=== PATIENT | male | born 1940 | race Caucasian/White ===

== ENCOUNTER 2016-11-04 14:56 | Inpatient (IN) ==
[2016-11-04] MEDS ORDERED: 0.9 % SODIUM CHLORIDE 1,000 ML IV ONE (15:09)
--- NOTE | 2016-11-04 15:11 | Emergency Department Note ---
Syncope HPI - General Chief Complaint: Syncope Stated Complaint: syncope, dizziness, Time Seen by Provider: 11/04/16 15:09 Source: patient, family Mode of arrival: ambulatory Limitations: no limitations - History of Present Illness HPI Narrative: This patient was feeling stuffed up and so put his head over the pad of hot water with a towel after a few minutes he began feeling faint and passed out briefly for about 20 seconds. His blood pressure is been up and down over the last few days. It was low on Saturday and he was started on Midrin. He was also given Zithromax for an upper respiratory infection. - Related Data Home Medications Medication Instructions Recorded Confirmed aspirin 81 mg chewable tablet 81 mg PO QDAY tab 03/30/15 10/29/16 carvedilol 6.25 mg tablet 6.25 mg PO BID tab 03/30/15 10/29/16 docusate sodium 100 mg capsule 100 mg PO BID cap 03/30/15 10/29/16 isosorbide mononitrate ER 30 mg 30 mg PO QAM tab 03/30/15 10/29/16 tablet,extended release 24 hr multivitamin tablet 1 tab PO QDAY tab 03/30/15 10/29/16 nitroglycerin 0.4 mg sublingual 0.4 mg SUBLINGUAL Q5-15MIN PRN tab 03/30/1503/09 tablet oxygen-air delivery systems device See Dose Instructions .ROUTE 03/30/15 .MEDSUPPLY insulin aspart 100 unit/mL See Protocol SUB-Q TID ml 08/17/15 07/23/16 subcutaneous solution insulin glargine 100 unit/mL 40 unit SUB-Q QPM ml 08/17/15 10/29/16 subcutaneous solution cholecalciferol (vitamin D3) 1,000 1,000 unit PO QDAY 09/07/15 10/29/16 unit capsule bumetanide 1 mg tablet 1 mg PO QDAY tab 07/23/16 10/29/16 Previous Rx's Medication Instructions Recorded insulin NPH human recomb 100 15 unit SUB-Q QAM #20 ml 11/24/15 unit/mL subcutaneous suspension atorvastatin 80 mg tablet 80 mg PO QDAY 90 Days 07/02/16 citalopram 20 mg tablet 20 mg PO QDAY 90 Days 07/02/16 clopidogrel 75 mg tablet 75 mg PO QDAY 90 Days 07/02/16 finasteride 5 mg tablet 5 mg PO QDAY 90 Days 07/02/16 losartan 50 mg tablet 50 mg PO QDAY 90 Days 07/02/16 tamsulosin 0.4 mg capsule 0.4 mg PO QDAY 90 Days 07/02/16 predniSONE [Prednisone] 10 mg PO DAILY #40 tablet 10/29/16 Midodrine HCl 10 mg PO TID #30 tablet 11/02/16 Allergies Allergy/AdvReac Type Severity Reaction Status Date / Time Beta-Blockers AdvReac Intermediate tendency Verified 07/23/16 10:50 (Beta-Adrenergic Bloc toward bradycardia w/Coreg & Sectral Review of Systems Constitutional: Denies: fever Eyes: Denies: eye pain ENT ED: Denies: ear pain Cardiovascular: Denies: chest pain Respiratory: Denies: cough Gastrointestinal: Denies: abdominal pain, nausea Genitourinary: Denies: urgency Musculoskeletal: Denies: back pain Integumentary: Denies: rash Neurological: Denies: headache Past Medical History - Past Medical History Medical history: Reports: atrial fibrillation (paroxysmal), CHF, COPD, coronary artery disease, diabetes, GERD, hyperlipidemia, hypertension, renal disease, other (bPH) Surgical history ED: Reports: angioplasty/stent, cataract, herniorrhaphy, pacemaker/AICD - Social History Alcohol use: Reports: None Drug use: Reports: none Physical Exam - General Limitations: no limitations General appearance: alert - Head Head exam: atraumatic - Eye Eye exam: Present: normal appearance - ENT ENT exam: normal exam - Neck Neck exam: Present: normal inspection - Chest Chest inspection: Present: normal inspection - Respiratory Respiratory exam: Present: normal lung sounds bilaterally - Cardiovascular Cardiovascular exam: Present: regular rate, normal rhythm, normal heart sounds - Abdominal Exam Abdominal exam: Present: soft. Absent: distention, tenderness - Neurological Exam Neurological exam: Present: alert - Psychiatric Psychiatric exam: Present: normal affect - Skin Skin exam: Present: warm, dry Course Vital Signs Pulse Rate 60 11/04/16 14:57 Respiratory Rate 20 11/04/16 14:57 Blood Pressure 102/46 11/04/16 14:57 Pulse Oximetry (%) 98 11/04/16 14:57 Pulse Rate 60 11/04/16 16:14 Respiratory Rate 21 11/04/16 16:14 Blood Pressure 115/54 11/04/16 16:14 Pulse Oximetry (%) 95 11/04/16 16:14 Syncope - Lab Data Result diagrams: 11/04/16 15:13 11/04/16 15:12 Lab Results 11/04/16 11/04/16 11/04/16 Range/Units 15:12 15:13 15:13 WBC 12.3 H (4.5-11.0) K/mcL RBC 4.76 (4.50-5.90) M/mcL Hgb 14.8 (13.5-16.5) g/dL Hct 42.4 (41.0-55.0) % MCV 89.1 (80.0-100.0) fL MCH 31.1 (26.0-34.0) pg MCHC 34.9 (31.0-36.0) g/dL RDW 12.0 (11.5-14.5) % Plt Count 236 (140-440) K/mcL MPV 9.1 (7.4-10.4) fL Gran % 79.5 H (38.0-78.0) % Lymph % (Auto) 15.7 (15.5-49.0) % [place] % (Auto) 3.7 (1.0-9.0) % Eos % (Auto) 0.8 (0.0-7.0) % Baso % (Auto) 0.3 (0.0-2.0) % Gran # 9.8 H (1.8-8.0) K/mcL Lymph # 1.9 (1.5-4.8) K/mcL [place] # 0.5 (0.1-0.9) K/mcL Eos # 0.1 (0.0-0.7) K/mcL Baso # 0 (0.0-0.3) K/mcL Sodium 135 (133-145) mmol/L Potassium 4.4 (3.3-5.1) mmol/L Chloride 94 L (96-108) mmol/L Carbon Dioxide 29 (22-30) mmol/L Anion Gap 12.0 (8-16) BUN 28 H (8-23) mg/dl Creatinine 1.6 H (0.7-1.2) mg/dl GFR Calculation 42 Glucose 207 H (70-105) mg/dL Calcium 8.9 (8.6-10.4) mg/dl Total Bilirubin 0.3 (0.0-1.0) mg/dL AST 27 (0-37) U/l ALT 23 (0-40) U/l Alkaline Phosphatase 84 (39-117) U/L Troponin T 0.01 (0-0.03) ng/ml Total Protein 7.0 (5.9-8.4) gm/dL Albumin 3.7 (3.2-5.2) gm/dL Globulin 3.3 (2.2-3.7) gm/dL Albumin/Globulin Ratio 1.1 (1.0-2.3) Disposition Clinical Impression: Vasovagal syncope Disposition: Home, Self-Care Condition: Good Instructions: Syncope (ED), Lightheadedness (ED) Referrals: Ac Harris MD [Primary Care Provider] - Time of Disposition: 16:56
[2016-11-04 15:53] LABS: Basophils # (Auto) 0 K/mcL (0.0-0.3); Basophils % (Auto) 0.3 % (0.0-2.0); Eosinophils # (Auto) 0.1 K/mcL (0.0-0.7); Eosinophils % (Auto) 0.8 % (0.0-7.0); Granulocytes % (Auto) 79.5 % (38.0-78.0); Lymphocytes # (Auto) 1.9 K/mcL (1.5-4.8); Lymphocytes % (Auto) 15.7 % (15.5-49.0); Mean Cell Volume 89.1 fL (80.0-100.0); Mean Corpuscular HGB Conc 34.9 g/dL (31.0-36.0); Mean Corpuscular Hemoglobin 31.1 pg (26.0-34.0); Monocytes # (Auto) 0.5 K/mcL (0.1-0.9); Monocytes % (Auto) 3.7 % (1.0-9.0); Platelet Count 236 K/mcL (140-440); RBC 4.76 M/mcL (4.50-5.90)
[2016-11-04 16:17] LABS: ALT/SGPT 23 U/l (0-40); Albumin 3.7 gm/dL (3.2-5.2); Albumin/Globulin Ratio 1.1 (1.0-2.3); Alkaline Phosphatase 84 U/L (39-117); Blood Urea Nitrogen 28 mg/dl (8-23)
--- NOTE | 2016-11-04 17:56 | Emergency Department Note ---
Syncope HPI - General Chief Complaint: Syncope Stated Complaint: syncope, dizziness, Time Seen by Provider: 11/04/16 15:09 Source: patient, family Mode of arrival: ambulatory Limitations: no limitations - Related Data Home Medications Medication Instructions Recorded Confirmed aspirin 81 mg chewable tablet 81 mg PO QDAY tab 03/30/15 11/04/16 carvedilol 6.25 mg tablet 6.25 mg PO DAILY tab 03/30/15 11/04/16 isosorbide mononitrate ER 30 mg 30 mg PO QAM tab 03/30/15 11/04/16 tablet,extended release 24 hr nitroglycerin 0.4 mg sublingual 0.4 mg SUBLINGUAL Q5-15MIN PRN tab 03/30/1509/08 tablet oxygen-air delivery systems device See Dose Instructions .ROUTE 03/30/15 .MEDSUPPLY insulin aspart 100 unit/mL See Protocol SUB-Q TID ml 08/17/15 11/04/16 subcutaneous solution insulin glargine 100 unit/mL 40 unit SUB-Q QPM ml 08/17/15 11/04/16 subcutaneous solution bumetanide 1 mg tablet 1 mg PO QDAY tab 07/23/16 11/04/16 Previous Rx's Medication Instructions Recorded insulin NPH human recomb 100 15 unit SUB-Q QAM #20 ml 11/24/15 unit/mL subcutaneous suspension atorvastatin 80 mg tablet 80 mg PO QDAY 90 Days 07/02/16 citalopram 20 mg tablet 20 mg PO QDAY 90 Days 07/02/16 clopidogrel 75 mg tablet 75 mg PO QDAY 90 Days 07/02/16 finasteride 5 mg tablet 5 mg PO QDAY 90 Days 07/02/16 losartan 50 mg tablet 50 mg PO QDAY 90 Days 07/02/16 tamsulosin 0.4 mg capsule 0.4 mg PO QDAY 90 Days 07/02/16 predniSONE [Prednisone] 10 mg PO DAILY #40 tablet 10/29/16 Allergies Allergy/AdvReac Type Severity Reaction Status Date / Time Beta-Blockers AdvReac Intermediate tendency Verified 07/23/16 10:50 (Beta-Adrenergic Bloc toward bradycardia w/Coreg & Sectral Review of Systems Constitutional: Denies: fever Eyes: Denies: eye pain ENT ED: Denies: ear pain Cardiovascular: Denies: chest pain Respiratory: Denies: cough Gastrointestinal: Denies: abdominal pain, nausea Genitourinary: Denies: urgency Musculoskeletal: Denies: back pain Integumentary: Denies: rash Neurological: Denies: headache Past Medical History - Past Medical History Medical history: Reports: atrial fibrillation (paroxysmal), CHF, COPD, coronary artery disease, diabetes, GERD, hyperlipidemia, hypertension, renal disease, other (bPH) Surgical history ED: Reports: angioplasty/stent, cataract, herniorrhaphy, pacemaker/AICD - Social History Alcohol use: Reports: None Drug use: Reports: none Physical Exam - General Limitations: no limitations General appearance: alert Course Vital Signs Pulse Rate 60 11/04/16 14:57 Respiratory Rate 20 11/04/16 14:57 Blood Pressure 102/46 11/04/16 14:57 Pulse Oximetry (%) 98 11/04/16 14:57 Pulse Rate 60 11/04/16 17:17 Respiratory Rate 22 11/04/16 17:17 Blood Pressure 122/67 11/04/16 17:17 Pulse Oximetry (%) 96 11/04/16 17:17 Syncope - MDM Narrative Medical decision making narrative: Family sided they would rather have the patient stay overnight in the hospital and Dr. Garduno was agreeable to it. He will be admitted to telemetry. - Lab Data Result diagrams: 11/04/16 15:13 11/04/16 15:12 Lab Results 11/04/16 11/04/16 11/04/16 Range/Units 15:12 15:13 15:13 WBC 12.3 H (4.5-11.0) K/mcL RBC 4.76 (4.50-5.90) M/mcL Hgb 14.8 (13.5-16.5) g/dL Hct 42.4 (41.0-55.0) % MCV 89.1 (80.0-100.0) fL MCH 31.1 (26.0-34.0) pg MCHC 34.9 (31.0-36.0) g/dL RDW 12.0 (11.5-14.5) % Plt Count 236 (140-440) K/mcL MPV 9.1 (7.4-10.4) fL Gran % 79.5 H (38.0-78.0) % Lymph % (Auto) 15.7 (15.5-49.0) % [place] % (Auto) 3.7 (1.0-9.0) % Eos % (Auto) 0.8 (0.0-7.0) % Baso % (Auto) 0.3 (0.0-2.0) % Gran # 9.8 H (1.8-8.0) K/mcL Lymph # 1.9 (1.5-4.8) K/mcL [place] # 0.5 (0.1-0.9) K/mcL Eos # 0.1 (0.0-0.7) K/mcL Baso # 0 (0.0-0.3) K/mcL Sodium 135 (133-145) mmol/L Potassium 4.4 (3.3-5.1) mmol/L Chloride 94 L (96-108) mmol/L Carbon Dioxide 29 (22-30) mmol/L Anion Gap 12.0 (8-16) BUN 28 H (8-23) mg/dl Creatinine 1.6 H (0.7-1.2) mg/dl GFR Calculation 42 Glucose 207 H (70-105) mg/dL Calcium 8.9 (8.6-10.4) mg/dl Total Bilirubin 0.3 (0.0-1.0) mg/dL AST 27 (0-37) U/l ALT 23 (0-40) U/l Alkaline Phosphatase 84 (39-117) U/L Troponin T 0.01 (0-0.03) ng/ml Total Protein 7.0 (5.9-8.4) gm/dL Albumin 3.7 (3.2-5.2) gm/dL Globulin 3.3 (2.2-3.7) gm/dL Albumin/Globulin Ratio 1.1 (1.0-2.3) Disposition Clinical Impression: Vasovagal syncope Disposition: Home, Self-Care Condition: Good Instructions: Syncope (ED), Lightheadedness (ED) Referrals: Ac Harris MD [Primary Care Provider] -
--- NOTE | 2016-11-04 18:34 | Cat Scan Report ---
CLINICAL INFORMATION: Syncope COMPARISON: 11/02/2016 TECHNIQUE: 2.5 mm helical slices were obtained in the skull base to vertex. Following reconstruction, axial reformatted images were reviewed at bone and parenchymal windows. FINDINGS: The ventricles, sulci, fissures, and cisterns are symmetrically enlarged bowel mild age-related atrophy - no extra-axial fluid collections or masses are appreciated. Patchy chronic ischemic changes in the cerebral white matter and few scattered tiny remote lacunar infarcts in the the cerebral white matter and basal ganglia seen - as before. No acute cerebral hemorrhage, mass effect or edema. Bone windows show no osseous abnormality. IMPRESSION: Mild atrophy and chronic ischemic changes in the cerebral white matter with scattered remote lacunar infarcts. No change from previous study - no acute disease. Interpreted and Authenticated by: Damon Moffett 11/04/16
[2016-11-04 19:24] LABS: Appearance,Urine CLEAR; Bacteria,Urine 0 /hpf (0); Bilirubin,Urine NEG (NEG); Color,Urine YELLOW; Glucose,Urine (UA) >=500 mg/dL (NEG); Leukocyte Esterase,Urine NEG /uL (NEG); Mucus,Urine FEW /hpf (0); Nitrate,Urine NEG (NEG); Protein,Urine NEG (NEG); Urine Blood NEG mg/dL (<0.03); Urine Hyaline Cast 13 /lpf (0-2); Urine RBC 1 /hpf (0-1); Urine Squamous Epithelial Cell < 1 /hpf (0-4); Urine WBC 1 /hpf (0-4); Urobilinogen,Urine NEG (NEG)
[2016-11-04] MEDS ORDERED: traZODone HCL 50 MG TABLET PO PRN (20:36)
[2016-11-04] MEDS ORDERED: ACETAMINOPHEN 1,000 MG/100 ML BOTTLE IV PRN (20:36)
[2016-11-04] MEDS ORDERED: guaiFENesin/CODEINE 10 ML UDC PO PRN (20:36)
[2016-11-04] MEDS ORDERED: ONDANSETRON 4 MG/2 ML VIAL IV PRN (20:36)
[2016-11-04] MEDS ORDERED: ACETAMINOPHEN 325 MG TABLET PO PRN (20:36)
[2016-11-04] MEDS ORDERED: POTASSIUM CHLORIDE 20 MEQ PACKET PO PRN (20:36)
[2016-11-04] MEDS ORDERED: MAGNESIUM SULFATE 2 GM/50 ML BAG IV PRN (20:36)
[2016-11-04] MEDS: INSULIN GLARGINE, HUMAN 1 UNIT/0.01 ML SQ SCH (21:31)
[2016-11-04] MEDS: SENNOSIDES/DOCUSATE SODIUM 1 TAB TABLET PO SCH (21:32)
[2016-11-04] MEDS: DOCUSATE SODIUM 100 MG CAPSULE PO SCH (21:32)
[2016-11-04] MEDS: HEPARIN 5,000 UNIT/ML VIAL SQ SCH (21:34)
[2016-11-04] MEDS: 0.9 % SODIUM CHLORIDE 10 ML SYRINGE IV SCH (21:35)
--- NOTE | 2016-11-04 22:00 | History and Physical Report ---
DATE OF ADMISSION: 11/04/2016 REASON FOR ADMISSION: Syncopal episode. HISTORY OF CHIEF COMPLAINT: The patient is a 76-year-old with known history of coronary artery disease, ischemic cardiomyopathy status post pacemaker placement. The patient has had poorly controlled diabetes and has had recurrent syncopal episodes in the past. He was evaluated by [facility] recently and was started on midiodrine. However, his symptoms have progressed to the point that patient gets a syncopal episode every 10-15 days. He was supposed to see slab grinder, Dr. Maya. However, this afternoon he passed out while he was trying steam inhalation for a stuffed nose and was subsequently brought to [facility] ER. Initial workup was unremarkable except for low blood pressures around 80s. The patient received crystalloids with subsequent improvement in blood pressures and near resolution of symptoms; however, given syncopal episodes hospitalist service was consulted. At the time of examination, the patient is alert, oriented. He is able to provide most of the history. He denies lightheadedness, chest pain, dizziness. Initial troponins, along with EKG, were essentially unremarkable, unchanged from prior. He denies diarrhea or dysuria. He denies excessive diuretic use. He further denies chest palpitation, exertional chest pain, or exertional dyspnea. He denies changes in medications. He endorses to very high blood sugars with poor control; is currently on Lantus, Novolin, and NovoLog and has extensive peripheral neuropathy. REVIEW OF SYSTEMS: Other than that, a 10-point review of system was performed and negative except the ones discussed above. PAST MEDICAL HISTORY: Significant for: 1. Ischemic cardiomyopathy. 2. Hyperlipidemia. 3. Hypertension. 4. Anxiety disorder. 5. Diabetes mellitus type 2. 6. Benign prostatic hypertrophy. 7. History of chronic kidney disease, stage 3. CURRENT MEDICATIONS: Aspirin 81. Plavix 75. Bumetanide 1. Atorvastatin 80. Coreg 6.25 twice daily Prednisone 10. Finasteride 5. Isosorbide 30. Losartan 50. Tamsulosin 0.4. Novolin 15 every a.m. Aspart for sliding scale. Glargine 40. ALLERGIES: Known To BETA BLOCKERS. SOCIAL HISTORY: The patient quit smoking 40 years ago. He is to his , Lisy. He has a son and a daughter. He is retired from . He uses occasional beer and wine. Lives in the [place]. FAMILY HISTORY: Significant for dementia, mother and grandmother. Father and uncle with type 2 diabetes, essential hypertension, coronary artery disease and myocardial infarction. PHYSICAL EXAMINATION: GENERAL EXAMINATION: The patient is alert, oriented. BMI 39. Height 5 feet 9 inches. VITAL SIGNS: Blood pressure up from 80 systolic to 175/88. Respiratory rate 20. Temperature 96.9. Pulse 59. Sats 96% on room air. HEENT: Pupils symmetric. Oral cavity dry. No ear or nose discharge. Head: Normocephalic, atraumatic. NECK: No lymphadenopathy. HEART: S1, S2 regular rhythm. Pacemaker leads, anterior chest. Diminished breath sounds but no crackles. ABDOMEN: Soft, nontender. LOWER EXTREMITY EXAMINATION: No cyanosis or clubbing. No joint swelling. SKIN: No suspicious lesions. PSYCHIATRIC: Alert and cooperative. No anxiety or agitation. NEURO: Nonfocal except for neuropathic changes in glove and stocking fashion. LABS AND IMAGING: White count 12.3, hemoglobin 14.8, neutrophils 80 percent platelets 236. Sodium 135, potassium 4.4, creatinine 1.6, BUN 28. LFTs unremarkable. UA unremarkable. CT head: Atrophy and chronic ischemic changes. No acute change abnormality. EKG: Left axis deviation with left ventricular hypertrophy. T inversion, anterolateral leads. ASSESSMENT AND PLAN: A 76-year-old with known history of ischemic cardiomyopathy, admitted with syncope. 1. Syncope, rule out neurocardiogenic syncope. CT unremarkable. The patient has a pacemaker and no evidence of tachyarrhythmia on EKG. We will continue patient on telemetry monitoring to rule out tachyarrhythmias, perform orthostatics. High probability of autonomic dysfunction secondary to poorly controlled diabetes. We will consult cardiology, Dr. Maya, in the morning. The patient will be admitted for observation for further evaluation of recurrent syncopal episodes. 2. Other prior medical issues. Will be continued on prior home medications includina. Diabetes mellitus type 2. Continue basal prandial insulin. 2b. Benign prostatic hypertrophy. Continue tamsulosin/finasteride 2c. Anxiety disorder. Continue citalopram. 2d. Hyperlipidemia. Continue statin. 2e. History of coronary artery disease. Continue aspirin, statin and Coreg/Plavix. PLAN FOR TODAY: 1. Admit as an inpatient. 2. Cardiology consult. 3. Syncope workup. 4. Echocardiogram. 5. Preexisting medical condition management as above. AA:[email or web address] Job ID: [id number] Doc ID: [id number] Santos Guallpa MD MTDD
[2016-11-04 22:27] LABS: Estimated Average Glucose(eAG) 292 mg/dL; Hemoglobin A1C 11.8 % HGB (4.0-6.0)
[2016-11-05 05:44] LABS: Mean Cell Volume 88.7 fL (80.0-100.0); Mean Corpuscular HGB Conc 34.6 g/dL (31.0-36.0); Mean Corpuscular Hemoglobin 30.7 pg (26.0-34.0); Platelet Count 202 K/mcL (140-440); RBC 4.38 M/mcL (4.50-5.90); Red Cell Distribution Width 11.7 % (11.5-14.5)
[2016-11-05 06:52] LABS: ALT/SGPT 23 U/l (0-40); Albumin 3.4 gm/dL (3.2-5.2); Albumin/Globulin Ratio 1.4 (1.0-2.3); Alkaline Phosphatase 74 U/L (39-117); Bilirubin,Direct < 0.2 mg/dL (0.0-0.3); Blood Urea Nitrogen 29 mg/dl (8-23); Gamma Glutamyl Transpeptidase 11 U/L (8-61); Phosphorous 2.8 mg/dL (2.7-4.5); Uric Acid 7.2 mg/dL (2.5-8.0)
[2016-11-05 07:05] LABS: Band Neutrophils % 1 % (0-10); Lymphocytes % 19 % (15-49); Monocytes % (Manual) 8 % (1-9); Myelocytes % 1 % (0-0); Platelet Estimate NORMAL (NORMAL); RBC Morphology NORMAL (NORMAL); Segmented Neutrophils % 67 % (38-78)
[2016-11-05] MEDS: 0.9 % SODIUM CHLORIDE 10 ML SYRINGE IV SCH ×3 (07:12→21:30)
--- NOTE | 2016-11-05 07:45 | XRay Report ---
HISTORY: Reason for Exam:elevated WBC, syncope FINDINGS: A small band of discoid atelectasis is present above the left costophrenic sulcus. This has enlarged since 10/29/16. The lungs are otherwise clear normally expanded. The heart is mildly enlarged. There is no congestive heart failure or pleural effusion. Dual-chamber pacemaker is well-positioned. IMPRESSION: Mild discoid atelectasis in the lateral basal segment left lower lobe Interpreted and Authenticated by: Helio Rocha 11/05/16
[2016-11-05] MEDS: predniSONE 10 MG TABLET PO SCH (08:02)
[2016-11-05] MEDS: TAMSULOSIN 0.4 MG CAPSULE PO SCH (08:30)
[2016-11-05] MEDS: CITALOPRAM 20 MG TABLET PO SCH (08:30)
[2016-11-05] MEDS: ASPIRIN 81 MG TAB.CHEW PO SCH (08:30)
[2016-11-05] MEDS: ISOSORBIDE MONONITRATE 30 MG TAB.XL.24H PO SCH (08:30)
[2016-11-05] MEDS: ATORVASTATIN 40 MG TABLET PO SCH (08:31)
[2016-11-05] MEDS: MULTIVIT,THER IRON,CA,FA & MIN 1 TABLET PO SCH (08:31)
[2016-11-05] MEDS: CLOPIDOGREL 75 MG TABLET PO SCH (08:31)
[2016-11-05] MEDS: HEPARIN 5,000 UNIT/ML VIAL SQ SCH ×2 (08:31→21:25)
[2016-11-05] MEDS: DOCUSATE SODIUM 100 MG CAPSULE PO SCH ×2 (08:31→21:24)
[2016-11-05] MEDS: LOSARTAN 50 MG TABLET PO SCH (08:31)
[2016-11-05] MEDS: BUMETANIDE 1 MG TABLET PO SCH (08:32)
[2016-11-05] MEDS: INSULIN LISPRO 1 UNIT/0.01 ML UNIT SQ SCH ×4 (08:33→21:27)
[2016-11-05] MEDS: FINASTERIDE 5 MG TABLET PO SCH (08:47)
[2016-11-05] MEDS: INSULIN NPH, HUMAN 1 UNIT/0.01 ML UNIT SQ SCH (08:47)
[2016-11-05] MEDS: CARVEDILOL 6.25 MG TABLET PO SCH (09:42)
--- NOTE | 2016-11-05 10:15 | Internal Med Progress Note ---
Medical - PN: Subj Patient information: Note initiated : 11/05/16 at 10:11 am Service Date, if different from initiated Date: [] Patient: Black Armstrong 76 y/o M admitted on 11/04/16 for Syncope/Dizziness. Chief Complaint: [] Interval history: 11/0498-09-[id number]-old with ischemic cardiomyopathy/sick sinus syndrome status post pacemaker placement admitted with recurrent episodes of syncope in the recent past and today. patient has been started on midodrine by [place] [facility] but has been taking due to concerns of hypertension. he is admitted for observation/cardiology consultation per Dr. Maya. 11/05- patient doing well. Systolics ranging from 80-200. Asymptomatic. Tolerating physical therapy. review prior medical records. await echocardiogram. Cardiology consulted. Continue telemetry monitoring. No overnight significant tachyarrhythmias. Patient feels at baseline. Discussed treatment plan including continuation of midodrine to offset hypotension mediated syncope due to severe autonomic dysfunction likely secondary to underlying poorly controlled diabetes - Constitutional Vitals: Vital Signs Temp Pulse Resp BP Pulse Ox 97.9 F 67 16 162/104 95 11/05/16 04:00 11/05/16 07:13 11/05/16 07:13 11/05/16 07:13 11/05/16 07:13 Period Temp Pulse Resp BP Sys/Carter Pulse Ox Last 24 Hr 97.6 F-97.9 F 60-67 16-18 162-212/69-156 95-99 Intake and Output 11/04/16 11/05/16 11/05/16 21:59 05:59 13:59 Intake Total 100 / 1100 Output Total 400 / 400 400 / 400 Balance -300 / 700 -400 / -400 Weight 265 lb Intake & Output: Intake & Output 11/04/16 11/05/16 11/05/16 21:59 05:59 13:59 Intake Total 100 / 1100 Output Total 400 / 400 400 / 400 Balance -300 / 700 -400 / -400 Weight 265 lb Intake: Oral 100 / 100 Output: Void Amount 400 / 400 400 / 400 Other: # Voids 1 # Bowel Movements 1 General appearance: cooperative, morbidly obese, no acute distress Exam: alert oriented nonlabored breathing No lightheadedness dizziness No anxiety nondistended abdomen Medical - PN: Obj Da - Labs CBC & Chem 7: 11/05/16 04:56 11/05/16 04:56 Labs: Abnormal Lab Results 11/05/16 11/05/16 11/04/16 04:56 04:56 20:52 RBC 4.38 L Hgb 13.4 L Hct 38.9 L Myelocytes % 1 H Reactive Lymphocytes 4 H ESR Chloride 95 L BUN 29 H Creatinine 1.5 H Glucose 325 H Hemoglobin A1c 11.8 H Calcium 8.5 L C-Reactive Protein Total Protein 5.8 L Triglycerides 209 H 11/04/16 11/04/16 20:52 20:52 RBC Hgb Hct Myelocytes % Reactive Lymphocytes ESR 19 H Chloride BUN Creatinine Glucose Hemoglobin A1c Calcium C-Reactive Protein 1.1 H Total Protein Triglycerides Meds: Medications Acetaminophen (Tylenol) 650 mg PO Q4-6HP PRN PRN Reason: PAIN/FEVER > 101 Aspirin (Aspirin) 81 mg PO QDAY [facility] Last Admin: 11/05/16 08:30 Dose: 81 mg Atorvastatin Calcium (Lipitor) 80 mg PO DAILY [facility] Last Admin: 11/05/16 08:31 Dose: 80 mg Bumetanide (Bumex) 1 mg PO QDAY [facility] Last Admin: 11/05/16 08:32 Dose: 1 mg Carvedilol (Coreg) 6.25 mg PO DAILY [facility] Last Admin: 11/05/16 09:42 Dose: 6.25 mg Citalopram Hydrobromide (Celexa) 20 mg PO QDAY [facility] Last Admin: 11/05/16 08:30 Dose: 20 mg Clopidogrel Bisulfate (Plavix) 75 mg PO QDAY [facility] Last Admin: 11/05/16 08:31 Dose: 75 mg Diagnostic Test (Pha) (Accu-Chek) 1 each FS ACHS [facility] Last Admin: 11/05/16 07:12 Dose: 1 each Docusate Sodium (Colace) 100 mg PO BID [facility] Last Admin: 11/05/16 08:31 Dose: 100 mg Finasteride (Proscar) 5 mg PO QDAY [facility] Last Admin: 11/05/16 08:47 Dose: 5 mg Guaifenesin/Codeine Phosphate (Robitussin Ac) 10 ml PO Q4HP PRN PRN Reason: Cough Heparin Sodium (Porcine) (Heparin) 5,000 unit SQ Q12 [facility] Last Admin: 11/05/16 08:31 Dose: 5,000 unit Magnesium Sulfate (Magnesium Sulfate) 2 gm in 50 mls @ 50 mls/hr IV UD PRN PRN Reason: MG = or < 1.7 Acetaminophen (Ofirmev) 1,000 mg in 100 mls @ 200 mls/hr IV Q6HP PRN PRN Reason: PAIN/FEVER > 101 Insulin Glargine (Lantus) 40 unit SQ QPM [facility] Last Admin: 11/04/16 21:31 Dose: 40 unit Insulin Human Lispro (Humalog) 0 unit SQ ACHS [facility] PRN Reason: Protocol Last Admin: 11/05/16 08:33 Dose: 8 unit Insulin Human NPH (Humalin N) 15 unit SQ DAILY [facility] Last Admin: 11/05/16 08:47 Dose: 15 unit Iron Carb/Multivit/Oil Changer/Folic Acid (Multivitamin W/Minerals) 1 tab PO DAILY [facility] Last Admin: 11/05/16 08:31 Dose: 1 tab Isosorbide Mononitrate (Imdur) 30 mg PO QAM [facility] Last Admin: 11/05/16 08:30 Dose: 30 mg Losartan Potassium (Cozaar) 50 mg PO QDAY [facility] Last Admin: 11/05/16 08:31 Dose: 50 mg Ondansetron HCl (Zofran) 4 mg IV Q4-6HP PRN PRN Reason: Nausea And Vomiting Potassium Chloride (Klor-Con) 40 meq PO DAILYP PRN PRN Reason: K+ < 3.5 Prednisone (Prednisone) 10 mg PO QAC [facility] Last Admin: 11/05/16 08:02 Dose: 10 mg Senna/Docusate Sodium (Senna Plus Tablet) 1 tab PO HS [facility] Last Admin: 11/04/16 21:32 Dose: 1 tab Sodium Chloride (Saline Flush) 10 ml IV Q8 [facility] Last Admin: 11/05/16 07:12 Dose: 10 ml Tamsulosin HCl (Flomax) 0.4 mg PO QDAY [facility] Last Admin: 11/05/16 08:30 Dose: 0.4 mg Trazodone HCl (Desyrel) 50 mg PO HSP PRN PRN Reason: Insomnia Medical - PN: A/P - Time Spent With Patient Total time spent is greater than 50% in coordination of care (as documented) at patient's floor/unit and/or counseling patient: 25 - 35 minutes (1) Syncope and collapse Status: Acute Assessment and plan: * Syncope- likely secondary to autonomic dysfunction. No tachyarrhythmias, echo pending to evaluate for valvular architecture. orthostatic in ER however improved today. * Hhistory of coronary artery disease on aspirin and statin Coreg,Plavix/ARB/ nitrate/Bumex * BPH on finasteride/tamsulosin * DM type II on basal prandial insulin * Hypertension on Coreg/ARB * Anxiety disorder on citalopram Plan * Cardiology consult * Telemetry monitoring, orthostatic blood pressures * pre-existing medical condition management as above * possible discharge in 24 hours Current Visit: Yes Medical - PN: Qual - VTE Deep Vein Thrombosis/Pulmonary Embolism Present on Admission: No
[2016-11-05] MEDS ORDERED: INSULIN LISPRO 1 UNIT/0.01 ML UNIT SQ ONE (14:06)
[2016-11-05] MEDS: SENNOSIDES/DOCUSATE SODIUM 1 TAB TABLET PO SCH (21:24)
[2016-11-05] MEDS: INSULIN GLARGINE, HUMAN 1 UNIT/0.01 ML SQ SCH (21:26)
[2016-11-06 06:41] LABS: Mean Cell Volume 91.6 fL (80.0-100.0); Mean Corpuscular HGB Conc 32.8 g/dL (31.0-36.0); Platelet Count 250 K/mcL (140-440); RBC 4.68 M/mcL (4.50-5.90); Red Cell Distribution Width 12.6 % (11.5-14.5)
--- NOTE | 2016-11-06 06:56 | Echocardiogram Report ---
ECHOCARDIOGRAM: 2-D and M-mode echocardiography with cardiac Doppler and color flow imaging were performed with a [employer] Aplio MX. Indication is syncope. Overall and size of the RA, RV, LV, and aortic root appeared normal. LV wall thickness appeared mildly increased. The inferior and posterolateral britton appeared mildly to moderately hypokinetic. The other LV segments appeared to contract normally and overall LV systolic performance appeared borderline to mildly reduced. Estimated ejection fraction is 45-50%. There was no evidence for mural thrombi. The LA appeared mildly to moderately enlarged. The aortic root appeared sclerotic. The aortic valve appeared trileaflet and normal for age. There was no evidence for aortic stenosis or aortic regurgitation by Doppler interrogation. The mitral and tricuspid valves appeared unremarkable. Doppler interrogation of LV inflow disclosed prolonged early diastolic deceleration time and ''a'' dominance indicating delayed LV relaxation. There was no evidence for mitral regurgitation. Pulmonary venous interrogation disclosed normal ''s'' wave dominance. The pulmonic valve showed normal \\"a'' wave amplitude. Pulmonary artery acceleration time appeared normal. There was no evidence for pulmonic stenosis. Pulmonic regurgitation, probably trivial, was demonstrated. There was no evidence for tricuspid regurgitation. No intracardiac shunting was appreciated. There was no evidence for pericardial effusion. The IVC was dilated and did not vary with the respiratory cycle indicating raised the CVP. Pacemaker leads were seen within the right heart chambers. Probable artificial atrial pacemaker rhythm, rate 60, was present. CONCLUSION:Aortic root sclerosis. Mild concentric LVH with mild to moderate segmental systolic dysfunction and overall borderline to mildly reduced systolic performance. Mild to moderate LA enlargement. Probable raised CVP. (See accompanying M-mode and Doppler reports for quantitation.) ECHOCARDIOGRAPHY M-MODE CALCULATIONS: HT: 69'' WT: 265 BSA: 2.33 m2 NORMALS AORTA: AORTIC ROOT 3.5 2.0-3.7 cm LEFT ATRIUM 4.8 1.9-4.0 cm MITRAL VALVE: EXCURSION 2.2 1.9-2.7 cm EPSS 0.4 <0.5 cm LT VENTRICLE: LVID (ED) 5.0 3.5-5.7 cm LVID (ES) 3.2 SEPTAL THICKNESS 1.2 0.6-1.1 cm SEPTAL EXCURSION 0.4 0.3-0.8 cm LVPW THICKNESS 1.2 0.6-1.1 cm LVPW EXCURSION 1.1 0.9-1.4 cm MINOR AXIS FS 3.6 25%-40% RT VENTRICLE: RVID (ED) -- 0.9-2.6 cm(up to 3cm if LLD) QUALITATIVE DOPPLER FLOW STUDIES MITRAL VALVE -- AORTIC VALVE -- TRICUSPID VALVE -- PULMONIC VALVE OR, probably trivial QUANTITATIVE DOPPLER FLOW STUDIES SAMPLE SITES VELOCITIES PEAK PRESSURE VALVE AREA and/or VALVE WINDOW (PEAK,M/SEC) DROP (GRADIENT) PRESSURE HALF-TIME MV (Diastole) 0.6 0.68 -- -- MV (Systole) -- -- -- AO (Diastole) -- -- -- AO (Systole) 1.0 -- -- TV (Systole) -- -- -- PV (Systole) 0.8 -- -- PV (Diastole) 1.0 LWG:chasity Job ID: [id number] Doc ID: [id number] Ethan Maya MD
[2016-11-06 07:21] LABS: ALT/SGPT 21 U/l (0-40); Albumin 3.5 gm/dL (3.2-5.2); Albumin/Globulin Ratio 1.2 (1.0-2.3); Alkaline Phosphatase 75 U/L (39-117); Bilirubin,Direct < 0.2 mg/dL (0.0-0.3); Blood Urea Nitrogen 32 mg/dl (8-23); Gamma Glutamyl Transpeptidase 17 U/L (8-61); Phosphorous 3.7 mg/dL (2.7-4.5); Uric Acid 7.8 mg/dL (2.5-8.0)
[2016-11-06] MEDS: 0.9 % SODIUM CHLORIDE 10 ML SYRINGE IV SCH (07:49)
[2016-11-06] MEDS: INSULIN LISPRO 1 UNIT/0.01 ML UNIT SQ SCH (07:50)
[2016-11-06 07:55] LABS: Eosinophils % (Manual) 4 % (0-7); Lymphocytes % 29 % (15-49); Monocytes % (Manual) 6 % (1-9); Platelet Estimate NORMAL (NORMAL); RBC Morphology NORMAL (NORMAL); Segmented Neutrophils % 61 % (38-78)
[2016-11-06] MEDS: predniSONE 10 MG TABLET PO SCH (07:57)
[2016-11-06] MEDS: INSULIN NPH, HUMAN 1 UNIT/0.01 ML UNIT SQ SCH (09:18)
[2016-11-06] MEDS: HEPARIN 5,000 UNIT/ML VIAL SQ SCH (09:19)
[2016-11-06] MEDS: FINASTERIDE 5 MG TABLET PO SCH (09:20)
[2016-11-06] MEDS: ASPIRIN 81 MG TAB.CHEW PO SCH (09:20)
[2016-11-06] MEDS: CLOPIDOGREL 75 MG TABLET PO SCH (09:21)
[2016-11-06] MEDS: CARVEDILOL 6.25 MG TABLET PO SCH (09:21)
[2016-11-06] MEDS: LOSARTAN 50 MG TABLET PO SCH (09:21)
[2016-11-06] MEDS: ATORVASTATIN 40 MG TABLET PO SCH (09:22)
[2016-11-06] MEDS: BUMETANIDE 1 MG TABLET PO SCH (09:22)
[2016-11-06] MEDS: TAMSULOSIN 0.4 MG CAPSULE PO SCH (09:23)
[2016-11-06] MEDS: ISOSORBIDE MONONITRATE 30 MG TAB.XL.24H PO SCH (09:23)
[2016-11-06] MEDS: DOCUSATE SODIUM 100 MG CAPSULE PO SCH (09:23)
[2016-11-06] MEDS: MULTIVIT,THER IRON,CA,FA & MIN 1 TABLET PO SCH (09:24)
[2016-11-06] MEDS: CITALOPRAM 20 MG TABLET PO SCH (09:24)
--- NOTE | 2016-11-06 09:59 | Discharge Summary ---
Discharge Plan - Patient/Caregiver Discharge Instructions Discharge Summary: DISCHARGE DIAGNOSIS * Syncope- likely secondary to autonomic dysfunction. No tachyarrhythmias, No Echo evidence of significant valvular stenosis. EF 45-50%. orthostatic in ER however improved yesterday. Patient is fully asymptomatic and requesting discharge. Cardiology consulted and will follow up with Dr. Maya is an outpatient. Cardiology recommended lowering Coreg dose to 3.125 twice daily * History of CAD on aspirin and statin Coreg,Plavix/ARB/nitrate/Bumex * BPH stable on finasteride/tamsulosin * DM type II managed on basal prandial insulin * Hypertension on Coreg/ARB * Anxiety disorder on citalopram [facility] COURSE [id number]-cyso-old with ischemic cardiomyopathy/sick sinus syndrome status post pacemaker placement admitted with recurrent episodes of syncope in the recent past and today. patient has been started on midodrine by [place] cardiology but has been taking due to concerns of hypertension. he is admitted for observation/cardiology consultation per Dr. Maya. 11/05- patient doing well. Systolics ranging from 80-200. Asymptomatic. Tolerating physical therapy. review prior medical records. await echocardiogram. Cardiology consulted. Continue telemetry monitoring. No overnight significant tachyarrhythmias. Patient feels at baseline. Discussed treatment plan including continuation of midodrine to offset hypotension mediated syncope due to severe autonomic dysfunction likely secondary to underlying poorly controlled diabetes 11/06 and patient is asymptomatic. No significant orthostasis. Cardiology consulted and recommended lowering dose of Coreg to 3.125 mg twice daily. atient will follow-up with cardiology as outpatient. He is ambulating tolerating diet denies dizziness or any symptoms including lightheadedness. During the 48 hour observation patient has been clinically asymptomatic without any telemetry events except for paced rhythm. Discharge instructions as below Activity: increase activity as tolerated, resume usual activities as tolerated Diet: Low Sodium (2gm) Additional Instructions: Follow-up PCP in 5 days follow-up with cardiology as advised I recommend SNF physician to check CBC BMP as a posthospital follow-up Coreg dose lowered to 3.125 mg twice daily high risk fall -continue using a walker for ambulation Return to ER if worsening lightheadedness dizziness chest pain shortness of breath Continue low sodium diet and activity as advised Discussed importance of medication adherence Please review medication list with patient prior to discharge Please schedule follow-up with PCP/Providers prior to discharge and provide printouts Portions of this chart may have been created with [employer] voice recognition software. Occasional wrong-word or ?sound-like? substitutions may have occurred due to the inherent limitations of voice recognition software. Please read the chart carefully and recognize, using context, where the substitutions have occurred. CC- Dr. Ac Harris Prescriptions: Carvedilol [Coreg] 3.125 mg PO BID #60 tablet - Follow up Plan Follow up with: Ac Harris MD [Primary Care Provider] - (After reviewing your chart, Dr. Harris's office will contact you for a post hospital follow up appointment. If you do not hear from them within 1 week please call. ) Disposition: Home, Self-Care Prognosis: Good Rehab Potential: Fair I certify that the patient requires SNF services.: No Overall status at discharge: patient is progressing back to baseline
--- NOTE | 2016-11-06 14:50 | Consultation ---
DATE OF CONSULTATION: 11/05/2016 This 76-year-old white man was seen in office consultation on 10/09/16. The reader is referred to the enclosed report from that date. The patient was stable until about a week ago. He seemed to develop bronchitis. He was seen at this hospital's urgent care and given a steroid taper. Initial prednisone dose was 40 mg daily. The patient then seemed to have more lability of blood pressure and lability of blood glucose. He generally felt poorly. There may have been an orthostatic component to lightheadedness, though he is vague in this regard. He had several instances of near syncope on 11/02/2016 and was seen at this hospital's ER. BP was low. Another family development specialist was informally consulted by phone and midodrine was recommended. The did not administer this to the patient, however. Yesterday, 11/04/2016, the patient was receiving nasal and sinus congestion. He fixed a basin of hot/steaming water. He then placed a towel over his head as a \\"kapoor.\\" He lowered his face to be near the water, then had more severe lightheadedness with \\"seizures\\" lasting a few seconds. He was brought back to the ER. This time he was admitted. Initial BP was about 100 systolic, although it has been variable. Rhythm monitoring has shown artificial atrial pace. A series of EKGs have shown no evolutionary changes. CBC and chemistries have been unremarkable. Echocardiogram performed today showed aortic root sclerosis. There was mild LVH with mild to moderate inferior and posterolateral hypokinesis, corresponding to the known old infarct. EF was about 45-50 percent, mildly to borderline reduced. There was some mild to moderate LA enlargement and inferior vena cava appearance suggesting possible raised CVP. Current cardiotonic medications include: Aspirin 81 mg daily. Lipitor 80 mg daily Bumex 1 mg daily. Coreg 6.25 mg daily. __ . Plavix 75 mg daily. KCl \\"as needed.\\" Prednisone 10 mg daily. Flomax 0.4 mg daily. Insulin. PHYSICAL EXAMINATION: GENERAL: On exam, he is considerably overweight and appears chronically ill. VITAL SIGNS: Heart rate 60 and regular, BP 130/80 lying, 120/80 standing left arm, per my exam. HEENT: Unremarkable. NECK: Supple. Thyroid not enlarged. CHEST: Without deformity. Lungs are clear. CARDIOVASCULAR: No JVD. Carotids intact without bruits. Apical impulse not palpable supine. S1, S2 soft and single. No murmur or gallop. ABDOMEN: Obese and difficult to examine. Abdominal aorta not palpably dilated. Liver and spleen not palpably enlarged. EXTREMITIES: No clubbing or cyanosis. The feet are a little cool. Pedal pulses not well felt. In summary, this elderly man is obese, insulin-dependent type 2 diabetic, hypertensive, and hyperlipidemic. Three and a half years ago he sustained an ST elevation inferior myocardial infarction for which a direct stent deployment was pursued. A year later he underwent DDDR for tachy-alissa. The catheterization at that time showed no hemodynamically significant disease. He has since required replacement of his atrial lead. He has had an incidental small subdural hematoma and has chronic kidney disease. He now presents with recurrent syncope to near syncope and BP lability in the setting of a new prednisone prescription. The prednisone dose is presently 10 mg daily. Today, he seems quite stable and BP is optimal. It may be reasonable to continue holding the previously prescribed losartan, previously prescribed isosorbide, mono, and previously prescribed chlorthalidone. The patient and his were carefully advised that his situation is a \\"work in progress.\\" Further adjustments are likely to be needed. He will have a BP check through my office within the next several days. Thank you for allowing me to participate in the care of your patient. LWG:mm Job ID: [id number] Doc ID: [id number] Ethan Harris MD
== END 2016-11-06 11:00 | disposition home or self-care (01) | DRG 639 ==
LOC: ED 14:56 → ICU 19:55
PROVIDERS: ADMIT Internal Medicine; ATTEND Internal Medicine

== ENCOUNTER 2019-09-05 13:04 | Inpatient (IN) ==
[2019-09-05] MEDS ORDERED: IPRATROPIUM/ALBUTEROL 3 ML AMPUL.NEB NEB ONE (13:46)
--- NOTE | 2019-09-05 13:50 | Emergency Department Note ---
SOB HPI - General Chief Complaint: Shortness of Breath/Dyspnea Stated Complaint: Shortness of breath, recent PNA Time Seen by Provider: 09/05/19 13:33 Source: patient, family Mode of arrival: wheelchair Limitations: no limitations - History of Present Illness 79-year-old male patient presents emergency department with chief complaint of worsening shortness of breath, productive cough, and generalized malaise. Patient was recently seen in my care over a week ago and diagnosed with COPD exacerbation. They began treatment with amoxicillin and a burst of corticoster oids. He and his adult daughter tell me he finished the the antibiotics this past Saturday. Unfortunately, his symptoms have persisted. He has a known history of COPD and CHF. He has not gained any considerable weight. They have noted ongoing chills at home. They deny any fevers. They deny any sinus congestion or runny nose. His adult daughter mentions that his sputum has been dark, thick, yellowgreenish. She is noted flecks of what appears to be dark red blood. Patient admits that shortness of breath is worsened from his baseline. He denies any retrosternal chest pain or palpitations. He does have a pacemaker in place. He denies any abdominal pain, nausea, vomiting, or diarrhea. He admits to ongoing blood for suspected hemorrhoid. He denies any focal weakness. A review of his active problems shows the following: Unspecified chest pain, respiratory distress, chronic CHF, type 2 diabetes, chronic hypoxemia, hyperkalemia, acute prerenal azotemia, CHF, CAD, PVD, paroxysmal atrial fibrillation, CKD stage III, pulmonary hypertension, bilateral leg edema, acute [place] (2012), hypertension, hyperlipidemia, constipation, retinopathy, GERD, chronic back pain, BPH, diabetic neuropathy, macular degeneration, depression. - Related Data Home Medications Medication Instructions Recorded Confirmed aspirin 81 mg chewable tablet 81 mg PO QDAY tab 03/30/15 08/27/19 nitroglycerin 0.4 mg sublingual SUBLINGUAL 25 Days 11/27/17 08/27/19 tablet insulin aspart U-100 100 100 See Rx Instructions SUB-Q .COMPLEX 11/05/18 08/27/19 unit/mL subcutaneous solution insulin glargine 100) 100 unit/mL 65 unit SUB-Q QDAY ml 11/05/18 08/27/19 subcutaneous solution cholecalciferol (vitamin D3) 1,000 1,000 unit PO QDAY 05/14/19 08/27/19 unit capsule digoxin 125 mcg (0.125 mg) tablet 125 mcg PO QWEEK tab 05/26/19 08/27/19 docusate sodium 100 mg capsule 100 mg PO QDAY PRN 06/25/19 08/27/19 pantoprazole 40 mg tablet,delayed 40 mg PO QDAY 06/25/19 08/27/19 release Previous Rx's Medication Instructions Recorded atorvastatin 80 mg tablet 80 mg PO QDAY #90 tab 12/09/17 carvedilol 3.125 mg tablet 3.125 mg PO BID #180 tab 12/09/17 clopidogrel 75 mg tablet 75 mg PO QDAY #90 tab 07/03/18 albuterol sulfate 2.5 mg/3 mL 2.5 mg INHALATION .Q4-6H PRN #810 08/22/18 (0.083 %) solution for nebulization ml citalopram 20 mg tablet 20 mg PO QDAY #90 tab 04/14/19 finasteride 5 mg tablet 5 mg PO QDAY #90 tab 04/14/19 tamsulosin 0.4 mg capsule 0.4 mg PO QDAY #90 cap 04/14/19 alpha lipoic acid 100 mg capsule 100 mg PO QDAY #1 cap 05/07/19 gabapentin 300 mg capsule 300 mg PO QHS #90 cap 06/30/19 blood-glucose meter,continuous See Rx Instructions .ROUTE 08/04/19 .MEDSUPPLY #1 each blood-glucose sensor See Rx Instructions .ROUTE 08/04/19 .MEDSUPPLY #3 each blood-glucose transmitter See Rx Instructions .ROUTE 08/04/19 .MEDSUPPLY #1 each bumetanide 1 mg tablet 1 mg PO QDAY #90 tab 08/27/19 losartan 25 mg tablet 25 mg PO QPM #90 tab 08/27/19 Allergies Allergy/AdvReac Type Severity Reaction Status Date / Time Beta-Blockers AdvReac Intermediate tendency Verified 09/05/19 13:05 (Beta-Adrenergic Bloc toward bradycardia w/Coreg & Sectral Review of Systems All systems ED: reviewed and negative except as stated. Past Medical History - Past Medical History Medical history: Reports: atrial fibrillation, CHF, COPD, CAD (coronary artery disease), DM, GERD, hyperlipidemia, hypertension, renal disease, other Psychiatric history: Reports: depression Surgical history ED: Reports: angioplasty/stent, cataract, herniorrhaphy, pacemaker/AICD - Social History smoking status: Former smoker Alcohol use: Reports: None Drug use: Reports: none Physical Exam Limitations: no limitations General appearance: alert, anxious, in distress (Mild respiratory distress.), other (Patient appears acutely ill.) Head: atraumatic, normocephalic Eye: Present: normal appearance, PERRL, EOMI. Absent: scleral icterus, conjunctival injection ENT: Present: normal oropharynx, mucous membranes moist Neck: Present: trachea midline. Absent: lymphadenopathy, thyromegaly Chest: Present: symmetric chest wall rise Respiratory: Present: respiratory distress (Mild tachypnea.), wheezes (Expiratory wheezing heard throughout the chest.), prolonged expiratory phase, decreased breath sounds. Absent: rales/crackles, stridor, accessory muscle use Cardiovascular: Present: regular rate, normal rhythm, other (cullet crusher and washer is showing a paced rhythm.). Absent: systolic murmur, diastolic murmur Abdominal: Present: soft. Absent: distention, tenderness, guarding, rebound, rigidity, organomegaly, mass Extremities: Present: normal inspection, full ROM, tenderness (Mild tenderness palpation to the right ankle area.), pedal edema. Absent: pretibial edema, calf tenderness Back: Present: full ROM. Absent: CVA tenderness (R), CVA tenderness (L) Neurological: Present: alert, oriented X3 Psychiatric: Present: normal affect, anxious Skin: Present: warm, dry Course Course Narrative: Patient was brought into the emergency department and a history and physical exam was performed. Saline lock was established and laboratory studies were drawn. Chest x-ray was obtained and reviewed. Patient was given 1 DuoNeb breathing treatment. Upon reevaluation patient tells me the breathing treatment was only slightly effective. A review of his laboratory studies show the following: CBC WBC 11.1, RBC 3.58, hemoglobin 11.0, hematocrit 33.4. CMP sodium 129, chloride 95, anion gap 7, BUN 53, creatinine 2.9, glucose 226, all others normal limits. proBNP 4060. Procalcitonin less than 0.10. Chest x-ray is read as improved left lower lobe infiltrate. Radiologist did mention a new right lower lobe infiltrate developing with a small right effusion consistent with pneumonia. Radiologist also mentioned mild cardiomegaly and probable pulmonary congestion but no pulmonary edema. After reviewing all the data I discussed these findings with the patient. At this time it seems prudent that the patient be admitted for ongoing pneumonia treatment. Patient's curb65 score is 2 (moderate risk). He has failed outpatient oral antibiotics and appears to have worsening renal functions. Due to his increased BUN and creatinine normal saline was started at 500 milliliters bolus. Blood cultures and a lactic acid were obtained. Patient was given Rocephin 1 g IVP and a azithromycin 500 mg p.o. At this time I spoke to the hospitalist (Dr. Villalpando) and explained my concerns about the patient failing outpatient antimicrobials and an elevated curb65 score. At this time Dr. Villalpando recommended a noncontrast chest CT scan. He consented to receive the patient into the hospital for ongoing management. With this in mind, the chest CT scan was ordered. Patient is going to be transferred to the floor under the care of Dr. Villalpando. All further treatment decisions and modalities will be carried out by Dr. Villalpando. Vital Signs Temperature 97.8 F 09/05/19 13:05 Pulse Rate 60 09/05/19 13:05 Respiratory Rate 20 09/05/19 13:05 Blood Pressure 164/75 09/05/19 13:05 Pulse Oximetry (%) 90 09/05/19 13:05 Temperature 97.8 F 09/05/19 13:05 Pulse Rate 59 L 09/05/19 15:43 Respiratory Rate 15 09/05/19 15:43 Blood Pressure 162/56 09/05/19 15:43 Pulse Oximetry (%) 96 09/05/19 15:43 Shortness of Breath/Dyspnea - Lab Data Lab results reviewed: Yes I reviewed the patient's lab results. Result diagrams: 09/05/19 13:55 09/05/19 13:55 Lab Results 09/05/19 09/05/19 09/05/19 Range/Units 13:55 13:55 13:55 WBC 11.1 H (4.5-11.0) K/mcL RBC 3.58 L (4.50-5.90) M/mcL Hgb 11.0 L (13.5-16.5) g/dL Hct 33.4 L (41.0-55.0) % MCV 93.3 (80.0-100.0) fL MCH 30.9 (26.0-34.0) pg MCHC 33.1 (31.0-36.0) g/dL RDW 14.1 (11.5-14.5) % Plt Count 206 (140-440) K/mcL MPV 9.1 (7.4-10.4) fL Gran % 72.0 (38.0-78.0) % Lymph % (Auto) 15.4 L (15.5-49.0) % [place] % (Auto) 10.2 (1.0-12.0) % Eos % (Auto) 2.1 (0.0-7.0) % Baso % (Auto) 0.3 (0.0-2.0) % Gran # 8.0 (1.8-8.0) K/mcL Lymph # (Auto) 1.7 (1.5-4.8) K/mcL [place] # (Auto) 1.1 H (0.1-0.9) K/mcL Eos # (Auto) 0.2 (0.0-0.7) K/mcL Baso # (Auto) 0 (0.0-0.3) K/mcL Sodium 129 L (133-145) mmol/L Potassium 4.8 (3.3-5.1) mmol/L Chloride 95 L (96-108) mmol/L Carbon Dioxide 27 (22-30) mmol/L Anion Gap 7.0 L (8-16) BUN 53 H (8-23) mg/dl Creatinine 2.9 H (0.7-1.2) mg/dl GFR Calculation 20 Glucose 226 H (70-105) mg/dL Calcium 8.8 (8.6-10.4) mg/dl Total Bilirubin 0.4 (0.0-1.0) mg/dL AST 13 (0-37) U/l ALT 10 (0-40) U/l Alkaline Phosphatase 96 (39-117) U/L NT-Pro-B Natriuret Pep 4060.0 H (0-450) pg/ml Total Protein 6.5 (5.9-8.4) gm/dL Albumin 3.7 (3.2-5.2) gm/dL Globulin 2.8 (2.2-3.7) gm/dL Albumin/Globulin Ratio 1.3 (1.0-2.3) Procalcitonin < 0.10 (<0.10) ng/mL - Radiology Data Radiology results reviewed: Yes I reviewed the patient's radiology results. Ordering Physician: Damian Ruvalcaba PA-C Date of Service: 09/05/19 Procedure(s): XR chest 2V Accession Number(s): [id number] CLINICAL INFORMATION:History of pneumonia. Dyspnea. Cough TECHNIQUE: PA and lateral upright chest x-ray COMPARISON: Previous examinations dated 08/25/2019, 03/09/2019, 01/01/2019 FINDINGS:No change in left transverse venous pacemaker. Left lower lobe is improved since 08/25/2019. Interval development of right lower lobe infiltrate and small right pleural effusion. Findings are consistent with improvement or resolution of left lower lobe pneumonia but interval development of right lower lobe pneumonia. Continued follow-up recommended. Mid and upper lungs are negative. There is mild cardiomegaly. Probable pulmonary congestion without definite pulmonary edema. IMPRESSION: 1. Improved left lower lobe 2. New right lower lobe infiltrate and small right effusion consistent with pneumonia 3. Mild cardiomegaly and probable pulmonary congestion. No pulmonary edema Interpreted and Authenticated by: Damon Mcguire 09/05/19 Disposition Pt seen by [facility]/PA only: Yes Clinical Impression: CHF (congestive heart failure) Qualifiers: Heart failure type: unspecified Heart failure chronicity: chronic Qualified Code(s): I50.9 - Heart failure, unspecified COPD (chronic obstructive pulmonary disease) Qualifiers: COPD type: unspecified COPD Qualified Code(s): J44.9 - Chronic obstructive pulmonary disease, unspecified Community acquired pneumonia Qualifiers: Laterality: right Lung location: lower lobe of lung Qualified Code(s): J18.9 - Pneumonia, unspecified organism Disposition: Xfer As Inpt ([facility]) Condition: Fair Additional Instructions: Patient is being admitted to the hospital under the care of Dr. Villalpando (hospitalist). All further treatment decisions and modalities to be carried out by Dr. Villalpando. Referrals: Bobby Saini MD [Primary Care Provider] - Time of Disposition: 16:04
[2019-09-05 14:40] LABS: Basophils # (Auto) 0 K/mcL (0.0-0.3); Basophils % (Auto) 0.3 % (0.0-2.0); Eosinophils # (Auto) 0.2 K/mcL (0.0-0.7); Eosinophils % (Auto) 2.1 % (0.0-7.0); Hematocrit 33.4 % (41.0-55.0); Lymphocytes # (Auto) 1.7 K/mcL (1.5-4.8); Lymphocytes % (Auto) 15.4 % (15.5-49.0); Mean Cell Volume 93.3 fL (80.0-100.0); Mean Corpuscular HGB Conc 33.1 g/dL (31.0-36.0); Mean Platelet Volume 9.1 fL (7.4-10.4); Monocytes # (Auto) 1.1 K/mcL (0.1-0.9); Monocytes % (Auto) 10.2 % (1.0-12.0); Platelet Count 206 K/mcL (140-440); RBC 3.58 M/mcL (4.50-5.90); Red Cell Distribution Width 14.1 % (11.5-14.5); WBC 11.1 K/mcL (4.5-11.0)
--- NOTE | 2019-09-05 15:02 | XRay Report ---
CLINICAL INFORMATION:History of pneumonia. Dyspnea. Cough TECHNIQUE: PA and lateral upright chest x-ray COMPARISON: Previous examinations dated 08/25/2019, 03/09/2019, 01/01/2019 FINDINGS:No change in left transverse venous pacemaker. Left lower lobe is improved since 08/25/2019. Interval development of right lower lobe infiltrate and small right pleural effusion. Findings are consistent with improvement or resolution of left lower lobe pneumonia but interval development of right lower lobe pneumonia. Continued follow-up recommended. Mid and upper lungs are negative. There is mild cardiomegaly. Probable pulmonary congestion without definite pulmonary edema. IMPRESSION: 1. Improved left lower lobe 2. New right lower lobe infiltrate and small right effusion consistent with pneumonia 3. Mild cardiomegaly and probable pulmonary congestion. No pulmonary edema Interpreted and Authenticated by: Damon Mcguire 09/05/19
[2019-09-05 15:06] LABS: ALT/SGPT 10 U/l (0-40); AST/SGOT 13 U/l (0-37); Albumin 3.7 gm/dL (3.2-5.2); Albumin/Globulin Ratio 1.3 (1.0-2.3); Alkaline Phosphatase 96 U/L (39-117); Bilirubin,Total 0.4 mg/dL (0.0-1.0); Blood Urea Nitrogen 53 mg/dl (8-23); Calcium 8.8 mg/dl (8.6-10.4); Carbon Dioxide 27 mmol/L (22-30); Globulin 2.8 gm/dL (2.2-3.7); Glomerular Filtration Rate 20; Glucose 226 mg/dL (70-105)
[2019-09-05 15:08] LABS: Chloride 95 mmol/L (96-108)
[2019-09-05] MEDS ORDERED: 0.9 % SODIUM CHLORIDE 500 ML IV ONE (15:15)
[2019-09-05] MEDS ORDERED: cefTRIAXone 1 GM VIAL IV ONE (15:17)
[2019-09-05] MEDS ORDERED: AZITHROMYCIN 250 MG TABLET PO ONE (15:17)
--- NOTE | 2019-09-05 16:13 | Cat Scan Report ---
CLINICAL INFORMATION: Pneumonia. Dyspnea. History of congestive heart failure and COPD COMPARISON: Previous chest CT scan dated 06/24/2019. Previous chest x-rays dated 09/05/2019 and 08/25/2019 TECHNIQUE: Axial noncontrast enhanced images through the chest. Sagittally and coronally reformatted images. MIP reformatted images. FINDINGS: Lungs:Severe centrilobular emphysema. Interval development of bilateral pleural effusions. Effusions are small on the left and moderate on the right. There is right lower lobe pulmonary parenchymal abnormality with air bronchograms. This may be benign volume loss but pneumonia is possible. There is a 5.5 mm right lower lobe nodule. This is unchanged 06/24/2019. Fleischner Society recommendations: optional [address] follow-up. Mediastinum, vascular:There are mediastinal lymph nodes which are pretracheal and perivascular. These are probably physiologic. No definite enlarged lymph nodes. No hilar adenopathy identified on this noncontrast-enhanced examination. Heart:There is calcified coronary artery disease. There is borderline cardiomegaly. No pericardial effusion Pleura:Pleural effusions were described above. Effusions are small on the left and moderate on the right. Pleural effusions are new since 06/24/2019. Axilla, supraclavicular regions, chest wall:No axillary or supraclavicular adenopathy. Musculoskeletal:No acute thoracic compression fracture. Sternum and ribs are negative. Upper Abdomen:Negative. No acute abnormality IMPRESSION: 1. Bilateral pleural effusions, new since 06/24/2019 2. Air bronchograms in the right lower lobe. This may be benign volume loss or pneumonia 3. Severe centrilobular emphysema 4. Calcified coronary artery disease The exam was performed using radiation dose optimization techniques including, but not limited to, automated exposure control, adjustment of the mA and/or kV according to patient size and use of iterative reconstruction technique. Interpreted and Authenticated by: Damon Mcguire 09/05/19
[2019-09-05] MEDS ORDERED: ACETAMINOPHEN 325 MG TABLET PO PRN (17:13)
[2019-09-05] MEDS ORDERED: ONDANSETRON 4 MG/2 ML VIAL IV PRN (17:13)
[2019-09-05 18:53] LABS: ALT/SGPT 11 U/l (0-40); AST/SGOT 14 U/l (0-37); Albumin 3.8 gm/dL (3.2-5.2); Albumin/Globulin Ratio 1.2 (1.0-2.3); Alkaline Phosphatase 103 U/L (39-117); Bilirubin,Total 0.3 mg/dL (0.0-1.0); Blood Urea Nitrogen 52 mg/dl (8-23); Calcium 8.9 mg/dl (8.6-10.4); Carbon Dioxide 27 mmol/L (22-30); Chloride 96 mmol/L (96-108); Globulin 3.1 gm/dL (2.2-3.7); Glomerular Filtration Rate 22; Glucose 201 mg/dL (70-105)
[2019-09-05] MEDS: IPRATROPIUM/ALBUTEROL 3 ML AMPUL.NEB NEB SCH (19:01)
[2019-09-05] MEDS: 0.9 % SODIUM CHLORIDE 1,000 ML IV SCH (19:07)
--- NOTE | 2019-09-05 19:38 | Internal Med History&Physical ---
Medical - H&P: [facility] Patient information: Note initiated : 09/05/19 at 7:37 pm Service Date, if different from initiated Date: [] Patient: Black Armstrong 79 y/o M admitted on 09/05/19 for Shortness of breath, recent PNA. Chief Complaint: [] History of present illness: Mr. Armstrong is a 79 year old M This is a 79-year-old gentleman with history of CHF, COPD, morbid obesity, previous [place] pulmonary hypertension was brought to the ER because of worsening shortness of breath and cough. Patient had a bronchitis recently few days ago started on p.o. antibiotics did not improve he started worsening his oxygenation shortness of breath and started having increasing sputum production with yellow sputum. Patient also noticed some streaks of blood in his sputum and was brought to the ER. In the ER initial evaluation chest x-ray showed evidence of pneumonia and he underwent a CT scan as he was having CHF and we need to delineate further and CT scan showed evidence of pneumonia no evidence of significant CHF. Patient was started on ceftriaxone and azithromycin and monitor for further management. - Constitutional Constitutional: Present: anorexia, chills, fatigue - EENT Ears: Absent: ear discharge, ear pain Nose, mouth and throat: Absent: abnormal hearing - Cardiovascular Cardiovascular: Present: claudication, dyspnea, dyspnea on exertion, edema, irregular heart rhythm, leg edema. Absent: acrocyanosis, chest pain, leg ulcers - Respiratory Respiratory: Present: cough, dyspnea, hemoptysis, dyspnea on exertion, wheezing, snoring, pain on inspirtation - Gastrointestinal Gastrointestinal: Present: bloating, diarrhea. Absent: abdominal pain - Neurological Neurological: Absent: abnormal gait, abnormal hearing, abnormal movements - Psychiatric Psychiatric: Absent: abnormal sleep pattern, anxiety, confusion Medical - H&P: Meds Home Medications Medication Instructions Recorded Confirmed Type aspirin 81 mg chewable tablet 81 mg PO QDAY tab 03/30/15 09/05/19 History nitroglycerin 0.4 mg sublingual 0.4 mg SUBLINGUAL PRN PRN 25 Days 11/27/17 09/05/19 History tablet atorvastatin 80 mg tablet 80 mg PO QDAY #90 tab 12/09/17 09/05/19 Rx carvedilol 3.125 mg tablet 3.125 mg PO BID #180 tab 12/09/17 09/05/19 Rx clopidogrel 75 mg tablet 75 mg PO QDAY #90 tab 07/03/18 09/05/19 Rx albuterol sulfate 2.5 mg/3 mL 2.5 mg INHALATION .Q4-6H PRN #810 08/22/18 09/05/19 Rx (0.083 %) solution for nebulization ml insulin glargine 100) 100 unit/mL 60 unit SUB-Q QHS ml 11/05/18 09/05/19 History subcutaneous solution citalopram 20 mg tablet 20 mg PO QDAY #90 tab 04/14/19 09/05/19 Rx finasteride 5 mg tablet 5 mg PO QDAY #90 tab 04/14/19 09/05/19 Rx tamsulosin 0.4 mg capsule 0.4 mg PO QDAY #90 cap 04/14/19 09/05/19 Rx alpha lipoic acid 100 mg capsule 100 mg PO QDAY #1 cap 05/07/19 09/05/19 Rx cholecalciferol (vitamin D3) 1,000 1,000 unit PO QDAY 05/14/19 09/05/19 History unit capsule digoxin 125 mcg (0.125 mg) tablet 125 mcg PO 2-3XW tab 05/26/19 09/05/19 History docusate sodium 100 mg capsule 100 mg PO QDAY PRN 06/25/19 09/05/19 History pantoprazole 40 mg tablet,delayed 40 mg PO QDAY 06/25/19 09/05/19 History release gabapentin 300 mg capsule 300 mg PO QHS #90 cap 06/30/19 09/05/19 Rx blood-glucose meter,continuous See Rx Instructions .ROUTE 08/04/19 09/05/19 Rx .MEDSUPPLY #1 each blood-glucose sensor See Rx Instructions .ROUTE 08/04/19 09/05/19 Rx .MEDSUPPLY #3 each blood-glucose transmitter See Rx Instructions .ROUTE 08/04/19 09/05/19 Rx .MEDSUPPLY #1 each bumetanide 1 mg tablet 1 mg PO QDAY #90 tab 08/27/19 09/05/19 Rx Insulin Lispro [Humalog] See Protocol SUBCUT ACHS 09/05/19 09/05/19 History Losartan Potassium [Cozaar] 25 mg PO QHS 09/05/19 09/05/19 History Allergies Allergy/AdvReac Type Severity Reaction Status Date / Time Beta-Blockers AdvReac Intermediate tendency Verified 09/05/19 13:05 (Beta-Adrenergic Bloc toward bradycardia w/Coreg & Sectral Medical - H&P: Exam - Constitutional Vitals: Temp Pulse Resp BP Pulse Ox 98.0 F 60 20 174/67 95 09/05/19 19:25 09/05/19 19:25 09/05/19 19:25 09/05/19 19:25 09/05/19 19:25 General appearance: cooperative, morbidly obese - Head Head exam: Present: atraumatic, normal inspection - Expanded Head Exam Head exam: Absent: general tenderness, hematoma - Eye Eye exam: Present: EOMI, PERRL. Absent: conjunctival injection, nystagmus - Expanded ENT Exam Ear exam: Absent: auricular hematoma, auricular trauma - Neck Neck exam: Present: normal inspection. Absent: lymphadenopathy, meningismus - Respiratory Respiratory exam: Present: accessory muscle use, decreased breath sounds, prolonged expiratory phase, respiratory distress, wheezes. Absent: chest wall tenderness - Cardiovascular Cardiovascular exam: Present: normal rate and rhythm. Absent: diastolic murmur, irregular rhythm - GI/Abdominal GI/Abdominal exam: Present: normal bowel sounds, soft, distended - Expanded GI/Abdominal Exam GI/Abdominal exam: Absent: ascites - Neurological Exam Neurological exam: Present: alert, CN II-XII intact, oriented X3, reflexes normal. Absent: abnormal gait, motor sensory deficit - Expanded Neurological Exam Neurological exam expanded: Absent: ataxia - Psychiatric Psychiatric exam: Present: normal affect, normal mood. Absent: agitated, anxiou s - Skin Skin exam: Present: erythema. Absent: abrasion, cyanosis Medical - H&P: Reslt - Labs CBC & Chem 7: 09/06/19 04:35 09/05/19 17:57 Labs: Short CBC 09/05/19 Range/Units 13:55 WBC 11.1 H (4.5-11.0) K/mcL Hgb 11.0 L (13.5-16.5) g/dL Hct 33.4 L (41.0-55.0) % Plt Count 206 (140-440) K/mcL BMP 09/05/19 09/05/19 13:55 17:57 Sodium 129 L 132 L Potassium 4.8 4.7 Chloride 95 L 96 Carbon Dioxide 27 27 BUN 53 H 52 H Creatinine 2.9 H 2.7 H Glucose 226 H 201 H Calcium 8.8 8.9 Cardiac Enzymes 09/05/19 Range/Units 17:57 Troponin T 0.04 H* (0-0.03) ng/ml Liver Function 09/05/19 09/05/19 Range/Units 13:55 17:57 Total Bilirubin 0.4 0.3 (0.0-1.0) mg/dL AST 13 14 (0-37) U/l ALT 10 11 (0-40) U/l Alkaline Phosphatase 96 103 (39-117) U/L Albumin 3.7 3.8 (3.2-5.2) gm/dL Medical - H&P: A/P - Narrative A/P Narrative: Acute hypoxic respiratory failure Probable community-acquired pneumonia Patient presented with worsening shortness of breath Regarding oxygenation in the ER Chest CT scan showing evidence of pneumonia He has having cough and increasing sputum production We will start him on ceftriaxone and azithromycin Follow-up with his respiratory culture, oxygenation Ordered an echocardiogram with his history of CHF Probable COPD exacerbation Underlying history of COPD We will start him on DuoNeb's We will consider Solu-Medrol if he is not improving Antibiotic as above Acute renal failure probably due to diarrhea and diuretics Patient appears to be dehydrated clinically He was on diuretics and he was also having diarrhea and with a poor oral intake We will try rehydration and recheck renal panel History of CHF not in exacerbation Patient was on Lasix He has history of CHF and atrial fibrillation Monitor his oxygenation with IV fluids We will hold the Lasix for now History atrial fibrillation Continue digoxin Continue Coreg He is not on anticoagulation He is on aspirin and Plavix Morbid obesity Recommend using CPAP at night Essential hypertension We will monitor his blood pressure and restart home medications as needed Type 2 diabetes Restart his home insulin regimen and sliding scale insulin DVT prophylaxis-subcu heparin, SCDs CODE STATUS-full code Expected length of stay-at least 2 midnights Medical - H&P: Qual - VTE Deep Vein Thrombosis/Pulmonary Embolism Present on Admission: No
[2019-09-05] MEDS ORDERED: cefTRIAXone 1 GM VIAL ONE (20:55)
[2019-09-05] MEDS ORDERED: DEXTROSE 31 GM ORAL.SUSP PO PRN (21:03)
[2019-09-05] MEDS ORDERED: DEXTROSE 50% 50 ML VIAL IV PRN (21:03)
[2019-09-05] MEDS ORDERED: INSULIN GLARGINE, HUMAN 1 UNIT/0.01 ML SQ ONE (21:31)
[2019-09-05] MEDS: HEPARIN 5,000 UNIT/ML VIAL SQ SCH (21:46)
[2019-09-05] MEDS: INSULIN GLARGINE, HUMAN 1 UNIT/0.01 ML SQ SCH (21:46)
[2019-09-05] MEDS: DOCUSATE SODIUM 100 MG CAPSULE PO SCH (21:47)
[2019-09-05] MEDS: SENNOSIDES 1 TABLET PO SCH (21:47)
[2019-09-05] MEDS: 0.9 % SODIUM CHLORIDE 10 ML SYRINGE IV SCH (21:47)
[2019-09-06] MEDS: IPRATROPIUM/ALBUTEROL 3 ML AMPUL.NEB NEB SCH ×5 (00:08→22:17)
[2019-09-06] MEDS: 0.9 % SODIUM CHLORIDE 10 ML SYRINGE IV SCH ×3 (06:17→20:53)
[2019-09-06 06:18] LABS: Basophils # (Auto) 0 K/mcL (0.0-0.3); Basophils % (Auto) 0.3 % (0.0-2.0); Eosinophils # (Auto) 0.2 K/mcL (0.0-0.7); Eosinophils % (Auto) 2.6 % (0.0-7.0); Granulocytes % (Auto) 67.5 % (38.0-78.0); Hematocrit 31.2 % (41.0-55.0); Hemoglobin 10.2 g/dL (13.5-16.5); Lymphocytes # (Auto) 1.4 K/mcL (1.5-4.8); Lymphocytes % (Auto) 17.4 % (15.5-49.0); Mean Cell Volume 94.2 fL (80.0-100.0); Mean Corpuscular HGB Conc 32.6 g/dL (31.0-36.0); Mean Platelet Volume 9.2 fL (7.4-10.4); Monocytes % (Auto) 12.2 % (1.0-12.0); Platelet Count 204 K/mcL (140-440); RBC 3.32 M/mcL (4.50-5.90); Red Cell Distribution Width 13.7 % (11.5-14.5); WBC 8.1 K/mcL (4.5-11.0)
[2019-09-06] MEDS: INSULIN LISPRO 1 UNIT/0.01 ML UNIT SQ SCH ×4 (07:43→20:29)
[2019-09-06] MEDS: PANTOPRAZOLE 40 MG TABLET PO SCH (07:43)
[2019-09-06 08:22] LABS: Appearance,Urine CLEAR; Bacteria,Urine 0 /hpf (0); Bilirubin,Urine NEG (NEG); Color,Urine YELLOW; Culture Indicated,Urine NO; Glucose,Urine (UA) >=500 mg/dL (NEG); Ketones,Urine NEG (NEG); Leukocyte Esterase,Urine NEG /uL (NEG); Nitrate,Urine NEG (NEG); Protein,Urine NEG (NEG); Specific Gravity,Urine 1.013 (1.000-1.035); Urine Blood NEG mg/dL (<0.03); Urine Hyaline Cast 2 /lpf (0-2); Urine RBC 1 /hpf (0-1); Urine Squamous Epithelial Cell < 1 /hpf (0-4); Urine WBC < 1 /hpf (0-4); Urobilinogen,Urine NEG (NEG)
[2019-09-06] MEDS: AZITHROMYCIN 500 MG in DEXTROSE 5% IN WATER 250 ML IV SCH (10:19)
[2019-09-06] MEDS: cefTRIAXone 2 GM in DEXTROSE 5% IN WATER 50 ML IV SCH (10:19)
[2019-09-06] MEDS: CLOPIDOGREL 75 MG TABLET PO SCH (10:19)
[2019-09-06] MEDS: HEPARIN 5,000 UNIT/ML VIAL SQ SCH ×2 (10:19→20:28)
[2019-09-06] MEDS: FINASTERIDE 5 MG TABLET PO SCH (10:19)
[2019-09-06] MEDS: DOCUSATE SODIUM 100 MG CAPSULE PO SCH ×3 (10:19→20:52)
[2019-09-06] MEDS: TAMSULOSIN 0.4 MG CAPSULE PO SCH (10:19)
[2019-09-06] MEDS: ASPIRIN 81 MG TAB.CHEW PO SCH (10:19)
--- NOTE | 2019-09-06 10:23 | Internal Med Progress Note ---
Medical - PN: Subj Patient information: Note initiated : 09/06/19 at 10:21 am Service Date, if different from initiated Date: [] Patient: Black Armstrong 79 y/o M admitted on 09/05/19 for Shortness of breath, recent PNA. Chief Complaint: [] Interval history: [id number] feeling better, shortness of breath improving, white count improved, started him on Solu-Medrol as he remain diminished bibasilar lungs, antibiotics continued, Solu-Medrol 40 every 8 hourly started, echocardiogram pending, his troponin remained slightly elevated probably due to the underlying infection no peaking, he denies any active chest pain Pertinent ROS: General-feeling better, less distress CVS-denied any chest pain no palpitations Respiratory-shortness of breath improving cough remains the same Abdomen-remain distended Neuro-alert oriented no confusion no headache Musculoskeletal no acute changes - Constitutional Vitals: Vital Signs Temp Pulse Resp BP Pulse Ox 98.1 F 73 16 182/70 95 09/06/19 07:30 09/06/19 07:30 09/06/19 07:30 09/06/19 07:30 09/06/19 07:30 Period Temp Pulse Resp BP Sys/Carter Pulse Ox Last 24 Hr 97.6 F-98.1 F 59-73 12-36 139-182/56-136 90-100 Intake and Output 09/05/19 09/06/19 09/06/19 21:59 05:59 13:59 Intake Total 500 200 Output Total 425 Balance 75 200 Weight 268 lb 8 oz Intake & Output: Intake & Output 09/05/19 09/06/19 09/06/19 21:59 05:59 13:59 Intake Total 500 200 Output Total 425 Balance 75 200 Weight 268 lb 8 oz Intake: IV 500 Sodium Chloride 0.9% 500 ml @ 500 Wide Open IV BOLUS ONE Rx#: [id number] Oral 200 Output: Void Amount 425 - Head Head exam: Present: atraumatic, normal inspection, normocephalic - Eye Eye exam: Present: EOMI, PERRL - ENT ENT exam: Present: mucous membranes dry, normal exam. Absent: mucous membranes moist - Neck Neck exam: Present: full ROM, normal inspection. Absent: lymphadenopathy, meningismus - Respiratory Respiratory exam: Present: accessory muscle use, prolonged expiratory phase, respiratory distress, wheezes - Cardiovascular Cardiovascular exam: Present: normal rate and rhythm. Absent: bradycardia, gall op, JVD - GI/Abdominal GI/Abdominal exam: Present: normal bowel sounds, distended. Absent: diminished bowel sounds - Neurological Exam Neurological exam: Present: alert, oriented X3, reflexes normal. Absent: motor sensory deficit - Psychiatric Psychiatric exam: Present: normal affect, normal mood. Absent: agitated, anxious Medical - PN: Obj Da - Labs CBC & Chem 7: 09/06/19 04:35 09/05/19 17:57 Labs: Abnormal Lab Results 09/06/19 09/06/19 09/06/19 07:07 04:35 04:35 WBC RBC 3.32 L Hgb 10.2 L Hct 31.2 L Lymph % (Auto) Branch % (Auto) 12.2 H Lymph # (Auto) 1.4 L Branch # (Auto) 1.0 H Sodium Chloride Anion Gap BUN Creatinine Glucose Troponin T 0.04 H* NT-Pro-B Natriuret Pep Urine Glucose (UA) >=500 A 09/05/19 09/05/19 09/05/19 17:57 17:57 13:55 WBC RBC Hgb Hct Lymph % (Auto) Branch % (Auto) Lymph # (Auto) Branch # (Auto) Sodium 132 L 129 L Chloride 95 L Anion Gap 7.0 L BUN 52 H 53 H Creatinine 2.7 H 2.9 H Glucose 201 H 226 H Troponin T 0.04 H* NT-Pro-B Natriuret Pep 4060.0 H Urine Glucose (UA) 09/05/19 13:55 WBC 11.1 H RBC 3.58 L Hgb 11.0 L Hct 33.4 L Lymph % (Auto) 15.4 L Branch % (Auto) Lymph # (Auto) Branch # (Auto) 1.1 H Sodium Chloride Anion Gap BUN Creatinine Glucose Troponin T NT-Pro-B Natriuret Pep Urine Glucose (UA) Meds: Medications Acetaminophen (Tylenol) 650 mg PO Q6HP PRN; Protocol PRN Reason: Per Pain Protocol/Fever > 101 Aspirin (Aspirin) 81 mg PO QDAY [facility] Last Admin: 09/06/19 10:19 Dose: 81 mg Documented by: Atorvastatin Calcium (Lipitor) 80 mg PO HS [facility] Carvedilol (Coreg) 3.125 mg PO BIDCC [facility] Clopidogrel Bisulfate (Plavix) 75 mg PO QDAY [facility] Last Admin: 09/06/19 10:19 Dose: 75 mg Documented by: Dextrose (Dextrose 50%) 0 ml IV UD PRN PRN Reason: Hypoglycemia Diagnostic Test (Pha) (Accu-Chek) 1 each FS ACHS [facility] Last Admin: 09/06/19 07:30 Dose: 1 each Documented by: Digoxin (Lanoxin) 125 mcg PO MoFr@1400 [facility] Docusate Sodium (Colace) 100 mg PO BID [facility] Last Admin: 09/06/19 10:19 Dose: 100 mg Documented by: Finasteride (Proscar) 5 mg PO QDAY [facility] Last Admin: 09/06/19 10:19 Dose: 5 mg Documented by: Gabapentin (Neurontin) 300 mg PO HS [facility] Glucose (Insta-Glucose) 15 gm PO PRN PRN PRN Reason: Hypoglycemia Heparin Sodium (Porcine) (Heparin) 5,000 unit SQ Q12 [facility] Last Admin: 09/06/19 10:19 Dose: 5,000 unit Documented by: Sodium Chloride (Sodium Chloride 0.9%) 1,000 mls @ 75 mls/hr IV .[id number] [facility] Last Admin: 09/05/19 19:07 Dose: 75 mls/hr Documented by: Ceftriaxone Sodium 2 gm/ (Dextrose) 50 mls @ 100 mls/hr IV Q24H [facility] Last Admin: 09/06/19 10:19 Dose: 100 mls/hr Documented by: Azithromycin 500 mg/ Dextrose 250 mls @ 250 mls/hr IV Q24H [facility]; Protocol Stop: 09/08/19 10:59 Last Admin: 09/06/19 10:19 Dose: 250 mls/hr Documented by: Insulin Glargine (Lantus) 60 unit SQ QHS [facility] Last Admin: 09/05/19 21:46 Dose: 60 units Documented by: Insulin Human Lispro (Humalog) 0 unit SQ [facility]; Protocol Last Admin: 09/06/19 07:43 Dose: 6 units Documented by: Losartan Potassium (Cozaar) 25 mg PO HS [facility] Methylprednisolone Sodium Succinate (Solu-Medrol) 40 mg IV Q8 [facility] Ondansetron HCl (Zofran) 4 mg IV Q6HP PRN PRN Reason: Nausea And Vomiting Pantoprazole Sodium (Protonix) 40 mg PO QAMAC [facility] Last Admin: 09/06/19 07:43 Dose: 40 mg Documented by: Senna (Senokot) 2 tab PO HS [facility] Last Admin: 09/05/19 21:47 Dose: Not Given Documented by: Sodium Chloride (Saline Flush) 10 ml IV Q8 [facility] Last Admin: 09/06/19 06:17 Dose: Not Given Documented by: Tamsulosin HCl (Flomax) 0.4 mg PO QDAY [facility] Last Admin: 09/06/19 10:19 Dose: 0.4 mg Documented by: Medical - PN: A/P - Time Spent With Patient Total time spent is greater than 50% in coordination of care (as documented) at patient's floor/unit and/or counseling patient: - Narrative A/P Narrative: Acute hypoxic respiratory failure Probable community-acquired pneumonia Patient present with the shortness of breath and chest CT scan showed evidence of infiltrate patient had a bronchitis recently Started him on ceftriaxone and azithromycin Start him on Solu-Medrol bronchodilator Sputum Gram stain culture pending Probable COPD exacerbation Continue duo nebs 4 times daily and as needed Solu-Medrol 40 every 8 hourly started Bronchodilator as mentioned above History of CHF no active acute exacerbation We will monitor his respiratory status and cardiac status Ordered echocardiogram Non-ST elevation MO-probably type II His troponin was slightly elevated to 0.04 with a cutoff of 0.03 remains the same Recheck another troponin Ordered echocardiogram Probably due to the underlying infection and renal failure Acute renal failure probably due to dehydration diarrhea and underlying infection Continue IV fluid hydration 50 mils per hour His creatinine baseline is 1.6-1.8 and upon admission it was 2.9-improving We will continue IV hydration Patient was on Lasix will hold the Lasix for now DVT prophylaxis-SCDs and heparin CODE STATUS-full code Expected length of stay-2 midnights Medical - PN: Qual - VTE Deep Vein Thrombosis/Pulmonary Embolism Present on Admission: No
[2019-09-06] MEDS: CARVEDILOL 3.125 MG TABLET PO SCH ×2 (11:33→16:52)
[2019-09-06] MEDS: 0.9 % SODIUM CHLORIDE 1,000 ML IV SCH (11:36)
[2019-09-06] MEDS ORDERED: IPRATROPIUM/ALBUTEROL 3 ML AMPUL.NEB NEB ONE (12:04)
[2019-09-06] MEDS: methylPREDNISolone SOD SUCC 40 MG/ML VIAL IV SCH ×2 (14:55→21:40)
[2019-09-06] MEDS ORDERED: CARVEDILOL 3.125 MG TABLET PO SCH (17:30)
[2019-09-06] MEDS: INSULIN GLARGINE, HUMAN 1 UNIT/0.01 ML SQ SCH (20:29)
[2019-09-06] MEDS: SENNOSIDES 1 TABLET PO SCH (20:53)
[2019-09-06] MEDS ORDERED: LOSARTAN 25 MG TABLET PO SCH (21:00)
[2019-09-06] MEDS ORDERED: GABAPENTIN 300 MG CAPSULE PO SCH (21:00)
[2019-09-06] MEDS ORDERED: ATORVASTATIN 40 MG TABLET PO SCH (21:00)
[2019-09-07] MEDS: 0.9 % SODIUM CHLORIDE 1,000 ML IV SCH ×2 (01:52→13:54)
[2019-09-07] MEDS: IPRATROPIUM/ALBUTEROL 3 ML AMPUL.NEB NEB SCH ×6 (03:46→22:52)
[2019-09-07] MEDS: 0.9 % SODIUM CHLORIDE 10 ML SYRINGE IV SCH ×3 (06:12→22:00)
[2019-09-07] MEDS: methylPREDNISolone SOD SUCC 40 MG/ML VIAL IV SCH (06:16)
[2019-09-07] MEDS: CLOPIDOGREL 75 MG TABLET PO SCH (07:45)
[2019-09-07] MEDS: TAMSULOSIN 0.4 MG CAPSULE PO SCH (07:46)
[2019-09-07] MEDS: ASPIRIN 81 MG TAB.CHEW PO SCH (07:46)
[2019-09-07] MEDS: CARVEDILOL 3.125 MG TABLET PO SCH ×2 (07:46→18:14)
[2019-09-07] MEDS: FINASTERIDE 5 MG TABLET PO SCH (07:46)
[2019-09-07] MEDS: PANTOPRAZOLE 40 MG TABLET PO SCH (07:47)
[2019-09-07] MEDS: HEPARIN 5,000 UNIT/ML VIAL SQ SCH ×2 (07:47→21:17)
[2019-09-07] MEDS: DOCUSATE SODIUM 100 MG CAPSULE PO SCH ×2 (07:47→21:00)
[2019-09-07] MEDS: INSULIN LISPRO 1 UNIT/0.01 ML UNIT SQ SCH ×6 (08:11→17:50)
[2019-09-07] MEDS ORDERED: hydrALAZINE 20 MG/ML VIAL IV PRN (09:25)
[2019-09-07] MEDS ORDERED: INSULIN GLARGINE, HUMAN 1 UNIT/0.01 ML SQ ONE (09:30)
[2019-09-07] MEDS: cefTRIAXone 2 GM in DEXTROSE 5% IN WATER 50 ML IV SCH (09:41)
[2019-09-07] MEDS: AZITHROMYCIN 500 MG in DEXTROSE 5% IN WATER 250 ML IV SCH (10:32)
[2019-09-07 11:55] LABS: ALT/SGPT 10 U/l (0-40); AST/SGOT 13 U/l (0-37); Albumin 3.6 gm/dL (3.2-5.2); Albumin/Globulin Ratio 1.2 (1.0-2.3); Alkaline Phosphatase 99 U/L (39-117); Bilirubin,Total 0.2 mg/dL (0.0-1.0); Blood Urea Nitrogen 54 mg/dl (8-23); Calcium 8.7 mg/dl (8.6-10.4); Carbon Dioxide 22 mmol/L (22-30); Chloride 98 mmol/L (96-108); Glomerular Filtration Rate 28
[2019-09-07 12:08] LABS: Glucose 606 mg/dL (70-105)
[2019-09-07] MEDS ORDERED: INSULIN REGULAR, HUMAN 1 UNIT/0.01 ML UNIT IV ONE ×5 (12:13→13:30)
[2019-09-07] MEDS ORDERED: 0.9 % SODIUM CHLORIDE 1,000 ML IV SCH ×2 (12:15→12:22)
[2019-09-07] MEDS ORDERED: INSULIN REGULAR, HUMAN 50 UNIT in 0.9 % SODIUM CHLORIDE 99.5 ML IV SCH (12:15)
[2019-09-07] MEDS ORDERED: SODIUM POLYSTYRENE SULFONATE 15 GM/60 ML SUSPENSION PO ONE ×2 (12:18→12:22)
[2019-09-07] MEDS ORDERED: CALCIUM GLUCONATE 4.65 MEQ/10 ML VIAL IV ONE ×2 (12:19→12:22)
[2019-09-07] MEDS ORDERED: ACETAMINOPHEN 325 MG TABLET PO PRN (12:22)
[2019-09-07] MEDS ORDERED: ONDANSETRON 4 MG/2 ML VIAL IV PRN (12:22)
[2019-09-07] MEDS ORDERED: DEXTROSE 50% 50 ML VIAL IV PRN (12:22)
[2019-09-07] MEDS ORDERED: DEXTROSE 31 GM ORAL.SUSP PO PRN (12:22)
[2019-09-07 13:07] LABS: ABG Methemoglobin 0.3 % (0.4-1.5); Total Hemoglobin 11.6 gm/dL (13.5-16.5); VBG Base Excess -4.8 (-2.0-2.0); VBG HCO3 20.4 mmol/L (24.0-28.0); VBG Oxygen Saturation 87.7 % (40.0-70.0); VBG PH 7.35 U (7.32-7.42); VBG PO2 74 mmHg (25-40); VBG Total CO2 21.5 mmol/L (25.0-29.0)
[2019-09-07] MEDS: hydrALAZINE 20 MG/ML VIAL IV PRN ×2 (13:37→17:59)
[2019-09-07] MEDS ORDERED: DIGOXIN 125 MCG TABLET PO SCH ×2 (14:00)
[2019-09-07 14:01] LABS: Bilirubin,Direct < 0.2 mg/dL (0.0-0.3); Chloride 99 mmol/L (96-108)
[2019-09-07 14:09] LABS: ALT/SGPT 12 U/l (0-40); AST/SGOT 16 U/l (0-37); Albumin 3.6 gm/dL (3.2-5.2); Alkaline Phosphatase 106 U/L (39-117); Bilirubin,Total 0.2 mg/dL (0.0-1.0); Blood Urea Nitrogen 54 mg/dl (8-23); Carbon Dioxide 19 mmol/L (22-30); Globulin 3.7 gm/dL (2.2-3.7); Glomerular Filtration Rate 26; Glucose 560 mg/dL (70-105); Lactate Dehydrogenase 246 U/L (94-250); Phosphorous 3.7 mg/dL (2.7-4.5); Triglycerides 89 mg/dl (<150); Uric Acid 7.5 mg/dL (2.5-8.0)
[2019-09-07] MEDS: INSULIN REGULAR, HUMAN 50 UNIT in 0.9 % SODIUM CHLORIDE 99.5 ML IV SCH (15:00)
[2019-09-07 15:56] LABS: POC Blood Urea Nitrogen 51 mg/dl (8-23); POC CO2 22 mmol/L (22-30); POC Calcium, Ionized 1.17 mmol/L (1.16-1.32); POC Chloride 102 mmol/L (96-108); POC Creatinine 2.3 mg/dl (0.7-1.2); POC Glucose, Random 306 mg/dL (70-105); POC Potassium 5.1 mmol/L (3.3-5.1); POC Sodium 135 mmol/L (133-145)
[2019-09-07 16:07] LABS: ABG Methemoglobin 0.3 % (0.4-1.5); Total Hemoglobin 11.5 gm/dL (13.5-16.5); VBG Base Excess -3.5 (-2.0-2.0); VBG HCO3 22.2 mmol/L (24.0-28.0); VBG PCO2 42.4 mmHg (41.0-51.0); VBG PH 7.34 U (7.32-7.42); VBG PO2 59 mmHg (25-40); VBG Total CO2 23.5 mmol/L (25.0-29.0)
[2019-09-07 16:33] LABS: Appearance,Urine CLEAR; Bacteria,Urine 0 /hpf (0); Bilirubin,Urine NEG (NEG); Color,Urine STRAW; Culture Indicated,Urine NO; Glucose,Urine (UA) >=500 mg/dL (NEG); Ketones,Urine NEG (NEG); Leukocyte Esterase,Urine NEG /uL (NEG); Mucus,Urine FEW /hpf (0); Nitrate,Urine NEG (NEG); Protein,Urine NEG (NEG); Specific Gravity,Urine 1.021 (1.000-1.035); Urine Blood NEG mg/dL (<0.03); Urine RBC 1 /hpf (0-1); Urine Squamous Epithelial Cell 0 /hpf (0-4); Urine Transitional Epi Cells < 1 /hpf (0-2); Urine WBC 0 /hpf (0-4); Urobilinogen,Urine NEG (NEG)
[2019-09-07] MEDS ORDERED: INSULIN LISPRO 1 UNIT/0.01 ML UNIT SQ SCH (17:30)
[2019-09-07 20:57] LABS: ABG Methemoglobin 0.3 % (0.4-1.5); Total Hemoglobin 11.2 gm/dL (13.5-16.5); VBG Base Excess -2.9 (-2.0-2.0); VBG HCO3 24.3 mmol/L (24.0-28.0); VBG Oxygen Saturation 71.5 % (40.0-70.0); VBG PCO2 53.5 mmHg (41.0-51.0); VBG PH 7.28 U (7.32-7.42); VBG PO2 44 mmHg (25-40); VBG Total CO2 25.9 mmol/L (25.0-29.0)
[2019-09-07] MEDS ORDERED: ATORVASTATIN 40 MG TABLET PO SCH (21:00)
[2019-09-07] MEDS ORDERED: GABAPENTIN 300 MG CAPSULE PO SCH (21:00)
[2019-09-07] MEDS ORDERED: INSULIN GLARGINE, HUMAN 1 UNIT/0.01 ML SQ SCH (21:00)
[2019-09-07] MEDS ORDERED: SENNOSIDES 1 TABLET PO SCH (21:00)
[2019-09-07] MEDS ORDERED: LOSARTAN 25 MG TABLET PO SCH (21:00)
[2019-09-07] MEDS ORDERED: QUEtiapine 25 MG TABLET PO SCH (21:00)
--- NOTE | 2019-09-07 21:11 | Internal Med Progress Note ---
Medical - PN: Subj Patient information: Note initiated : 09/07/19 at 9:10 pm Service Date, if different from initiated Date: [] Patient: Black Armstrong 79 y/o M admitted on 09/05/19 for Shortness of breath, recent PNA. Chief Complaint: [] Interval history: 51-29-[id number] feeling better, shortness of breath improving, white count improved, started him on Solu-Medrol as he remain diminished bibasilar lungs, antibiotics continued, Solu-Medrol 40 every 8 hourly started, echocardiogram pending, his troponin remained slightly elevated probably due to the underlying infection no peaking, he denies any active chest pain 09/07-patient became hyperkalemic and potassium was 6.5 with a elevated uncontrolled blood glucose in the 600 probably due to the underlying Solu- Medrol. Patient was moved to the ICU started on insulin drip no obvious evidence of DKA or hyperosmolar hyperglycemia. His blood sugar has been controlled since started on IV insulin. Given Kayexalate and given calcium gluconate and monitor his renal function. Telemetry monitoring. His anion gap was not elevated ordered urine analysis to look for any evidence for UTI. Will change Solu-Medrol to prednisone. Pertinent ROS: General-feeling better, less distress CVS-denied any chest pain no palpitations Respiratory-shortness of breath improving cough remains the same Abdomen-remain distended Neuro-alert oriented no confusion no headache Musculoskeletal no acute changes - Constitutional Vitals: Vital Signs Temp Pulse Resp BP Pulse Ox 97.1 F 60 18 149/74 94 09/07/19 16:31 09/07/19 19:25 09/07/19 19:25 09/07/19 16:31 09/07/19 16:31 Period Temp Pulse Resp BP Sys/Carter Pulse Ox Last 24 Hr 96.9 F-97.5 F 30-65 12-24 147-202/58-84 88-96 Intake and Output 09/07/19 09/07/19 09/07/19 05:59 13:59 21:59 Intake Total 1100 530 100 Output Total 850 450 200 Balance 250 80 -100 Intake & Output: Intake & Output 09/07/19 09/07/19 09/07/19 05:59 13:59 21:59 Intake Total 1100 530 100 Output Total 850 450 200 Balance 250 80 -100 Intake: IV 1000 50 Sodium Chloride 0.9% 1,000 ml @ 1000 75 mls/hr IV .[id number] [facility] Rx#: [id number] Rocephin 2 gm In Dextrose 5% in 50 Water 50 ml @ 100 mls/hr IV Q24H [facility] Rx#:[id number] Oral 100 480 100 Output: Void Amount 850 450 200 Other: Meal Lunch Percent of Meal Consumed 50% Urine Appearance Clear Clear Urine Color Bright Yellow Pale - Head Head exam: Present: atraumatic, normocephalic - Eye Eye exam: Present: normal appearance, PERRL. Absent: conjunctival injection Pupils: Present: PERRL - ENT ENT exam: Present: mucous membranes moist, normal exam, normal external ear exam, normal oropharynx - Neck Neck exam: Present: normal inspection. Absent: lymphadenopathy, meningismus, tenderness - Respiratory Respiratory exam: Present: accessory muscle use, decreased breath sounds, respiratory distress. Absent: chest wall tenderness - Cardiovascular Cardiovascular exam: Present: bradycardia, irregular rhythm. Absent: clicks - GI/Abdominal GI/Abdominal exam: Present: normal bowel sounds, soft, distended. Absent: tenderness - Neurological Exam Neurological exam: Present: alert, oriented X3. Absent: motor sensory deficit Medical - PN: Obj Da - Labs CBC & Chem 7: 09/06/19 04:35 09/07/19 12:49 Labs: Abnormal Lab Results 09/07/19 09/07/19 09/07/19 20:18 15:44 15:44 WBC RBC Hgb Hct POC Hct 36.0 L Lymph % (Auto) Kay % (Auto) Lymph # (Auto) Kay # (Auto) ABG Methemoglobin 0.3 L 0.3 L VBG pH 7.28 L VBG pCO2 53.5 H VBG pO2 44 H 59 H VBG HCO3 22.2 L VBG Total CO2 23.5 L VBG O2 Saturation 71.5 H 86.0 H VBG Base Excess -2.9 L -3.5 L Carboxyhemoglobin 2.7 H 4.1 H Total Hemoglobin 11.2 L 11.5 L Sodium Potassium Chloride Carbon Dioxide Anion Gap POC BUN 51 H BUN Creatinine POC Creatinine 2.3 H Glucose POC Glucose 306 H Troponin T NT-Pro-B Natriuret Pep Urine Glucose (UA) 09/07/19 09/07/19 09/07/19 13:30 12:49 12:49 WBC RBC Hgb Hct POC Hct Lymph % (Auto) Kay % (Auto) Lymph # (Auto) Kay # (Auto) ABG Methemoglobin 0.3 L VBG pH VBG pCO2 38.0 L VBG pO2 74 H VBG HCO3 20.4 L VBG Total CO2 21.5 L VBG O2 Saturation 87.7 H VBG Base Excess -4.8 L Carboxyhemoglobin 7.6 H Total Hemoglobin 11.6 L Sodium 132 L Potassium 6.2 H* Chloride Carbon Dioxide 19 L Anion Gap POC BUN BUN 54 H Creatinine 2.3 H POC Creatinine Glucose 560 H* POC Glucose Troponin T NT-Pro-B Natriuret Pep Urine Glucose (UA) >=500 A 09/07/19 09/06/19 09/06/19 10:56 12:05 07:07 WBC RBC Hgb Hct POC Hct Lymph % (Auto) Kay % (Auto) Lymph # (Auto) Kay # (Auto) ABG Methemoglobin VBG pH VBG pCO2 VBG pO2 VBG HCO3 VBG Total CO2 VBG O2 Saturation VBG Base Excess Carboxyhemoglobin Total Hemoglobin Sodium 131 L Potassium 6.5 H* Chloride Carbon Dioxide Anion Gap POC BUN BUN 54 H Creatinine 2.2 H POC Creatinine Glucose 606 H* POC Glucose Troponin T 0.05 H* NT-Pro-B Natriuret Pep Urine Glucose (UA) >=500 A 09/06/19 09/06/19 09/05/19 04:35 04:35 17:57 WBC RBC 3.32 L Hgb 10.2 L Hct 31.2 L POC Hct Lymph % (Auto) Kay % (Auto) 12.2 H Lymph # (Auto) 1.4 L Kay # (Auto) 1.0 H ABG Methemoglobin VBG pH VBG pCO2 VBG pO2 VBG HCO3 VBG Total CO2 VBG O2 Saturation VBG Base Excess Carboxyhemoglobin Total Hemoglobin Sodium Potassium Chloride Carbon Dioxide Anion Gap POC BUN BUN Creatinine POC Creatinine Glucose POC Glucose Troponin T 0.04 H* 0.04 H* NT-Pro-B Natriuret Pep Urine Glucose (UA) 09/05/19 09/05/19 09/05/19 17:57 13:55 13:55 WBC 11.1 H RBC 3.58 L Hgb 11.0 L Hct 33.4 L POC Hct Lymph % (Auto) 15.4 L Kay % (Auto) Lymph # (Auto) Kay # (Auto) 1.1 H ABG Methemoglobin VBG pH VBG pCO2 VBG pO2 VBG HCO3 VBG Total CO2 VBG O2 Saturation VBG Base Excess Carboxyhemoglobin Total Hemoglobin Sodium 132 L 129 L Potassium Chloride 95 L Carbon Dioxide Anion Gap 7.0 L POC BUN BUN 52 H 53 H Creatinine 2.7 H 2.9 H POC Creatinine Glucose 201 H 226 H POC Glucose Troponin T NT-Pro-B Natriuret Pep 4060.0 H Urine Glucose (UA) Meds: Medications Acetaminophen (Tylenol) 650 mg PO Q6HP PRN; Protocol PRN Reason: Per Pain Protocol/Fever > 101 Albuterol/Ipratropium (Duoneb) 3 ml NEB Q4HRT [facility] Last Admin: 09/07/19 19:19 Dose: 3 ml Documented by: Aspirin (Aspirin) 81 mg PO QDAY [facility] Atorvastatin Calcium (Lipitor) 80 mg PO HS [facility] Carvedilol (Coreg) 3.125 mg PO BIDCC [facility] Last Admin: 09/07/19 18:14 Dose: 3.125 mg Documented by: Clopidogrel Bisulfate (Plavix) 75 mg PO QDAY [facility] Dextrose (Dextrose 50%) 0 ml IV UD PRN PRN Reason: Hypoglycemia Diagnostic Test (Pha) (Accu-Chek) 1 each FS Q1 [facility] Last Admin: 09/07/19 20:00 Dose: 1 each Documented by: Digoxin (Lanoxin) 125 mcg PO MoFr@1400 [facility] Last Admin: 09/07/19 14:19 Dose: 125 mcg Documented by: Docusate Sodium (Colace) 100 mg PO BID [facility] Finasteride (Proscar) 5 mg PO QDAY [facility] Gabapentin (Neurontin) 300 mg PO HS [facility] Glucose (Insta-Glucose) 15 gm PO PRN PRN PRN Reason: Hypoglycemia Heparin Sodium (Porcine) (Heparin) 5,000 unit SQ Q12 [facility] Hydralazine HCl (Apresoline) 10 mg IV Q6HP PRN PRN Reason: Hypertension, SBP>170 Last Admin: 09/07/19 17:59 Dose: 10 mg Documented by: Azithromycin 500 mg/ Dextrose 250 mls @ 250 mls/hr IV Q24H [facility]; Protocol Stop: 09/08/19 10:59 Ceftriaxone Sodium 2 gm/ (Dextrose) 50 mls @ 100 mls/hr IV Q24H [facility] Sodium Chloride (Sodium Chloride 0.9%) 1,000 mls @ 75 mls/hr IV .[id number] [facility] Last Admin: 09/07/19 12:48 Dose: 75 mls/hr Documented by: Insulin Human Regular 50 unit/ (Sodium Chloride) 100 mls @ 0 mls/hr IV Q12H [facility]; Protocol Last Admin: 09/07/19 15:00 Dose: 2 ml/hr, 2 mls/hr Documented by: Losartan Potassium (Cozaar) 25 mg PO HS [facility] Ondansetron HCl (Zofran) 4 mg IV Q6HP PRN PRN Reason: Nausea And Vomiting Pantoprazole Sodium (Protonix) 40 mg PO QAMAC [facility] Prednisone (Prednisone) 40 mg PO QAMCC [facility] Senna (Senokot) 2 tab PO HS [facility] Sodium Chloride (Saline Flush) 10 ml IV Q8 [facility] Last Admin: 09/07/19 14:19 Dose: Not Given Documented by: Tamsulosin HCl (Flomax) 0.4 mg PO QDAY [facility] - ABG Interpretation ABG results: 09/07/19 09/07/19 09/07/19 12:49 15:44 20:18 ABG Methemoglobin 0.3 L 0.3 L 0.3 L VBG pH 7.35 7.34 7.28 L VBG pCO2 38.0 L 42.4 53.5 H VBG pO2 74 H 59 H 44 H VBG HCO3 20.4 L 22.2 L 24.3 VBG Total CO2 21.5 L 23.5 L 25.9 VBG O2 Saturation 87.7 H 86.0 H 71.5 H VBG Base Excess -4.8 L -3.5 L -2.9 L Medical - PN: A/P - Time Spent With Patient Total time spent is greater than 50% in coordination of care (as documented) at patient's floor/unit and/or counseling patient: - Narrative A/P Narrative: Critical hyperkalemia Probably due to uncontrolled blood sugar Ordered Kayexalate Recheck potassium showing improvement Given calcium gluconate Telemetry monitoring Moved him to the ICU Discussed with the family and updated about the status Uncontrolled hyperglycemia Probably due to Solu-Medrol and uncontrolled diabetes We will discontinue Solu-Medrol and start prednisone 40 mg for COPD exacerbation Hypertensive emergency Probably due to IV fluids Monitor his blood pressure We will stop the IV fluids for now We will consider Lasix Acute hypoxic respiratory failure Probable community-acquired pneumonia Patient present with the shortness of breath and chest CT scan showed evidence of infiltrate patient had a bronchitis recently Started him on ceftriaxone and azithromycin Solu-Medrol changed to prednisone Unable to provide sputum sample Probable COPD exacerbation Continue duo nebs 4 times daily and as needed Solu-Medrol changed to prednisone 40 mg bronchodilator as mentioned above History of CHF no active acute exacerbation We will monitor his respiratory status and cardiac status Echocardiogram showing ejection fraction of 45 to 50% diminished compared to the previous echo We will obtain an opinion from cardiology No obvious evidence of heart failure We will stop the IV fluids for now Non-ST elevation [place]-probably type II Troponin remained minimally elevated 0.04 no active chest pain Echocardiogram showing ejection fraction of 45 to 50% no focal hypokinesis Overall LV function diminished compared to previous echo We will obtain a cardiology opinion Probable type II non-ST elevation [place] probably due to the underlying infection and renal failure Acute renal failure probably due to dehydration diarrhea and underlying infection Continue IV fluid hydration 50 mils per hour His creatinine baseline is 1.6-1.8 and upon admission it was 2.9-improving We will hold IV fluids now as he is at risk for going into congestive heart failure and pulmonary edema Recheck creatinine DVT prophylaxis-SCDs and heparin CODE STATUS-full code Expected length of stay-2 midnights Total critical care time spent more than 70 minutes Medical - PN: Qual - VTE Deep Vein Thrombosis/Pulmonary Embolism Present on Admission: No
[2019-09-07 21:28] LABS: Carbon Dioxide 22 mmol/L (22-30); Chloride 98 mmol/L (96-108)
[2019-09-07] MEDS ORDERED: DEXTROSE 5%-NS 1,000 ML IV SCH (22:23)
[2019-09-08] MEDS ORDERED: QUEtiapine 25 MG TABLET PO PRN ×2 (01:01→21:00)
[2019-09-08 01:09] LABS: Blood Urea Nitrogen 53 mg/dl (8-23); Calcium 9.2 mg/dl (8.6-10.4); Carbon Dioxide 24 mmol/L (22-30); Chloride 100 mmol/L (96-108); Glomerular Filtration Rate 29; Glucose 177 mg/dL (70-105)
[2019-09-08 01:16] LABS: ABG Methemoglobin 0.1 % (0.4-1.5); Total Hemoglobin 10.9 gm/dL (13.5-16.5); VBG Base Excess 1.8 (-2.0-2.0); VBG Oxygen Saturation 48.9 % (40.0-70.0); VBG PCO2 58.8 mmHg (41.0-51.0); VBG PH 7.31 U (7.32-7.42); VBG PO2 40 mmHg (25-40); VBG Total CO2 30.8 mmol/L (25.0-29.0)
[2019-09-08] MEDS: IPRATROPIUM/ALBUTEROL 3 ML AMPUL.NEB NEB SCH ×6 (02:57→23:05)
[2019-09-08] MEDS: hydrALAZINE 20 MG/ML VIAL IV PRN (04:08)
[2019-09-08 04:37] LABS: ABG Methemoglobin 0.3 % (0.4-1.5); Total Hemoglobin 11.2 gm/dL (13.5-16.5); VBG HCO3 25.4 mmol/L (24.0-28.0); VBG Oxygen Saturation 77.9 % (40.0-70.0); VBG PH 7.32 U (7.32-7.42); VBG PO2 48 mmHg (25-40)
[2019-09-08] MEDS: 0.9 % SODIUM CHLORIDE 10 ML SYRINGE IV SCH ×3 (05:12→21:29)
[2019-09-08] MEDS: INSULIN REGULAR, HUMAN 50 UNIT in 0.9 % SODIUM CHLORIDE 99.5 ML IV SCH (05:13)
[2019-09-08] MEDS ORDERED: DEXTROSE 31 GM ORAL.SUSP PO PRN ×2 (07:00→13:49)
[2019-09-08] MEDS ORDERED: DEXTROSE 50% 50 ML VIAL IV PRN ×2 (07:00→13:49)
[2019-09-08] MEDS ORDERED: PANTOPRAZOLE 40 MG TABLET PO SCH (07:30)
[2019-09-08] MEDS ORDERED: predniSONE 20 MG TABLET PO SCH ×2 (08:00)
[2019-09-08] MEDS ORDERED: ASPIRIN 81 MG TAB.CHEW PO SCH (09:00)
[2019-09-08] MEDS ORDERED: TAMSULOSIN 0.4 MG CAPSULE PO SCH (09:00)
[2019-09-08] MEDS ORDERED: CLOPIDOGREL 75 MG TABLET PO SCH (09:00)
[2019-09-08] MEDS ORDERED: cefTRIAXone 2 GM in DEXTROSE 5% IN WATER 50 ML IV SCH (09:00)
[2019-09-08] MEDS ORDERED: FINASTERIDE 5 MG TABLET PO SCH (09:00)
[2019-09-08 09:21] LABS: Basophils # (Auto) 0 K/mcL (0.0-0.3); Basophils % (Auto) 0.2 % (0.0-2.0); Eosinophils # (Auto) 0.1 K/mcL (0.0-0.7); Eosinophils % (Auto) 0.5 % (0.0-7.0); Granulocytes % (Auto) 73.1 % (38.0-78.0); Hematocrit 33.9 % (41.0-55.0); Hemoglobin 11.1 g/dL (13.5-16.5); Lymphocytes # (Auto) 1.3 K/mcL (1.5-4.8); Lymphocytes % (Auto) 13.5 % (15.5-49.0); Mean Cell Volume 93.7 fL (80.0-100.0); Mean Corpuscular HGB Conc 32.8 g/dL (31.0-36.0); Mean Platelet Volume 8.9 fL (7.4-10.4); Monocytes # (Auto) 1.3 K/mcL (0.1-0.9); Monocytes % (Auto) 12.7 % (1.0-12.0); Platelet Count 235 K/mcL (140-440); RBC 3.61 M/mcL (4.50-5.90); Red Cell Distribution Width 13.4 % (11.5-14.5); WBC 9.9 K/mcL (4.5-11.0)
[2019-09-08] MEDS: INSULIN LISPRO 1 UNIT/0.01 ML UNIT SQ SCH ×7 (09:29→21:15)
[2019-09-08] MEDS: DOCUSATE SODIUM 100 MG CAPSULE PO SCH ×2 (09:30→21:28)
[2019-09-08] MEDS: CARVEDILOL 3.125 MG TABLET PO SCH ×2 (09:31→17:16)
[2019-09-08] MEDS: HEPARIN 5,000 UNIT/ML VIAL SQ SCH ×2 (09:31→21:24)
[2019-09-08] MEDS ORDERED: AZITHROMYCIN 500 MG in DEXTROSE 5% IN WATER 250 ML IV SCH (10:00)
[2019-09-08] MEDS ORDERED: LISINOPRIL 5 MG TABLET PO SCH (10:57)
--- NOTE | 2019-09-08 11:03 | Internal Med Progress Note ---
Medical - PN: Subj Patient information: Note initiated : 09/08/19 at 11:02 am Service Date, if different from initiated Date: [] Patient: Black Armstrong 79 y/o M admitted on 09/05/19 for Shortness of breath, recent PNA. Chief Complaint: [] Interval history: [id number] feeling better, shortness of breath improving, white count improved, started him on Solu-Medrol as he remain diminished bibasilar lungs, antibiotics continued, Solu-Medrol 40 every 8 hourly started, echocardiogram pending, his troponin remained slightly elevated probably due to the underlying infection no peaking, he denies any active chest pain 09/07-patient became hyperkalemic and potassium was 6.5 with a elevated uncontrolled blood glucose in the 600 probably due to the underlying Solu- Medrol. Patient was moved to the ICU started on insulin drip no obvious evidence of DKA or hyperosmolar hyperglycemia. His blood sugar has been controlled since started on IV insulin. Given Kayexalate and given calcium gluconate and monitor his renal function. Telemetry monitoring. His anion gap was not elevated ordered urine analysis to look for any evidence for UTI. Will change Solu-Medrol to prednisone. 09/08-patient is feeling better his hyperkalemia improved has a blood sugar is under control we will start him on his regular insulin regimen with a sliding scale. His echocardiogram showing ejection fraction of 40 to 45% with his underlying atrial fibrillation it could be due to tachycardia induced but I strongly recommend him to be evaluated by cardiology in a week time to evaluate for underlying ischemia. Troponin remained plateaued and no evidence of any acute injury. 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 We will continue ceftriaxone and azithromycin for now ordered a sputum culture. Pertinent ROS: General-feeling better, less distress CVS-denied any chest pain no palpitations Respiratory-shortness of breath improving cough remains the same Abdomen-remain distended Neuro-alert oriented no confusion no headache Musculoskeletal no acute changes - Constitutional Vitals: Vital Signs Temp Pulse Resp BP Pulse Ox 97.3 F 59 L 16 148/54 93 09/08/19 08:01 09/08/19 09:01 09/08/19 10:01 09/08/19 10:01 09/08/19 10:01 Period Temp Pulse Resp BP Sys/Carter Pulse Ox Last 24 Hr 96.9 F-97.5 F 56-63 11-24 129-187/49-94 88-100 Intake and Output 09/07/19 09/08/19 09/08/19 21:59 05:59 13:59 Intake Total 1598 980 410 Output Total 900 900 300 Balance 698 80 110 Weight 275 lb 12.8 oz Intake & Output: Intake & Output 09/07/19 09/08/19 09/08/19 21:59 05:59 13:59 Intake Total 1598 980 410 Output Total 900 900 300 Balance 698 80 110 Weight 275 lb 12.8 oz Intake: IV 28 980 50 Sodium Chloride 0.9% 1,000 ml @ 719 75 mls/hr IV .[id number] [facility] Rx#: [id number] Dextrose 5%-Ns IV Solution 1, 231 000 ml @ 50 mls/hr IV .Q20H [facility]ENNY Rx#:[id number] HumuLIN R 50 UNIT In Sodium 28 30 Chloride 0.9% 99.5 ml @ Per Protocol IV Q12H [facility]ENNY Rx#: [id number] Rocephin 2 gm In Dextrose 5% in 50 Water 50 ml @ 100 mls/hr IV Q24H [facility]ENNY Rx#:[id number] Oral 1570 360 Output: Void Amount 900 900 300 Other: Meal Dinner Breakfast Percent of Meal Consumed 100% 75% Feeding Ability Assist with Tray Set Up Urine Appearance Clear Urine Color Bright Yellow Pale Straw # Bowel Movements 0 General appearance: mild distress, morbidly obese - Head Head exam: Present: atraumatic, normal inspection - Eye Eye exam: Present: conjunctival injection, normal appearance. Absent: periorbital swelling, periorbital tenderness - ENT ENT exam: Present: mucous membranes moist, normal exam - Respiratory Respiratory exam: Present: accessory muscle use, decreased breath sounds, prolonged expiratory phase, wheezes - GI/Abdominal GI/Abdominal exam: Present: soft, distended. Absent: guarding, tenderness - Neurological Exam Neurological exam: Present: alert, oriented X3, reflexes normal. Absent: motor sensory deficit Medical - PN: Obj Da - Labs CBC & Chem 7: 09/08/19 07:06 09/08/19 04:14 Labs: Abnormal Lab Results 09/08/19 09/08/19 09/08/19 07:06 04:14 00:57 WBC RBC 3.61 L Hgb 11.1 L Hct 33.9 L POC Hct Lymph % (Auto) 13.5 L Hitchcock % (Auto) 12.7 H Lymph # (Auto) 1.3 L Hitchcock # (Auto) 1.3 H ABG Methemoglobin 0.3 L 0.1 L VBG pH 7.31 L VBG pCO2 58.8 H VBG pO2 48 H VBG HCO3 29.0 H VBG Total CO2 30.8 H VBG O2 Saturation 77.9 H VBG Base Excess Carboxyhemoglobin 4.6 H 3.1 H Total Hemoglobin 11.2 L 10.9 L Sodium Potassium Chloride Carbon Dioxide Anion Gap POC BUN BUN Creatinine POC Creatinine Glucose POC Glucose Troponin T NT-Pro-B Natriuret Pep Urine Glucose (UA) 09/07/19 09/07/19 09/07/19 23:39 20:18 15:44 WBC RBC Hgb Hct POC Hct 36.0 L Lymph % (Auto) Hitchcock % (Auto) Lymph # (Auto) Hitchcock # (Auto) ABG Methemoglobin 0.3 L VBG pH 7.28 L VBG pCO2 53.5 H VBG pO2 44 H VBG HCO3 VBG Total CO2 VBG O2 Saturation 71.5 H VBG Base Excess -2.9 L Carboxyhemoglobin 2.7 H Total Hemoglobin 11.2 L Sodium Potassium Chloride Carbon Dioxide Anion Gap POC BUN 51 H BUN 53 H Creatinine 2.1 H POC Creatinine 2.3 H Glucose 177 H POC Glucose 306 H Troponin T NT-Pro-B Natriuret Pep Urine Glucose (UA) 09/07/19 09/07/19 09/07/19 15:44 13:30 12:49 WBC RBC Hgb Hct POC Hct Lymph % (Auto) Hitchcock % (Auto) Lymph # (Auto) Hitchcock # (Auto) ABG Methemoglobin 0.3 L 0.3 L VBG pH VBG pCO2 38.0 L VBG pO2 59 H 74 H VBG HCO3 22.2 L 20.4 L VBG Total CO2 23.5 L 21.5 L VBG O2 Saturation 86.0 H 87.7 H VBG Base Excess -3.5 L -4.8 L Carboxyhemoglobin 4.1 H 7.6 H Total Hemoglobin 11.5 L 11.6 L Sodium Potassium Chloride Carbon Dioxide Anion Gap POC BUN BUN Creatinine POC Creatinine Glucose POC Glucose Troponin T NT-Pro-B Natriuret Pep Urine Glucose (UA) >=500 A 09/07/19 09/07/19 09/06/19 12:49 10:56 12:05 WBC RBC Hgb Hct POC Hct Lymph % (Auto) Hitchcock % (Auto) Lymph # (Auto) Hitchcock # (Auto) ABG Methemoglobin VBG pH VBG pCO2 VBG pO2 VBG HCO3 VBG Total CO2 VBG O2 Saturation VBG Base Excess Carboxyhemoglobin Total Hemoglobin Sodium 132 L 131 L Potassium 6.2 H* 6.5 H* Chloride Carbon Dioxide 19 L Anion Gap POC BUN BUN 54 H 54 H Creatinine 2.3 H 2.2 H POC Creatinine Glucose 560 H* 606 H* POC Glucose Troponin T 0.05 H* NT-Pro-B Natriuret Pep Urine Glucose (UA) 09/06/19 09/06/19 09/06/19 07:07 04:35 04:35 WBC RBC 3.32 L Hgb 10.2 L Hct 31.2 L POC Hct Lymph % (Auto) Hitchcock % (Auto) 12.2 H Lymph # (Auto) 1.4 L Hitchcock # (Auto) 1.0 H ABG Methemoglobin VBG pH VBG pCO2 VBG pO2 VBG HCO3 VBG Total CO2 VBG O2 Saturation VBG Base Excess Carboxyhemoglobin Total Hemoglobin Sodium Potassium Chloride Carbon Dioxide Anion Gap POC BUN BUN Creatinine POC Creatinine Glucose POC Glucose Troponin T 0.04 H* NT-Pro-B Natriuret Pep Urine Glucose (UA) >=500 A 09/05/19 09/05/19 09/05/19 17:57 17:57 13:55 WBC RBC Hgb Hct POC Hct Lymph % (Auto) Hitchcock % (Auto) Lymph # (Auto) Hitchcock # (Auto) ABG Methemoglobin VBG pH VBG pCO2 VBG pO2 VBG HCO3 VBG Total CO2 VBG O2 Saturation VBG Base Excess Carboxyhemoglobin Total Hemoglobin Sodium 132 L 129 L Potassium Chloride 95 L Carbon Dioxide Anion Gap 7.0 L POC BUN BUN 52 H 53 H Creatinine 2.7 H 2.9 H POC Creatinine Glucose 201 H 226 H POC Glucose Troponin T 0.04 H* NT-Pro-B Natriuret Pep 4060.0 H Urine Glucose (UA) 09/05/19 13:55 WBC 11.1 H RBC 3.58 L Hgb 11.0 L Hct 33.4 L POC Hct Lymph % (Auto) 15.4 L Hitchcock % (Auto) Lymph # (Auto) Hitchcock # (Auto) 1.1 H ABG Methemoglobin VBG pH VBG pCO2 VBG pO2 VBG HCO3 VBG Total CO2 VBG O2 Saturation VBG Base Excess Carboxyhemoglobin Total Hemoglobin Sodium Potassium Chloride Carbon Dioxide Anion Gap POC BUN BUN Creatinine POC Creatinine Glucose POC Glucose Troponin T NT-Pro-B Natriuret Pep Urine Glucose (UA) Meds: Medications Acetaminophen (Tylenol) 650 mg PO Q6HP PRN; Protocol PRN Reason: Per Pain Protocol/Fever > 101 Albuterol/Ipratropium (Duoneb) 3 ml NEB Q4HRT [facility] Last Admin: 09/08/19 11:01 Dose: 3 ml Documented by: Aspirin (Aspirin) 81 mg PO QDAY [facility] Last Admin: 09/08/19 09:31 Dose: 81 mg Documented by: Atorvastatin Calcium (Lipitor) 80 mg PO [facility] Last Admin: 09/07/19 21:17 Dose: 80 mg Documented by: [facility] ([facility]g) [facility] Last Admin: 09/08/19 09:31 Dose: 3.125 mg Documented by: Clopidogrel Bisulfate (Plavix) 75 mg PO QDAY [facility] Last Admin: 09/08/19 09:30 Dose: 75 mg Documented by: Dextrose (Dextrose 50%) 0 ml IV UD PRN PRN Reason: Hypoglycemia Diagnostic Test (Pha) (Accu-Chek) 1 each FS ACHS [facility] Last Admin: 09/08/19 07:30 Dose: 1 each Documented by: Digoxin (Lanoxin) 125 mcg PO MoFr@1400 [facility] Last Admin: 09/07/19 14:19 Dose: 125 mcg Documented by: Docusate Sodium (Colace) 100 mg PO BID [facility] Last Admin: 09/08/19 09:30 Dose: 100 mg Documented by: Finasteride (Proscar) 5 mg PO QDAY [facility] Last Admin: 09/08/19 10:13 Dose: 5 mg Documented by: Gabapentin (Neurontin) 300 mg PO [facility] Last Admin: 09/07/19 21:18 Dose: 300 mg Documented by: Glucose (Insta-Glucose) 15 gm PO PRN PRN PRN Reason: Hypoglycemia Heparin Sodium (Porcine) (Heparin) 5,000 unit SQ Q12 [facility] Last Admin: 09/08/19 09:31 Dose: 5,000 unit Documented by: Hydralazine HCl (Apresoline) 10 mg IV Q6HP PRN PRN Reason: Hypertension, SBP>170 Last Admin: 09/08/19 04:08 Dose: 10 mg Documented by: Ceftriaxone Sodium 2 gm/ (Dextrose) 50 mls @ 100 mls/hr IV Q24H [facility] Last Infusion: 09/08/19 10:00 Dose: Infused Documented by: Insulin Glargine (Lantus) 60 unit SQ [facility] Insulin Human Lispro (Humalog) 0 unit SQ ACHS [facility]; Protocol Last Admin: 09/08/19 09:29 Dose: 2 units Documented by: Insulin Human Lispro (Humalog) 20 unit SQ TIDAC [facility] Last Admin: 09/08/19 09:30 Dose: 20 units Documented by: Lisinopril (Zestril) 5 mg PO DAILY [facility] Losartan Potassium (Cozaar) 25 mg PO [facility] Last Admin: 09/07/19 21:18 Dose: 25 mg Documented by: Ondansetron HCl (Zofran) 4 mg IV Q6HP PRN PRN Reason: Nausea And Vomiting [facility] Admin: 09/08/19 07:49 Dose: 40 mg Documented by: [facility]one) [facility] Admin: 09/08/19 09:30 Dose: 40 mg Documented by: Quetiapine Fumarate (Seroquel) 12.5 mg PO [facility] PRN PRN Reason: sleep aid as needed Senna (Senokot) 2 tab PO [facility] Last Admin: 09/07/19 21:00 Dose: Not Given Documented by: Sodium Chloride (Saline Flush) 10 ml IV Q8 [facility] Last Admin: 09/08/19 05:12 Dose: 10 ml Documented by: Tamsulosin HCl (Flomax) 0.4 mg PO QDAY [facility] Last Admin: 09/08/19 09:31 Dose: 0.4 mg Documented by: - ABG Interpretation ABG results: 09/07/19 09/07/19 09/07/19 12:49 15:44 20:18 ABG Methemoglobin 0.3 L 0.3 L 0.3 L VBG pH 7.35 7.34 7.28 L VBG pCO2 38.0 L 42.4 53.5 H VBG pO2 74 H 59 H 44 H VBG HCO3 20.4 L 22.2 L 24.3 VBG Total CO2 21.5 L 23.5 L 25.9 VBG O2 Saturation 87.7 H 86.0 H 71.5 H VBG Base Excess -4.8 L -3.5 L -2.9 L 09/08/19 09/08/19 00:57 04:14 ABG Methemoglobin 0.1 L 0.3 L VBG pH 7.31 L 7.32 VBG pCO2 58.8 H 50.0 VBG pO2 40 48 H VBG HCO3 29.0 H 25.4 VBG Total CO2 30.8 H 27.0 VBG O2 Saturation 48.9 77.9 H VBG Base Excess 1.8 -1.0 Medical - PN: A/P - Time Spent With Patient Total time spent is greater than 50% in coordination of care (as documented) at patient's floor/unit and/or counseling patient: - Narrative A/P Narrative: Acute hypoxic respiratory failure Probable community-acquired pneumonia Patient present with the shortness of breath and chest CT scan showed evidence of infiltrate patient had a bronchitis recently Started him on ceftriaxone and azithromycin Solu-Medrol changed to prednisone Ordered sputum culture unable to provide sample so far Probable COPD exacerbation Continue duo nebs 4 times daily and as needed Solu-Medrol changed to prednisone 40 mg bronchodilator as mentioned above Critical hyperkalemia-improved Blood Sugar has been controlled, he received 1 dose of Kayexalate ordered Kayexalate We will transfer him out of the ICU Uncontrolled hyperglycemia-improved Probably due to Solu-Medrol and uncontrolled diabetes We will discontinue Solu-Medrol and start prednisone 40 mg for COPD exacerbation Ordered sliding scale insulin Restarted Lantus We will use mealtime insulin 5 units Hypertensive emergency Probably due to IV fluids, IV fluids stopped Systolic blood pressure around 150 Started him on lisinopril Systolic heart failure Non-ST elevation [place]-probably type II Troponin remained minimally elevated 0.04 no active chest pain Echocardiogram showing ejection fraction of 45 to 50% no focal hypokinesis Overall LV function diminished compared to previous echo, probably due to tachycardia induced He is on digoxin, continued He is on Coreg 3.125 limited by bradycardia Patient has a cardiology appointment scheduled soon and he would benefit from further evaluation for ischemia Started him on lisinopril 5 mg daily Probable type II non-ST elevation NJ probably due to the underlying infection and renal failure Acute renal failure probably due to dehydration diarrhea and underlying infection IV fluids stopped his creatinine is 2.1 , his creatinine baseline is 1.6-1.8 and upon admission it was 2.9-improving DVT prophylaxis-SCDs and heparin CODE STATUS-full code Expected length of stay-1-2 midnights Medical - PN: Qual - VTE Deep Vein Thrombosis/Pulmonary Embolism Present on Admission: No
[2019-09-08 11:45] LABS: Hemoglobin A1C 9.1 % HGB (4.0-6.0)
[2019-09-08] MEDS ORDERED: ACETAMINOPHEN 325 MG TABLET PO PRN (13:49)
[2019-09-08] MEDS ORDERED: ONDANSETRON 4 MG/2 ML VIAL IV PRN (13:49)
[2019-09-08] MEDS ORDERED: hydrALAZINE 20 MG/ML VIAL IV PRN (13:49)
[2019-09-08 13:59] LABS: Carbon Dioxide 22 mmol/L (22-30); Chloride 100 mmol/L (96-108)
[2019-09-08] MEDS ORDERED: INSULIN GLARGINE, HUMAN 1 UNIT/0.01 ML SQ SCH (21:00)
[2019-09-08] MEDS: INSULIN GLARGINE, HUMAN 1 UNIT/0.01 ML SQ SCH (21:14)
[2019-09-08] MEDS: LOSARTAN 25 MG TABLET PO SCH (21:23)
[2019-09-08] MEDS: ATORVASTATIN 40 MG TABLET PO SCH (21:24)
[2019-09-08] MEDS: GABAPENTIN 300 MG CAPSULE PO SCH (21:24)
[2019-09-08] MEDS: SENNOSIDES 1 TABLET PO SCH (21:28)
[2019-09-09] MEDS: IPRATROPIUM/ALBUTEROL 3 ML AMPUL.NEB NEB SCH ×6 (02:47→22:37)
[2019-09-09] MEDS: 0.9 % SODIUM CHLORIDE 10 ML SYRINGE IV SCH ×3 (05:07→21:58)
[2019-09-09 07:03] LABS: Hematocrit 30.9 % (41.0-55.0); Hemoglobin 10.1 g/dL (13.5-16.5); Mean Cell Volume 94.2 fL (80.0-100.0); Mean Corpuscular HGB Conc 32.7 g/dL (31.0-36.0); Mean Platelet Volume 9.1 fL (7.4-10.4); Platelet Count 236 K/mcL (140-440); RBC 3.28 M/mcL (4.50-5.90); Red Cell Distribution Width 13.9 % (11.5-14.5); WBC 10.1 K/mcL (4.5-11.0)
[2019-09-09] MEDS ORDERED: PANTOPRAZOLE 40 MG TABLET PO SCH (07:30)
[2019-09-09 07:32] LABS: ALT/SGPT 11 U/l (0-40); AST/SGOT 13 U/l (0-37); Albumin 3.1 gm/dL (3.2-5.2); Albumin/Globulin Ratio 1.1 (1.0-2.3); Alkaline Phosphatase 79 U/L (39-117); Bilirubin,Direct < 0.2 mg/dL (0.0-0.3); Bilirubin,Total 0.2 mg/dL (0.0-1.0); Blood Urea Nitrogen 49 mg/dl (8-23); Calcium 8.7 mg/dl (8.6-10.4); Carbon Dioxide 22 mmol/L (22-30); Chloride 103 mmol/L (96-108); Globulin 2.8 gm/dL (2.2-3.7); Glomerular Filtration Rate 31; Glucose 141 mg/dL (70-105); Lactate Dehydrogenase 172 U/L (94-250); Phosphorous 3.3 mg/dL (2.7-4.5); Triglycerides 78 mg/dl (<150); Uric Acid 7.8 mg/dL (2.5-8.0)
[2019-09-09] MEDS: CARVEDILOL 3.125 MG TABLET PO SCH ×2 (07:51→16:51)
[2019-09-09] MEDS ORDERED: predniSONE 20 MG TABLET PO SCH (08:00)
[2019-09-09] MEDS: INSULIN LISPRO 1 UNIT/0.01 ML UNIT SQ SCH ×7 (08:25→21:56)
[2019-09-09 08:27] LABS: Band Neutrophils % 1 % (0-10); Basophils % (Manual) 1 % (0-2); Lymphocytes % 12 % (15-49); Monocytes % (Manual) 7 % (1-12); Platelet Estimate NORMAL (NORMAL); RBC Morphology NORMAL (NORMAL); Segmented Neutrophils % 79 % (38-78)
[2019-09-09] MEDS: HEPARIN 5,000 UNIT/ML VIAL SQ SCH ×2 (08:29→21:55)
[2019-09-09] MEDS: DOCUSATE SODIUM 100 MG CAPSULE PO SCH ×2 (08:29→21:55)
[2019-09-09] MEDS ORDERED: TAMSULOSIN 0.4 MG CAPSULE PO SCH (09:00)
[2019-09-09] MEDS ORDERED: CLOPIDOGREL 75 MG TABLET PO SCH (09:00)
[2019-09-09] MEDS ORDERED: cefTRIAXone 2 GM in DEXTROSE 5% IN WATER 50 ML IV SCH (09:00)
[2019-09-09] MEDS ORDERED: ASPIRIN 81 MG TAB.CHEW PO SCH (09:00)
[2019-09-09] MEDS ORDERED: LISINOPRIL 5 MG TABLET PO SCH (09:00)
[2019-09-09] MEDS ORDERED: FINASTERIDE 5 MG TABLET PO SCH (09:00)
[2019-09-09] MEDS ORDERED: FUROSEMIDE 40 MG TABLET PO SCH (11:34)
--- NOTE | 2019-09-09 11:36 | Internal Med Progress Note ---
Medical - PN: Subj Patient information: Note initiated : 09/09/19 at 11:35 am Service Date, if different from initiated Date: [] Patient: Black Armstrong 79 y/o M admitted on 09/05/19 for Shortness of breath, recent PNA. Chief Complaint: [] Interval history: 18-51-noxkejp feeling better, shortness of breath improving, white count improved, started him on Solu-Medrol as he remain diminished bibasilar lungs, antibiotics continued, Solu-Medrol 40 every 8 hourly started, echocardiogram pending, his troponin remained slightly elevated probably due to the underlying infection no peaking, he denies any active chest pain 09/07-patient became hyperkalemic and potassium was 6.5 with a elevated uncontrolled blood glucose in the 600 probably due to the underlying Solu- Medrol. Patient was moved to the ICU started on insulin drip no obvious evidence of DKA or hyperosmolar hyperglycemia. His blood sugar has been controlled since started on IV insulin. Given Kayexalate and given calcium gluconate and monitor his renal function. Telemetry monitoring. His anion gap was not elevated ordered urine analysis to look for any evidence for UTI. Will change Solu-Medrol to prednisone. 09/08-patient is feeling better his hyperkalemia improved has a blood sugar is under control we will start him on his regular insulin regimen with a sliding scale. His echocardiogram showing ejection fraction of 40 to 45% with his underlying atrial fibrillation it could be due to tachycardia induced but I strongly recommend him to be evaluated by cardiology in a week time to evaluate for underlying ischemia. Troponin remained plateaued and no evidence of any acute injury. 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 We will continue ceftriaxone and azithromycin for now ordered a sputum culture. 09/09-patient is feeling better he is oxygenating well, his blood sugar has been controlled. Discussed with the family about the ejection fraction and getting the cardiology appointment we will try to make an appointment with the [facility]. His renal failure slightly improved 2.0 which is close to his b aseline. Continued ceftriaxone and azithromycin if he continues to improve can be discharged tomorrow on p.o. prednisone and p.o. antibiotics. Pertinent ROS: General-feeling better, less distress CVS-denied any chest pain no palpitations Respiratory-shortness of breath improving cough remains the same Abdomen-remain distended Neuro-alert oriented no confusion no headache Musculoskeletal no acute changes - Constitutional Vitals: Vital Signs Temp Pulse Resp BP Pulse Ox 99 F 62 18 166/61 95 09/09/19 04:03 09/09/19 11:01 09/09/19 11:01 09/09/19 06:07 09/09/19 11:01 Period Temp Pulse Resp BP Sys/Carter Pulse Ox Last 24 Hr 97.7 F-99 F 59-65 11-32 83-172/61-83 90-97 Intake and Output 09/08/19 09/09/19 09/09/19 21:59 05:59 13:59 Intake Total 50 Output Total 200 275 Balance -200 -275 50 Weight 276 lb Intake & Output: Intake & Output 09/08/19 09/09/19 09/09/19 21:59 05:59 13:59 Intake Total 50 Output Total 200 275 Balance -200 -275 50 Weight 276 lb Intake: IV 50 Rocephin 2 gm In Dextrose 5% in 50 Water 50 ml @ 100 mls/hr IV Q24H [facility] Rx#:[id number] Oral 0 Output: Void Amount 200 275 General appearance: morbidly obese - Head Head exam: Present: atraumatic, normal inspection - Eye Eye exam: Present: normal appearance. Absent: periorbital swelling, periorbital tenderness - ENT ENT exam: Present: mucous membranes moist, normal exam, normal external ear exam, normal oropharynx - Neck Neck exam: Present: normal inspection. Absent: lymphadenopathy, meningismus - Respiratory Respiratory exam: Present: accessory muscle use, decreased breath sounds, prolonged expiratory phase, wheezes. Absent: respiratory distress - Cardiovascular Cardiovascular exam: Present: irregular rhythm. Absent: bradycardia - GI/Abdominal GI/Abdominal exam: Present: normal bowel sounds, soft, distended - Neurological Exam Neurological exam: Present: alert, oriented X3, reflexes normal. Absent: motor sensory deficit - Psychiatric Psychiatric exam: Present: normal affect, normal mood. Absent: agitated, anxious Medical - PN: Obj Da - Labs CBC & Chem 7: 09/09/19 05:01 09/09/19 05:01 Labs: Abnormal Lab Results 09/09/19 09/09/19 09/08/19 05:01 05:01 20:30 RBC 3.28 L Hgb 10.1 L Hct 30.9 L POC Hct Lymph % (Auto) [place] % (Auto) Lymph # (Auto) [place] # (Auto) Seg Neutrophils % 79 H Lymphocytes % 12 L ABG Methemoglobin VBG pH VBG pCO2 VBG pO2 VBG HCO3 VBG Total CO2 VBG O2 Saturation VBG Base Excess Carboxyhemoglobin Total Hemoglobin Sodium Potassium 5.3 H Carbon Dioxide POC BUN BUN 49 H Creatinine 2.0 H POC Creatinine Glucose 141 H POC Glucose Hemoglobin A1c Troponin T Albumin 3.1 L Urine Glucose (UA) 09/08/19 09/08/19 09/08/19 07:06 07:06 04:14 RBC 3.61 L Hgb 11.1 L Hct 33.9 L POC Hct Lymph % (Auto) 13.5 L [place] % (Auto) 12.7 H Lymph # (Auto) 1.3 L [place] # (Auto) 1.3 H Seg Neutrophils % Lymphocytes % ABG Methemoglobin 0.3 L VBG pH VBG pCO2 VBG pO2 48 H VBG HCO3 VBG Total CO2 VBG O2 Saturation 77.9 H VBG Base Excess Carboxyhemoglobin 4.6 H Total Hemoglobin 11.2 L Sodium Potassium Carbon Dioxide POC BUN BUN Creatinine POC Creatinine Glucose POC Glucose Hemoglobin A1c 9.1 H Troponin T Albumin Urine Glucose (UA) 09/08/19 09/07/19 09/07/19 00:57 23:39 20:18 RBC Hgb Hct POC Hct Lymph % (Auto) [place] % (Auto) Lymph # (Auto) [place] # (Auto) Seg Neutrophils % Lymphocytes % ABG Methemoglobin 0.1 L 0.3 L VBG pH 7.31 L 7.28 L VBG pCO2 58.8 H 53.5 H VBG pO2 44 H VBG HCO3 29.0 H VBG Total CO2 30.8 H VBG O2 Saturation 71.5 H VBG Base Excess -2.9 L Carboxyhemoglobin 3.1 H 2.7 H Total Hemoglobin 10.9 L 11.2 L Sodium Potassium Carbon Dioxide POC BUN BUN 53 H Creatinine 2.1 H POC Creatinine Glucose 177 H POC Glucose Hemoglobin A1c Troponin T Albumin Urine Glucose (UA) 09/07/19 09/07/19 09/07/19 15:44 15:44 13:30 RBC Hgb Hct POC Hct 36.0 L Lymph % (Auto) [place] % (Auto) Lymph # (Auto) [place] # (Auto) Seg Neutrophils % Lymphocytes % ABG Methemoglobin 0.3 L VBG pH VBG pCO2 VBG pO2 59 H VBG HCO3 22.2 L VBG Total CO2 23.5 L VBG O2 Saturation 86.0 H VBG Base Excess -3.5 L Carboxyhemoglobin 4.1 H Total Hemoglobin 11.5 L Sodium Potassium Carbon Dioxide POC BUN 51 H BUN Creatinine POC Creatinine 2.3 H Glucose POC Glucose 306 H Hemoglobin A1c Troponin T Albumin Urine Glucose (UA) >=500 A 09/07/19 09/07/19 09/07/19 12:49 12:49 10:56 RBC Hgb Hct POC Hct Lymph % (Auto) [place] % (Auto) Lymph # (Auto) [place] # (Auto) Seg Neutrophils % Lymphocytes % ABG Methemoglobin 0.3 L VBG pH VBG pCO2 38.0 L VBG pO2 74 H VBG HCO3 20.4 L VBG Total CO2 21.5 L VBG O2 Saturation 87.7 H VBG Base Excess -4.8 L Carboxyhemoglobin 7.6 H Total Hemoglobin 11.6 L Sodium 132 L 131 L Potassium 6.2 H* 6.5 H* Carbon Dioxide 19 L POC BUN BUN 54 H 54 H Creatinine 2.3 H 2.2 H POC Creatinine Glucose 560 H* 606 H* POC Glucose Hemoglobin A1c Troponin T Albumin Urine Glucose (UA) 09/06/19 12:05 RBC Hgb Hct POC Hct Lymph % (Auto) [place] % (Auto) Lymph # (Auto) [place] # (Auto) Seg Neutrophils % Lymphocytes % ABG Methemoglobin VBG pH VBG pCO2 VBG pO2 VBG HCO3 VBG Total CO2 VBG O2 Saturation VBG Base Excess Carboxyhemoglobin Total Hemoglobin Sodium Potassium Carbon Dioxide POC BUN BUN Creatinine POC Creatinine Glucose POC Glucose Hemoglobin A1c Troponin T 0.05 H* Albumin Urine Glucose (UA) Meds: Medications Acetaminophen (Tylenol) 650 mg PO Q6HP PRN; Protocol PRN Reason: Per Pain Protocol/Fever > 101 Albuterol/Ipratropium (Duoneb) 3 ml NEB Q4HRT [facility] Last Admin: 09/09/19 10:58 Dose: 3 ml Documented by: Aspirin (Aspirin) 81 mg PO QDAY [facility] Last Admin: 09/09/19 08:30 Dose: 81 mg Documented by: Atorvastatin Calcium (Lipitor) 80 mg PO HS [facility] Last Admin: 09/08/19 21:24 Dose: 80 mg Documented by: Carvedilol (Coreg) 3.125 mg PO BIDCC [facility] Last Admin: 09/09/19 07:51 Dose: 3.125 mg Documented by: Clopidogrel Bisulfate (Plavix) 75 mg PO QDAY [facility] Last Admin: 09/09/19 08:30 Dose: 75 mg Documented by: Dextrose (Dextrose 50%) 0 ml IV UD PRN PRN Reason: Hypoglycemia Diagnostic Test (Pha) (Accu-Chek) 1 each FS [facility] Last Admin: 09/09/19 08:23 Dose: 1 each Documented by: Digoxin (Lanoxin) 125 mcg PO MoFr@1400 [facility] Docusate Sodium (Colace) 100 mg PO BID [facility] Last Admin: 09/09/19 08:29 Dose: 100 mg Documented by: Finasteride (Proscar) 5 mg PO QDAY [facility] Last Admin: 09/09/19 08:35 Dose: 5 mg Documented by: Furosemide (Lasix) 40 mg PO DAILY [facility] Gabapentin (Neurontin) 300 mg PO [facility] Last Admin: 09/08/19 21:24 Dose: 300 mg Documented by: Glucose (Insta-Glucose) 15 gm PO PRN PRN PRN Reason: Hypoglycemia Heparin Sodium (Porcine) (Heparin) 5,000 unit SQ Q12 [facility] Last Admin: 09/09/19 08:29 Dose: 5,000 unit Documented by: Hydralazine HCl (Apresoline) 10 mg IV Q6HP PRN PRN Reason: Hypertension, SBP>170 Ceftriaxone Sodium 2 gm/ (Dextrose) 50 mls @ 100 mls/hr IV Q24H [facility] Last Infusion: 09/09/19 10:11 Dose: Infused Documented by: Insulin Glargine (Lantus) 60 unit SQ [facility] Last Admin: 09/08/19 21:14 Dose: 60 unit Documented by: Insulin Human Lispro (Humalog) 0 unit SQ [facility]; Protocol Last Admin: 09/09/19 08:25 Dose: Not Given Documented by: Insulin Human Lispro (Humalog) 20 unit SQ TIDAC [facility] Last Admin: 09/09/19 08:25 Dose: 20 units Documented by: Lisinopril (Zestril) 5 mg PO DAILY [facility] Last Admin: 09/09/19 10:54 Dose: 5 mg Documented by: Losartan Potassium (Cozaar) 25 mg PO [facility] Last Admin: 09/08/19 21:23 Dose: 25 mg Documented by: Ondansetron HCl (Zofran) 4 mg IV Q6HP PRN PRN Reason: Nausea And Vomiting [facility]oprazole [facility]) [facility] Last Admin: 09/09/19 07:51 Dose: 40 mg Documented by: Prednisone (Prednisone) [address] [facility] Last Admin: 09/09/19 07:50 Dose: 40 mg Documented by: Quetiapine Fumarate (Seroquel) 12.5 mg PO [facility] PRN PRN Reason: sleep aid as needed Senna (Senokot) 2 tab PO [facility] Last Admin: 09/08/19 21:28 Dose: Not Given Documented by: Sodium Chloride (Saline Flush) 10 ml IV Q8 [facility] Last Admin: 09/09/19 05:07 Dose: 10 ml Documented by: Tamsulosin HCl (Flomax) 0.4 mg PO QDAY [facility] Last Admin: 09/09/19 08:30 Dose: 0.4 mg Documented by: - ABG Interpretation ABG results: 09/07/19 09/07/19 09/07/19 12:49 15:44 20:18 ABG Methemoglobin 0.3 L 0.3 L 0.3 L VBG pH 7.35 7.34 7.28 L VBG pCO2 38.0 L 42.4 53.5 H VBG pO2 74 H 59 H 44 H VBG HCO3 20.4 L 22.2 L 24.3 VBG Total CO2 21.5 L 23.5 L 25.9 VBG O2 Saturation 87.7 H 86.0 H 71.5 H VBG Base Excess -4.8 L -3.5 L -2.9 L 09/08/19 09/08/19 00:57 04:14 ABG Methemoglobin 0.1 L 0.3 L VBG pH 7.31 L 7.32 VBG pCO2 58.8 H 50.0 VBG pO2 40 48 H VBG HCO3 29.0 H 25.4 VBG Total CO2 30.8 H 27.0 VBG O2 Saturation 48.9 77.9 H VBG Base Excess 1.8 -1.0 Medical - PN: A/P - Time Spent With Patient Total time spent is greater than 50% in coordination of care (as documented) at patient's floor/unit and/or counseling patient: - Narrative A/P Narrative: Acute hypoxic respiratory failure Probable community-acquired pneumonia Patient present with the shortness of breath and chest CT scan showed evidence of infiltrate patient had on ceftriaxone and azithromycin Solu-Medrol changed to prednisone 40 Ordered sputum culture unable to provide sample so far Probable COPD exacerbation Continue duo nebs 4 times daily and as needed Solu-Medrol changed to prednisone 40 mg bronchodilator as mentioned above Critical hyperkalemia-improved Blood Sugar has been controlled, he received 1 dose of Kayexalate ordered Kayexalate Transferred him out of the ICU to [facility] status Uncontrolled hyperglycemia-improved Probably due to Solu-Medrol and uncontrolled diabetes We will discontinue Solu-Medrol and start prednisone 40 mg for COPD exacerbation Ordered sliding scale insulin Restarted Lantus and home insulin regimen We will use mealtime insulin 5 units Hypertensive emergency Probably due to IV fluids, IV fluids stopped Systolic blood pressure around 150 Started him on Lisinopril Restarted his Lasix 40 daily Systolic heart failure Non-ST elevation UT-probably type II Troponin remained minimally elevated 0.04 no active chest pain Echocardiogram showing ejection fraction of 45 to 50% no focal hypokinesis Overall LV function diminished compared to previous echo, probably due to tachycardia induced He is on digoxin, continued He is on Coreg 3.125 limited by bradycardia Patient has a cardiology appointment scheduled soon and he would benefit from further evaluation for ischemia Started him on lisinopril 5 mg daily Probable type II non-ST elevation UT probably due to the underlying infection and renal failure Started him on Lasix 40 daily Acute renal failure probably due to dehydration diarrhea and underlying infection IV fluids stopped his creatinine is 2.1 , his creatinine baseline is 1.6-1.8 and upon admission it was 2.9-improving Restarted his home Lasix 40 daily DVT prophylaxis-SCDs and heparin CODE STATUS-full code Expected length of stay-if he continues to progress can be discharged home tomorrow Medical - PN: Qual - VTE Deep Vein Thrombosis/Pulmonary Embolism Present on Admission: No
[2019-09-09] MEDS ORDERED: CARVEDILOL 3.125 MG TABLET PO ONE (20:42)
[2019-09-09] MEDS ORDERED: LORazepam 2 MG/ML VIAL IV PRN (20:45)
[2019-09-09] MEDS: LOSARTAN 25 MG TABLET PO SCH (21:55)
[2019-09-09] MEDS: INSULIN GLARGINE, HUMAN 1 UNIT/0.01 ML SQ SCH (21:56)
[2019-09-09] MEDS: ATORVASTATIN 40 MG TABLET PO SCH (21:57)
[2019-09-09] MEDS: SENNOSIDES 1 TABLET PO SCH (21:57)
[2019-09-09] MEDS: GABAPENTIN 300 MG CAPSULE PO SCH (21:57)
[2019-09-10] MEDS ORDERED: NITROGLYCERIN 0.4 MG TAB.SUBL SL ONE (02:05)
[2019-09-10] MEDS ORDERED: NITROGLYCERIN 0.4 MG TAB.SUBL SL PRN (02:07)
[2019-09-10] MEDS ORDERED: ASPIRIN 81 MG TAB.CHEW CHEWED ONE (02:07)
[2019-09-10] MEDS ORDERED: ASPIRIN 81 MG TAB.CHEW ONE (02:10)
[2019-09-10] MEDS ORDERED: 0.9 % SODIUM CHLORIDE 1,000 ML IV SCH (02:15)
[2019-09-10] MEDS ORDERED: HEPARIN 5,000 UNIT/ML VIAL ONE (02:55)
[2019-09-10 02:56] LABS: Basophils # (Auto) 0 K/mcL (0.0-0.3); Basophils % (Auto) 0.1 % (0.0-2.0); Eosinophils # (Auto) 0 K/mcL (0.0-0.7); Eosinophils % (Auto) 0.1 % (0.0-7.0); Hematocrit 33.8 % (41.0-55.0); Hemoglobin 10.9 g/dL (13.5-16.5); Lymphocytes # (Auto) 1.6 K/mcL (1.5-4.8); Lymphocytes % (Auto) 14.8 % (15.5-49.0); Mean Cell Volume 93.7 fL (80.0-100.0); Mean Corpuscular HGB Conc 32.3 g/dL (31.0-36.0); Mean Platelet Volume 8.6 fL (7.4-10.4); Monocytes # (Auto) 1.1 K/mcL (0.1-0.9); Platelet Count 299 K/mcL (140-440); Red Cell Distribution Width 13.8 % (11.5-14.5); WBC 10.6 K/mcL (4.5-11.0)
--- NOTE | 2019-09-10 02:56 | Transfer Summary ---
Transfer Discharge Sum: Prov Patient information: Note initiated : 09/10/19 at 2:53 am Service Date, if different from initiated Date: [] Patient: Black Armstrong 79 y/o M admitted on 09/05/19 for Shortness of breath, recent PNA. Chief Complaint: [chest pain 50 mins ago] Date of admission: 09/05/2019 18:23 Discharge Date: 09/10/19 Primary care physician: Bobby Saini Admitting clinician: Dr. Villalpando, Attending physician on admission: Issac Villalpando Consults: 09/05/19 Consult to Physician [CONS] Stat Comment: Consulting Provider: Solomon Villalpando Reason For Exam: Physician to Consult Attending physician on discharge: Dr. Blanco Discharging clinician: Francis Freitas Receiving physician/facility: Dr. Gomez/[facility] Transfer Discharge Sum: Diag - Discharge Diagnosis (1) Chest pain, unspecified Status: Acute (2) Type 2 diabetes mellitus with stage 4 chronic kidney disease, with long-term current use of insulin Status: Chronic Problem details: He is progressed to chronic kidney disease level 4 with nonnephrotic range proteinuria around 300 to 400 mg per 24 hours. Most likely this represents diabetic nephropathy but could be associated with congestive heart failure hypertension and vascular disease as well. He does have retinopathy as well (3) Chronic systolic congestive heart failure, NYHA class 2 Status: Chronic Problem details: Intolerant of beta-blockers so pacemaker placed for back-up rate and on low-dose carvedilol and bumetanide. Followed by Dr. Maya. Last EF was 45 to 50% Transfer Discharge Sum: Med - Medications Active and Home Medications: Home Medications aspirin 81 mg chewable tablet 81 mg PO QDAY tab 03/30/15 [History Confirmed 09/05/19] nitroglycerin 0.4 mg sublingual tablet 0.4 mg SUBLINGUAL PRN PRN 25 Days 11/27/17 [History Confirmed 09/05/19] atorvastatin 80 mg tablet 80 mg PO QDAY #90 tab 12/09/17 [Rx Confirmed 09/05/19] carvedilol 3.125 mg tablet 3.125 mg PO BID #180 tab 12/09/17 [Rx Confirmed 09/05/19] clopidogrel 75 mg tablet 75 mg PO QDAY #90 tab 07/03/18 [Rx Confirmed 09/05/19] albuterol sulfate 2.5 mg INHALATION .Q4-6H PRN #810 ml 08/22/18 [Rx Confirmed 09/05/19] insulin glargine 100 unit/mL subcutaneous solution 60 unit SUB-Q QHS ml 11/05/18 [History Confirmed 09/05/19] citalopram 20 mg tablet 20 mg PO QDAY #90 tab 04/14/19 [Rx Confirmed 09/05/19] finasteride 5 mg tablet 5 mg PO QDAY #90 tab 04/14/19 [Rx Confirmed 09/05/19] tamsulosin 0.4 mg capsule 0.4 mg PO QDAY #90 cap 04/14/19 [Rx Confirmed 09/05/19] alpha lipoic acid 100 mg capsule 100 mg PO QDAY #1 cap 05/07/19 [Rx Confirmed 09/05/19] cholecalciferol (vitamin D3) 25 mcg (1,000 unit) capsule 1,000 unit PO QDAY 05/14/19 [History Confirmed 09/05/19] digoxin 125 mcg (0.125 mg) tablet 125 mcg PO 2-3XW tab 05/26/19 [History Confirmed 09/05/19] docusate sodium 100 mg capsule 100 mg PO QDAY PRN 06/25/19 [History Confirmed 09/05/19] pantoprazole 40 mg tablet,delayed release 40 mg PO QDAY 06/25/19 [History Confirmed 09/05/19] gabapentin 300 mg capsule 300 mg PO QHS #90 cap 06/30/19 [Rx Confirmed 09/05/19] blood-glucose meter,continuous See Rx Instructions .ROUTE .MEDSUPPLY #1 each 08/04/19 [Rx Confirmed 09/05/19] blood-glucose sensor See Rx Instructions .ROUTE .MEDSUPPLY #3 each 08/04/19 [Rx Confirmed 09/05/19] blood-glucose transmitter See Rx Instructions .ROUTE .MEDSUPPLY #1 each 08/04/19 [Rx Confirmed 09/05/19] bumetanide 1 mg tablet 1 mg PO QDAY #90 tab 08/27/19 [Rx Confirmed 09/05/19] Insulin Lispro [Humalog] See Protocol SUBCUT ACHS 09/05/19 [History Confirmed 09/05/19] Losartan Potassium [Cozaar] 25 mg PO QHS 09/05/19 [History Confirmed 09/05/19] Active Medications Acetaminophen (Tylenol) 650 mg PO Q6HP PRN; Protocol PRN Reason: Per Pain Protocol/Fever > 101 Albuterol/Ipratropium (Duoneb) 3 ml NEB Q4HRT [facility] Last Admin: 09/09/19 22:37 Dose: 3 ml Documented by: Aspirin (Aspirin) 81 mg PO QDAY [facility] Last Admin: 09/09/19 08:30 Dose: 81 mg Documented by: Aspirin (Aspirin) 324 mg CHEWED ONCE ONE Stop: 09/10/19 02:08 Last Admin: 09/10/19 02:13 Dose: 324 mg Documented by: Atorvastatin Calcium (Lipitor) 80 mg PO HS [facility] Last Admin: 09/09/19 21:57 Dose: 80 mg Documented by: [facility] ([facility]) [facility] Last Admin: 09/09/19 16:51 Dose: 3.125 mg Documented by: Clopidogrel Bisulfate (Plavix) 75 mg PO QDAY [facility] Last Admin: 09/09/19 08:30 Dose: 75 mg Documented by: Dextrose (Dextrose 50%) 0 ml IV UD PRN PRN Reason: Hypoglycemia Diagnostic Test (Pha) (Accu-Chek) 1 each FS ACHS [facility] Last Admin: 09/09/19 21:49 Dose: 1 each Documented by: Diagnostic Test (Pha) (Accu-Chek) 1 each FS ONCE ONE Stop: 09/10/19 02:08 Last Admin: 09/10/19 02:15 Dose: 1 each Documented by: Digoxin (Lanoxin) 125 mcg PO MoFr@1400 [facility] Docusate Sodium (Colace) 100 mg PO BID [facility] Last Admin: 09/09/19 21:55 Dose: 100 mg Documented by: Finasteride (Proscar) 5 mg PO QDAY [facility] Last Admin: 09/09/19 08:35 Dose: 5 mg Documented by: Furosemide (Lasix) 40 mg PO DAILY [facility] Last Admin: 09/09/19 12:20 Dose: 40 mg Documented by: Gabapentin (Neurontin) 300 mg PO HS [facility] Last Admin: 09/09/19 21:57 Dose: 300 mg Documented by: Glucose (Insta-Glucose) 15 gm PO PRN PRN PRN Reason: Hypoglycemia Heparin Sodium (Porcine) (Heparin) 5,000 unit SQ Q12 [facility] Last Admin: 09/09/19 21:55 Dose: 5,000 unit Documented by: Hydralazine HCl (Apresoline) 10 mg IV Q6HP PRN PRN Reason: Hypertension, SBP>170 Last Admin: 09/09/19 19:50 Dose: 10 mg Documented by: Ceftriaxone Sodium 2 gm/ (Dextrose) 50 mls @ 100 mls/hr IV Q24H [facility] Last Infusion: 09/09/19 10:11 Dose: Infused Documented by: Sodium Chloride (Sodium Chloride 0.9%) 1,000 mls @ 0 mls/hr IV .Q0M [facility] Insulin Glargine (Lantus) 60 unit SQ [facility] Last Admin: 09/09/19 21:56 Dose: 60 unit Documented by: Insulin Human Lispro (Humalog) [facility]; Protocol Last Admin: 09/09/19 21:56 Dose: 4 units Documented by: Insulin Human Lispro (Humalog) 20 unit SQ [facility] Last Admin: 09/09/19 16:51 Dose: 20 units Documented by: Lisinopril (Zestril) 5 mg PO DAILY [facility] Last Admin: 09/09/19 10:54 Dose: 5 mg Documented by: Lorazepam (Ativan) 0.5 mg IV Q6HP PRN PRN Reason: ANXIETY/SEDATION Last Admin: 09/09/19 21:00 Dose: 0.5 mg Documented by: Losartan Potassium (Cozaar) 25 mg PO [facility] Last Admin: 09/09/19 21:55 Dose: 25 mg Documented by: Nitroglycerin (Nitrostat) 0.4 mg SL Q5M PRN PRN Reason: Chest Pain Last Admin: 09/10/19 02:18 Dose: 0.4 mg Documented by: Ondansetron HCl (Zofran) 4 mg IV Q6HP PRN PRN Reason: Nausea And Vomiting Pantoprazole Sodium (Protonix) [facility] Last Admin: 09/09/19 07:51 Dose: 40 mg Documented by: [facility]) [facility] Last Admin: 09/09/19 07:50 Dose: 40 mg Documented by: Quetiapine Fumarate (Seroquel) 12.5 mg PO [facility] PRN PRN Reason: sleep aid as needed Senna (Senokot) 2 tab PO [facility] Last Admin: 09/09/19 21:57 Dose: 2 tab Documented by: Sodium Chloride (Saline Flush) 10 ml IV Q8 [facility] Last Admin: 09/09/19 21:58 Dose: 10 ml Documented by: Tamsulosin HCl (Flomax) 0.4 mg PO QDAY [facility] Last Admin: 09/09/19 08:30 Dose: 0.4 mg Documented by: Transfer Discharge Sum: Hosp Hospital course: Mr. Armstrong is a 79 year old M Patient is a 79-year-old male with a history of CHF, COPD, previous MA, pulmonary hypertension who was admitted to our hospital September 05, 2019 for possible COPD exacerbation, acute renal failure, history of CHF, history of atrial fibrillation and type 2 diabetes. In the hospital, he was given prednisone, ceftriaxone and inhalers for his COPD exacerbation. Other medic ations include aspirin, Plavix, Lipitor, Coreg, digoxin, and Lasix. His condition improved. But this morning when he was sleeping, he developed substernal chest pain, which was sharp in nature, lasting about 30mins. EKG showed left anterior fascicular block which was not present on previous EKG. Spoke to parts washer at [facility] who felt the left anterior fascicular block is significant and accepted the pt for further workup and treatment. Spoke to pt and daughter who agreed the plan. Pt will emergently be transferring to [facility] by air. - Time Spent with Patient Total time spent providing and/or coordinating transfer services: 35 Greater than 30 minutes Transfer Discharge Sum: Exam - Constitutional Vitals: Vital Signs Temp Pulse Pulse Resp BP BP BP 09/09/19 23:35 97.3 F 76 16 163/70 09/09/19 22:38 64 14 09/09/19 21:10 60 153/64 09/09/19 19:26 97.7 F 59 L 20 193/81 09/09/19 19:13 60 14 09/09/19 13:58 60 14 09/09/19 11:01 62 18 09/09/19 08:00 98.4 F 87 20 146/102 09/09/19 07:16 62 18 09/09/19 06:07 166/61 09/09/19 04:03 99 F 59 L 20 172/66 Pulse Ox 09/09/19 23:35 89 L 09/09/19 22:38 91 09/09/19 21:10 93 09/09/19 19:26 93 09/09/19 19:13 94 09/09/19 13:58 94 09/09/19 11:01 95 09/09/19 08:00 95 09/09/19 07:16 95 09/09/19 06:07 09/09/19 04:03 97 Intake and Output 09/09/19 09/09/19 09/10/19 13:59 21:59 05:59 Intake Total 530 1200 Output Total 700 850 Balance -170 350 Intake: IV 50 Rocephin 2 gm In Dextrose 5% in 50 Water 50 ml @ 100 mls/hr IV Q24H [facility] Rx#:[id number] Oral 480 1200 Output: Urine Catheter Amount 550 Void Amount 700 300 Other: Meal Breakfast Dinner Percent of Meal Consumed 100% Feeding Ability Independent Urine Appearance Clear Urine Color Pale Urine Odor Normal Weight 128.593 kg Patient Weight 09/10/19 05:59 Weight 128.593 kg General appearance: cooperative - Head Head exam: Present: atraumatic, normocephalic - Eye Eye exam: Present: EOMI, normal appearance Pupils: Present: PERRL - ENT ENT exam: Present: normal oropharynx - Neck Neck exam: Present: full ROM, normal inspection - Respiratory Respiratory exam: Present: decreased breath sounds, rhonchi - Cardiovascular Cardiovascular exam: Present: irregular rhythm - GI/Abdominal GI/Abdominal exam: Present: normal bowel sounds, soft - Extremities Exam Extremities exam: Present: normal capillary refill, normal inspection, Jericho's sign - Neurological Exam Neurological exam: Present: alert, reflexes normal (No focal neurological deficit) - Psychiatric Psychiatric exam: Present: normal mood - Skin Skin exam: Present: normal color, warm Transfer Discharge Sum: Data Procedures and tests throughout hospitalization: Pending Orders 09/05/19 Consult to Physician [CONS] Stat 09/05/19 15:36 Blood Culture Stat 09/05/19 17:13 Anti-Embolism Devices CONT Resuscitation Status Routine Physical Therapy Eval & Tx DAILY Incentive Spirometry Assess/Tx Q2HWA Pulse Oximetry CONT 09/05/19 17:20 Admit as Inpatient Routine Ambulate-Progressive TID Condition Routine Notify Provider .routine Weight Monitoring QHS RD to Adjust Diet/Supplements as Needed Routine 09/05/19 17:22 Bedrest .ROUTINE 09/05/19 17:23 Nebulizer management .Routine 09/07/19 12:13 Notify Provider .routine Notify Provider PRN 09/08/19 08:56 Consistent Carbohydrate Diet 09/08/19 12:31 Sputum Culture and Gram Stain Urgent 09/08/19 13:49 Acetaminophen [Tylenol] 650 mg PO Q6HP PRN Dextrose 50% See Dose Instructions IV UD PRN Dextrose [Insta-Glucose] 15 gm PO PRN PRN Ondansetron [Zofran] 4 mg IV Q6HP PRN hydrALAZINE [Apresoline] 10 mg IV Q6HP PRN 09/08/19 14:00 0.9 % Sodium Chloride [Saline Flush] 10 ml IV Q8 09/08/19 15:00 Ipratropium/Albuterol [Duoneb] 3 ml NEB Q4HRT 09/08/19 17:00 Accu-Chek 1 each FS ACHS Insulin Lispro [HumaLOG] See Dose Instructions SQ ACHS 09/08/19 17:30 Carvedilol [Coreg] 3.125 mg PO BIDCC Insulin Lispro [HumaLOG] 20 unit SQ [facility] 09/08/19 21:00 Atorvastatin [Lipitor] 80 mg PO HS Docusate Sodium [Colace] 100 mg PO BID Gabapentin [Neurontin] 300 mg PO HS Heparin 5,000 unit SQ Q12 Insulin Glargine, Human [Lantus] 60 unit SQ HS Losartan [Cozaar] 25 mg PO HS QUEtiapine [SEROquel] 12.5 mg PO HSP PRN Sennosides [Senokot] 2 tab PO HS 09/09/19 07:30 Pantoprazole [Protonix] 40 mg PO QAMAC 09/09/19 08:00 predniSONE 40 mg PO QAMCC 09/09/19 09:00 Aspirin 81 mg PO QDAY Clopidogrel [Plavix] 75 mg PO QDAY Finasteride [Proscar] 5 mg PO QDAY Lisinopril [Zestril] 5 mg PO DAILY Tamsulosin [Flomax] 0.4 mg PO QDAY cefTRIAXone [Rocephin] 2 gm Dextrose 5% in Water 50 ml IV Q24H 09/09/19 11:34 Furosemide [Lasix] 40 mg PO DAILY 09/09/19 20:45 LORazepam [Ativan] 0.5 mg IV Q6HP PRN 09/10/19 02:07 ekg monitor NOW Notify Provider NOW Vital Signs Q5MIN Accu-Chek 1 each FS ONCE ONE Aspirin 324 mg CHEWED ONCE ONE Nitroglycerin [Nitrostat] 0.4 mg SL Q5M PRN ABG (RT) NOW EKG ONCE Oxygen Order NOW Pulse Oximetry CONT 09/10/19 02:15 0.9 % Sodium Chloride [Sodium Chloride 0.9%] 1,000 ml IV KVO mls/hr 09/10/19 02:21 Complete Blood Count Stat Comprehensive Metabolic Panel Stat Creatine Kinase MB Stat Creatine Kinase Stat HOLD SERUM Stat Partial Thromboplastin Time Stat Troponin T Stat 09/10/19 02:32 XR chest 1V Stat 09/10/19 04:00 Troponin T Urgent 09/11/19 14:00 Digoxin [Lanoxin] 125 mcg PO MoFr@1400 Transfer Discharge Sum: A/P - Problem Maintenance (1) Chest pain, unspecified Assessment & Plan: 1. Acute chest pain --left anterior fascicular block, not present on previous EKG Dr. Gomez at [facility] for further work-up and treatment. As per Dr. Gomez, [id number] milligrams, heparin 5000 units and Lipitor were given to patient. He does not have any chest pain now and vital signs are stable. Patient will emergently be transferring to [facility] by air. Status: Acute Qualifiers: Chest pain type: unspecified Qualified Code(s): R07.9 - Chest pain, unspecified (2) Type 2 diabetes mellitus with stage 4 chronic kidney disease, with long-term current use of insulin Status: Chronic Comment: He is progressed to chronic kidney disease level 4 with nonnephrotic range proteinuria around 300 to 400 mg per 24 hours. Most likely this represents diabetic nephropathy but could be associated with congestive heart failure hypertension and vascular disease as well. He does have retinopathy as well (3) Chronic systolic congestive heart failure, NYHA class 2 Status: Chronic Comment: Intolerant of beta-blockers so pacemaker placed for back-up rate and on low-dose carvedilol and bumetanide. Followed by Dr. Maya. Last EF was 45 to 50% Quality Measure Queries - VTE Deep Vein Thrombosis/Pulmonary Embolism Present on Admission: No
[2019-09-10 03:10] LABS: Creatine Kinase MB 5.8 ng/ml (0-4.9)
[2019-09-10 03:13] LABS: ALT/SGPT 18 U/l (0-40); AST/SGOT 22 U/l (0-37); Albumin 3.6 gm/dL (3.2-5.2); Albumin/Globulin Ratio 1.2 (1.0-2.3); Alkaline Phosphatase 93 U/L (39-117); Bilirubin,Total 0.2 mg/dL (0.0-1.0); Blood Urea Nitrogen 52 mg/dl (8-23); Carbon Dioxide 24 mmol/L (22-30); Chloride 101 mmol/L (96-108); Creatine Kinase 82 IU/L (24-195); Glomerular Filtration Rate 31; Glucose 116 mg/dL (70-105)
--- NOTE | 2019-09-10 03:55 | XRay Report ---
CLINICAL INFORMATION: chest pain COMPARISON: 09/05/2019 FINDINGS: Moderate cardiomegaly is unchanged. Pacemaker and leads remain in stable satisfactory position. Mediastinum is unremarkable. Pulmonary vessels are normal. Moderate consolidated bibasilar infiltrates have worsened considerably since comparison study five days ago. Moderate right pleural effusion is also increased. IMPRESSION: Moderate bibasilar consolidated infiltrates with moderate right pleural effusion worsening considerably since comparison at x-ray five days ago. Consider aspiration Interpreted and Authenticated by: Damon Moffett 09/10/19
[2019-09-10] MEDS: IPRATROPIUM/ALBUTEROL 3 ML AMPUL.NEB NEB SCH (04:03)
[2019-09-11] MEDS ORDERED: DIGOXIN 125 MCG TABLET PO SCH (14:00)
== END 2019-09-10 03:35 | disposition short-term general hospital (02) | DRG 189 ==
LOC: ED 13:04 → MEDSUR 18:23 → ICU 09-07 14:49 → MEDSUR 09-09 11:55
PROVIDERS: ADMIT Internal Medicine; ATTEND Internal Medicine

== ENCOUNTER 2021-03-28 21:08 | Inpatient (IN) ==
[2021-03-28] MEDS ORDERED: ASPIRIN 81 MG TAB.CHEW CHEWED ONE (22:03)
--- NOTE | 2021-03-28 22:30 | Emergency Department Note ---
HPI General Chief complaint: Shortness of Breath/Dyspnea Stated complaint: elevated troponin Time Seen by Provider: 03/28/21 21:39 Source: family Mode of arrival: wheelchair Limitations: no limitations History of Present Illness HPI Narrative: Narrative: 80-year-old male with a history of CKD, diabetes, CHF, COPD referred to the ER from his primary care physician who I spoke with over the phone. Patient has been dealing with worsening symptoms of CHF including weight gain, worsening lower extremity edema now up to his abdomen as well as some worsening dyspnea some periodic slight chest pain despite compliance on his out patient management. They have been increasing his dose of Bumex but likely needs some IV diuresis. Outpatient labs at the clinic today were consistent with a CHF exacerbation as well as a slightly elevated troponin, patient was referred to the ER. Likely will require IV diuresis. Upon arrival patient endorses these symptoms including worsening shortness of breath, dyspnea on exertion, weight gain, lower extremity edema and swelling up to his abdomen, lower abdominal pain, slight intermittent chest pain. This been ongoing for several weeks. He has taken a total of two doses of his Bumex already today. No other complaints at this time Related Data Home Medications Medication Instructions Recorded Confirmed aspirin 81 mg chewable tablet 81 mg PO QDAY tab 03/30/15 03/29/21 nitroglycerin 0.4 mg sublingual 0.4 mg SUBLINGUAL PRN PRN 25 Days 11/27/17 03/29/21 tablet docusate sodium 100 mg capsule 100 mg PO QDAY PRN 06/25/19 03/29/21 albuterol sulfate 90 mcg/actuation 2 inh INHALATION Q6H PRN 03/02/20 03/29/21 breath activated powder inhaler insulin glargine 100 unit/mL 40 unit SUB-Q BID ml 07/06/20 03/29/21 subcutaneous solution ascorbic acid (vitamin C) 100 mg 100 mg PO QDAY 09/14/20 03/29/21 tablet apixaban 5 mg tablet 5 mg PO BID 11/30/20 03/29/21 insulin aspart U-100 100 unit/mL 25 unit SUBCUT TID ml 02/23/21 03/29/21 (3 mL) subcutaneous pen Previous Rx's Medication Instructions Recorded atorvastatin 80 mg tablet 80 mg PO QDAY #90 tab 12/09/17 blood-glucose meter,continuous #1 each 04/20/20 ipratropium 0.5 mg-albuterol 3 mg 3 ml INHALATION Q6H PRN #540 ml 05/31/20 (2.5 mg base)/3 mL nebulization soln sacubitril 24 mg-valsartan 26 mg 1 tab PO BID #180 tab 06/06/20 tablet cholecalciferol (vitamin D3) 25 25 mcg PO QDAY #30 cap 08/04/20 mcg (1,000 unit) capsule blood-glucose sensor #3 each 10/21/20 blood-glucose transmitter #1 each 10/21/20 citalopram 20 mg tablet 20 mg PO QDAY #90 tab 12/01/20 finasteride 5 mg tablet 5 mg PO QDAY #90 tab 12/01/20 tamsulosin 0.4 mg capsule 0.4 mg PO QDAY #90 cap 12/01/20 bumetanide 2 mg tablet 4 mg PO QAM #180 tab 12/20/20 pantoprazole 40 mg tablet,delayed See Rx Instructions PO BID #180 tab 03/06/21 release gabapentin 300 mg capsule 600 mg PO QHS PRN #180 cap 03/14/21 Allergies Allergy/AdvReac Type Severity Reaction Status Date / Time Beta-Blockers AdvReac Intermediate tendency Verified 03/28/21 11:10 (Beta-Adrenergic Bloc toward bradycardia w/Coreg & Sectral Review of Systems ROS ROS Narrative: Narrative: At least 10 systems reviewed and otherwise acutely negative except as in the HPI PFSH Narrative Patient History Narrative: Narrative: Medical/Surgical/Family History All Active Problems Dyspnea (Acute) Benign prostatic hypertrophy with lower urinary tract symptoms (LUTS) (Chronic) Cardiomegaly (Chronic 09/29/14) CAD (coronary artery disease) (Chronic 02/23/15) Diabetes mellitus, type II (Chronic) Esophageal reflux (Chronic) Hypertension, essential (Chronic) Hyperuricemia (Chronic) 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) Macular degeneration (Chronic) Peripheral neuropathy (Chronic) PVD (peripheral vascular disease) (Chronic 04/27/14) Proteinuria (Chronic 11/10/14) Nocturnal hypoxia (Chronic) Paroxysmal atrial fibrillation (Chronic) Diabetic retinopathy (Chronic) Ischemic cardiomyopathy (Chronic) CKD (chronic kidney disease), stage III (Chronic) Cardiac pacemaker in situ (Chronic) Diabetic neuropathy (Chronic) Hyperlipidemia (Chronic) Back pain (Chronic) GERD (gastroesophageal reflux disease) (Chronic) Leg edema (Chronic) Unsteady gait (Chronic) Hearing impairment (Chronic) COPD (chronic obstructive pulmonary disease) (Chronic) Pulmonary HTN (Chronic) Complex sleep apnea syndrome (Chronic) Hypoxemia (Chronic) Chronic anticoagulation (Chronic) Supplemental oxygen dependent (Chronic) Controlled type 2 diabetes mellitus with stage 3 chronic kidney disease, with long-term current use of insulin (Chronic) Chronic hypoxemic respiratory failure (Chronic) Type 2 diabetes mellitus with stage 4 chronic kidney disease, with long-term current use of insulin (Chronic) Chronic combined systolic and diastolic congestive heart failure, NYHA class 2 (Chronic) CKD stage G4/A2, GFR 15-29 and albumin creatinine ratio 30-299 mg/g (Chronic) Morbid obesity (Chronic) Shortness of breath on exertion (Acute) Constipation (Acute) Dizziness (Acute) Skin lesions (Acute) Cellulitis (Acute) Diabetic neuropathy (Acute) Injury of toe on right foot (Acute) Diabetic foot (Acute) Secondary hyperparathyroidism of renal origin (Acute) Nausea and vomiting in adult patient (Acute) Diarrhea (Acute) Medical History Abdominal pain Acute bronchitis Acute prerenal azotemia Diuresis with 25 lb fluid loss, low BP (amlodipine and aldactone) lead to acute decline in GFR due to renal hypoperfusion as evidenced by time frame and BUN/Cr ratio ~40:1 IV contrast study does not fit temporally and no embolic evidence of acute cholesterol embolization. Anemia B12 OK; low normal Iron. Back pain Benign prostatic hypertrophy with lower urinary tract symptoms (LUTS) Flomax, Proscar. Bilateral leg edema Bradycardia (03/13/14) CAD (coronary artery disease) (02/23/15) Dr. Maya Cardiac pacemaker in situ Slow pulse rate is due to trigeminy with the ectopic beats not generating much of a pulse pressure Cardiomegaly (09/29/14) Mild - Cellulitis Cellulitis Chest pain Chest pain, unspecified Chronic anticoagulation clopidogrel Chronic combined systolic and diastolic congestive heart failure, NYHA class 2 [facility], 2015 - "Hospitalized 03/2013--CHF likely due to diastolic dysfunction with an ejection fraction of 50-55% noted on echo. Moderate concentric left ventricular hypertrophy and basilar/inferior hypokinesis. Sees Dr Morton" Dr. Guerrero 06/07/2019 [?] "Intolerant of beta-blockers so pacemaker placed for back-up rate and on low-dose carvedilol and bumetanide. Followed by Dr. Maya. Last EF was 45 to 50%" Carvedilol d/c'd as bradycardic Losartan as tolerated by potassium and GFR => trial entresto=> doing better Bumetanide and weight trying to keep his weight around 272 lb Chronic hypoxemic respiratory failure Poly-factorial including morbid obesity obstructive sleep apnea chronic systolic congestive heart failure, atrial fibrillation and an diabetic nephrosclerosis. Chronic systolic CHF (congestive heart failure), NYHA class 3 Carvedilol as tolerated by heart rate Losartan as tolerated by potassium and GFR Bumetanide adjusted for edema and weight trying to keep his weight around 255 to 260 pounds. CKD (chronic kidney disease), stage III D/Dx: HTN nephrosclerosis, Hypertensive cardiomyopathy and chronic systolic CHF with renal disease, vs DM nephropathy CKD stage G4/A2, GFR 15-29 and albumin creatinine ratio 30-299 mg/g Minimal proteinuria supports hypertension and vascular disease more likely than diabetic causes of renal disease. Treatment remains avoidance of nonsteroidal anti-inflammatories Blood pressure control with a goal of 130/80 RAASI therapy for renal disease, proteinuria, reduced LVEF in form of Entresto Community acquired pneumonia Complex sleep apnea syndrome Is on BiPAP. Constipation Controlled type 2 diabetes mellitus with stage 3 chronic kidney disease, with long-term current use of insulin Creatinine clearance around 30 with nonnephrotic range proteinuria Elevated PVR suggest possible neurogenic bladder versus BPH Type IV RTA with hyperkalemia is also present and poses a risk with RAASI therapy Cough Depression Celexa Diabetes mellitus, type II Neuropathy. Macular degeneration. Eye injections and now laser photocoag in [place] Diabetic neuropathy Diabetic neuropathy Diabetic retinopathy left, non-proliferative, mild. 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 Dyspnea Dyspnea Encounter for Health Maintenance Examination in Adult Esophageal reflux Fall GERD (gastroesophageal reflux disease) Hearing impairment Heart failure, diastolic (03/13/14) History of chest x-ray (04/06/16) Hyperkalemia, diminished renal excretion Acute pre-renal azotemia and aldactone Hyperlipidemia Hypertension Hypertension, essential Hyperuricemia Allopurinol Hypoxemia Hypoxia Ileus Injury of toe on right foot Improved Intraparenchymal hemorrhage of brain Ischemic cardiomyopathy Ischemic heart disease (03/26/13) inferior TX; stent to the right coronary. Echo with ejection fraction of 52%. Leg edema Macular degeneration Morbid obesity 40.1 on 02/10/2020. Nocturnal hypoxia Orthostatic hypotension Pacemaker (03/15/14) Dual chamber pacemaker Paroxysmal atrial fibrillation Peripheral neuropathy Pneumonia 03/2013Questionable pneumonia; COPD; CHF--hospitalized 04/02-. Pneumonia Pre-syncope Proteinuria (11/10/14) PVD (peripheral vascular disease) (04/27/14) Low nl JESSE Respiratory distress, acute Runny nose Shoulder pain, right Sick sinus syndrome (04/20/14) . s/p dual chamber pacemaker Skin lesions SOB (shortness of breath) Subdural hematoma Supplemental oxygen dependent 2.5 L/min day and night. Syncope and collapse Tachy-alissa syndrome Type 2 diabetes mellitus with stage 4 chronic kidney disease, with long-term current use of insulin He is progressed to chronic kidney disease level 4 with nonnephrotic range proteinuria around 300 to 400 mg per 24 hours. Most likely this represents diabetic nephropathy but could be associated with congestive heart failure hypertension and vascular disease as well. He does have retinopathy as well Unsteady gait Vasovagal syncope Weakness Surgical History H/O coronary angiogram (~09/10/19) History of arthroscopic knee surgery 03/2012 - Right History of cataract surgery History of colonoscopy (01/02/16) 01/02/16 -- polyps. History of permanent cardiac pacemaker placement (03/15/14) History of umbilical hernia repair 1992 Status post angioplasty with stent (03/26/13) RCA stent placement Status post cardiac catheterization (03/26/13) 09/10/2019- Left heart cath 03/26/2013 & 04/12/2014 - Left heart catherization, left ventricular cineangiography, selective coronary arteriography, stenting of the right coronary artery. Dr. Morton [facility] Family History Mother Dementia Family history of malignant neoplasm Seizure Osteoporosis Grandmother Dementia Father Type 2 diabetes mellitus Family history of malignant neoplasm Essential hypertension Acute myocardial infarction Colon cancer Lung cancer Uncle Type 2 diabetes mellitus Essential hypertension Acute myocardial infarction Unknown Colon cancer Lung cancer Social History Smoking Status: Former smoker Alcohol Intake Frequency: holiday/special occasion only Substance Use: does not use Exam Narrative Narrative: Narrative: Constitutional: normally developed, no acute distress . Head: Normocephalic, atraumatic, Eyes: No Icterus, ENT: Moist mucus membranes, Neck: Supple, Cardiac: Normal heart sounds, palpable radial pulses, patient has bilateral lower extremity pitting edema all the way up to his abdomen Pulmonary: Patient on 3 L nasal cannula speaking in full sentences does have diffuse crackles/rales most prominent at the Bilateral base Gastrointestinal: Abdomen soft, non-distended, some mild generalized lower abdominal tenderness no rebound or guarding Musculoskeletal: No gross deformities, well perfused Skin: warm, dry Neuro: Alert and oriented. General Limitations: no limitations Course Vital Signs Vital signs: Vital Signs Temperature 37.0 C 03/28/21 21:08 Pulse Rate 59 L 03/28/21 21:08 Respiratory Rate 18 03/28/21 21:08 Blood Pressure 149/55 03/28/21 21:08 Pulse Oximetry (%) 97 03/28/21 21:08 Temperature 36.2 C 03/29/21 00:50 Pulse Rate 60 03/29/21 00:50 Respiratory Rate 15 03/29/21 00:50 Blood Pressure 141/88 03/29/21 00:50 Pulse Oximetry (%) 96 03/29/21 00:50 MDM MDM Narrative Medical decision making narrative: Narrative: Patient referred to the ER for suspected CHF exacerbation. I did review his laboratory studies done just earlier today at his primary clinic CBC unremarkable, electrolytes show his baseline CKD creatinine 2.9 BUN 59 glucose 185, his troponin was slightly elevated 0.06 BNP of 5300 baseline around 3000 and chest x-ray done earlier today consistent with CHF exacerbation with vascular congestion bilateral pleural effusions We will repeat his troponin and some basic laboratory studies, as well as EKG. Patient was given full dose aspirin Is twelve-lead EKG per my interpretation at 2108 shows regular rhythm heart rate 60 does appear to have P waves although with a quite prolonged MI interval less likely junctional, QTc within normal, left bundle branch block appearance versus IVCD unchanged from previous EKG no acute ischemia noted Repeat twelve-lead EKG per my interpretation at 2340 shows heart rate 60 with his long first-degree AV block as well as intermittent paced rhythm with some inhibition no acute changes from previous EKG no acute ischemia noted Repeat troponin is unchanged not uptrending 0.06 repeat BNP is furthermore elevated 7400. Thus I suspect this is more likely at demand ischemia from CHF exacerbation as well as a CKD and not acute ACS as the primary cause of his slightly elevated troponin especially in the setting of no new ischemia noted on EKG and no acute chest pain. I do believe patient will require admission for further IV diuresis and management. Patient and family also agree adamantly as patient is only getting worse despite his good outpatient care and being compliant. I have spoken with hospitalist Dr. Bryan who accepts admission, request 40 - 60 mg of IV Lasix, will start with 40, as patient has already taken twice his dose of Bumex today. Additionally he was slightly hyperkalemic on our laboratory studies without EKG changes he did receive the Lasix as already treated, did give him insulin D50, repeat glucose remains in the 100s, repeat potassium is improved 5.1 he is okay to go up to the floor now, also vitals are stable, improved and he is already diuresed more than 800 cc, and feeling better Lab Data Result diagrams: 03/28/21 21:24 03/28/21 21:24 Labs: Lab Results 03/28/21 03/28/21 03/28/21 Range/Units 21:24 21:24 21:24 WBC 10.8 (4.5-11.0) K/mcL RBC 3.31 L (4.50-5.90) M/mcL Hgb 10.0 L (13.5-16.5) g/dL Hct 32.9 L (41.0-55.0) % POC Hct (41-55) % MCV 99.4 (80.0-100.0) fL MCH 30.2 (26.0-34.0) pg MCHC 30.4 L (31.0-36.0) g/dL RDW 13.3 (11.5-14.5) % Plt Count 256 (140-440) K/mcL MPV 10.4 (7.4-10.4) fL Neut % (Auto) 72.3 (38.0-78.0) % Lymph % (Auto) 14.5 L (15.0-49.0) % Mcmullen % (Auto) 10.8 (1.0-12.0) % Eos % (Auto) 1.9 (0.0-7.0) % Baso % (Auto) 0.5 (0.0-2.0) % Lymph # (Auto) 1.56 (1.50-4.80) K/mcL Mcmullen # (Auto) 1.16 H (0.10-0.90) K/mcL Eos # (Auto) 0.20 (0.00-0.70) K/mcL Baso # (Auto) 0.05 (0.00-0.20) K/mcL Absolute Neutrophils 7.80 (1.80-8.00) K/mcL POC Sodium (133-145) mEq/L Sodium 138 (133-145) mmol/L POC Potassium (3.3-5.1) mEql/L Potassium 5.4 H (3.3-5.1) mmol/L POC Chloride (96-108) mEq/L Chloride 101 (96-108) mmol/L Carbon Dioxide 27 (22-30) mmol/L POC Total CO2 (22-30) mmol/L Anion Gap 10.0 (8.0-16.0) POC BUN (6-20) mg/dL BUN 59 H (8-23) mg/dL Creatinine 3.0 H (0.7-1.2) mg/dL POC Creatinine (0.6-1.2) mg/dL GFR Calculation 19 Glucose 134 H (70-105) mg/dL POC Glucose (70-105) mg/dL Calcium 8.5 L (8.6-10.4) mg/dL POC WB Ioniz Calcium (1.16-1.32) mmEq/L Total Bilirubin 0.3 (0.1-1.0) mg/dL AST 22 (<40) U/L ALT 12 (<40) U/L Alkaline Phosphatase 119 H (39-117) U/L Troponin T 0.06 H* (<0.03) ng/mL NT-Pro-B Natriuret Pep 7436.0 H (<450.0) pg/mL Total Protein 7.0 (5.9-8.4) gm/dL Albumin 3.7 (3.2-5.2) gm/dL Globulin 3.3 (2.2-3.7) gm/dL Albumin/Globulin Ratio 1.1 (1.0-2.3) Lipase (7-60) U/L 03/28/21 03/29/21 Range/Units 22:35 00:24 WBC (4.5-11.0) K/mcL RBC (4.50-5.90) M/mcL Hgb (13.5-16.5) g/dL Hct (41.0-55.0) % POC Hct 30 L (41-55) % MCV (80.0-100.0) fL MCH (26.0-34.0) pg MCHC (31.0-36.0) g/dL RDW (11.5-14.5) % Plt Count (140-440) K/mcL MPV (7.4-10.4) fL Neut % (Auto) (38.0-78.0) % Lymph % (Auto) (15.0-49.0) % Mcmullen % (Auto) (1.0-12.0) % Eos % (Auto) (0.0-7.0) % Baso % (Auto) (0.0-2.0) % Lymph # (Auto) (1.50-4.80) K/mcL Mcmullen # (Auto) (0.10-0.90) K/mcL Eos # (Auto) (0.00-0.70) K/mcL Baso # (Auto) (0.00-0.20) K/mcL Absolute Neutrophils (1.80-8.00) K/mcL POC Sodium 140 (133-145) mEq/L Sodium (133-145) mmol/L POC Potassium 5.1 (3.3-5.1) mEql/L Potassium (3.3-5.1) mmol/L POC Chloride 102 (96-108) mEq/L Chloride (96-108) mmol/L Carbon Dioxide (22-30) mmol/L POC Total CO2 26 (22-30) mmol/L Anion Gap (8.0-16.0) POC BUN 60 H (6-20) mg/dL BUN (8-23) mg/dL Creatinine (0.7-1.2) mg/dL POC Creatinine 3.5 H (0.6-1.2) mg/dL GFR Calculation Glucose (70-105) mg/dL POC Glucose 165 H (70-105) mg/dL Calcium (8.6-10.4) mg/dL POC WB Ioniz Calcium 1.12 L (1.16-1.32) mmEq/L Total Bilirubin (0.1-1.0) mg/dL AST (<40) U/L ALT (<40) U/L Alkaline Phosphatase (39-117) U/L Troponin T (<0.03) ng/mL NT-Pro-B Natriuret Pep (<450.0) pg/mL Total Protein (5.9-8.4) gm/dL Albumin (3.2-5.2) gm/dL Globulin (2.2-3.7) gm/dL Albumin/Globulin Ratio (1.0-2.3) Lipase 13 (7-60) U/L ED POC Tests ED POC Tests: BROWN - SARS Antigen Negative CC TIME Critical Care Time Critical Care Time: Yes Total Critical Care Time: 35 Attestation: Critical Care Time Total CriticalCare time was at least 35 minutes, excluding separately reportable procedures. There was a high probability of clinically significant/life threatening deterioration in the patient's condition which required my urgent intervention. Discharge Plan Patient/Caregiver Discharge Instructions Pt seen by [employer]/PA only: No Patient Disposition: Xfer As Inpt ([facility]) Discharge Date/Time: 03/29/21 00:50
[2021-03-28 22:31] LABS: Basophils # (Auto) 0.05 K/mcL (0.00-0.20); Basophils % (Auto) 0.5 % (0.0-2.0); Eosinophils % (Auto) 1.9 % (0.0-7.0); Hematocrit 32.9 % (41.0-55.0); Lymphocytes # (Auto) 1.56 K/mcL (1.50-4.80); Lymphocytes % (Auto) 14.5 % (15.0-49.0); Mean Cell Volume 99.4 fL (80.0-100.0); Mean Corpuscular HGB Conc 30.4 g/dL (31.0-36.0); Mean Platelet Volume 10.4 fL (7.4-10.4); Monocytes # (Auto) 1.16 K/mcL (0.10-0.90); Monocytes % (Auto) 10.8 % (1.0-12.0); Neutrophils % (Auto) 72.3 % (38.0-78.0); Platelet Count 256 K/mcL (140-440); RBC 3.31 M/mcL (4.50-5.90); Red Cell Distribution Width 13.3 % (11.5-14.5); WBC 10.8 K/mcL (4.5-11.0)
[2021-03-28] MEDS ORDERED: FUROSEMIDE 40 MG/4 ML VIAL IV ONE (22:37)
[2021-03-28 22:39] LABS: ALT/SGPT 12 U/L (<40); AST/SGOT 22 U/L (<40); Albumin 3.7 gm/dL (3.2-5.2); Albumin/Globulin Ratio 1.1 (1.0-2.3); Alkaline Phosphatase 119 U/L (39-117); Bilirubin,Total 0.3 mg/dL (0.1-1.0); Blood Urea Nitrogen 59 mg/dL (8-23); Calcium 8.5 mg/dL (8.6-10.4); Carbon Dioxide 27 mmol/L (22-30); Chloride 101 mmol/L (96-108); Globulin 3.3 gm/dL (2.2-3.7); Glomerular Filtration Rate 19; Glucose 134 mg/dL (70-105)
[2021-03-28] MEDS ORDERED: morphine 2 MG/ML VIAL IV ONE (22:53)
[2021-03-28] MEDS ORDERED: INSULIN REGULAR, HUMAN 1 UNIT/0.01 ML UNIT IV ONE (23:28)
[2021-03-28] MEDS ORDERED: DEXTROSE 50% 50 ML VIAL IV ONE (23:28)
[2021-03-29 00:35] LABS: POC Blood Urea Nitrogen 60 mg/dL (6-20); POC CO2 26 mmol/L (22-30); POC Calcium, Ionized 1.12 mmEq/L (1.16-1.32); POC Chloride 102 mEq/L (96-108); POC Creatinine 3.5 mg/dL (0.6-1.2); POC Glucose, Random 165 mg/dL (70-105); POC Hematocrit 30 % (41-55); POC Potassium 5.1 mEql/L (3.3-5.1); POC Sodium 140 mEq/L (133-145)
--- NOTE | 2021-03-29 07:40 | Internal Med History&Physical ---
HPI History of Present Illness Patient information: Note initiated : 03/29/21 at 7:31 am Service Date, if different from initiated Date: [] Patient: Black Armstrong 80 y/o M admitted on 03/29/21 for Elevated Troponin. Chief Complaint: [] History of present illness: Mr. Armstrong is a 80 year old M Presents to ED with increased lower extremity swelling and abdominal discomfort. He was seen by his PCP earlier and felt to be in CHF exacerbation and diuretics were increased. However symptoms worsened and patient upcoming to ED. Chest x-ray from earlier today with pulmonary edema. Patient also complains of shortness of breath dyspnea on exertion weight gain. He was given Lasix in the ED with 800 cc output. Past 3 days with increasing swelling in his legs lethargy weakness worsening chronic cough shortness of breath. Denies any recent sick contacts. Vaginal nausea some constipation. Says is abdominal pain was lower quadrants and sharp. Her daughter is abdomen seems less bloated today after diuresis in ED last night. Review of Systems: Pertinent positives as above. Denies headache/fever/chills/vomiting/chest pain/diarrhea. 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) Macular degeneration (Chronic) Peripheral neuropathy (Chronic) PVD (peripheral vascular disease) (Chronic 04/27/14) Proteinuria (Chronic 11/10/14) Nocturnal hypoxia (Chronic) Paroxysmal atrial fibrillation (Chronic) Diabetic retinopathy (Chronic) Ischemic cardiomyopathy (Chronic) CKD (chronic kidney disease), stage III (Chronic) Cardiac pacemaker in situ (Chronic) Diabetic neuropathy (Chronic) Hyperlipidemia (Chronic) Back pain (Chronic) GERD (gastroesophageal reflux disease) (Chronic) Leg edema (Chronic) Unsteady gait (Chronic) Hearing impairment (Chronic) COPD (chronic obstructive pulmonary disease) (Chronic) Pulmonary HTN (Chronic) Complex sleep apnea syndrome (Chronic) Hypoxemia (Chronic) Chronic anticoagulation (Chronic) Supplemental oxygen dependent (Chronic) Controlled type 2 diabetes mellitus with stage 3 chronic kidney disease, with long-term current use of insulin (Chronic) Chronic hypoxemic respiratory failure (Chronic) Type 2 diabetes mellitus with stage 4 chronic kidney disease, with long-term current use of insulin (Chronic) Chronic combined systolic and diastolic congestive heart failure, NYHA class 2 (Chronic) CKD stage G4/A2, GFR 15-29 and albumin creatinine ratio 30-299 mg/g (Chronic) Morbid obesity (Chronic) Shortness of breath on exertion (Acute) Constipation (Acute) Dizziness (Acute) Skin lesions (Acute) Cellulitis (Acute) Diabetic neuropathy (Acute) Injury of toe on right foot (Acute) Diabetic foot (Acute) Secondary hyperparathyroidism of renal origin (Acute) Nausea and vomiting in adult patient (Acute) Diarrhea (Acute) Medical History Abdominal pain Acute bronchitis Acute prerenal azotemia Diuresis with 25 lb fluid loss, low BP (amlodipine and aldactone) lead to acute decline in GFR due to renal hypoperfusion as evidenced by time frame and BUN/Cr ratio ~40:1 IV contrast study does not fit temporally and no embolic evidence of acute cholesterol embolization. Anemia B12 OK; low normal Iron. Back pain Benign prostatic hypertrophy with lower urinary tract symptoms (LUTS) Flomax, Proscar. Bilateral leg edema Bradycardia (03/13/14) CAD (coronary artery disease) (02/23/15) Dr. Maya Cardiac pacemaker in situ Slow pulse rate is due to trigeminy with the ectopic beats not generating much of a pulse pressure Cardiomegaly (09/29/14) Mild - Cellulitis Cellulitis Chest pain Chest pain, unspecified Chronic anticoagulation clopidogrel Chronic combined systolic and diastolic congestive heart failure, NYHA class 2 [facility] [place], 2015 - "Hospitalized 03/2013--CHF likely due to diastolic dysfunction with an ejection fraction of 50-55% noted on echo. Moderate concentric left ventricular hypertrophy and basilar/inferior hypokinesis. Sees Dr Morton" Dr. Guerrero 06/07/2019 [?] "Intolerant of beta-blockers so pacemaker placed for back-up rate and on low-dose carvedilol and bumetanide. Followed by Dr. Maya. Last EF was 45 to 50%" Carvedilol d/c'd as bradycardic Losartan as tolerated by potassium and GFR => trial entresto=> doing better Bumetanide and weight trying to keep his weight around 272 lb Chronic hypoxemic respiratory failure Poly-factorial including morbid obesity obstructive sleep apnea chronic systolic congestive heart failure, atrial fibrillation and an diabetic nephrosclerosis. Chronic systolic CHF (congestive heart failure), NYHA class 3 Carvedilol as tolerated by heart rate Losartan as tolerated by potassium and GFR Bumetanide adjusted for edema and weight trying to keep his weight around 255 to 260 pounds. CKD (chronic kidney disease), stage III D/Dx: HTN nephrosclerosis, Hypertensive cardiomyopathy and chronic systolic CHF with renal disease, vs DM nephropathy CKD stage G4/A2, GFR 15-29 and albumin creatinine ratio 30-299 mg/g Minimal proteinuria supports hypertension and vascular disease more likely than diabetic causes of renal disease. Treatment remains avoidance of nonsteroidal anti-inflammatories Blood pressure control with a goal of 130/80 RAASI therapy for renal disease, proteinuria, reduced LVEF in form of E ntresto Community acquired pneumonia Complex sleep apnea syndrome Is on BiPAP. Constipation Controlled type 2 diabetes mellitus with stage 3 chronic kidney disease, with long-term current use of insulin Creatinine clearance around 30 with nonnephrotic range proteinuria Elevated PVR suggest possible neurogenic bladder versus BPH Type IV RTA with hyperkalemia is also present and poses a risk with RAASI therapy Cough Depression Celexa Diabetes mellitus, type II Neuropathy. Macular degeneration. Eye injections and now laser photocoag in [place] Diabetic neuropathy Diabetic neuropathy Diabetic retinopathy left, non-proliferative, mild. Care Director, Dr. Valenzuela. Dyspnea Dyspnea Encounter for Health Maintenance Examination in Adult Esophageal reflux Fall GERD (gastroesophageal reflux disease) Hearing impairment Heart failure, diastolic (03/13/14) History of chest x-ray (04/06/16) Hyperkalemia, diminished renal excretion Acute pre-renal azotemia and aldactone Hyperlipidemia Hypertension Hypertension, essential Hyperuricemia Allopurinol Hypoxemia Hypoxia Ileus Injury of toe on right foot Improved Intraparenchymal hemorrhage of brain Ischemic cardiomyopathy Ischemic heart disease (03/26/13) inferior NE; stent to the right coronary. Echo with ejection fraction of 52%. Leg edema Macular degeneration Morbid obesity 40.1 on 02/10/2020. Nocturnal hypoxia Orthostatic hypotension Pacemaker (03/15/14) Dual chamber pacemaker Paroxysmal atrial fibrillation Peripheral neuropathy Pneumonia 03/2013Questionable pneumonia; COPD; CHF--hospitalized 04/02-. Pneumonia Pre-syncope Proteinuria (11/10/14) PVD (peripheral vascular disease) (04/27/14) Low nl JESSE Respiratory distress, acute Runny nose Shoulder pain, right Sick sinus syndrome (04/20/14) . s/p dual chamber pacemaker Skin lesions SOB (shortness of breath) Subdural hematoma Supplemental oxygen dependent 2.5 L/min day and night. Syncope and collapse Tachy-alissa syndrome Type 2 diabetes mellitus with stage 4 chronic kidney disease, with long-term current use of insulin He is progressed to chronic kidney disease level 4 with nonnephrotic range proteinuria around 300 to 400 mg per 24 hours. Most likely this represents diabetic nephropathy but could be associated with congestive heart failure hypertension and vascular disease as well. He does have retinopathy as well Unsteady gait Vasovagal syncope Weakness Surgical History H/O coronary angiogram (~09/10/19) History of arthroscopic knee surgery 03/2012 - Right History of cataract surgery History of colonoscopy (01/02/16) 01/02/16 -- polyps. History of permanent cardiac pacemaker placement (03/15/14) History of umbilical hernia repair 1992 Status post angioplasty with stent (03/26/13) RCA stent placement Status post cardiac catheterization (03/26/13) 09/10/2019- Left heart cath 03/26/2013 & 04/12/2014 - Left heart catherization, left ventricular cineangiography, selective coronary arteriography, stenting of the right coronary artery. Dr. Morton [facility] Family History Mother Dementia Family history of malignant neoplasm Seizure Osteoporosis Grandmother Dementia Father Type 2 diabetes mellitus Family history of malignant neoplasm Essential hypertension Acute myocardial infarction Colon cancer Lung cancer Uncle Type 2 diabetes mellitus Essential hypertension Acute myocardial infarction Unknown Colon cancer Lung cancer Social History household members: spouse housing: house marital status: service: Yes service: retired occupational status: retired alcohol intake frequency: holiday/special occasion only substance use type: does not use MEDS/ALLERGIES Home Medications and Allergies Home Medications Medication Instructions Recorded Confirmed Type aspirin 81 mg chewable tablet 81 mg PO QDAY tab 03/30/15 03/29/21 History nitroglycerin 0.4 mg sublingual 0.4 mg SUBLINGUAL PRN PRN 25 Days 11/27/17 03/29/21 History tablet atorvastatin 80 mg tablet 80 mg PO QDAY #90 tab 12/09/17 03/29/21 Rx docusate sodium 100 mg capsule 100 mg PO QDAY PRN 06/25/19 03/29/21 History albuterol sulfate 90 mcg/actuation 2 inh INHALATION Q6H PRN 03/02/20 03/29/21 History breath activated powder inhaler blood-glucose meter,continuous #1 each 04/20/20 03/28/21 Rx ipratropium 0.5 mg-albuterol 3 mg 3 ml INHALATION Q6H PRN #540 ml 05/31/20 03/29/21 Rx (2.5 mg base)/3 mL nebulization soln sacubitril 24 mg-valsartan 26 mg 1 tab PO BID #180 tab 06/06/20 03/29/21 Rx tablet insulin glargine 100 unit/mL 40 unit SUB-Q BID ml 07/06/20 03/29/21 History subcutaneous solution cholecalciferol (vitamin D3) 25 25 mcg PO QDAY #30 cap 08/04/20 03/29/21 Rx mcg (1,000 unit) capsule ascorbic acid (vitamin C) 100 mg 100 mg PO QDAY 09/14/20 03/29/21 History tablet blood-glucose sensor #3 each 10/21/20 03/28/21 Rx blood-glucose transmitter #1 each 10/21/20 03/28/21 Rx apixaban 5 mg tablet 5 mg PO BID 11/30/20 03/29/21 History citalopram 20 mg tablet 20 mg PO QDAY #90 tab 12/01/20 03/29/21 Rx finasteride 5 mg tablet 5 mg PO QDAY #90 tab 12/01/20 03/29/21 Rx tamsulosin 0.4 mg capsule 0.4 mg PO QDAY #90 cap 12/01/20 03/29/21 Rx bumetanide 2 mg tablet 4 mg PO QAM #180 tab 12/20/20 03/29/21 Rx insulin aspart U-100 100 unit/mL 25 unit SUBCUT TID ml 02/23/21 03/29/21 History (3 mL) subcutaneous pen pantoprazole 40 mg tablet,delayed See Rx Instructions PO BID #180 tab 03/06/21 03/29/21 Rx release gabapentin 300 mg capsule 600 mg PO QHS PRN #180 cap 03/14/21 03/29/21 Rx Allergies Allergy/AdvReac Type Severity Reaction Status Date / Time Beta-Blockers AdvReac Intermediate tendency Verified 03/28/21 11:10 (Beta-Adrenergic Bloc toward bradycardia w/Coreg & Sectral EXAM Constitutional Vitals: Temp Pulse Resp BP Pulse Ox 97.6 F 60 15 133/85 97 03/29/21 04:00 03/29/21 04:00 03/29/21 04:00 03/29/21 04:00 03/29/21 04:00 Exam: General: Alert, Awake, No acute Distress, obese Eyes/N/T: EOMI, PERRL, Head/Neck: neck supple, normocephalic atraumatic, unable to assess JVD given neck girth CV: Regular paced, No murmurs, normal s1/s2 Pulm: rales b/l, no wheezing Abd: soft, nontender, +BS x4 Ext: no clubbing/cyanosis, b/le LE 2+ edema Neuro: Alert, no focal deficits, moves all extremities, CN 2-12 grossly intact, symmetrical strength b/l upper/lower, Skin: warm/dry DATA Data Completed and Pending Labs: Labs from last 24 hours 03/29/21 03/28/21 03/28/21 00:24 22:35 21:24 WBC RBC Hgb Hct POC Hct 30 L MCV MCH MCHC RDW Plt Count MPV Neut % (Auto) Lymph % (Auto) [place] % (Auto) Eos % (Auto) Baso % (Auto) Lymph # (Auto) [place] # (Auto) Eos # (Auto) Baso # (Auto) Absolute Neutrophils POC Sodium 140 Sodium POC Potassium 5.1 Potassium POC Chloride 102 Chloride Carbon Dioxide POC Total CO2 26 Anion Gap POC BUN 60 H BUN Creatinine POC Creatinine 3.5 H GFR Calculation Glucose POC Glucose 165 H Calcium POC WB Ioniz Calcium 1.12 L Total Bilirubin AST ALT Alkaline Phosphatase Troponin T 0.06 H* NT-Pro-B Natriuret Pep Total Protein Albumin Globulin Albumin/Globulin Ratio Lipase 13 03/28/21 03/28/21 21:24 21:24 WBC 10.8 RBC 3.31 L Hgb 10.0 L Hct 32.9 L POC Hct MCV 99.4 MCH 30.2 MCHC 30.4 L RDW 13.3 Plt Count 256 MPV 10.4 Neut % (Auto) 72.3 Lymph % (Auto) 14.5 L [place] % (Auto) 10.8 Eos % (Auto) 1.9 Baso % (Auto) 0.5 Lymph # (Auto) 1.56 [place] # (Auto) 1.16 H Eos # (Auto) 0.20 Baso # (Auto) 0.05 Absolute Neutrophils 7.80 POC Sodium Sodium 138 POC Potassium Potassium 5.4 H POC Chloride Chloride 101 Carbon Dioxide 27 POC Total CO2 Anion Gap 10.0 POC BUN BUN 59 H Creatinine 3.0 H POC Creatinine GFR Calculation 19 Glucose 134 H POC Glucose Calcium 8.5 L POC WB Ioniz Calcium Total Bilirubin 0.3 AST 22 ALT 12 Alkaline Phosphatase 119 H Troponin T NT-Pro-B Natriuret Pep 7436.0 H Total Protein 7.0 Albumin 3.7 Globulin 3.3 Albumin/Globulin Ratio 1.1 Lipase A/P Narrative A/P Narrative: A: *Acute on chronic diastolic CHF (EF normalized from 2019) w/pulm edema: *Acute on chronic hypoxic respiratory failure: *Hyperkalemia: resolved *CAD w/stent: *CKD IV: Follows with Dr. Guerrero *Afib w/PPM: on eliquis *Anemia, chronic: *COPD (3L@ home): Follows with Dr. Suarez *KALPESH on BiPAP@home: *Obesity: *HTN: *DM w/neuropathy: *Depression: *GERD: * P: -IV lasix, monitor UOP, I/O's -leg wraps and elevate -cont home ASA/Statin -hold ACEI for hyperkal -home basal insulin and SSI -home Bipap - -PT/OT -ppx: apixaban/home ppi code status: cpr ok, no intubation Time Spent With Patient Time: Total time spent is greater than 50% in coordination of care (as documented) at patient's floor/unit and/or counseling patient:
[2021-03-29] MEDS ORDERED: DEXTROSE 50% 50 ML VIAL IV PRN ×2 (07:42→10:10)
[2021-03-29] MEDS ORDERED: DEXTROSE 31 GM ORAL.SUSP PO PRN ×2 (07:42→10:10)
[2021-03-29] MEDS ORDERED: FUROSEMIDE 40 MG/4 ML VIAL IV SCH (08:00)
[2021-03-29] MEDS: HYDROCHLOROTHIAZIDE 25 MG TABLET PO SCH (08:49)
[2021-03-29 09:11] LABS: ALT/SGPT 12 U/L (<40); AST/SGOT 22 U/L (<40); Albumin 3.3 gm/dL (3.2-5.2); Alkaline Phosphatase 115 U/L (39-117); Bilirubin,Direct < 0.2 mg/dL (0-0.3); Bilirubin,Total 0.4 mg/dL (0.1-1.0); Blood Urea Nitrogen 57 mg/dL (8-23); Calcium 8.8 mg/dL (8.6-10.4); Carbon Dioxide 29 mmol/L (22-30); Chloride 102 mmol/L (96-108); Globulin 3.4 gm/dL (2.2-3.7); Glomerular Filtration Rate 20; Glucose 66 mg/dL (70-105); Lactate Dehydrogenase 224 U/L (135-225); Phosphorous 3.3 mg/dL (2.5-4.5); Triglycerides 58 mg/dL (<150); Uric Acid 11.3 mg/dL (2.5-8.0)
[2021-03-29] MEDS ORDERED: METOCLOPRAMIDE 10 MG/2 ML VIAL IV PRN (10:10)
[2021-03-29] MEDS ORDERED: SENNOSIDES 1 TABLET PO PRN (10:10)
[2021-03-29] MEDS ORDERED: LACTULOSE 20 GM/30 ML ORAL.SOL PO PRN (10:10)
[2021-03-29] MEDS ORDERED: POTASSIUM CHLORIDE 40 MEQ in DEXTROSE 5% IN WATER 500 ML IV PRN (10:10)
[2021-03-29] MEDS ORDERED: IPRATROPIUM/ALBUTEROL 3 ML AMPUL.NEB NEB PRN (10:10)
[2021-03-29] MEDS ORDERED: MAGNESIUM SULFATE 2 GM/50 ML BAG IV PRN (10:10)
[2021-03-29] MEDS ORDERED: POTASSIUM CHLORIDE 20 MEQ TABLET PO PRN ×2 (10:10)
[2021-03-29] MEDS ORDERED: NITROGLYCERIN 0.4 MG TAB.SUBL SL PRN (10:36)
[2021-03-29] MEDS ORDERED: INSULIN LISPRO 1 UNIT/0.01 ML UNIT SQ SCH (11:30)
[2021-03-29] MEDS: APIXABAN 5 MG TABLET PO SCH ×2 (11:42→21:35)
[2021-03-29] MEDS: INSULIN GLARGINE, HUMAN 1 UNIT/0.01 ML SQ SCH ×2 (11:42→21:35)
[2021-03-29] MEDS: INSULIN LISPRO 1 UNIT/0.01 ML UNIT SQ SCH ×3 (11:43→21:35)
--- NOTE | 2021-03-29 11:48 | EKG ---
[facility] Test Date: 2021-03-28 Pat Name: Black Armstrong Department: ED Room: Gender: Male Hand Ii Cutter: sb : 1940 Requested By: Alexander Nugent Order Number: [id number] Reading MD: Damian Jackson M.D. Measurements Intervals [place] Rate: 60 P: RI: QRS: -70 QRSD: 135 T: 121 QT: 450 QTc: 450 Interpretive Statements Junctional rhythm LAD CONSIDER LBBB Extensive anterior infarct, old Abnormal T, consider ischemia, lateral leads NO PRIOR TRACING FOR COMPARISON ABNORMAL ECG Electronically Signed On 03-29-2021 11:48:04 PDT by Damian Jackson M.D. /store/[id number]
[2021-03-29 11:50] LABS: Hemoglobin A1C 6.9 % Hgb (4.0-6.0)
--- NOTE | 2021-03-29 11:51 | EKG ---
[facility] Test Date: 2021-03-28 Pat Name: Black Armstrong Department: ED Room: Gender: Male [place]: [birth year] : 1940 Requested By: Alexander Nugent Order Number: [id number] Reading MD: Damian Jackson M.D. Measurements Intervals [place] Rate: 60 P: AR: 244 QRS: -63 QRSD: 124 T: 127 QT: 464 QTc: 464 Interpretive Statements AGE IS NOT ENTERED, ASSUMED TO BE 51 YEARS OLD FOR PURPOSE OF ECG INTERPRETATION A-V DUAL-PACED RHYTHM WITH SOME INHIBITION FIRST DEGREE AV BLOCK NONSPECIFIC IVCD WITH LAD Since previous ECG of [id number], PACER ARTIFACTS PRESENT, ABNORMAL ECG Electronically Signed On 03-29-2021 11:51:15 PDT by Damian Jackson M.D. /hue/[id number]
[2021-03-29] MEDS: 0.9 % SODIUM CHLORIDE 10 ML SYRINGE IV SCH ×2 (14:38→21:36)
[2021-03-29] MEDS: FUROSEMIDE 40 MG/4 ML VIAL IV SCH ×2 (14:38→21:35)
[2021-03-29] MEDS ORDERED: ALBUMIN HUMAN 12.5 GM/50 ML BAG IV ONE (15:00)
[2021-03-29] MEDS: morphine 2 MG/ML VIAL IV PRN ×2 (15:29→21:34)
[2021-03-29] MEDS: PANTOPRAZOLE 40 MG TABLET PO SCH (17:15)
[2021-03-29] MEDS: DOCUSATE SODIUM 100 MG CAPSULE PO SCH (21:34)
[2021-03-29] MEDS: SACUBITRIL VALSARTAN PO SCH (21:35)
[2021-03-30] MEDS: morphine 2 MG/ML VIAL IV PRN ×6 (00:09→11:15)
[2021-03-30] MEDS: GABAPENTIN 300 MG CAPSULE PO PRN ×2 (01:38→20:26)
[2021-03-30] MEDS: 0.9 % SODIUM CHLORIDE 10 ML SYRINGE IV SCH ×3 (05:59→20:22)
[2021-03-30 06:27] LABS: Basophils # (Auto) 0.04 K/mcL (0.00-0.20); Basophils % (Auto) 0.4 % (0.0-2.0); Eosinophils # (Auto) 0.32 K/mcL (0.00-0.70); Eosinophils % (Auto) 2.9 % (0.0-7.0); Hematocrit 32.2 % (41.0-55.0); Lymphocytes # (Auto) 1.65 K/mcL (1.50-4.80); Lymphocytes % (Auto) 15.1 % (15.0-49.0); Mean Cell Volume 99.1 fL (80.0-100.0); Mean Corpuscular HGB Conc 31.1 g/dL (31.0-36.0); Mean Platelet Volume 10.4 fL (7.4-10.4); Monocytes # (Auto) 1.27 K/mcL (0.10-0.90); Monocytes % (Auto) 11.6 % (1.0-12.0); Platelet Count 240 K/mcL (140-440); RBC 3.25 M/mcL (4.50-5.90); Red Cell Distribution Width 13.4 % (11.5-14.5); WBC 10.9 K/mcL (4.5-11.0)
[2021-03-30] MEDS: PANTOPRAZOLE 40 MG TABLET PO SCH ×2 (06:57→17:23)
[2021-03-30 07:04] LABS: ALT/SGPT 9 U/L (<40); AST/SGOT 16 U/L (<40); Albumin 3.5 gm/dL (3.2-5.2); Albumin/Globulin Ratio 1.1 (1.0-2.3); Alkaline Phosphatase 107 U/L (39-117); Bilirubin,Direct < 0.2 mg/dL (0-0.3); Bilirubin,Total 0.5 mg/dL (0.1-1.0); Blood Urea Nitrogen 57 mg/dL (8-23); Calcium 8.8 mg/dL (8.6-10.4); Carbon Dioxide 30 mmol/L (22-30); Chloride 100 mmol/L (96-108); Globulin 3.1 gm/dL (2.2-3.7); Glomerular Filtration Rate 18; Glucose 81 mg/dL (70-105); Lactate Dehydrogenase 185 U/L (135-225); Phosphorous 3.7 mg/dL (2.5-4.5); Triglycerides 90 mg/dL (<150); Uric Acid 11.6 mg/dL (2.5-8.0)
[2021-03-30] MEDS: INSULIN LISPRO 1 UNIT/0.01 ML UNIT SQ SCH ×4 (07:17→20:21)
--- NOTE | 2021-03-30 07:23 | Internal Med Progress Note ---
SUBJECTIVE Subjective Patient information: Note initiated : 03/30/21 at 7:18 am Service Date, if different from initiated Date: [] Patient: Black Armstrong 80 y/o M admitted on 03/29/21 for Elevated Troponin. Chief Complaint: [] Interval history: History of present illness: Mr. Armstrong is a 80 year old M Presents to ED with increased lower extremity swelling and abdominal discomfort. He was seen by his PCP earlier and felt to be in CHF exacerbation and diuretics were increased. However symptoms worsened and patient upcoming to ED. Chest x-ray from earlier today with pulmonary edema. Patient also complains of shortness of breath dyspnea on exertion weight gain. He was given Lasix in the ED with 800 cc output. Past 3 days with increasing swelling in his legs lethargy weakness worsening chronic cough shortness of breath. Denies any recent sick contacts. Vaginal nausea some constipation. Says is abdominal pain was lower quadrants and sharp. Her daughter is abdomen seems less bloated today after diuresis in ED last night. 7/8 Good urine output. Poor sleep last night. Complains of abdominal discomfort sharp pain lower quadrants. some nausea/headache Review of Systems: denies fever/chills/vomiting/chest pain//diarrhea. Otherwise see above. Constitutional Vitals: Vital Signs Temp Pulse Resp BP Pulse Ox 97.6 F 60 12 139/52 96 03/29/21 20:01 03/30/21 06:01 03/30/21 06:01 03/30/21 06:01 03/30/21 06:01 Period Temp Pulse Resp BP Sys/Carter Pulse Ox Last 24 Hr 97.1 F-97.6 F 56-73 9-22 85-177/42-130 83-99 Intake and Output 03/29/21 03/30/21 03/30/21 21:59 05:59 13:59 Intake Total 450 Output Total 900 1450 Balance -450 -1450 Weight 131.406 kg Intake & Output: Intake & Output 03/29/21 03/30/21 03/30/21 21:59 05:59 13:59 Intake Total 450 Output Total 900 1450 Balance -450 -1450 Weight 131.406 kg Intake: IV 50 Oral 400 Output: Urine Catheter Amount 900 1450 Other: Meal Dinner Percent of Meal Consumed 100% Urine Appearance Clear Clear Urine Color Light Kelsey Pale Urine Odor Normal Exam: General: Alert, Awake, No acute Distress, obese Eyes/N/T: EOMI, , Head/Neck: neck supple, , unable to assess JVD given neck girth CV: Regular paced, No murmurs, Pulm: rales b/l, no wheezing Abd: soft, distended and mildly TTP, +BS x4 Ext: no clubbing/cyanosis, b/le LE 1+ edema Neuro: Alert, no focal deficits, moves all extremities, OBJ DATA Labs CBC & Chem 7: 03/30/21 05:14 03/30/21 05:13 Labs: Abnormal Lab Results 03/30/21 03/30/21 03/29/21 05:14 05:13 21:21 RBC 3.25 L Hgb 10.0 L Hct 32.2 L POC Hct MCHC Lymph % (Auto) [place] # (Auto) 1.27 H Potassium Anion Gap POC BUN BUN 57 H Creatinine 3.1 H POC Creatinine Glucose POC Glucose Hemoglobin A1c 6.9 H Uric Acid 11.6 H Calcium POC WB Ioniz Calcium Alkaline Phosphatase Troponin T NT-Pro-B Natriuret Pep 03/29/21 03/29/21 03/28/21 07:59 00:24 21:24 RBC Hgb Hct POC Hct 30 L MCHC Lymph % (Auto) [place] # (Auto) Potassium Anion Gap 7.0 L POC BUN 60 H BUN 57 H Creatinine 2.9 H POC Creatinine 3.5 H Glucose 66 L POC Glucose 165 H Hemoglobin A1c Uric Acid 11.3 H Calcium POC WB Ioniz Calcium 1.12 L Alkaline Phosphatase Troponin T 0.06 H* NT-Pro-B Natriuret Pep 03/28/21 03/28/21 21:24 21:24 RBC 3.31 L Hgb 10.0 L Hct 32.9 L POC Hct MCHC 30.4 L Lymph % (Auto) 14.5 L [place] # (Auto) 1.16 H Potassium 5.4 H Anion Gap POC BUN BUN 59 H Creatinine 3.0 H POC Creatinine Glucose 134 H POC Glucose Hemoglobin A1c Uric Acid Calcium 8.5 L POC WB Ioniz Calcium Alkaline Phosphatase 119 H Troponin T NT-Pro-B Natriuret Pep 7436.0 H Meds: Medications Acetaminophen (Acetaminophen 325 Mg Tablet) 650 mg PO Q6HP PRN PRN Reason: PAIN/FEVER > 101 Albuterol/Ipratropium (Ipratropium/Albuterol 3 Ml Ampul.Neb) 3 ml NEB Q4HP PRN PRN Reason: Shortness Of Breath Apixaban (Apixaban 5 Mg Tablet) 5 mg PO BID [facility] Last Admin: 03/29/21 21:35 Dose: 5 mg Documented by: Aspirin (Aspirin 81 Mg Tab.Chew) 81 mg PO QDAY [facility] Atorvastatin Calcium (Atorvastatin 40 Mg Tablet) 80 mg PO QDAY [facility] Citalopram Hydrobromide (Citalopram 20 Mg Tablet) 20 mg PO QDAY [facility] Dextrose (Dextrose 50% 50 Ml Vial) 0 ml IV UD PRN PRN Reason: Hypoglycemia Dextrose (Dextrose 50% 50 Ml Vial) 0 ml IV UD PRN PRN Reason: Hypoglycemia Diagnostic Test (Pha) (Accu-Chek 1 Each Strip) 1 each FS ACHS [facility] Last Admin: 03/30/21 07:17 Dose: 1 each Documented by: Docusate Sodium (Docusate Sodium 100 Mg Capsule) 100 mg PO BID [facility] Last Admin: 03/29/21 21:34 Dose: 100 mg Documented by: Finasteride (Finasteride 5 Mg Tablet) 5 mg PO QDAY [facility] Furosemide (Furosemide 40 Mg/4 Ml Vial) 40 mg IV TID [facility] Last Admin: 03/29/21 21:35 Dose: 40 mg Documented by: Gabapentin (Gabapentin 300 Mg Capsule) 600 mg PO HSP PRN PRN Reason: peripheral neuropathy Last Admin: 03/30/21 01:38 Dose: 600 mg Documented by: Glucose (Dextrose 31 Gm Oral.Susp) 15 gm PO PRN PRN PRN Reason: Hypoglycemia Glucose (Dextrose 31 Gm Oral.Susp) 15 gm PO PRN PRN PRN Reason: Hypoglycemia Hydrochlorothiazide (Hydrochlorothiazide 25 Mg Tablet) 25 mg PO DAILY [facility] Last Admin: 03/29/21 08:49 Dose: 25 mg Documented by: Potassium Chloride 40 meq/ (Dextrose) 520 mls @ 130 mls/hr IV UD PRN PRN Reason: Potassium < 3 Magnesium Sulfate (Magnesium Sulfate) 2 gm in 50 mls @ 50 mls/hr IV UD PRN PRN Reason: Magnesium </= 1.6 Insulin Glargine (Insulin Glargine, Human 1 Unit/0.01 Ml) 40 unit SQ BID [facility] Last Admin: 07/07/21 21:35 Dose: 40 unit Documented by: Insulin Human Lispro (Insulin Lispro 1 Unit/0.01 Ml Unit) 0 unit SQ [facility]; Protocol Last Admin: 03/30/21 07:17 Dose: Not Given Documented by: Lactulose (Lactulose 20 Gm/30 Ml Oral.Lin) 20 gm PO DAILYP PRN PRN Reason: Constipation Last Admin: 03/30/21 06:41 Dose: 20 gm Documented by: Metoclopramide HCl (Metoclopramide 10 Mg/2 Ml Vial) 10 mg IV Q6HP PRN PRN Reason: Nausea And Vomiting Morphine Sulfate (Morphine 2 Mg/Ml Vial) 2 mg IV Q1HP PRN; Protocol PRN Reason: Per Pain Protocol Last Admin: 03/30/21 06:40 Dose: 2 mg Documented by: Nitroglycerin (Nitroglycerin 0.4 Mg Tab.Subl) 0.4 mg SL Q5M PRN PRN Reason: Chest Pain Ondansetron HCl (Ondansetron 4 Mg/2 Ml Vial) 4 mg IV Q4HP PRN PRN Reason: Nausea And Vomiting Pantoprazole Sodium (Pantoprazole 40 Mg Tablet) 0 mg PO BIDAC [facility] Last Admin: 03/30/21 06:57 Dose: 40 mg Documented by: Sacubitril-Valsartan ([Entresto] 1 Tab) 1 dose PO BID [facility] Last Admin: 03/29/21 21:35 Dose: 1 dose Documented by: Potassium Chloride (Potassium Chloride 20 Meq Tablet) 40 meq PO UD PRN PRN Reason: Potssium is 3-3.5 Potassium Chloride (Potassium Chloride 20 Meq Tablet) 40 meq PO UD PRN PRN Reason: Potassium < 3 Senna (Sennosides 1 Tablet) 2 tab PO DAILYP PRN PRN Reason: Constipation Sodium Chloride (0.9 % Sodium Chloride 10 Ml Syringe) 10 ml IV Q8 [facility] Last Admin: 03/30/21 05:59 Dose: 10 ml Documented by: Tamsulosin HCl (Tamsulosin 0.4 Mg Capsule) 0.4 mg PO QDAY [facility] A/P Narrative A/P Narrative: A: *Acute on chronic diastolic CHF (EF normalized from 2019) w/pulm edema: -good UOP *Acute on chronic hypoxic respiratory failure: *Hyperkalemia: resolved *CAD w/stent: *CKD IV (base Cr~3): Follows with Dr. Guerrero *Afib w/PPM: on eliquis *Anemia, chronic: *COPD (3L@ home): Follows with Dr. Suarez *KALPESH on BiPAP@home: *Obesity: *HTN: *DM w/neuropathy: *Depression: *GERD: *Abd pain: P: -IV lasix, monitor UOP, I/O's -leg wraps and elevate -cont home ASA/Statin -hold ACEI for hyperkal -home basal insulin and SSI -home Bipap -ct a/p -PT/OT -ppx: apixaban/home ppi code status: cpr ok, no intubation Time Spent With Patient Time: Total time spent is greater than 50% in coordination of care (as documented) at patient's floor/unit and/or counseling patient:
[2021-03-30] MEDS: ONDANSETRON 4 MG/2 ML VIAL IV PRN ×2 (07:42→11:14)
[2021-03-30] MEDS: FUROSEMIDE 40 MG/4 ML VIAL IV SCH ×2 (07:43→16:43)
[2021-03-30] MEDS ORDERED: ALBUMIN HUMAN 12.5 GM/50 ML BAG IV ONE (08:00)
[2021-03-30] MEDS: IPRATROPIUM/ALBUTEROL 3 ML AMPUL.NEB NEB SCH ×3 (09:00→20:13)
[2021-03-30] MEDS: APIXABAN 5 MG TABLET PO SCH ×2 (09:40→20:20)
[2021-03-30] MEDS: CITALOPRAM 20 MG TABLET PO SCH (09:40)
[2021-03-30] MEDS: ATORVASTATIN 40 MG TABLET PO SCH (09:40)
[2021-03-30] MEDS: DOCUSATE SODIUM 100 MG CAPSULE PO SCH ×2 (09:40→20:20)
[2021-03-30] MEDS: FINASTERIDE 5 MG TABLET PO SCH (09:40)
[2021-03-30] MEDS: ASPIRIN 81 MG TAB.CHEW PO SCH (09:41)
[2021-03-30] MEDS: TAMSULOSIN 0.4 MG CAPSULE PO SCH (09:41)
[2021-03-30] MEDS: HYDROCHLOROTHIAZIDE 25 MG TABLET PO SCH (09:41)
[2021-03-30] MEDS: SACUBITRIL VALSARTAN PO SCH ×2 (09:50→20:20)
[2021-03-30] MEDS: INSULIN GLARGINE, HUMAN 1 UNIT/0.01 ML SQ SCH ×2 (09:54→20:21)
--- NOTE | 2021-03-30 10:49 | XRay Report ---
HISTORY: Congestive heart failure FINDINGS: The heart is mildly enlarged. There is a dual-chamber pacemaker. Pulmonary vessels are engorged. Patient has small bilateral pleural effusions, best seen on the lateral view. There is associated compressive atelectasis in the posterior basal segments of both lower lobes. Comparison with the prior exam from 03/28/21 shows the volume of pleural fluid has increased a small amount and the consolidation of the adjacent lung parenchyma in the right lower lobe has become worse. IMPRESSION: Congestive heart failure Bilateral pleural effusions with associated atelectasis in the lung bases, right worse than left. Superimposed pneumonia cannot be excluded. Interpreted and Authenticated by: Helio Rocha 03/30/21
--- NOTE | 2021-03-30 11:32 | Cat Scan Report ---
History: Pelvic pain, elevated troponin level TECHNIQUE: The patient was imaged following oral but no intravenous contrast scanning from the diaphragm through the symphysis pubis. Sagittal and coronal reformats were created. The radiation exposure was limited using dose reduction technology. FINDINGS: Patient has small to moderate-sized bilateral layering pleural effusions. Associated with this is compressive atelectasis in the posterior basal segments of both lower lobes. There are a few posterior mediastinum, anterior to the distal esophagus. They measure up to 1.1 cm. These are nonspecific. The distal esophagus appears normal without evidence of inflammation or mass. No hiatus hernia is present. Evaluation the abdominal organs without IV contrast is somewhat limited. The liver and spleen are normal in size and homogeneous. The gallbladder is normal in size and there are no stones or thickening of the wall. The bile ducts are nondilated. Pancreas appears normal. There is a well-circumscribed solid nodule in the left adrenal which measures 1.7 x 2.2 cm. The right adrenal is normal. The adrenal nodule is unchanged from the prior CT done on 02/18/21. Both kidneys are relatively small. There is no stone, hydronephrosis or mass effect in either kidney. Right kidney is 9.6 cm in length and left is 10.1 cm. Oral contrast is passed through normal stomach and duodenum into the jejunum. The jejunum is mildly dilated measuring up to 2.9 cm and contains multiple air-fluid levels. There is a gradual transition to normal caliber ileum. There is some fluid in the peritoneal space between loops of small bowel. Fluid extends down into the pelvis. There is also fluid inferior and medial to the cecum. Patient has a short appendix which is become thickened. Measures 9.6 mm in diameter. It measured 5-6 mm on 02/18/21. No abscess or free intraperitoneal air are present. There are couple scattered noninflamed diverticula in the large intestine. Urinary bladder is decompressed by Russell catheter. The prostate is small. IMPRESSION: New onset thickened appendix. This may be due to early stage of acute appendicitis. Dilated proximal small intestine. The appearance is more consistent with that of an ileus rather than a incomplete mid small bowel obstruction. Stable adenoma in the left adrenal Stable bilateral pleural effusions with bibasilar atelectasis Dr. Bryan was called with the report Interpreted and Authenticated by: Helio Rocha 03/30/21
[2021-03-30] MEDS ORDERED: BISACODYL 5 MG TABLET PO ONE (11:35)
[2021-03-30] MEDS ORDERED: BISACODYL 5 MG TABLET PO PRN (11:35)
[2021-03-30 15:58] LABS: Band Neutrophils % 4 % (0-10); Basophils % (Manual) 1 % (0-2); Eosinophils % (Manual) 3 % (0-7); Lymphocytes % 18 % (15-49); Monocytes % (Manual) 9 % (1-12); Platelet Estimate NORMAL (Normal); RBC Morphology NORMAL (Normal); Segmented Neutrophils % 65 % (38-78)
--- NOTE | 2021-03-30 17:06 | General Surgery Progress Note ---
SUBJECTIVE Subjective Patient information: Note initiated : 03/30/21 at 5:05 pm Service Date, if different from initiated Date: [] Patient: Black Armstrong 80 y/o M admitted on 03/29/21 for Elevated Troponin. Chief Complaint: [] Constitutional Vitals: Vital Signs Temp Pulse Resp BP Pulse Ox 97.6 F 60 12 120/52 97 03/30/21 16:02 03/30/21 06:01 03/30/21 06:01 03/30/21 16:02 03/30/21 16:02 Period Temp Pulse Resp BP Sys/Carter Pulse Ox Last 24 Hr 97.4 F-97.9 F 56-60 9-17 115-172/45-75 91-99 Intake and Output 03/30/21 03/30/21 03/30/21 05:59 13:59 21:59 Intake Total 1096 Output Total 1450 150 450 Balance -1450 946 -450 Weight 289 lb 11.2 oz Patient Weight 03/31/21 05:59 Weight 289 lb 11.2 oz Intake & Output: Intake & Output 03/30/21 03/30/21 03/30/21 05:59 13:59 21:59 Intake Total 1096 Output Total 1450 150 450 Balance -1450 946 -450 Weight 289 lb 11.2 oz Intake: IV 50 Oral 1046 Output: Urine Catheter Amount 1450 150 450 Other: Meal Breakfast Percent of Meal Consumed 50% Urine Appearance Clear Urine Color Pale Tea Colored Stool Size Smear Stool Color Brown A/P Time Spent With Patient Time: Total time spent is greater than 50% in coordination of care (as documented) at patient's floor/unit and/or counseling patient:
--- NOTE | 2021-03-30 17:06 | General Surgery Consult Note ---
HPI Data of Consult Consult date: 03/30/21 Requesting physician: Vikas Bryan Primary Care Provider: Bobby Saini MD Consult Narrative Patient Information: Note initiated : 03/30/21 at 5:06 pm Service Date, if different from initiated Date: [] Patient: Black Armstrong 80 y/o M admitted on 03/29/21 for Elevated Troponin. Chief Complaint: [] Chief complaint: Chronic abdominal pain Reason for consult: Evaluation for possible appendicitis cc:: CC: Vikas Bryan 80-year-old male who is seen in consultation for evaluation of mid lower abdominal pain and nausea. He has had bilateral lower abdominal pain since October of this year but it has become much worse over the past week. He has had nausea but no vomiting. Because of his abdominal pain a CT of the abdomen and pelvis was done. This was interpreted as showing edema of the appendix without other signs of appendicitis. He has no history to suggest appendicitis and he has no right-sided abdominal tenderness. Based on his other clinical findings it is felt that his appendiceal edema is related to edema from right heart failure and ascites due to diastolic dysfunction. Patient is afebrile and does not have leukocytosis. This was discussed with the attending hospitalist, Dr. BRYAN. Constitutional Constitutional: Present fatigue, frequent falls, malaise, weight gain (Due to congestive heart failure) and weight loss (Due to diuretic therapy) EENT Eyes: Absent change in vision Ears: Present decreased hearing (Bilateral hearing loss) Nose, mouth and throat: Present abnormal hearing, dizziness and hoarseness Cardiovascular Cardiovascular: Present dyspnea on exertion, leg edema, palpatations and pedal edema Respiratory Respiratory: Present cough, dyspnea on exertion, chest congestion and other (Sh ortness of breath) Gastrointestinal Gastrointestinal: Present abdominal pain (Bilateral lower abdominal tenderness), bloating, change in bowel habits and nausea; Absent vomiting Musculoskeletal Musculoskeletal: Present abnormal gait, arthralgias, joint swelling, muscle weakness and radiating pain into limb Integumentary Integumentary: Absent pruritus, rash and swelling Neurological Neurological: Present abnormal gait, abnormal hearing, dizziness, memory loss and vertigo; Absent focal weakness and syncope Psychiatric Psychiatric: Present depression and memory loss Endocrine Endocrine: Absent heat intolerance, polydipsia, polyphagia and polyuria Hematologic/Lymphatic Hematologic/Lymphatic: Absent easy bleeding, easy bruising and lymphadenopathy PFSH PFSH All Active Problems (Updated 04/19/21 @ 11:04 by Edwar Salas MD) Chronic generalized abdominal pain (Acute) Abdominal pain (Acute) Acute exacerbation of CHF (congestive heart failure) (Acute) Chronic kidney disease (CKD) stage G4/A1, severely decreased glomerular filtration rate (GFR) between 15-29 mL/min/1.73 square meter and albuminuria creatinine ratio less than 30 mg/g (Chronic) Dyspnea (Acute) Benign prostatic hypertrophy with lower urinary tract symptoms (LUTS) (Chronic) Cardiomegaly (Chronic 09/29/14) CAD (coronary artery disease) (Chronic 02/23/15) Diabetes mellitus, type II (Chronic) Esophageal reflux (Chronic) Hypertension, essential (Chronic) Hyperuricemia (Chronic) 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) Macular degeneration (Chronic) Peripheral neuropathy (Chronic) PVD (peripheral vascular disease) (Chronic 04/27/14) Proteinuria (Chronic 11/10/14) Nocturnal hypoxia (Chronic) Paroxysmal atrial fibrillation (Chronic) Diabetic retinopathy (Chronic) Ischemic cardiomyopathy (Chronic) CKD (chronic kidney disease), stage III (Chronic) Cardiac pacemaker in situ (Chronic) Diabetic neuropathy (Chronic) Hyperlipidemia (Chronic) Back pain (Chronic) GERD (gastroesophageal reflux disease) (Chronic) Leg edema (Chronic) Unsteady gait (Chronic) Hearing impairment (Chronic) COPD (chronic obstructive pulmonary disease) (Chronic) Pulmonary HTN (Chronic) Complex sleep apnea syndrome (Chronic) Hypoxemia (Chronic) Chronic anticoagulation (Chronic) Supplemental oxygen dependent (Chronic) Controlled type 2 diabetes mellitus with stage 3 chronic kidney disease, with long-term current use of insulin (Chronic) Chronic hypoxemic respiratory failure (Chronic) Type 2 diabetes mellitus with stage 4 chronic kidney disease, with long-term current use of insulin (Chronic) Chronic combined systolic and diastolic congestive heart failure, NYHA class 2 (Chronic) CKD stage G4/A2, GFR 15-29 and albumin creatinine ratio 30-299 mg/g (Chronic) Morbid obesity (Chronic) Shortness of breath on exertion (Acute) Constipation (Acute) Dizziness (Acute) Skin lesions (Acute) Cellulitis (Acute) Diabetic neuropathy (Acute) Injury of toe on right foot (Acute) Diabetic foot (Acute) Secondary hyperparathyroidism of renal origin (Acute) Nausea and vomiting in adult patient (Acute) Diarrhea (Acute) Medical History (Updated 07/28/21 @ 11:04 by Edwar Salas MD) Abdominal pain Abdominal pain Acute bronchitis Acute exacerbation of CHF (congestive heart failure) Acute prerenal azotemia Diuresis with 25 lb fluid loss, low BP (amlodipine and aldactone) lead to acute decline in GFR due to renal hypoperfusion as evidenced by time frame and BUN/Cr ratio ~40:1 IV contrast study does not fit temporally and no embolic evidence of acute cholesterol embolization. Anemia B12 OK; low normal Iron. Back pain Benign prostatic hypertrophy with lower urinary tract symptoms (LUTS) Flomax, Proscar. Bilateral leg edema Bradycardia (03/13/14) CAD (coronary artery disease) (02/23/15) Dr. Maya Cardiac pacemaker in situ Slow pulse rate is due to trigeminy with the ectopic beats not generating much of a pulse pressure Cardiomegaly (09/29/14) Mild - Cellulitis Cellulitis Chest pain Chest pain, unspecified Chronic anticoagulation clopidogrel Chronic combined systolic and diastolic congestive heart failure, NYHA class 2 [facility] [place], 2015 - "Hospitalized 03/2013--CHF likely due to diastolic dysfunction with an ejection fraction of 50-55% noted on echo. Moderate concentric left ventricular hypertrophy and basilar/inferior hypokinesis. Sees Dr Morton" Dr. Guerrero 06/07/2019 [?] "Intolerant of beta-blockers so pacemaker placed fo r back-up rate and on low-dose carvedilol and bumetanide. Followed by Dr. Maya. Last EF was 45 to 50%" Carvedilol d/c'd as bradycardic Losartan as tolerated by potassium and GFR => trial entresto=> doing better Bumetanide and weight trying to keep his weight around 272 lb Chronic hypoxemic respiratory failure Poly-factorial including morbid obesity obstructive sleep apnea chronic systolic congestive heart failure, atrial fibrillation and an diabetic nephrosclerosis. Chronic systolic CHF (congestive heart failure), NYHA class 3 Carvedilol as tolerated by heart rate Losartan as tolerated by potassium and GFR Bumetanide adjusted for edema and weight trying to keep his weight around 255 to 260 pounds. CKD (chronic kidney disease), stage III D/Dx: HTN nephrosclerosis, Hypertensive cardiomyopathy and chronic systolic CHF with renal disease, vs DM nephropathy CKD stage G4/A2, GFR 15-29 and albumin creatinine ratio 30-299 mg/g Minimal proteinuria supports hypertension and vascular disease more likely than diabetic causes of renal disease. Treatment remains avoidance of nonsteroidal anti-inflammatories Blood pressure control with a goal of 130/80 RAASI therapy for renal disease, proteinuria, reduced LVEF in form of Entresto Community acquired pneumonia Complex sleep apnea syndrome Is on BiPAP. Constipation Controlled type 2 diabetes mellitus with stage 3 chronic kidney disease, with long-term current use of insulin Creatinine clearance around 30 with nonnephrotic range proteinuria Elevated PVR suggest possible neurogenic bladder versus BPH Type IV RTA with hyperkalemia is also present and poses a risk with RAASI therapy Cough Depression Celexa Diabetes mellitus, type II Neuropathy. Macular degeneration. Eye injections and now laser photocoag in [place] Diabetic neuropathy Diabetic neuropathy Diabetic retinopathy left, non-proliferative, mild. 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 Dyspnea Dyspnea Encounter for Health Maintenance Examination in Adult Esophageal reflux Fall GERD (gastroesophageal reflux disease) Hearing impairment Heart failure, diastolic (03/13/14) History of chest x-ray (04/06/16) Hyperkalemia, diminished renal excretion Acute pre-renal azotemia and aldactone Hyperlipidemia Hypertension Hypertension, essential Hyperuricemia Allopurinol Hypoxemia Hypoxia Ileus Injury of toe on right foot Improved Intraparenchymal hemorrhage of brain Ischemic cardiomyopathy Ischemic heart disease (03/26/13) inferior [place]; stent to the right coronary. Echo with ejection fraction of 52%. Leg edema Macular degeneration Morbid obesity 40.1 on 02/10/2020. Nocturnal hypoxia Orthostatic hypotension Pacemaker (03/15/14) Dual chamber pacemaker Paroxysmal atrial fibrillation Peripheral neuropathy Pneumonia 03/2013Questionable pneumonia; COPD; CHF--hospitalized 04/02-. Pneumonia Pre-syncope Proteinuria (11/10/14) PVD (peripheral vascular disease) (04/27/14) Low nl JESSE Respiratory distress, acute Runny nose Shoulder pain, right Sick sinus syndrome (04/20/14) . s/p dual chamber pacemaker Skin lesions SOB (shortness of breath) Subdural hematoma Supplemental oxygen dependent 2.5 L/min day and night. Syncope and collapse Tachy-alissa syndrome Type 2 diabetes mellitus with stage 4 chronic kidney disease, with long-term c urrent use of insulin He is progressed to chronic kidney disease level 4 with nonnephrotic range pr oteinuria around 300 to 400 mg per 24 hours. Most likely this represents diabetic nephropathy but could be associated with congestive heart failure hypertension and vascular disease as well. He does have retinopathy as well Unsteady gait Vasovagal syncope Weakness Surgical History H/O coronary angiogram (~09/10/19) History of arthroscopic knee surgery 03/2012 - Right History of cataract surgery History of colonoscopy (01/02/16) 01/02/16 -- polyps. History of permanent cardiac pacemaker placement (03/15/14) History of umbilical hernia repair 1992 Status post angioplasty with stent (03/26/13) RCA stent placement Status post cardiac catheterization (03/26/13) 09/10/2019- Left heart cath 03/26/2013 & 04/12/2014 - Left heart catherization, left ventricular cineangiography, selective coronary arteriography, stenting of the right coronary artery. Dr. Morton [facility] Family History Mother Dementia Family history of malignant neoplasm Seizure Osteoporosis Grandmother Dementia Father Type 2 diabetes mellitus Family history of malignant neoplasm Essential hypertension Acute myocardial infarction Colon cancer Lung cancer Uncle Type 2 diabetes mellitus Essential hypertension Acute myocardial infarction Unknown Colon cancer Lung cancer Social History household members: spouse housing: house marital status: service: Yes service: retired occupational status: retired alcohol intake frequency: holiday/special occasion only substance use type: does not use MEDS/ALLERGIES Home Medications and Allergies Home Medications Medication Instructions Recorded Confirmed Type aspirin 81 mg chewable tablet 81 mg PO QDAY tab 03/30/15 03/29/21 History nitroglycerin 0.4 mg sublingual 0.4 mg SUBLINGUAL PRN PRN 25 Days 11/27/17 03/29/21 History tablet atorvastatin 80 mg tablet 80 mg PO QDAY #90 tab 12/09/17 03/29/21 Rx docusate sodium 100 mg capsule 100 mg PO QDAY PRN 06/25/19 03/29/21 History albuterol sulfate 90 mcg/actuation 2 inh INHALATION Q6H PRN 03/02/20 03/29/21 History breath activated powder inhaler ipratropium 0.5 mg-albuterol 3 mg 3 ml INHALATION Q6H PRN #540 ml 05/31/20 03/29/21 Rx (2.5 mg base)/3 mL nebulization soln cholecalciferol (vitamin D3) 25 25 mcg PO QDAY #30 cap 08/04/20 03/29/21 Rx mcg (1,000 unit) capsule ascorbic acid (vitamin C) 100 mg 100 mg PO QDAY 09/14/20 03/29/21 History tablet apixaban 5 mg tablet 5 mg PO BID 11/30/20 03/29/21 History citalopram 20 mg tablet 20 mg PO QDAY #90 tab 12/01/20 03/29/21 Rx finasteride 5 mg tablet 5 mg PO QDAY #90 tab 12/01/20 03/29/21 Rx tamsulosin 0.4 mg capsule 0.4 mg PO QDAY #90 cap 12/01/20 03/29/21 Rx bumetanide 2 mg tablet 4 mg PO QAM #180 tab 12/20/20 03/29/21 Rx insulin aspart U-100 100 unit/mL 25 unit SUBCUT TID ml 02/23/21 03/29/21 History (3 mL) subcutaneous pen pantoprazole 40 mg tablet,delayed See Rx Instructions PO BID #180 tab 03/06/21 03/29/21 Rx release gabapentin 300 mg capsule 600 mg PO QHS PRN #180 cap 03/14/21 03/29/21 Rx insulin glargine [Lantus Solostar 40 unit SUBCUT HS #15 ml 04/06/21 Rx U-100 Insulin] insulin glargine [Lantus U-100 20 unit SUBCUT QAM #10 ml 04/06/21 Rx Insulin] polyethylene glycol 3350 [Miralax] 17 g PO DAILYP PRN #30 ea 04/06/21 Rx Allergies Allergy/AdvReac Type Severity Reaction Status Date / Time Beta-Blockers AdvReac Intermediate tendency Verified 03/28/21 11:10 (Beta-Adrenergic Bloc toward bradycardia w/Coreg & Sectral Physical Examination Vital Signs Vital signs: Temp Pulse Resp BP Pulse Ox 97.6 F 60 12 120/52 97 03/30/21 16:02 03/30/21 06:01 03/30/21 06:01 03/30/21 16:02 03/30/21 16:02 General physical appearance General physical exam: well developed, well nourished, moderate distress, moderate pain, chronically ill and obese Eyes Eye exam: PERRL and normal ocular movement; negative icteric ENT ENT exam: normal nares, normal mucosa, no congestion and decreased hearing (Bilateral hearing loss) Head Head exam IM: Present atraumatic and normocephalic Neck Neck exam: no masses, no bruits, trachea midline and no lymphadenopathy Cardiovascular Cardiovascular exam IM: Present normal rate and rhythm, RRR, +S1 and +S2; Absent JVD Respiratory Respiratory exam: other (Bilateral rales with scattered wheezes; decreased breath sounds both lung arceo) Abdomen Abdomen: Present soft, tender (Mid abdominal tenderness and bilateral lower abdominal tenderness without guarding or rebound) and bowel sounds Hernia: Present none Integumentary Integumentary: Present no rash, no growths and no abnormal pigmentation Neurologic Neurologic: Present normal coordination and normal sensation Musculoskeletal Musculoskeletal: Present other (Gait and stance not tested) Psychiatric Psychiatric: Present oriented to time, oriented to person, oriented to place and speech is normal Results Labs Result diagrams: 04/03/21 09:14 04/06/21 05:42 Labs: Abnormal lab results 03/30/21 03/30/21 03/30/21 Range/Units 05:13 05:13 05:14 RBC 3.25 L (4.50-5.90) M/mcL Hgb 10.0 L (13.5-16.5) g/dL Hct 32.2 L (41.0-55.0) % [place] # (Auto) 1.27 H (0.10-0.90) K/mcL BUN 57 H (8-23) mg/dL Creatinine 3.1 H (0.7-1.2) mg/dL Uric Acid 11.6 H (2.5-8.0) mg/dL C-Reactive Protein 9.30 H (0.03-0.80) mg/dL Diabetes panel 03/30/21 Range/Units 05:13 Sodium 139 (133-145) mmol/L Potassium 4.8 (3.3-5.1) mmol/L Chloride 100 (96-108) mmol/L Carbon Dioxide 30 (22-30) mmol/L BUN 57 H (8-23) mg/dL Creatinine 3.1 H (0.7-1.2) mg/dL Glucose 81 (70-105) mg/dL Calcium 8.8 (8.6-10.4) mg/dL AST 16 (<40) U/L ALT 9 (<40) U/L Alkaline Phosphatase 107 (39-117) U/L Total Protein 6.6 (5.9-8.4) gm/dL Albumin 3.5 (3.2-5.2) gm/dL Triglycerides 90 (<150) mg/dL Calcium panel 03/30/21 Range/Units 05:13 Calcium 8.8 (8.6-10.4) mg/dL Phosphorus 3.7 (2.5-4.5) mg/dL Albumin 3.5 (3.2-5.2) gm/dL Pituitary panel 03/30/21 Range/Units 05:13 Sodium 139 (133-145) mmol/L Potassium 4.8 (3.3-5.1) mmol/L Chloride 100 (96-108) mmol/L Carbon Dioxide 30 (22-30) mmol/L BUN 57 H (8-23) mg/dL Creatinine 3.1 H (0.7-1.2) mg/dL Glucose 81 (70-105) mg/dL Calcium 8.8 (8.6-10.4) mg/dL Adrenal panel 03/30/21 Range/Units 05:13 Sodium 139 (133-145) mmol/L Potassium 4.8 (3.3-5.1) mmol/L Chloride 100 (96-108) mmol/L Carbon Dioxide 30 (22-30) mmol/L BUN 57 H (8-23) mg/dL Creatinine 3.1 H (0.7-1.2) mg/dL Glucose 81 (70-105) mg/dL Calcium 8.8 (8.6-10.4) mg/dL Total Bilirubin 0.5 (0.1-1.0) mg/dL AST 16 (<40) U/L ALT 9 (<40) U/L Alkaline Phosphatase 107 (39-117) U/L Total Protein 6.6 (5.9-8.4) gm/dL Albumin 3.5 (3.2-5.2) gm/dL All other labs normal. A/P Assessment and plan (1) Chronic generalized abdominal pain: Status: Acute (2) Acute exacerbation of CHF (congestive heart failure): Status: Acute (3) Chronic kidney disease (CKD) stage G4/A1, severely decreased glomerular filtration rate (GFR) between 15-29 mL/min/1.73 square meter and albuminuria creatinine ratio less than 30 mg/g: Status: Chronic (4) Diabetes mellitus, type II: Status: Chronic Comment: Neuropathy. Macular degeneration. 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 Qualified Code(s): E11.42 - Type 2 diabetes mellitus with diabetic polyneuropathy (5) Hypertension, essential: Status: Chronic (6) Paroxysmal atrial fibrillation: Status: Chronic (7) Ischemic cardiomyopathy: Status: Chronic (8) Cardiac pacemaker in situ: Status: Chronic Comment: Slow pulse rate is due to trigeminy with the ectopic beats not generating much of a pulse pressure (9) COPD (chronic obstructive pulmonary disease): Status: Chronic Qualifiers: COPD type: unspecified COPD Qualified Code(s): J44.9 - Chronic obstruc tive pulmonary disease, unspecified (10) Complex sleep apnea syndrome: Status: Chronic Comment: Is on BiPAP. (11) Chronic anticoagulation: Status: Chronic Comment: clopidogrel Narrative A/P Narrative: Patient was discussed with the hospitalist. There CT findings that suggest edema of the appendix there is no other findings to suggest appendicitis. The patient has had bilateral lower abdominal pain for at least 6months. He does not have any specific clinical findings in the right lower quadrant. He does have some peritoneal fluid associated with the ascites which is probably related to diastolic dysfunction and right heart failure. This is probably contributing more to the appendiceal edema than actual appendicitis. He has been afebrile and there is no leukocytosis. His primary problems now appears to be more cardiac failure in origin. I will gladly reevaluate if his abdominal symptoms should exacerbate. Time Spent With Patient Time: Total time spent is greater than 50% in coordination of care (as documented) at patient's floor/unit and/or counseling patient:
[2021-03-31] MEDS: 0.9 % SODIUM CHLORIDE 10 ML SYRINGE IV SCH ×4 (05:43→21:55)
[2021-03-31 06:57] LABS: ALT/SGPT 8 U/L (<40); AST/SGOT 15 U/L (<40); Albumin 3.1 gm/dL (3.2-5.2); Alkaline Phosphatase 103 U/L (39-117); Bilirubin,Direct < 0.2 mg/dL (0-0.3); Bilirubin,Total 0.6 mg/dL (0.1-1.0); Blood Urea Nitrogen 61 mg/dL (8-23); Calcium 8.1 mg/dL (8.6-10.4); Carbon Dioxide 27 mmol/L (22-30); Chloride 94 mmol/L (96-108); Glomerular Filtration Rate 16; Glucose 128 mg/dL (70-105); Lactate Dehydrogenase 203 U/L (135-225); Phosphorous 4.7 mg/dL (2.5-4.5); Triglycerides 98 mg/dL (<150); Uric Acid 11.5 mg/dL (2.5-8.0)
--- NOTE | 2021-03-31 07:24 | Internal Med Progress Note ---
SUBJECTIVE Subjective Patient information: Note initiated : 03/31/21 at 7:20 am Service Date, if different from initiated Date: [] Patient: Black Armstrong 80 y/o M admitted on 03/29/21 for Elevated Troponin. Chief Complaint: [] Interval history: Interval history: History of present illness: Mr. Armstrong is a 80 year old M Presents to ED with increased lower extremity swelling and abdominal discomfort. He was seen by his PCP earlier and felt to be in CHF exacerbation and diuretics were increased. However symptoms worsened and patient upcoming to ED. Chest x-ray from earlier today with pulmonary edema. Patient also complains of shortness of breath dyspnea on exertion weight gain. He was given Lasix in the ED with 800 cc output. Past 3 days with increasing swelling in his legs lethargy weakness worsening chronic cough shortness of breath. Denies any recent sick contacts. Vaginal nausea some constipation. Says is abdominal pain was lower quadrants and sharp. Her daughter is abdomen seems less bloated today after diuresis in ED last night. 03/30 Good urine output. Poor sleep last night. Complains of abdominal discomfort sharp pain lower quadrants. some nausea/headache 03/31 Multiple BMs last night. Patient overall feeling better. Cough. Currently on 2 L nasal cannula. Mild headache this morning. No nausea. Review of Systems: denies fever/chills/nausea/vomiting/chest pain/. Otherwise see above. Constitutional Vitals: Vital Signs Temp Pulse Resp BP Pulse Ox 98.5 F 60 10 L 124/53 91 03/31/21 04:03 03/31/21 06:05 03/31/21 06:05 03/31/21 06:01 03/31/21 06:05 Period Temp Pulse Resp BP Sys/Carter Pulse Ox Last 24 Hr 97.4 F-98.5 F 59-63 10-17 114-137/44-81 71-99 Intake and Output 03/30/21 03/31/21 03/31/21 21:59 05:59 13:59 Intake Total 480 380 Output Total 800 240 Balance -320 140 Weight 133.084 kg Intake & Output: Intake & Output 03/30/21 03/31/21 03/31/21 21:59 05:59 13:59 Intake Total 480 380 Output Total 800 240 Balance -320 140 Weight 133.084 kg Intake: Nourishment/Supplement quantity 240 (ml) Oral 240 380 Output: Urine Catheter Amount 600 240 Stool 200 Other: Meal Nourishment/Supplement Percent of Meal Consumed 75% Nourishment/Supplement name Milton Nguyen Urine Appearance Clear Clear Uretheral (Russell) Clear Clear Sediment Sediment Urine Color Dark Yellow Dark Yellow Uretheral (Russell) Dark Yellow Dark Yellow Stool Size Moderate Stool Color Brown Stool Consistency Liquid Exam: General: Alert, Awake, No acute Distress, obese Eyes/N/T: EOMI, , Head/Neck: neck supple, , unable to assess JVD given neck girth CV: Regular paced, No murmurs, Pulm: mild rales b/l, occasional wheeze Abd: soft, distended and mildly TTP, +BS x4 Ext: no clubbing/cyanosis, b/le LE 1-2+ edema Neuro: Alert, no focal deficits, moves all extremities, OBJ DATA OBJ DATA Labs CBC & Chem 7: 03/30/21 05:14 03/31/21 04:54 Labs: Abnormal Lab Results 03/31/21 03/30/21 03/30/21 04:54 05:14 05:13 RBC 3.25 L Hgb 10.0 L Hct 32.2 L POC Hct MCHC Lymph % (Auto) Campbell # (Auto) 1.27 H Sodium 131 L Potassium Chloride 94 L Anion Gap POC BUN BUN 61 H Creatinine 3.4 H POC Creatinine Glucose 128 H POC Glucose Hemoglobin A1c Uric Acid 11.5 H Calcium 8.1 L POC WB Ioniz Calcium Phosphorus 4.7 H Alkaline Phosphatase Troponin T C-Reactive Protein NT-Pro-B Natriuret Pep Albumin 3.1 L Procalcitonin 0.23 H 03/30/21 03/30/21 03/29/21 05:13 05:13 21:21 RBC Hgb Hct POC Hct MCHC Lymph % (Auto) [place] # (Auto) Sodium Potassium Chloride Anion Gap POC BUN BUN 57 H Creatinine 3.1 H POC Creatinine Glucose POC Glucose Hemoglobin A1c 6.9 H Uric Acid 11.6 H Calcium POC WB Ioniz Calcium Phosphorus Alkaline Phosphatase Troponin T C-Reactive Protein 9.30 H NT-Pro-B Natriuret Pep Albumin Procalcitonin 03/29/21 03/29/21 03/28/21 07:59 00:24 21:24 RBC Hgb Hct POC Hct 30 L MCHC Lymph % (Auto) [place] # (Auto) Sodium Potassium Chloride Anion Gap 7.0 L POC BUN 60 H BUN 57 H Creatinine 2.9 H POC Creatinine 3.5 H Glucose 66 L POC Glucose 165 H Hemoglobin A1c Uric Acid 11.3 H Calcium POC WB Ioniz Calcium 1.12 L Phosphorus Alkaline Phosphatase Troponin T 0.06 H* C-Reactive Protein NT-Pro-B Natriuret Pep Albumin Procalcitonin 03/28/21 03/28/21 21:24 21:24 RBC 3.31 L Hgb 10.0 L Hct 32.9 L POC Hct MCHC 30.4 L Lymph % (Auto) 14.5 L [place] # (Auto) 1.16 H Sodium Potassium 5.4 H Chloride Anion Gap POC BUN BUN 59 H Creatinine 3.0 H POC Creatinine Glucose 134 H POC Glucose Hemoglobin A1c Uric Acid Calcium 8.5 L POC WB Ioniz Calcium Phosphorus Alkaline Phosphatase 119 H Troponin T C-Reactive Protein NT-Pro-B Natriuret Pep 7436.0 H Albumin Procalcitonin Meds: Medications Acetaminophen (Acetaminophen 325 Mg Tablet) 650 mg PO Q6HP PRN PRN Reason: PAIN/FEVER > 101 Albuterol/Ipratropium (Ipratropium/Albuterol 3 Ml Ampul.Neb) 3 ml NEB Q4HP PRN PRN Reason: Shortness Of Breath Albuterol/Ipratropium (Ipratropium/Albuterol 3 Ml Ampul.Neb) 3 ml NEB Q12 [facility] Last Admin: 03/30/21 20:13 Dose: 3 ml Documented by: Apixaban (Apixaban 5 Mg Tablet) 5 mg PO BID [facility] Last Admin: 03/30/21 20:20 Dose: 5 mg Documented by: Aspirin (Aspirin 81 Mg Tab.Chew) 81 mg PO QDAY [facility] Last Admin: 03/30/21 09:41 Dose: 81 mg Documented by: Atorvastatin Calcium (Atorvastatin 40 Mg Tablet) 80 mg PO QDAY [facility] Last Admin: 03/30/21 09:40 Dose: 80 mg Documented by: Bisacodyl (Bisacodyl 5 Mg Tablet) 10 mg PO DAILYP PRN PRN Reason: Constipation Citalopram Hydrobromide (Citalopram 20 Mg Tablet) 20 mg PO QDAY [facility] Last Admin: 03/30/21 09:40 Dose: 20 mg Documented by: Dextrose (Dextrose 50% 50 Ml Vial) 0 ml IV UD PRN PRN Reason: Hypoglycemia Diagnostic Test (Pha) (Accu-Chek 1 Each Strip) 1 each FS [facility] Last Admin: 03/31/21 03:00 Dose: 1 each Documented by: Docusate Sodium (Docusate Sodium 100 Mg Capsule) 100 mg PO BID [facility] Last Admin: 03/30/21 20:20 Dose: 100 mg Documented by: Finasteride (Finasteride 5 Mg Tablet) 5 mg PO QDAY [facility] Last Admin: 03/30/21 09:40 Dose: 5 mg Documented by: Furosemide (Furosemide 40 Mg/4 Ml Vial) 40 mg IV BIDD [facility] Last Admin: 03/30/21 16:43 Dose: 40 mg Documented by: Gabapentin (Gabapentin 300 Mg Capsule) 600 mg PO HSP PRN PRN Reason: peripheral neuropathy Last Admin: 03/30/21 20:26 Dose: 600 mg Documented by: Glucose (Dextrose 31 Gm Oral.Susp) 15 gm PO PRN PRN PRN Reason: Hypoglycemia Hydrochlorothiazide (Hydrochlorothiazide 25 Mg Tablet) 25 mg PO DAILY [facility] Last Admin: 03/30/21 09:41 Dose: 25 mg Documented by: Potassium Chloride 40 meq/ (Dextrose) 520 mls @ 130 mls/hr IV UD PRN PRN Reason: Potassium < 3 Magnesium Sulfate (Magnesium Sulfate) 2 gm in 50 mls @ 50 mls/hr IV UD PRN PRN Reason: Magnesium </= 1.6 Insulin Glargine (Insulin Glargine, Human 1 Unit/0.01 Ml) [facility]ulin Glargine (Insulin Glargine, Human 1 Unit/0.01 Ml) 20 unit SQ [facility] Last Admin: 03/30/21 20:21 Dose: 20 units Documented by: Insulin Human Lispro (Insulin Lispro 1 Unit/0.01 Ml Unit) 0 unit SQ [facility]; Protocol Last Admin: 03/30/21 20:21 Dose: Not Given Documented by: Lactulose (Lactulose 20 Gm/30 Ml Oral.Lin) 20 gm PO DAILYP PRN PRN Reason: Constipation Last Admin: 03/30/21 06:41 Dose: 20 gm Documented by: Metoclopramide HCl (Metoclopramide 10 Mg/2 Ml Vial) 10 mg IV Q6HP PRN PRN Reason: Nausea And Vomiting Morphine Sulfate (Morphine 2 Mg/Ml Vial) 2 mg IV Q1HP PRN; Protocol PRN Reason: Per Pain Protocol Last Admin: 03/30/21 11:15 Dose: 2 mg Documented by: Nitroglycerin (Nitroglycerin 0.4 Mg Tab.Subl) 0.4 mg SL Q5M PRN PRN Reason: Chest Pain Ondansetron HCl (Ondansetron 4 Mg/2 Ml Vial) 4 mg IV Q4HP PRN PRN Reason: Nausea And Vomiting Last Admin: 03/30/21 11:14 Dose: 4 mg Documented by: Pantoprazole Sodium (Pantoprazole 40 Mg Tablet) 0 mg PO BIDAC [facility] Last Admin: 03/30/21 17:23 Dose: 40 mg Documented by: Sacubitril-Valsartan ([Entresto] 1 Tab) 1 dose PO BID [facility] Last Admin: 03/30/21 20:20 Dose: 1 dose Documented by: Potassium Chloride (Potassium Chloride 20 Meq Tablet) 40 meq PO UD PRN PRN Reason: Potssium is 3-3.5 Potassium Chloride (Potassium Chloride 20 Meq Tablet) 40 meq PO UD PRN PRN Reason: Potassium < 3 Senna (Sennosides 1 Tablet) 2 tab PO DAILYP PRN PRN Reason: Constipation Sodium Chloride (0.9 % Sodium Chloride 10 Ml Syringe) 10 ml IV Q8 [facility] Last Admin: 03/31/21 05:43 Dose: 10 ml Documented by: Tamsulosin HCl (Tamsulosin 0.4 Mg Capsule) 0.4 mg PO QDAY [facility] Last Admin: 03/30/21 09:41 Dose: 0.4 mg Documented by: A/P Narrative A/P Narrative: A: *Acute on chronic diastolic CHF (EF normalized from 2019) w/pulm edema: -good UOP *Acute on chronic hypoxic respiratory failure: *Cough: present on admission, thick sputum. COPD vs developing PNA (currently afebrile/no leukocytosis) *Ileus/Abd pain: resolved *Hyperkalemia: resolved *CAD w/stent: *CKD IV (base Cr~3): Follows with Dr. Guerrero *Afib w/PPM: on eliquis *Anemia, chronic: *COPD (3L@ home): Follows with Dr. Suarez *KALPESH on BiPAP@home: *Obesity: *HTN: *DM w/neuropathy: *Depression: *GERD: P: -IV lasix, hold hctz, monitor UOP, I/O's -leg wraps and elevate -cont home ASA/Statin -hold ARB for hyperkal -home basal insulin (decreased evening dose) and SSI -home Bipap -monitor cbc/pct/vitals, hold abx fow now -PT/OT -ppx: apixaban/home ppi code status: cpr ok, no intubation Time Spent With Patient Time: Total time spent is greater than 50% in coordination of care (as documented) at patient's floor/unit and/or counseling patient:
[2021-03-31] MEDS: FUROSEMIDE 40 MG/4 ML VIAL IV SCH (07:27)
[2021-03-31] MEDS: PANTOPRAZOLE 40 MG TABLET PO SCH ×2 (07:27→16:16)
[2021-03-31] MEDS ORDERED: BISACODYL 10 MG SUPP.RECT PR PRN (07:28)
[2021-03-31] MEDS: INSULIN LISPRO 1 UNIT/0.01 ML UNIT SQ SCH ×4 (07:53→20:25)
[2021-03-31] MEDS ORDERED: ALBUMIN HUMAN 12.5 GM/50 ML BAG IV ONE (08:00)
[2021-03-31] MEDS: IPRATROPIUM/ALBUTEROL 3 ML AMPUL.NEB NEB SCH ×2 (08:34→20:20)
[2021-03-31] MEDS: APIXABAN 5 MG TABLET PO SCH ×2 (08:50→20:22)
[2021-03-31] MEDS: ASPIRIN 81 MG TAB.CHEW PO SCH (08:50)
[2021-03-31] MEDS: FINASTERIDE 5 MG TABLET PO SCH (08:50)
[2021-03-31] MEDS: CITALOPRAM 20 MG TABLET PO SCH (08:51)
[2021-03-31] MEDS: ATORVASTATIN 40 MG TABLET PO SCH (08:51)
[2021-03-31] MEDS: TAMSULOSIN 0.4 MG CAPSULE PO SCH (08:51)
[2021-03-31] MEDS: INSULIN GLARGINE, HUMAN 1 UNIT/0.01 ML SQ SCH ×2 (08:54→20:30)
[2021-03-31] MEDS ORDERED: METOCLOPRAMIDE 10 MG TABLET PO ONE (09:30)
[2021-03-31] MEDS: POLYETHYLENE GLYCOL 3350 17 GM PACKET PO SCH (09:51)
[2021-03-31] MEDS: ACETAMINOPHEN 325 MG TABLET PO PRN (10:07)
[2021-03-31] MEDS: DOCUSATE SODIUM 100 MG CAPSULE PO SCH ×2 (10:07→20:22)
[2021-03-31 12:49] LABS: Basophils # (Auto) 0.03 K/mcL (0.00-0.20); Basophils % (Auto) 0.3 % (0.0-2.0); Eosinophils # (Auto) 0.32 K/mcL (0.00-0.70); Eosinophils % (Auto) 3.3 % (0.0-7.0); Hematocrit 28.4 % (41.0-55.0); Hemoglobin 8.7 g/dL (13.5-16.5); Lymphocytes # (Auto) 1.54 K/mcL (1.50-4.80); Lymphocytes % (Auto) 15.9 % (15.0-49.0); Mean Cell Volume 99.3 fL (80.0-100.0); Mean Corpuscular HGB Conc 30.6 g/dL (31.0-36.0); Mean Platelet Volume 11.1 fL (7.4-10.4); Monocytes # (Auto) 1.11 K/mcL (0.10-0.90); Monocytes % (Auto) 11.5 % (1.0-12.0); Platelet Count 218 K/mcL (140-440); RBC 2.86 M/mcL (4.50-5.90); Red Cell Distribution Width 13.4 % (11.5-14.5); WBC 9.7 K/mcL (4.5-11.0)
[2021-03-31] MEDS ORDERED: cefTRIAXone 2 GM in DEXTROSE 5% IN WATER 50 ML IV SCH (14:45)
[2021-03-31] MEDS: AZITHROMYCIN 500 MG in DEXTROSE 5% IN WATER 250 ML IV SCH (15:22)
[2021-03-31] MEDS: GABAPENTIN 300 MG CAPSULE PO PRN (20:22)
[2021-03-31] MEDS: PIPERACILLIN SODIUM/TAZOBACTAM 2.25 GM in DEXTROSE 5% IN WATER 50 ML IV SCH (21:15)
[2021-04-01] MEDS: PIPERACILLIN SODIUM/TAZOBACTAM 2.25 GM in DEXTROSE 5% IN WATER 50 ML IV SCH ×3 (05:16→21:21)
[2021-04-01] MEDS: 0.9 % SODIUM CHLORIDE 10 ML SYRINGE IV SCH ×3 (05:17→21:21)
[2021-04-01 06:55] LABS: Basophils # (Auto) 0.04 K/mcL (0.00-0.20); Basophils % (Auto) 0.6 % (0.0-2.0); Eosinophils # (Auto) 0.32 K/mcL (0.00-0.70); Eosinophils % (Auto) 4.4 % (0.0-7.0); Hematocrit 27.3 % (41.0-55.0); Hemoglobin 8.6 g/dL (13.5-16.5); Lymphocytes # (Auto) 1.41 K/mcL (1.50-4.80); Lymphocytes % (Auto) 19.5 % (15.0-49.0); Mean Cell Volume 95.1 fL (80.0-100.0); Mean Corpuscular HGB Conc 31.5 g/dL (31.0-36.0); Mean Platelet Volume 10.1 fL (7.4-10.4); Monocytes # (Auto) 0.94 K/mcL (0.10-0.90); Neutrophils % (Auto) 62.5 % (38.0-78.0); Platelet Count 229 K/mcL (140-440); RBC 2.87 M/mcL (4.50-5.90); Red Cell Distribution Width 13.1 % (11.5-14.5); WBC 7.2 K/mcL (4.5-11.0)
[2021-04-01 07:03] LABS: ALT/SGPT 7 U/L (<40); AST/SGOT 12 U/L (<40); Albumin 3.3 gm/dL (3.2-5.2); Albumin/Globulin Ratio 1.3 (1.0-2.3); Alkaline Phosphatase 91 U/L (39-117); Bilirubin,Direct < 0.2 mg/dL (0-0.3); Bilirubin,Total 0.4 mg/dL (0.1-1.0); Blood Urea Nitrogen 63 mg/dL (8-23); Calcium 7.6 mg/dL (8.6-10.4); Carbon Dioxide 27 mmol/L (22-30); Chloride 89 mmol/L (96-108); Globulin 2.5 gm/dL (2.2-3.7); Glomerular Filtration Rate 15; Glucose 128 mg/dL (70-105); Lactate Dehydrogenase 168 U/L (135-225); Triglycerides 87 mg/dL (<150)
--- NOTE | 2021-04-01 07:46 | Internal Med Progress Note ---
SUBJECTIVE Subjective Patient information: Note initiated : 04/01/21 at 7:37 am Service Date, if different from initiated Date: [] Patient: Black Armstrong 80 y/o M admitted on 03/29/21 for Elevated Troponin. Chief Complaint: [] Interval history: Interval history: History of present illness: Mr. Armstrong is a 80 year old M Presents to ED with increased lower extremity swelling and abdominal discomfort. He was seen by his PCP earlier and felt to be in CHF exacerbation and diuretics were increased. However symptoms worsened and patient upcoming to ED. Chest x-ray from earlier today with pulmonary edema. Patient also complains of shortness of breath dyspnea on exertion weight gain. He was given Lasix in the ED with 800 cc output. Past 3 days with increasing swelling in his legs lethargy weakness worsening chronic cough shortness of breath. Denies any recent sick contacts. Vaginal nausea some constipation. Says is abdominal pain was lower quadrants and sharp. Her daughter is abdomen seems less bloated today after diuresis in ED last night. 03/30 Good urine output. Poor sleep last night. Complains of abdominal discomfort sharp pain lower quadrants. some nausea/headache 03/31 Multiple BMs last night. Patient overall feeling better. Cough. Currently on 2 L nasal cannula. Mild headache this morning. No nausea. 04/01 abx started given increased in crp/PCT and history of increased productive cough. Cough initially considered part of his copd, however, with increasing markers as above. poor UOP yesterday after good UOP first 24 hours but improved last night, but bump in Cr. Slept okay. Has neck stiffness. Otherwise no complaints. Has cough which does not seem to be quite as productive. Abdominal pain is much better after he had a large bowel movement. Review of Systems: denies fever/chills/nausea/vomiting/chest pain/. Otherwise see above. Constitutional Vitals: Vital Signs Temp Pulse Resp BP Pulse Ox 97.8 F 63 10 L 124/50 95 04/01/21 04:01 04/01/21 06:01 04/01/21 06:01 04/01/21 06:00 04/01/21 06:01 Period Temp Pulse Resp BP Sys/Carter Pulse Ox Last 24 Hr 97.1 F-98.1 F 59-65 07-14 103-142/43-80 85-100 Intake and Output 03/31/21 04/01/21 04/01/21 21:59 05:59 13:59 Intake Total 990 280 Output Total 175 650 Balance 815 -370 Weight 134.309 kg Intake & Output: Intake & Output 03/31/21 04/01/21 04/01/21 21:59 05:59 13:59 Intake Total 990 280 Output Total 175 650 Balance 815 -370 Weight 134.309 kg Intake: Nourishment/Supplement quantity 120 (ml) IV 350 50 Zithromax 500 mg In Dextrose 5% 250 in Water 250 ml @ 250 mls/hr IV Q24H [facility] Rx#:[id number] Zosyn 2.25 gm In Dextrose 5% in 50 50 Water 50 ml @ 100 mls/hr IV Q8H [facility] Rx#:[id number] Rocephin 2 gm In Dextrose 5% in 50 Water 50 ml @ 100 mls/hr IV Q24H [facility] Rx#:[id number] Oral 520 230 Output: Urine Catheter Amount 175 650 Other: Percent of Meal Consumed 100% Nourishment/Supplement name cran-grape juice Urine Appearance Clear Clear Sediment Uretheral (Russell) Clear Clear Sediment Sediment Urine Color Dark Yellow Bright Yellow Uretheral (Russell) Dark Yellow Bright Yellow Stool Size Moderate Stool Color Brown Stool Consistency Soft # Bowel Movements 0 Exam: General: Alert, Awake, No acute Distress, obese Eyes/N/T: EOMI, , Head/Neck: neck supple, , unable to assess JVD given neck girth CV: Regular paced, No murmurs, Pulm: improving rales b/l, no wheezing today Abd: soft, distended and mildly TTP, +BS x4 Ext: no clubbing/cyanosis, b/le LE edema, abdominal edema Neuro: Alert, no focal deficits, moves all extremities, OBJ DATA OBJ DATA Labs CBC & Chem 7: 04/01/21 04:56 04/01/21 04:56 Labs: Abnormal Lab Results 04/01/21 04/01/21 03/31/21 04:56 04:56 04:54 RBC 2.87 L Hgb 8.6 L Hct 27.3 L MCHC MPV [place] % (Auto) 13.0 H Lymph # (Auto) 1.41 L [place] # (Auto) 0.94 H Sodium 127 L Chloride 89 L Anion Gap BUN 63 H Creatinine 3.6 H Glucose 128 H Hemoglobin A1c Uric Acid 11.0 H Calcium 7.6 L Phosphorus 5.0 H C-Reactive Protein Total Protein 5.8 L Albumin Procalcitonin 0.32 H 03/31/21 03/31/21 03/31/21 04:54 04:54 04:54 RBC 2.86 L Hgb 8.7 L Hct 28.4 L MCHC 30.6 L MPV 11.1 H [place] % (Auto) Lymph # (Auto) [place] # (Auto) 1.11 H Sodium 131 L Chloride 94 L Anion Gap BUN 61 H Creatinine 3.4 H Glucose 128 H Hemoglobin A1c Uric Acid 11.5 H Calcium 8.1 L Phosphorus 4.7 H C-Reactive Protein 10.20 H Total Protein Albumin 3.1 L Procalcitonin 03/30/21 03/30/21 03/30/21 05:14 05:13 05:13 RBC 3.25 L Hgb 10.0 L Hct 32.2 L MCHC MPV [place] % (Auto) Lymph # (Auto) [place] # (Auto) 1.27 H Sodium Chloride Anion Gap BUN Creatinine Glucose Hemoglobin A1c Uric Acid Calcium Phosphorus C-Reactive Protein 9.30 H Total Protein Albumin Procalcitonin 0.23 H 03/30/21 03/29/21 03/29/21 05:13 21:21 07:59 RBC Hgb Hct MCHC MPV [place] % (Auto) Lymph # (Auto) [place] # (Auto) Sodium Chloride Anion Gap 7.0 L BUN 57 H 57 H Creatinine 3.1 H 2.9 H Glucose 66 L Hemoglobin A1c 6.9 H Uric Acid 11.6 H 11.3 H Calcium Phosphorus C-Reactive Protein Total Protein Albumin Procalcitonin Meds: Medications Acetaminophen (Acetaminophen 325 Mg Tablet) 650 mg PO Q6HP PRN PRN Reason: PAIN/FEVER > 101 Last Admin: 03/31/21 10:07 Dose: 650 mg Documented by: Albuterol/Ipratropium (Ipratropium/Albuterol 3 Ml Ampul.Neb) 3 ml NEB Q4HP PRN PRN Reason: Shortness Of Breath Albuterol/Ipratropium (Ipratropium/Albuterol 3 Ml Ampul.Neb) 3 ml NEB Q12 [facility] Last Admin: 03/31/21 20:20 Dose: 3 ml Documented by: Apixaban (Apixaban 5 Mg Tablet) 5 mg PO BID [facility] Last Admin: 03/31/21 20:22 Dose: 5 mg Documented by: Aspirin (Aspirin 81 Mg Tab.Chew) 81 mg PO QDAY [facility] Last Admin: 03/31/21 08:50 Dose: 81 mg Documented by: Atorvastatin Calcium (Atorvastatin 40 Mg Tablet) 80 mg PO QDAY [facility] Last Admin: 03/31/21 08:51 Dose: 80 mg Documented by: Bisacodyl (Bisacodyl 5 Mg Tablet) 10 mg PO DAILYP PRN PRN Reason: Constipation Bisacodyl (Bisacodyl 10 Mg Supp.Rect) 10 mg IN DAILYP PRN PRN Reason: Constipation Citalopram Hydrobromide (Citalopram 20 Mg Tablet) 20 mg PO QDAY [facility] Last Admin: 03/31/21 08:51 Dose: 20 mg Documented by: Dextrose (Dextrose 50% 50 Ml Vial) 0 ml IV UD PRN PRN Reason: Hypoglycemia Diagnostic Test (Pha) (Accu-Chek 1 Each Strip) 1 each FS ACHS [facility] Last Admin: 03/31/21 20:22 Dose: 1 each Documented by: Docusate Sodium (Docusate Sodium 100 Mg Capsule) 100 mg PO BID [facility] Last Admin: 03/31/21 20:22 Dose: 100 mg Documented by: Finasteride (Finasteride 5 Mg Tablet) 5 mg PO QDAY [facility] Last Admin: 03/31/21 08:50 Dose: 5 mg Documented by: Gabapentin (Gabapentin 300 Mg Capsule) 600 mg PO HSP PRN PRN Reason: peripheral neuropathy Last Admin: 03/31/21 20:22 Dose: 600 mg Documented by: Glucose (Dextrose 31 Gm Oral.Susp) 15 gm PO PRN PRN PRN Reason: Hypoglycemia Potassium Chloride 40 meq/ (Dextrose) 520 mls @ 130 mls/hr IV UD PRN PRN Reason: Potassium < 3 Magnesium Sulfate (Magnesium Sulfate) 2 gm in 50 mls @ 50 mls/hr IV UD PRN PRN Reason: Magnesium </= 1.6 Azithromycin 500 mg/ Dextrose 250 mls @ 250 mls/hr IV Q24H [facility]; Protocol Stop: 04/02/21 15:44 Last Infusion: 03/31/21 16:22 Dose: Infused Documented by: Piperacillin Sod/Tazobactam (Sod 2.25 gm/ Dextrose) 50 mls @ 100 mls/hr IV Q8H [facility]; Protocol Last Infusion: 04/01/21 05:46 Dose: Infused Documented by: Insulin Glargine (Insulin Glargine, Human 1 Unit/0.01 Ml) 40 unit SQ QAM [facility] Last Admin: 03/31/21 08:54 Dose: 40 unit Documented by: Insulin Glargine (Insulin Glargine, Human 1 Unit/0.01 Ml) 20 unit SQ HS [facility] Last Admin: 03/31/21 20:30 Dose: 20 units Documented by: Insulin Human Lispro (Insulin Lispro 1 Unit/0.01 Ml Unit) 0 unit SQ ACHS [facility]; Protocol Last Admin: 03/31/21 20:25 Dose: Not Given Documented by: Lactulose (Lactulose 20 Gm/30 Ml Oral.Lin) 20 gm PO DAILYP PRN PRN Reason: Constipation Last Admin: 03/30/21 06:41 Dose: 20 gm Documented by: Metoclopramide HCl (Metoclopramide 10 Mg/2 Ml Vial) 10 mg IV Q6HP PRN PRN Reason: Nausea And Vomiting Morphine Sulfate (Morphine 2 Mg/Ml Vial) 2 mg IV Q1HP PRN; Protocol PRN Reason: Per Pain Protocol Last Admin: 03/30/21 11:15 Dose: 2 mg Documented by: Nitroglycerin (Nitroglycerin 0.4 Mg Tab.Subl) 0.4 mg SL Q5M PRN PRN Reason: Chest Pain Ondansetron HCl (Ondansetron 4 Mg/2 Ml Vial) 4 mg IV Q4HP PRN PRN Reason: Nausea And Vomiting Last Admin: 03/30/21 11:14 Dose: 4 mg Documented by: Pantoprazole Sodium (Pantoprazole 40 Mg Tablet) 0 mg PO BIDAC [facility] Last Admin: 03/31/21 16:16 Dose: 40 mg Documented by: Polyethylene Glycol (Polyethylene Glycol 3350 17 Gm Packet) 17 gm PO DAILY [facility] Last Admin: 03/31/21 09:51 Dose: Not Given Documented by: Potassium Chloride (Potassium Chloride 20 Meq Tablet) 40 meq PO UD PRN PRN Reason: Potssium is 3-3.5 Potassium Chloride (Potassium Chloride 20 Meq Tablet) 40 meq PO UD PRN PRN Reason: Potassium < 3 Senna (Sennosides 1 Tablet) 2 tab PO DAILYP PRN PRN Reason: Constipation Sodium Chloride (0.9 % Sodium Chloride 10 Ml Syringe) 10 ml IV Q8 [facility] Last Admin: 04/01/21 05:17 Dose: 10 ml Documented by: Tamsulosin HCl (Tamsulosin 0.4 Mg Capsule) 0.4 mg PO QDAY [facility] Last Admin: 03/31/21 08:51 Dose: 0.4 mg Documented by: A/P Narrative A/P Narrative: A: *Acute on chronic diastolic CHF (EF normalized from 2019) w/pulm edema: -good UOP initially, then slowed, but good UOP last night *Acute on chronic hypoxic respiratory failure (3L@home): *PNA, present on admission: *Ileus/Abd pain: resolved *Hyperkalemia: resolved *CAD w/stent: *CKD IV (base Cr~3): Follows with Dr. Guerrero -cr 3.6 *Afib w/PPM: on eliquis *Anemia, chronic: stable *COPD (3L@ home): Follows with Dr. 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
[2021-04-01] MEDS: INSULIN LISPRO 1 UNIT/0.01 ML UNIT SQ SCH ×4 (08:14→21:09)
[2021-04-01] MEDS: PANTOPRAZOLE 40 MG TABLET PO SCH ×2 (08:15→16:23)
[2021-04-01] MEDS: IPRATROPIUM/ALBUTEROL 3 ML AMPUL.NEB NEB SCH ×2 (08:23→20:55)
--- NOTE | 2021-04-01 08:47 | XRay Report ---
HISTORY: Follow-up pulmonary edema and pneumonia FINDINGS: There are generalized alveolar opacities in both lungs with the greatest involvement in the lower lobes. There is partial consolidation of the medial basal segment of the left lower lobe. The consolidation has become worse since 03/30/21. There may be a small subpulmonic pleural effusion on the left. Lung volumes are normal. The heart is mildly enlarged. Pacemaker is well-positioned. Pulmonary vessels the upper lobes appear enlarged. IMPRESSION: Congestive heart failure. The may be superimposed pneumonia or atelectasis in the left lower lobe Interpreted and Authenticated by: Helio Rocha 04/01/21
[2021-04-01] MEDS: INSULIN GLARGINE, HUMAN 1 UNIT/0.01 ML SQ SCH ×2 (08:53→21:08)
[2021-04-01] MEDS: DOCUSATE SODIUM 100 MG CAPSULE PO SCH ×2 (09:05→21:07)
[2021-04-01] MEDS: TAMSULOSIN 0.4 MG CAPSULE PO SCH (09:05)
[2021-04-01] MEDS: ATORVASTATIN 40 MG TABLET PO SCH (09:05)
[2021-04-01] MEDS: POLYETHYLENE GLYCOL 3350 17 GM PACKET PO SCH (09:05)
[2021-04-01] MEDS: ASPIRIN 81 MG TAB.CHEW PO SCH (09:05)
[2021-04-01] MEDS: CITALOPRAM 20 MG TABLET PO SCH (09:05)
[2021-04-01] MEDS ORDERED: POLYETHYLENE GLYCOL 3350 17 GM PACKET PO PRN (09:07)
[2021-04-01] MEDS: APIXABAN 5 MG TABLET PO SCH ×2 (09:13→21:07)
[2021-04-01] MEDS: FINASTERIDE 5 MG TABLET PO SCH (09:13)
[2021-04-01] MEDS: ACETAMINOPHEN 325 MG TABLET PO PRN ×2 (09:44→15:51)
[2021-04-01] MEDS: AZITHROMYCIN 500 MG in DEXTROSE 5% IN WATER 250 ML IV SCH (09:45)
--- NOTE | 2021-04-01 14:17 | Nephrology Consult Note ---
HPI Data of Consult Patient: known to practice within the last 3 years Consult date: 04/01/21 Requesting physician: Vikas Bryan Primary Care Provider: Bobby Saini MD Consult Narrative Patient Information: Note initiated : 04/01/21 at 2:07 pm Patient: Black Armstrong 80 y/o M admitted on 03/29/21 for Elevated Troponin. Chief Complaint: Weakness Black Armstrong is a 80-year-old male with coronary artery disease s/p stents, chronic combined systolic and diastolic heart failure (Echo on X: LVEF 50%, no segmental wall motion abnormalities, Grade I diastolic dysfunction), hypertension, chronic kidney disease stage 4 admitted on 03/29/21 for ileus. Baseline serum creatinine: 2.9 to 3.6 (eGFR 15 to 20) since April 2020. Nephrology consultation was requested for chronic kidney disease stage G4/A1 with suspected acute kidney injury. Chief complaint: Weakness Reason for consult: Chronic kidney disease stage G4/A1 with suspected acute kidney injury cc:: CC: Vikas Bryan Constitutional Constitutional: Present fatigue and weakness EENT Nose, mouth and throat: Absent nasal congestion and sore throat Cardiovascular Cardiovascular: Absent chest pain and edema Respiratory Respiratory: Absent cough and dyspnea Gastrointestinal Gastrointestinal: Absent abdominal pain, diarrhea, nausea and vomiting Genitourinary Additional comments: Russell catheter Integumentary Integumentary: Absent rash Neurological Neurological: Present weakness; Absent confusion Psychiatric Psychiatric: Absent anxiety and panic attacks Hematologic/Lymphatic Hematologic/Lymphatic: Absent easy bleeding and easy bruising Allergic/Immunologic Allergic/Immunologic: Absent tongue swelling and uticaria PFSH PFSH All Active Problems (Updated 04/01/21 @ 14:09 by Erick Muñoz MD) Chronic kidney disease (CKD) stage G4/A1, severely decreased glomerular filtration rate (GFR) between 15-29 mL/min/1.73 square meter and albuminuria creatinine ratio less than 30 mg/g (Chronic) Dyspnea (Acute) Benign prostatic hypertrophy with lower urinary tract symptoms (LUTS) (Chronic) Cardiomegaly (Chronic 09/29/14) CAD (coronary artery disease) (Chronic 02/23/15) Diabetes mellitus, type II (Chronic) Esophageal reflux (Chronic) Hypertension, essential (Chronic) Hyperuricemia (Chronic) 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) Macular degeneration (Chronic) Peripheral neuropathy (Chronic) PVD (peripheral vascular disease) (Chronic 04/27/14) Proteinuria (Chronic 11/10/14) Nocturnal hypoxia (Chronic) Paroxysmal atrial fibrillation (Chronic) Diabetic retinopathy (Chronic) Ischemic cardiomyopathy (Chronic) CKD (chronic kidney disease), stage III (Chronic) Cardiac pacemaker in situ (Chronic) Diabetic neuropathy (Chronic) Hyperlipidemia (Chronic) Back pain (Chronic) GERD (gastroesophageal reflux disease) (Chronic) Leg edema (Chronic) Unsteady gait (Chronic) Hearing impairment (Chronic) COPD (chronic obstructive pulmonary disease) (Chronic) Pulmonary HTN (Chronic) Complex sleep apnea syndrome (Chronic) Hypoxemia (Chronic) Chronic anticoagulation (Chronic) Supplemental oxygen dependent (Chronic) Controlled type 2 diabetes mellitus with stage 3 chronic kidney disease, with long-term current use of insulin (Chronic) Chronic hypoxemic respiratory failure (Chronic) Type 2 diabetes mellitus with stage 4 chronic kidney disease, with long-term current use of insulin (Chronic) Chronic combined systolic and diastolic congestive heart failure, NYHA class 2 (Chronic) CKD stage G4/A2, GFR 15-29 and albumin creatinine ratio 30-299 mg/g (Chronic) Morbid obesity (Chronic) Shortness of breath on exertion (Acute) Constipation (Acute) Dizziness (Acute) Skin lesions (Acute) Cellulitis (Acute) Diabetic neuropathy (Acute) Injury of toe on right foot (Acute) Diabetic foot (Acute) Secondary hyperparathyroidism of renal origin (Acute) Nausea and vomiting in adult patient (Acute) Diarrhea (Acute) Medical History Abdominal pain Acute bronchitis Acute prerenal azotemia Diuresis with 25 lb fluid loss, low BP (amlodipine and aldactone) lead to acute decline in GFR due to renal hypoperfusion as evidenced by time frame and BUN/Cr ratio ~40:1 IV contrast study does not fit temporally and no embolic evidence of acute cholesterol embolization. Anemia B12 OK; low normal Iron. Back pain Benign prostatic hypertrophy with lower urinary tract symptoms (LUTS) Flomax, Proscar. Bilateral leg edema Bradycardia (03/13/14) CAD (coronary artery disease) (02/23/15) Dr. Maya Cardiac pacemaker in situ Slow pulse rate is due to trigeminy with the ectopic beats not generating much of a pulse pressure Cardiomegaly (09/29/14) Kain - Cellulitis Cellulitis Chest pain Chest pain, unspecified Chronic anticoagulation clopidogrel Chronic combined systolic and diastolic congestive heart failure, NYHA class 2 [facility], 2015 - "Hospitalized 03/2013--CHF likely due to diastolic dysfunction with an ejection fraction of 50-55% noted on echo. Moderate concentric left ventricular hypertrophy and basilar/inferior hypokinesis. Sees Dr Morton" Dr. Guerrero 06/07/2019 [?] "Intolerant of beta-blockers so pacemaker placed for back-up rate and on low-dose carvedilol and bumetanide. Followed by Dr. Maya. Last EF was 45 to 50%" Carvedilol d/c'd as bradycardic Losartan as tolerated by potassium and GFR => trial entresto=> doing better Bumetanide and weight trying to keep his weight around 272 lb Chronic hypoxemic respiratory failure Poly-factorial including morbid obesity obstructive sleep apnea chronic systolic congestive heart failure, atrial fibrillation and an diabetic nephrosclerosis. Chronic systolic CHF (congestive heart failure), NYHA class 3 Carvedilol as tolerated by heart rate Losartan as tolerated by potassium and GFR Bumetanide adjusted for edema and weight trying to keep his weight around 255 to 260 pounds. CKD (chronic kidney disease), stage III D/Dx: HTN nephrosclerosis, Hypertensive cardiomyopathy and chronic systolic CHF with renal disease, vs DM nephropathy CKD stage G4/A2, GFR 15-29 and albumin creatinine ratio 30-299 mg/g Minimal proteinuria supports hypertension and vascular disease more likely than diabetic causes of renal disease. Treatment remains avoidance of nonsteroidal anti-inflammatories Blood pressure control with a goal of 130/80 RAASI therapy for renal disease, proteinuria, reduced LVEF in form of En tresto Community acquired pneumonia Complex sleep apnea syndrome Is on BiPAP. Constipation Controlled type 2 diabetes mellitus with stage 3 chronic kidney disease, with long-term current use of insulin Creatinine clearance around 30 with nonnephrotic range proteinuria Elevated PVR suggest possible neurogenic bladder versus BPH Type IV RTA with hyperkalemia is also present and poses a risk with RAASI therapy Cough Depression Celexa Diabetes mellitus, type II Neuropathy. Macular degeneration. Eye injections and now laser photocoag in [place] Diabetic neuropathy Diabetic neuropathy Diabetic retinopathy left, non-proliferative, mild. Geriatric Case Manager, Dr. Valenzuela. Dyspnea Dyspnea Encounter for Health Maintenance Examination in Adult Esophageal reflux Fall GERD (gastroesophageal reflux disease) Hearing impairment Heart failure, diastolic (03/13/14) History of chest x-ray (04/06/16) Hyperkalemia, diminished renal excretion Acute pre-renal azotemia and aldactone Hyperlipidemia Hypertension Hypertension, essential Hyperuricemia Allopurinol Hypoxemia Hypoxia Ileus Injury of toe on right foot Improved Intraparenchymal hemorrhage of brain Ischemic cardiomyopathy Ischemic heart disease (03/26/13) inferior SD; stent to the right coronary. Echo with ejection fraction of 52%. Leg edema Macular degeneration Morbid obesity 40.1 on 02/10/2020. Nocturnal hypoxia Orthostatic hypotension Pacemaker (03/15/14) Dual chamber pacemaker Paroxysmal atrial fibrillation Peripheral neuropathy Pneumonia 03/2013Questionable pneumonia; COPD; CHF--hospitalized 04/02-. Pneumonia Pre-syncope Proteinuria (11/10/14) PVD (peripheral vascular disease) (04/27/14) Low nl JESSE Respiratory distress, acute Runny nose Shoulder pain, right Sick sinus syndrome (04/20/14) . s/p dual chamber pacemaker Skin lesions SOB (shortness of breath) Subdural hematoma Supplemental oxygen dependent 2.5 L/min day and night. Syncope and collapse Tachy-alissa syndrome Type 2 diabetes mellitus with stage 4 chronic kidney disease, with long-term current use of insulin He is progressed to chronic kidney disease level 4 with nonnephrotic range proteinuria around 300 to 400 mg per 24 hours. Most likely this represents diabetic nephropathy but could be associated with congestive heart failure hypertension and vascular disease as well. He does have retinopathy as well Unsteady gait Vasovagal syncope Weakness Surgical History H/O coronary angiogram (~09/10/19) History of arthroscopic knee surgery 03/2012 - Right History of cataract surgery History of colonoscopy (01/02/16) 01/02/16 -- polyps. History of permanent cardiac pacemaker placement (03/15/14) History of umbilical hernia repair 1992 Status post angioplasty with stent (03/26/13) RCA stent placement Status post cardiac catheterization (03/26/13) 09/10/2019- Left heart cath 03/26/2013 & 04/12/2014 - Left heart catherization, left ventricular cineangiography, selective coronary arteriography, stenting of the right cor onary artery. Dr. Morton [facility] Family History Mother Dementia Family history of malignant neoplasm Seizure Osteoporosis Grandmother Dementia Father Type 2 diabetes mellitus Family history of malignant neoplasm Essential hypertension Acute myocardial infarction Colon cancer Lung cancer Uncle Type 2 diabetes mellitus Essential hypertension Acute myocardial infarction Unknown Colon cancer Lung cancer Social History household members: spouse housing: house marital status: service: Yes service: retired occupational status: retired alcohol intake frequency: holiday/special occasion only substance use type: does not use MEDS/ALLERGIES Home Medications and Allergies Home Medications Medication Instructions Recorded Confirmed Type aspirin 81 mg chewable tablet 81 mg PO QDAY tab 03/30/15 03/29/21 History nitroglycerin 0.4 mg sublingual 0.4 mg SUBLINGUAL PRN PRN 25 Days 11/27/17 03/29/21 History tablet atorvastatin 80 mg tablet 80 mg PO QDAY #90 tab 12/09/17 03/29/21 Rx docusate sodium 100 mg capsule 100 mg PO QDAY PRN 06/25/19 03/29/21 History albuterol sulfate 90 mcg/actuation 2 inh INHALATION Q6H PRN 03/02/20 03/29/21 History breath activated powder inhaler blood-glucose meter,continuous #1 each 04/20/20 03/28/21 Rx ipratropium 0.5 mg-albuterol 3 mg 3 ml INHALATION Q6H PRN #540 ml 05/31/20 03/29/21 Rx (2.5 mg base)/3 mL nebulization soln sacubitril 24 mg-valsartan 26 mg 1 tab PO BID #180 tab 06/06/20 03/29/21 Rx tablet insulin glargine 100 unit/mL 40 unit SUB-Q BID ml 07/06/20 03/29/21 History subcutaneous solution cholecalciferol (vitamin D3) 25 25 mcg PO QDAY #30 cap 08/04/20 03/29/21 Rx mcg (1,000 unit) capsule ascorbic acid (vitamin C) 100 mg 100 mg PO QDAY 09/14/20 03/29/21 History tablet blood-glucose sensor #3 each 10/21/20 03/28/21 Rx blood-glucose transmitter #1 each 10/21/20 03/28/21 Rx apixaban 5 mg tablet 5 mg PO BID 11/30/20 03/29/21 History citalopram 20 mg tablet 20 mg PO QDAY #90 tab 12/01/20 03/29/21 Rx finasteride 5 mg tablet 5 mg PO QDAY #90 tab 12/01/20 03/29/21 Rx tamsulosin 0.4 mg capsule 0.4 mg PO QDAY #90 cap 12/01/20 03/29/21 Rx bumetanide 2 mg tablet 4 mg PO QAM #180 tab 12/20/20 03/29/21 Rx insulin aspart U-100 100 unit/mL 25 unit SUBCUT TID ml 02/23/21 03/29/21 Histor y (3 mL) subcutaneous pen pantoprazole 40 mg tablet,delayed See Rx Instructions PO BID #180 tab 03/06/21 03/29/21 Rx release gabapentin 300 mg capsule 600 mg PO QHS PRN #180 cap 03/14/21 03/29/21 Rx Allergies Allergy/AdvReac Type Severity Reaction Status Date / Time Beta-Blockers AdvReac Intermediate tendency Verified 03/28/21 11:10 (Beta-Adrenergic Bloc toward bradycardia w/Coreg & Sectral Physical Examination Vital Signs Vital signs: Temp Pulse Resp BP Pulse Ox 96.9 F L 75 20 146/59 93 04/01/21 08:00 04/01/21 08:25 04/01/21 08:25 04/01/21 08:00 04/01/21 08:25 General Appearance General appearance: appears started age, obese and chronically ill EENT EENT: ATNC and mucous membranes moist Neck Neck: no JVD Respiratory Respiratory: course breath sounds Cardiovascular Cardiology: no edema and irregular rhythm Gastrointestinal Gastrointestinal: distended Integumentary Integumentary: no rash Neurologic Neurologic: no focal deficit and alert and oriented x3 Psychiatric Psychiatric: mood/affect appropriate and cooperative Results Lab Results Result Diagrams: 04/01/21 04:56 04/01/21 04:56 Lab results: Most recent lab results Calcium 7.6 mg/dL (8.6-10.4) L 04/01/21 04:56 Phosphorus 5.0 mg/dL (2.5-4.5) H 04/01/21 04:56 Magnesium 2.1 mg/dL (1.6-2.5) 04/01/21 04:56 A/P Assessment and plan (1) Chronic kidney disease (CKD) stage G4/A1, severely decreased glomerular filtration rate (GFR) between 15-29 mL/min/1.73 square meter and albuminuria creatinine ratio less than 30 mg/g: Assessment and plan: Black Armstrong is a 80-year-old male with coronary artery disease s/p stents, chronic combined systolic and diastolic heart failure (Echo on X: LVEF 50%, no segmental wall motion abnormalities, Grade I diastolic dysfunction), hypertension, chronic kidney disease stage 4 admitted on 03/29/21 for ileus. Baseline serum creatinine: 2.9 to 3.6 (eGFR 15 to 20) since April 2020. Nephrology consultation was requested for chronic kidney disease stage G4/A1 with suspected acute kidney injury. Chronic kidney disease stage G4/A1, suspected acute kidney injury with hyponatremia, present on arrival. There is no recent history of IV contrast administration or NSAID use. Significant fluid overload or intravascular volume depletion is unlikely. Work up: Urinalysis on 02/18/21: Yellow, Clear, pH 6.0, SG 1.013, protein negative, blood negative, leukocyte esterase negative. Urine random total protein/creatinine on 08/03/20: 140 mg/g creatinine. CT Abdomen and Pelvis without contrast on 03/30/21: Both kidneys are relatively small. There is no stone, hydronephrosis or mass effect in either kidney. Right kidney is 9.6 cm in length and left is 10.1 cm. Progress: Serum creatinine increased from 3.4 to 3.6 in the past 24 hours. Baseline serum creatinine: 2.9 to 3.6 (eGFR 15 to 20) since April 2020. Urine output: 1,000+ ml reported in the past 24 hours. Hyponatremia. No significant fluid overload. I/O: +261 ml since admission. Weight: 295 lbs on admission (03/28/21); 296 lbs on 03/31/21. No uremic symptoms. Recommendations/Plan: No need for IV fluids, diuretics or fluid restriction at this point. Will monitor closely for diuretic need. No indication for acute hemodialysis. Avoid NSAIDs, nephrotoxic medications and IV contrast. Monitor BMP and urine output. Status: Chronic (2) Acute kidney injury: Status: Suspected Time Spent With Patient Time: Total time spent is greater than 50% in coordination of care (as documented) at patient's floor/unit and/or counseling patient:
[2021-04-01 20:39] LABS: Appearance,Urine Clear (Clear); Bilirubin,Urine Negative (Negative); Color,Urine Yellow; Culture Indicated,Urine No; Glucose,Urine (UA) Negative (Negative); Ketones,Urine Negative (Negative); Leukocyte Esterase,Urine Small /ug (Negative); Nitrate,Urine Negative (Negative); Protein,Urine Trace mg/dL (Negative); Urine Blood Large ery/mcL (Negative); Urine RBC 30 /hpf (0-3); Urine Squamous Epithelial Cell 0 /hpf (0-4); Urine WBC 6 /hpf (0-4); Urobilinogen,Urine Normal
[2021-04-01] MEDS: GABAPENTIN 300 MG CAPSULE PO PRN (21:08)
[2021-04-01 22:32] LABS: Creatinine, Spot Urine 140.2 mg/dL (39.0-259.0); Pro:Crea Ratio 0.11 (<0.20)
[2021-04-02] MEDS: 0.9 % SODIUM CHLORIDE 10 ML SYRINGE IV SCH ×3 (05:00→21:30)
[2021-04-02] MEDS: PIPERACILLIN SODIUM/TAZOBACTAM 2.25 GM in DEXTROSE 5% IN WATER 50 ML IV SCH ×3 (05:00→23:36)
--- NOTE | 2021-04-02 06:42 | Nephrology Progress Note ---
SUBJECTIVE Subjective Patient information: Note initiated : 04/02/21 at 6:38 am Patient: Black Armstrong 80 y/o M admitted on 03/29/21 for Elevated Troponin. Chief Complaint: Weakness Pertinent ROS: Weakness Shortness iof breath Dependent edema Russell catheter Clear urine Constitutional Vitals: Vital Signs Temp Pulse Resp BP Pulse Ox 97.8 F 59 L 15 132/53 94 04/02/21 04:00 04/02/21 00:20 04/02/21 04:13 04/02/21 04:00 04/02/21 06:29 Period Temp Pulse Resp BP Sys/Carter Pulse Ox Last 24 Hr 96.9 F-98.1 F 59-75 12-21 123-149/44-73 72-97 Intake and Output 04/01/21 04/02/21 04/02/21 21:59 05:59 13:59 Intake Total 100 100 Output Total 600 200 Balance -500 -100 Weight 298 lb 1.6 oz Intake & Output: Intake & Output 04/01/21 04/02/21 04/02/21 21:59 05:59 13:59 Intake Total 100 100 Output Total 600 200 Balance -500 -100 Weight 298 lb 1.6 oz Intake: IV 100 Zosyn 2.25 gm In Dextrose 5% in 100 Water 50 ml @ 100 mls/hr IV Q8H [facility] Rx#:[id number] Oral 100 Output: Urine Catheter Amount 600 200 Other: Meal snack Percent of Meal Consumed 100% Nourishment/Supplement name colton crackers/peanut butter Urine Appearance Clear Clear Sediment Sediment Uretheral (Russell) Clear Clear Sediment Sediment Urine Color Bright Yellow Bright Yellow Uretheral (Russell) Bright Yellow Bright Yellow Urine Odor Normal Stool Size Copious Stool Color Brown Stool Consistency Soft # Bowel Movements 0 General appearance: cooperative and no acute distress Head Head exam: Present normal inspection Eye Eye exam: Present normal appearance ENT ENT exam: Present mucous membranes moist Respiratory Respiratory exam: Absent respiratory distress Cardiovascular Cardiovascular exam: Present normal rate and rhythm GI/Abdominal GI/Abdominal exam: Present soft; Absent tenderness Extremities Exam Extremities exam: Absent joint swelling and pedal edema Neurological Exam Neurological exam: Present alert and oriented X3 Psychiatric Psychiatric exam: Present normal affect and normal mood Skin Skin exam: Present warm; Absent rash A/P Assessment and plan (1) Chronic kidney disease (CKD) stage G4/A1, severely decreased glomerular filtration rate (GFR) between 15-29 mL/min/1.73 square meter and albuminuria creatinine ratio less than 30 mg/g: Assessment and plan: Black Armstrong is a 80-year-old male with coronary artery disease s/p stents, chr onic combined systolic and diastolic heart failure (Echo on X: LVEF 50%, no segmental wall motion abnormalities, Grade I diastolic dysfunction), hypertension, chronic kidney disease stage 4 admitted on 03/29/21 for ileus. Baseline serum creatinine: 2.9 to 3.6 (eGFR 15 to 20) since April 2020. Nephrology consultation was requested for chronic kidney disease stage G4/A1 with suspected acute kidney injury. Chronic kidney disease stage G4/A1, suspected acute kidney injury with hyponatremia, present on arrival. There is no recent history of IV contrast administration or NSAID use. Previous Workup: Urinalysis on 02/18/21: Yellow, Clear, pH 6.0, SG 1.013, protein negative, blood negative, leukocyte esterase negative. Urine random total protein/creatinine on 08/03/20: 140 mg/g creatinine. Workup: Urinalysis on 04/01/21: Yellow, Clear, pH 7.0, SG 1.020, protein trace, blood large, leukocyte esterase small, random urine protein/creatinine 110 mg/g creatinine. CT Abdomen and Pelvis without contrast on 03/30/21: Both kidneys are relatively small. There is no stone, hydronephrosis or mass effect in either kidney. Right kidney is 9.6 cm in length and left is 10.1 cm. Progress: Serum creatinine 3.6 did not change in the past 24 hours. Baseline serum creatinine: 2.9 to 3.6 (eGFR 15 to 20) since April 2020. Urine output: 1,500 ml reported in the past 24 hours. Hyponatremia associated with fluid overload. I/O: -1L since admission. Weight: 295 lbs on admission (03/28/21); 298 lbs on 04/01/21. No uremic symptoms. Recommendations/Plan: Furosemide 10 mg/hr for fluid overload. No indication for acute hemodialysis. Avoid NSAIDs, nephrotoxic medications and IV contrast. Monitor BMP and urine output. Status: Chronic (2) Acute kidney injury: Status: Suspected Time Spent With Patient Time: Total time spent is greater than 50% in coordination of care (as documented) at patient's floor/unit and/or counseling patient:
[2021-04-02] MEDS: ACETAMINOPHEN 325 MG TABLET PO PRN (07:10)
[2021-04-02] MEDS: PANTOPRAZOLE 40 MG TABLET PO SCH ×2 (07:10→17:15)
[2021-04-02] MEDS: INSULIN GLARGINE, HUMAN 1 UNIT/0.01 ML SQ SCH ×2 (07:56→21:23)
[2021-04-02] MEDS: ATORVASTATIN 40 MG TABLET PO SCH (07:56)
[2021-04-02] MEDS: TAMSULOSIN 0.4 MG CAPSULE PO SCH (07:56)
[2021-04-02] MEDS: ASPIRIN 81 MG TAB.CHEW PO SCH (07:56)
[2021-04-02] MEDS: CITALOPRAM 20 MG TABLET PO SCH (07:56)
[2021-04-02] MEDS: INSULIN LISPRO 1 UNIT/0.01 ML UNIT SQ SCH ×4 (07:56→21:23)
[2021-04-02] MEDS: DOCUSATE SODIUM 100 MG CAPSULE PO SCH ×2 (07:56→21:23)
[2021-04-02] MEDS: FINASTERIDE 5 MG TABLET PO SCH (08:13)
[2021-04-02] MEDS: APIXABAN 5 MG TABLET PO SCH ×2 (08:13→21:23)
[2021-04-02] MEDS: IPRATROPIUM/ALBUTEROL 3 ML AMPUL.NEB NEB SCH ×2 (08:53→22:10)
[2021-04-02] MEDS: AZITHROMYCIN 500 MG in DEXTROSE 5% IN WATER 250 ML IV SCH (08:58)
[2021-04-02 10:34] LABS: Albumin 3.3 gm/dL (3.2-5.2); Blood Urea Nitrogen 67 mg/dL (8-23); Calcium 7.7 mg/dL (8.6-10.4); Carbon Dioxide 26 mmol/L (22-30); Chloride 87 mmol/L (96-108); Glomerular Filtration Rate 15; Glucose 228 mg/dL (70-105)
[2021-04-02] MEDS: FUROSEMIDE 250 MG in 0.9 % SODIUM CHLORIDE 225 ML IV SCH (12:30)
[2021-04-02] MEDS: 0.9 % SODIUM CHLORIDE 250 ML IV SCH (12:33)
--- NOTE | 2021-04-02 18:00 | Internal Med Progress Note ---
SUBJECTIVE Subjective Patient information: Note initiated : 04/02/21 at 5:58 pm Service Date, if different from initiated Date: [] Patient: Black Armstrong 80 y/o M admitted on 03/29/21 for Elevated Troponin. Chief Complaint: [] Interval history: Interval history: History of present illness: Mr. Armstrong is a 80 year old M Presents to ED with increased lower extremity swelling and abdominal discomfort. He was seen by his PCP earlier and felt to be in CHF exacerbation and diuretics were increased. However symptoms worsened and patient upcoming to ED. Chest x-ray from earlier today with pulmonary edema. Patient also complains of shortness of breath dyspnea on exertion weight gain. He was given Lasix in the ED with 800 cc output. Past 3 days with increasing swelling in his legs lethargy weakness worsening chronic cough shortness of breath. Denies any recent sick contacts. Vaginal nausea some constipation. Says is abdominal pain was lower quadrants and sharp. Her daughter is abdomen seems less bloated today after diuresis in ED last night. 03/30 Good urine output. Poor sleep last night. Complains of abdominal discomfort sharp pain lower quadrants. some nausea/headache 03/31 Multiple BMs last night. Patient overall feeling better. Cough. Currently on 2 L nasal cannula. Mild headache this morning. No nausea. 04/01 abx started given increased in crp/PCT and history of increased productive cough. Cough initially considered part of his copd, however, with increasing markers as above. poor UOP yesterday after good UOP first 24 hours but improved last night, but bump in Cr. 04/02 Nephrology started lasix drip. Review of Systems: denies fever/chills/nausea/vomiting/chest pain/. Otherwise see above. Constitutional Vitals: Vital Signs Temp Pulse Resp BP Pulse Ox 98 F 75 10 L 113/52 98 04/02/21 16:01 04/02/21 08:50 04/02/21 16:01 04/02/21 16:01 04/02/21 16:01 Period Temp Pulse Resp BP Sys/Carter Pulse Ox Last 24 Hr 97.4 F-98.1 F 59-75 10-20 112-149/44-73 72-98 Intake and Output 04/02/21 04/02/21 04/02/21 05:59 13:59 21:59 Intake Total 100 480 50 Output Total 200 292 Balance -100 480 -242 Intake & Output: Intake & Output 04/02/21 04/02/21 04/02/21 05:59 13:59 21:59 Intake Total 100 480 50 Output Total 200 292 Balance -100 480 -242 Intake: IV 300 50 Zithromax 500 mg In Dextrose 5% 250 in Water 250 ml @ 250 mls/hr IV Q24H [facility] Rx#:[id number] Zosyn 2.25 gm In Dextrose 5% in 50 50 Water 50 ml @ 100 mls/hr IV Q8H [facility] Rx#:[id number] Oral 100 180 Output: Urine Catheter Amount 200 292 Other: Meal Breakfast Percent of Meal Consumed 100% Feeding Ability Independent Urine Appearance Clear Sediment Clear Sediment Uretheral (Russell) Clear Sediment Sediment Urine Color Bright Yellow Bright Yellow Bright Yellow Uretheral (Russell) Bright Yellow Bright Yellow Urine Odor Normal Normal Uretheral (Russell) Normal Stool Size Moderate Stool Color Brown Stool Consistency Loose # Bowel Movements 1 Exam: General: Alert, Awake, No acute Distress, obese Eyes/N/T: EOMI, , Head/Neck: neck supple, , unable to assess JVD given neck girth CV: Regular paced, No murmurs, Pulm: improving rales b/l, no wheezing today Abd: soft, distended and mildly TTP, +BS x4 Ext: no clubbing/cyanosis, b/le LE edema, abdominal edema Neuro: Alert, no focal deficits, moves all extremities, OBJ DATA OBJ DATA Labs CBC & Chem 7: 04/01/21 04:56 04/02/21 09:43 Labs: Abnormal Lab Results 04/02/21 04/01/21 04/01/21 09:43 19:57 04:57 RBC Hgb Hct MCHC MPV [place] % (Auto) Lymph # (Auto) [place] # (Auto) Sodium 124 L Chloride 87 L BUN 67 H Creatinine 3.6 H Glucose 228 H Uric Acid Calcium 7.7 L Phosphorus 5.0 H C-Reactive Protein Total Protein Albumin Procalcitonin 0.25 H Urine Protein Trace A Urine Occult Blood Large A Ur Leukocyte Esterase Small A Urine RBC 30 H Urine WBC 6 H 04/01/21 04/01/21 04/01/21 04:56 04:56 04:56 RBC 2.87 L Hgb 8.6 L Hct 27.3 L MCHC MPV [place] % (Auto) 13.0 H Lymph # (Auto) 1.41 L [place] # (Auto) 0.94 H Sodium 127 L Chloride 89 L BUN 63 H Creatinine 3.6 H Glucose 128 H Uric Acid 11.0 H Calcium 7.6 L Phosphorus 5.0 H C-Reactive Protein 9.10 H Total Protein 5.8 L Albumin Procalcitonin Urine Protein Urine Occult Blood Ur Leukocyte Esterase Urine RBC Urine WBC 03/31/21 03/31/21 03/31/21 04:54 04:54 04:54 RBC 2.86 L Hgb 8.7 L Hct 28.4 L MCHC 30.6 L MPV 11.1 H [place] % (Auto) Lymph # (Auto) [place] # (Auto) 1.11 H Sodium Chloride BUN Creatinine Glucose Uric Acid Calcium Phosphorus C-Reactive Protein 10.20 H Total Protein Albumin Procalcitonin 0.32 H Urine Protein Urine Occult Blood Ur Leukocyte Esterase Urine RBC Urine WBC 03/31/21 04:54 RBC Hgb Hct MCHC MPV [place] % (Auto) Lymph # (Auto) [place] # (Auto) Sodium 131 L Chloride 94 L BUN 61 H Creatinine 3.4 H Glucose 128 H Uric Acid 11.5 H Calcium 8.1 L Phosphorus 4.7 H C-Reactive Protein Total Protein Albumin 3.1 L Procalcitonin Urine Protein Urine Occult Blood Ur Leukocyte Esterase Urine RBC Urine WBC Meds: Medications Acetaminophen (Acetaminophen 325 Mg Tablet) 650 mg PO Q6HP PRN PRN Reason: PAIN/FEVER > 101 Last Admin: 04/02/21 07:10 Dose: 650 mg Documented by: Albuterol/Ipratropium (Ipratropium/Albuterol 3 Ml Ampul.Neb) 3 ml NEB Q4HP PRN PRN Reason: Shortness Of Breath Albuterol/Ipratropium (Ipratropium/Albuterol 3 Ml Ampul.Neb) 3 ml NEB Q12 [facility] Last Admin: 04/02/21 08:53 Dose: 3 ml Documented by: Apixaban (Apixaban 5 Mg Tablet) 5 mg PO BID [facility] Last Admin: 04/02/21 08:13 Dose: 5 mg Documented by: Aspirin (Aspirin 81 Mg Tab.Chew) 81 mg PO QDAY [facility] Last Admin: 04/02/21 07:56 Dose: 81 mg Documented by: Atorvastatin Calcium (Atorvastatin 40 Mg Tablet) 80 mg PO QDAY [facility] Last Admin: 04/02/21 07:56 Dose: 80 mg Documented by: Bisacodyl (Bisacodyl 5 Mg Tablet) 10 mg PO DAILYP PRN PRN Reason: Constipation Bisacodyl (Bisacodyl 10 Mg Supp.Rect) 10 mg NC DAILYP PRN PRN Reason: Constipation Citalopram Hydrobromide (Citalopram 20 Mg Tablet) 20 mg PO QDAY [facility] Last Admin: 04/02/21 07:56 Dose: 20 mg Documented by: Dextrose (Dextrose 50% 50 Ml Vial) 0 ml IV UD PRN PRN Reason: Hypoglycemia Diagnostic Test (Pha) (Accu-Chek 1 Each Strip) 1 each FS ACHS [facility] Last Admin: 04/02/21 17:23 Dose: 1 each Documented by: Docusate Sodium (Docusate Sodium 100 Mg Capsule) 100 mg PO BID [facility] Last Admin: 04/02/21 07:56 Dose: 100 mg Documented by: Finasteride (Finasteride 5 Mg Tablet) 5 mg PO QDAY [facility] Last Admin: 04/02/21 08:13 Dose: 5 mg Documented by: Gabapentin (Gabapentin 300 Mg Capsule) 600 mg PO HSP PRN PRN Reason: peripheral neuropathy Last Admin: 04/01/21 21:08 Dose: 600 mg Documented by: Glucose (Dextrose 31 Gm Oral.Susp) 15 gm PO PRN PRN PRN Reason: Hypoglycemia Potassium Chloride 40 meq/ (Dextrose) 520 mls @ 130 mls/hr IV UD PRN PRN Reason: Potassium < 3 Magnesium Sulfate (Magnesium Sulfate) 2 gm in 50 mls @ 50 mls/hr IV UD PRN PRN Reason: Magnesium </= 1.6 Piperacillin Sod/Tazobactam (Sod 2.25 gm/ Dextrose) 50 mls @ 100 mls/hr IV Q8H [facility]; Protocol Last Infusion: 04/02/21 14:30 Dose: Infused Documented by: Furosemide 250 mg/ Sodium (Chloride) 250 mls @ 10 mls/hr IV Q24H [facility]; Protocol Last Admin: 04/02/21 12:30 Dose: 10 mg/hr, 10 mls/hr Documented by: Sodium Chloride (Sodium Chloride 0.9%) 250 mls @ 20 mls/hr IV .[id number] [facility] Last Admin: 04/02/21 12:33 Dose: 10 mls/hr Documented by: Insulin Glargine (Insulin Glargine, Human 1 Unit/0.01 Ml) 40 unit SQ QAM [facility] Last Admin: 04/02/21 07:56 Dose: 40 unit Documented by: Insulin Glargine (Insulin Glargine, Human 1 Unit/0.01 Ml) 20 unit SQ HS [facility] Last Admin: 04/01/21 21:08 Dose: 20 units Documented by: Insulin Human Lispro (Insulin Lispro 1 Unit/0.01 Ml Unit) 0 unit SQ ACHS [facility]; Protocol Last Admin: 04/02/21 17:47 Dose: 9 unit Documented by: Lactulose (Lactulose 20 Gm/30 Ml Oral.Lin) 20 gm PO DAILYP PRN PRN Reason: Constipation Last Admin: 03/30/21 06:41 Dose: 20 gm Documented by: Metoclopramide HCl (Metoclopramide 10 Mg/2 Ml Vial) 10 mg IV Q6HP PRN PRN Reason: Nausea And Vomiting Morphine Sulfate (Morphine 2 Mg/Ml Vial) 2 mg IV Q1HP PRN; Protocol PRN Reason: Per Pain Protocol Last Admin: 03/30/21 11:15 Dose: 2 mg Documented by: Nitroglycerin (Nitroglycerin 0.4 Mg Tab.Subl) 0.4 mg SL Q5M PRN PRN Reason: Chest Pain Ondansetron HCl (Ondansetron 4 Mg/2 Ml Vial) 4 mg IV Q4HP PRN PRN Reason: Nausea And Vomiting Last Admin: 03/30/21 11:14 Dose: 4 mg Documented by: Pantoprazole Sodium (Pantoprazole 40 Mg Tablet) 0 mg PO BIDAC [facility] Last Admin: 04/02/21 17:15 Dose: 40 mg Documented by: Polyethylene Glycol (Polyethylene Glycol 3350 17 Gm Packet) 17 gm PO DAILYP PRN PRN Reason: Constipation Potassium Chloride (Potassium Chloride 20 Meq Tablet) 40 meq PO UD PRN PRN Reason: Potssium is 3-3.5 Potassium Chloride (Potassium Chloride 20 Meq Tablet) 40 meq PO UD PRN PRN Reason: Potassium < 3 Senna (Sennosides 1 Tablet) 2 tab PO DAILYP PRN PRN Reason: Constipation Sodium Chloride (0.9 % Sodium Chloride 10 Ml Syringe) 10 ml IV Q8 [facility] Last Admin: 04/02/21 12:11 Dose: 10 ml Documented by: Tamsulosin HCl (Tamsulosin 0.4 Mg Capsule) 0.4 mg PO QDAY [facility] Last Admin: 04/02/21 07:56 Dose: 0.4 mg Documented by: A/P Narrative A/P Narrative: A: *Acute on chronic diastolic CHF (EF normalized from 2019) w/pulm edema: -good UOP initially, then slowed, but good UOP last night *Acute on chronic hypoxic respiratory failure (3L@home): *PNA, present on admission: *Ileus/Abd pain: resolved *Hyperkalemia: resolved *CAD w/stent: *CKD IV (base Cr~3): Follows with Dr. Guerrero -cr 3.6 *Afib w/PPM: on eliquis *Anemia, chronic: stable *COPD (3L@ home): Follows with Dr. 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
[2021-04-03] MEDS: GABAPENTIN 300 MG CAPSULE PO PRN ×2 (00:07→22:35)
[2021-04-03] MEDS: 0.9 % SODIUM CHLORIDE 250 ML IV SCH ×2 (01:30→13:02)
[2021-04-03] MEDS: PIPERACILLIN SODIUM/TAZOBACTAM 2.25 GM in DEXTROSE 5% IN WATER 50 ML IV SCH (05:18)
[2021-04-03] MEDS: 0.9 % SODIUM CHLORIDE 10 ML SYRINGE IV SCH ×4 (05:19→22:33)
[2021-04-03] MEDS: PANTOPRAZOLE 40 MG TABLET PO SCH ×2 (06:39→16:54)
[2021-04-03] MEDS: INSULIN GLARGINE, HUMAN 1 UNIT/0.01 ML SQ SCH ×2 (08:29→22:32)
[2021-04-03] MEDS: INSULIN LISPRO 1 UNIT/0.01 ML UNIT SQ SCH ×4 (08:30→22:34)
[2021-04-03] MEDS: ASPIRIN 81 MG TAB.CHEW PO SCH (08:51)
[2021-04-03] MEDS: CITALOPRAM 20 MG TABLET PO SCH (08:51)
[2021-04-03] MEDS: TAMSULOSIN 0.4 MG CAPSULE PO SCH (08:51)
[2021-04-03] MEDS: DOCUSATE SODIUM 100 MG CAPSULE PO SCH ×2 (08:51→22:35)
[2021-04-03] MEDS: ATORVASTATIN 40 MG TABLET PO SCH (08:51)
[2021-04-03] MEDS: IPRATROPIUM/ALBUTEROL 3 ML AMPUL.NEB NEB SCH ×2 (08:55→22:47)
--- NOTE | 2021-04-03 08:59 | Nephrology Progress Note ---
SUBJECTIVE Subjective Patient information: Note initiated : 04/03/21 at 8:56 am Patient: Black Armstrong 80 y/o M admitted on 03/29/21 for Elevated Troponin. Chief Complaint: Weakness Pertinent ROS: Baseline shortness of breath Dependent edema Russell catheter Slight hematuria Constitutional Vitals: Vital Signs Temp Pulse Resp BP Pulse Ox 97.9 F 61 16 157/55 92 04/03/21 08:02 04/03/21 08:09 04/03/21 08:09 04/03/21 08:02 04/03/21 08:09 Period Temp Pulse Resp BP Sys/Carter Pulse Ox Last 24 Hr 97.3 F-98.1 F 60-65 10-22 112-169/47-65 85-100 Intake and Output 04/02/21 04/03/21 04/03/21 21:59 05:59 13:59 Intake Total 50 100 Output Total 707 1000 280 Balance -657 -900 -280 Weight 299 lb 9.6 oz Intake & Output: Intake & Output 04/02/21 04/03/21 04/03/21 21:59 05:59 13:59 Intake Total 50 100 Output Total 707 1000 280 Balance -657 -900 -280 Weight 299 lb 9.6 oz Intake: IV 50 100 Zosyn 2.25 gm In Dextrose 5% in 50 100 Water 50 ml @ 100 mls/hr IV Q8H [facility] Rx#:[id number] Output: Urine Catheter Amount 707 1000 280 Other: Meal Dinner Percent of Meal Consumed 100% Feeding Ability Independent Urine Appearance Clear Clear Sediment Urine Color Bright Yellow Dark Yellow Blood Tinged Blood Tinged Uretheral (Russell) Blood Tinged Urine Odor Normal Normal Uretheral (Russell) Normal Stool Size Small Copious Stool Color Brown Brown Stool Consistency Soft Loose # Bowel Movements 1 General appearance: cooperative and no acute distress Head Head exam: Present normal inspection Eye Eye exam: Present normal appearance ENT ENT exam: Present mucous membranes moist Respiratory Respiratory exam: Absent respiratory distress Cardiovascular Cardiovascular exam: Present normal rate and rhythm GI/Abdominal GI/Abdominal exam: Present soft; Absent tenderness Extremities Exam Extremities exam: Absent joint swelling and pedal edema Neurological Exam Neurological exam: Present alert and oriented X3 Psychiatric Psychiatric exam: Present normal affect and normal mood Skin Skin exam: Present warm; Absent rash A/P Assessment and plan (1) Chronic kidney disease (CKD) stage G4/A1, severely decreased glomerular filtration rate (GFR) between 15-29 mL/min/1.73 square meter and albuminuria creatinine ratio less than 30 mg/g: Assessment and plan: Black Armstrong is a 80-year-old male with coronary artery disease s/p stents, chronic combined systolic and diastolic heart failure (Echo on X: LVEF 50%, no segmental wall motion abnormalities, Grade I diastolic dysfunction), hypertension, chronic kidney disease stage 4 admitted on 03/29/21 for ileus. Baseline serum creatinine: 2.9 to 3.6 (eGFR 15 to 20) since April 2020. Nephrology consultation was requested for chronic kidney disease stage G4/A1 with suspected acute kidney injury. Chronic kidney disease stage G4/A1, suspected acute kidney injury with hyponatremia, present on arrival. There is no recent history of IV contrast administration or NSAID use. Previous Workup: Urinalysis on 02/18/21: Yellow, Clear, pH 6.0, SG 1.013, protein negative, blood negative, leukocyte esterase negative. Urine random total protein/creatinine on 08/03/20: 140 mg/g creatinine. Workup: Urinalysis on 04/01/21: Yellow, Clear, pH 7.0, SG 1.020, protein trace, blood large, leukocyte esterase small, random urine protein/creatinine 110 mg/g creatinine. CT Abdomen and Pelvis without contrast on 03/30/21: Both kidneys are relatively small. There is no stone, hydronephrosis or mass effect in either kidney. Right kidney is 9.6 cm in length and left is 10.1 cm. Treatment: Furosemide 10 mg/hr for fluid overload. Progress: Serum creatinine pending. Baseline serum creatinine: 2.9 to 3.6 (eGFR 15 to 20) since April 2020. Urine output: 1,700 ml reported in the past 24 hours. Hyponatremia associated with fluid overload. I/O: -2.3L since admission. Weight: 295 lbs on admission (03/28/21); 299 lbs on 04/02/21. No uremic symptoms. Recommendations/Plan: Continue the same diuretic dose for now. No indication for acute hemodialysis. Avoid NSAIDs, nephrotoxic medications and IV contrast. Monitor BMP and urine output. Status: Chronic (2) Acute kidney injury: Status: Suspected Time Spent With Patient Time: Total time spent is greater than 50% in coordination of care (as documented) at patient's floor/unit and/or counseling patient:
[2021-04-03] MEDS: CEFUROXIME 500 MG TABLET PO SCH ×2 (09:01→22:34)
[2021-04-03] MEDS: APIXABAN 5 MG TABLET PO SCH ×2 (09:01→22:35)
[2021-04-03] MEDS: FINASTERIDE 5 MG TABLET PO SCH (09:01)
[2021-04-03] MEDS: ACETAMINOPHEN 325 MG TABLET PO PRN ×2 (09:01→17:05)
[2021-04-03 10:01] LABS: Basophils # (Auto) 0.05 K/mcL (0.00-0.20); Basophils % (Auto) 0.5 % (0.0-2.0); Eosinophils # (Auto) 0.37 K/mcL (0.00-0.70); Eosinophils % (Auto) 3.4 % (0.0-7.0); Hematocrit 29.9 % (41.0-55.0); Hemoglobin 9.2 g/dL (13.5-16.5); Lymphocytes # (Auto) 2.18 K/mcL (1.50-4.80); Lymphocytes % (Auto) 20.3 % (15.0-49.0); Mean Cell Volume 97.1 fL (80.0-100.0); Mean Corpuscular HGB Conc 30.8 g/dL (31.0-36.0); Monocytes # (Auto) 1.19 K/mcL (0.10-0.90); Monocytes % (Auto) 11.1 % (1.0-12.0); Neutrophils % (Auto) 64.7 % (38.0-78.0); Platelet Count 246 K/mcL (140-440); RBC 3.08 M/mcL (4.50-5.90); Red Cell Distribution Width 13.3 % (11.5-14.5); WBC 10.8 K/mcL (4.5-11.0)
[2021-04-03 10:25] LABS: ALT/SGPT 15 U/L (<40); AST/SGOT 25 U/L (<40); Albumin 3.3 gm/dL (3.2-5.2); Albumin/Globulin Ratio 0.9 (1.0-2.3); Alkaline Phosphatase 92 U/L (39-117); Bilirubin,Direct < 0.2 mg/dL (0-0.3); Bilirubin,Total 0.3 mg/dL (0.1-1.0); Blood Urea Nitrogen 67 mg/dL (8-23); Calcium 8.2 mg/dL (8.6-10.4); Carbon Dioxide 24 mmol/L (22-30); Chloride 92 mmol/L (96-108); Globulin 3.7 gm/dL (2.2-3.7); Glomerular Filtration Rate 12; Glucose 144 mg/dL (70-105); Lactate Dehydrogenase 234 U/L (135-225); Phosphorous 5.4 mg/dL (2.5-4.5); Triglycerides 98 mg/dL (<150); Uric Acid 11.8 mg/dL (2.5-8.0)
[2021-04-03] MEDS: rOPINIRole 0.25 MG TABLET PO SCH (12:52)
[2021-04-03] MEDS: FUROSEMIDE 250 MG in 0.9 % SODIUM CHLORIDE 225 ML IV SCH ×2 (13:01→14:15)
--- NOTE | 2021-04-03 16:55 | Internal Med Progress Note ---
SUBJECTIVE Subjective Patient information: Note initiated : 04/03/21 at 4:52 pm Service Date, if different from initiated Date: [] Patient: Black Armstrong 80 y/o M admitted on 03/29/21 for Elevated Troponin. Chief Complaint: [] Interval history: Interval history: History of present illness: Mr. Armstrong is a 80 year old M Presents to ED with increased lower extremity swelling and abdominal discomfort. He was seen by his PCP earlier and felt to be in CHF exacerbation and diuretics were increased. However symptoms worsened and patient upcoming to ED. Chest x-ray from earlier today with pulmonary edema. Patient also complains of shortness of breath dyspnea on exertion weight gain. He was given Lasix in the ED with 800 cc output. Past 3 days with increasing swelling in his legs lethargy weakness worsening chronic cough shortness of breath. Denies any recent sick contacts. Vaginal nausea some constipation. Says is abdominal pain was lower quadrants and sharp. Her daughter is abdomen seems less bloated today after diuresis in ED last night. 03/30 Good urine output. Poor sleep last night. Complains of abdominal discomfort sharp pain lower quadrants. some nausea/headache 03/31 Multiple BMs last night. Patient overall feeling better. Cough. Currently on 2 L nasal cannula. Mild headache this morning. No nausea. 04/01 abx started given increased in crp/PCT and history of increased productive cough. Cough initially considered part of his copd, however, with increasing markers as above. poor UOP yesterday after good UOP first 24 hours but improved last night, but bump in Cr. 04/02 Nephrology started lasix drip, monitoring urine output and renal function. 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 Nephrology continuing same lasix drip dose. Deescal ated abx from Zosyn to Cefuroxime for possible pneumonia. Added Requip for restless leg symptoms. Review of Systems: denies fever/chills/nausea/vomiting/chest pain/. Otherwise see above. Constitutional Vitals: Vital Signs Temp Pulse Resp BP Pulse Ox 98.1 F 61 18 127/49 92 04/03/21 12:00 04/03/21 08:09 04/03/21 13:03 04/03/21 14:00 04/03/21 16:37 Period Temp Pulse Resp BP Sys/Carter Pulse Ox Last 24 Hr 97.2 F-98.1 F 60-65 10-22 127-169/49-70 70-100 Intake and Output 04/03/21 04/03/21 04/03/21 05:59 13:59 21:59 Intake Total 100 740 12 Output Total 1000 850 80 Balance -900 -110 -68 Weight 135.896 kg Patient Weight 04/04/21 05:59 Weight 135.896 kg Intake & Output: Intake & Output 04/03/21 04/03/21 04/03/21 05:59 13:59 21:59 Intake Total 100 740 12 Output Total 1000 850 80 Balance -900 -110 -68 Weight 135.896 kg Intake: IV 100 500 12 Sodium Chloride 0.9% 250 ml @ 250 20 mls/hr IV .[id number] [facility] Rx#: [id number] Lasix 250 mg In Sodium Chloride 250 12 0.9% 225 ml @ 10 MG/HR 10 mls/ hr IV Q24H [facility] Rx#:[id number] Zosyn 2.25 gm In Dextrose 5% in 100 Water 50 ml @ 100 mls/hr IV Q8H [facility]EN[facility] Rx#:[id number] Oral 240 Output: Urine Catheter Amount 1000 850 80 Other: Meal Breakfast Percent of Meal Consumed 100% Feeding Ability Independent Urine Appearance Clear Sediment Urine Color Dark Yellow Blood Tinged Blood Tinged Uretheral ([place]) Blood Tinged Urine Odor Normal Uretheral ([place]) Normal Stool Size Small Copious Stool Color Brown Brown Stool Consistency Soft Loose # Bowel Movements 1 Exam: General: Alert, Awake, No acute Distress, obese Eyes/N/T: EOMI, , Head/Neck: large neck supple CV: Regular paced, No murmurs, Pulm: improving rales b/l, no wheezing today Abd: soft, distended and mildly TTP, +BS x4 Ext: no clubbing/cyanosis, b/le LE edema, abdominal edema Neuro: Alert, no focal deficits, moves all extremities, OBJ DATA OBJ DATA Labs CBC & Chem 7: 04/03/21 09:14 04/03/21 09:14 Labs: Abnormal Lab Results 04/03/21 04/03/21 04/02/21 09:14 09:14 09:43 RBC 3.08 L Hgb 9.2 L Hct 29.9 L MCHC 30.8 L [place] % (Auto) Lymph # (Auto) [place] # (Auto) 1.19 H Sodium 130 L 124 L Chloride 92 L 87 L BUN 67 H 67 H Creatinine 4.2 H 3.6 H Glucose 144 H 228 H Uric Acid 11.8 H Calcium 8.2 L 7.7 L Phosphorus 5.4 H 5.0 H Lactate Dehydrogenase 234 H C-Reactive Protein Total Protein Albumin/Globulin Ratio 0.9 L Procalcitonin Urine Protein Urine Occult Blood Ur Leukocyte Esterase Urine RBC Urine WBC 04/01/21 04/01/21 04/01/21 19:57 04:57 04:56 RBC Hgb Hct MCHC [place] % (Auto) Lymph # (Auto) [place] # (Auto) Sodium Chloride BUN Creatinine Glucose Uric Acid Calcium Phosphorus Lactate Dehydrogenase C-Reactive Protein 9.10 H Total Protein Albumin/Globulin Ratio Procalcitonin 0.25 H Urine Protein Trace A Urine Occult Blood Large A Ur Leukocyte Esterase Small A Urine RBC 30 H Urine WBC 6 H 04/01/21 04/01/21 04:56 04:56 RBC 2.87 L Hgb 8.6 L Hct 27.3 L MCHC [place] % (Auto) 13.0 H Lymph # (Auto) 1.41 L [place] # (Auto) 0.94 H Sodium 127 L Chloride 89 L BUN 63 H Creatinine 3.6 H Glucose 128 H Uric Acid 11.0 H Calcium 7.6 L Phosphorus 5.0 H Lactate Dehydrogenase C-Reactive Protein Total Protein 5.8 L Albumin/Globulin Ratio Procalcitonin Urine Protein Urine Occult Blood Ur Leukocyte Esterase Urine RBC Urine WBC Meds: Medications Acetaminophen (Acetaminophen 325 Mg Tablet) 650 mg PO Q6HP PRN PRN Reason: PAIN/FEVER > 101 Last Admin: 04/02/21 07:10 Dose: 650 mg Documented by: Albuterol/Ipratropium (Ipratropium/Albuterol 3 Ml Ampul.Neb) 3 ml NEB Q4HP PRN PRN Reason: Shortness Of Breath Albuterol/Ipratropium (Ipratropium/Albuterol 3 Ml Ampul.Neb) 3 ml NEB Q12 [facility] Last Admin: 04/03/21 08:55 Dose: 3 ml Documented by: Apixaban (Apixaban 5 Mg Tablet) 5 mg PO BID [facility] Last Admin: 04/03/21 09:01 Dose: 5 mg Documented by: Aspirin (Aspirin 81 Mg Tab.Chew) 81 mg PO QDAY [facility] Last Admin: 04/03/21 08:51 Dose: 81 mg Documented by: Atorvastatin Calcium (Atorvastatin 40 Mg Tablet) 80 mg PO QDAY [facility] Last Admin: 04/03/21 08:51 Dose: 80 mg Documented by: Bisacodyl (Bisacodyl 5 Mg Tablet) 10 mg PO DAILYP PRN PRN Reason: Constipation Bisacodyl (Bisacodyl 10 Mg Supp.Rect) 10 mg CA DAILYP PRN PRN Reason: Constipation Cefuroxime Axetil (Cefuroxime 500 Mg Tablet) 500 mg PO Q12 [facility]; Protocol Stop: 04/06/21 08:59 Last Admin: 04/03/21 09:01 Dose: 500 mg Documented by: Citalopram Hydrobromide (Citalopram 20 Mg Tablet) 20 mg PO QDAY [facility] Last Admin: 04/03/21 08:51 Dose: 20 mg Documented by: Dextrose (Dextrose 50% 50 Ml Vial) 0 ml IV UD PRN PRN Reason: Hypoglycemia Diagnostic Test (Pha) (Accu-Chek 1 Each Strip) 1 each FS ACHS [facility] Last Admin: 04/03/21 12:52 Dose: 1 each Documented by: Docusate Sodium (Docusate Sodium 100 Mg Capsule) 100 mg PO BID [facility] Last Admin: 04/03/21 08:51 Dose: 100 mg Documented by: Finasteride (Finasteride 5 Mg Tablet) 5 mg PO QDAY [facility] Last Admin: 04/03/21 09:01 Dose: 5 mg Documented by: Gabapentin (Gabapentin 300 Mg Capsule) 600 mg PO HSP PRN PRN Reason: peripheral neuropathy Last Admin: 04/03/21 00:07 Dose: 600 mg Documented by: Glucose (Dextrose 31 Gm Oral.Susp) 15 gm PO PRN PRN PRN Reason: Hypoglycemia Potassium Chloride 40 meq/ (Dextrose) 520 mls @ 130 mls/hr IV UD PRN PRN Reason: Potassium < 3 Magnesium Sulfate (Magnesium Sulfate) 2 gm in 50 mls @ 50 mls/hr IV UD PRN PRN Reason: Magnesium </= 1.6 Sodium Chloride (Sodium Chloride 0.9%) 250 mls @ 20 mls/hr IV .[id number] [facility] Last Admin: 04/03/21 13:02 Dose: 10 mls/hr Documented by: Furosemide 250 mg/ Sodium (Chloride) 250 mls @ 5 mls/hr IV Q24H [facility]; Protocol Last Admin: 04/03/21 14:15 Dose: Not Given Documented by: Insulin Glargine (Insulin Glargine, Human 1 Unit/0.01 Ml) 40 unit SQ QAM [facility] Last Admin: 04/03/21 08:29 Dose: 40 unit Documented by: Insulin Glargine (Insulin Glargine, Human 1 Unit/0.01 Ml) 20 unit SQ HS [facility] Last Admin: 04/02/21 21:23 Dose: 20 units Documented by: Insulin Human Lispro (Insulin Lispro 1 Unit/0.01 Ml Unit) 0 unit SQ ACHS [facility]; Protocol Last Admin: 04/03/21 12:57 Dose: 9 unit Documented by: Lactulose (Lactulose 20 Gm/30 Ml Oral.Lin) 20 gm PO DAILYP PRN PRN Reason: Constipation Last Admin: 03/30/21 06:41 Dose: 20 gm Documented by: Metoclopramide HCl (Metoclopramide 10 Mg/2 Ml Vial) 10 mg IV Q6HP PRN PRN Reason: Nausea And Vomiting Morphine Sulfate (Morphine 2 Mg/Ml Vial) 2 mg IV Q1HP PRN; Protocol PRN Reason: Per Pain Protocol Last Admin: 03/30/21 11:15 Dose: 2 mg Documented by: Nitroglycerin (Nitroglycerin 0.4 Mg Tab.Subl) 0.4 mg SL Q5M PRN PRN Reason: Chest Pain Ondansetron HCl (Ondansetron 4 Mg/2 Ml Vial) 4 mg IV Q4HP PRN PRN Reason: Nausea And Vomiting Last Admin: 03/30/21 11:14 Dose: 4 mg Documented by: Pantoprazole Sodium (Pantoprazole 40 Mg Tablet) 0 mg PO BIDAC [facility] Last Admin: 04/03/21 06:39 Dose: 40 mg Documented by: Polyethylene Glycol (Polyethylene Glycol 3350 17 Gm Packet) 17 gm PO DAILYP PRN PRN Reason: Constipation Potassium Chloride (Potassium Chloride 20 Meq Tablet) 40 meq PO UD PRN PRN Reason: Potssium is 3-3.5 Potassium Chloride (Potassium Chloride 20 Meq Tablet) 40 meq PO UD PRN PRN Reason: Potassium < 3 Ropinirole HCl (Ropinirole 0.25 Mg Tablet) 0.25 mg PO DAILY [facility] Last Admin: 04/03/21 12:52 Dose: 0.25 mg Documented by: Senna (Sennosides 1 Tablet) 2 tab PO DAILYP PRN PRN Reason: Constipation Sodium Chloride (0.9 % Sodium Chloride 10 Ml Syringe) 10 ml IV Q8 [facility] Last Admin: 04/03/21 13:03 Dose: 10 ml Documented by: Tamsulosin HCl (Tamsulosin 0.4 Mg Capsule) 0.4 mg PO QDAY [facility] Last Admin: 04/03/21 08:51 Dose: 0.4 mg Documented by: A/P Narrative A/P Narrative: A: *Probable cardiorenal syndrome-LUIS ANTONIO on CKD IV and HFpEF *Acute on chronic diastolic CHF (EF normalized from 2018) -good UOP initially, then slowed, now on lasix drip *Acute on CKD IV injury (base Cr~3): Follows with Dr. Guerrero *Chronic hypoxic respiratory failure (3L@home): *PNA, present on admission: *Ileus/Abd pain: resolved *Hyperkalemia: resolved *CAD w/stent: *Afib w/PPM: on eliquis *Anemia, chronic: stable *COPD (3L@ home): Follows with Dr. Suarez *KALPESH on BiPAP@home: *Obesity: *HTN: *DM w/neuropathy: *Depression: *GERD: P: -lasix drip per nephrology -fluid restrict -nephrology following -deescalate to cefuroxime-treat a total of 5 days -cont home ASA/Statin -hold ARB for LUIS ANTONIO -home basal insulin (decreased evening dose) and SSI -home Bipap -PT/OT -ppx: apixaban/home ppi -code status: full -disposition: TBD Time Spent With Patient Time: Total time spent is greater than 50% in coordination of care (as documented) at patient's floor/unit and/or counseling patient:
[2021-04-04] MEDS: 0.9 % SODIUM CHLORIDE 250 ML IV SCH ×3 (05:26→20:30)
[2021-04-04] MEDS: 0.9 % SODIUM CHLORIDE 10 ML SYRINGE IV SCH ×3 (05:59→21:39)
[2021-04-04 07:09] LABS: Blood Urea Nitrogen 68 mg/dL (8-23); Calcium 8.1 mg/dL (8.6-10.4); Carbon Dioxide 26 mmol/L (22-30); Chloride 95 mmol/L (96-108); Glomerular Filtration Rate 15; Glucose 123 mg/dL (70-105)
--- NOTE | 2021-04-04 08:04 | Nephrology Progress Note ---
SUBJECTIVE Subjective Patient information: Note initiated : 04/04/21 at 8:03 am Patient: Black Armstrong 80 y/o M admitted on 03/29/21 for Elevated Troponin. Chief Complaint: Weakness Pertinent ROS: Dyspnea at baseline Dependent edema Constitutional Vitals: Vital Signs Temp Pulse Resp BP Pulse Ox 97.5 F 63 18 151/57 94 04/04/21 04:00 04/03/21 22:45 04/04/21 04:00 04/04/21 07:00 04/04/21 07:02 Period Temp Pulse Resp BP Sys/Carter Pulse Ox Last 24 Hr 97.2 F-98.1 F 61-63 11-18 127-165/49-77 90-97 Intake and Output 04/03/21 04/04/21 04/04/21 21:59 05:59 13:59 Intake Total 844 228 Output Total 694 330 180 Balance 150 -102 -180 Weight 299 lb 3.2 oz Intake & Output: Intake & Output 04/03/21 04/04/21 04/04/21 21:59 05:59 13:59 Intake Total 844 228 Output Total 694 330 180 Balance 150 -102 -180 Weight 299 lb 3.2 oz Intake: IV 24 228 Sodium Chloride 0.9% 250 ml @ 12 228 20 mls/hr IV .[id number] [facility] Rx#: [id number] Lasix 250 mg In Sodium Chloride 12 0.9% 225 ml @ 10 MG/HR 10 mls/ hr IV Q24H [facility] Rx#:[id number] Oral 820 Output: Urine Catheter Amount 694 330 180 Other: Meal Dinner Snack Percent of Meal Consumed 100% 100% Feeding Ability Independent Urine Appearance Clear Clear Sediment Urine Color Dark Yellow Blood Tinged [place] General appearance: cooperative and no acute distress Head Head exam: Present normal inspection Eye Eye exam: Present normal appearance ENT ENT exam: Present mucous membranes moist Respiratory Respiratory exam: Absent respiratory distress Cardiovascular Cardiovascular exam: Present normal rate and rhythm GI/Abdominal GI/Abdominal exam: Present soft; Absent tenderness Extremities Exam Extremities exam: Absent joint swelling and pedal edema Neurological Exam Neurological exam: Present alert and oriented X3 Psychiatric Psychiatric exam: Present normal affect and normal mood Skin Skin exam: Present warm; Absent rash A/P Assessment and plan (1) Chronic kidney disease (CKD) stage G4/A1, severely decreased glomerular filtration rate (GFR) between 15-29 mL/min/1.73 square meter and albuminuria creatinine ratio less than 30 mg/g: Assessment and plan: Black Armstrong is a 80-year-old male with coronary artery disease s/p stents, chronic combined systolic and diastolic heart failure (Echo on X: LVEF 50%, no segmental wall motion abnormalities, Grade I diastolic dysfunction), hypertension, chronic kidney disease stage 4 admitted on 03/29/21 for ileus. Baseline serum creatinine: 2.9 to 3.6 (eGFR 15 to 20) since April 2020. Nephrology consultation was requested for chronic kidney disease stage G4/A1 with suspected acute kidney injury. Chronic kidney disease stage G4/A1, suspected acute kidney injury with hyponatremia, present on arrival. There is no recent history of IV contrast administration or NSAID use. Previous Workup: Urinalysis on 02/18/21: Yellow, Clear, pH 6.0, SG 1.013, protein negative, blood negative, leukocyte esterase negative. Urine random total protein/creatinine on 08/03/20: 140 mg/g creatinine. Workup: Urinalysis on 04/01/21: Yellow, Clear, pH 7.0, SG 1.020, protein trace, blood large, leukocyte esterase small, random urine protein/creatinine 110 mg/g creatinine. CT Abdomen and Pelvis without contrast on 03/30/21: Both kidneys are relatively small. There is no stone, hydronephrosis or mass effect in either kidney. Right kidney is 9.6 cm in length and left is 10.1 cm. Treatment: Furosemide 10 mg/hr for fluid overload started on 04/02/21 and decreased to 5 mg/hr on 04/03/21. Progress: Serum creatinine decreased from 4.2 to 3.7 in the past 24 hours. Baseline serum creatinine: 2.9 to 3.6 (eGFR 15 to 20) since April 2020. Urine output: 1,874 ml reported in the past 24 hours. Hyponatremia associated with fluid overload. I/O: -1.8L since admission. Weight: 295 lbs on admission (03/28/21); 299 lbs on 04/03/21. No uremic symptoms. Recommendations/Plan: Continue the same diuretic dose for now. Avoid NSAIDs, nephrotoxic medications and IV contrast. Monitor BMP and urine output. Status: Chronic (2) Acute kidney injury: Status: Suspected Time Spent With Patient Time: Total time spent is greater than 50% in coordination of care (as documented) at patient's floor/unit and/or counseling patient:
[2021-04-04] MEDS: IPRATROPIUM/ALBUTEROL 3 ML AMPUL.NEB NEB SCH (08:11)
[2021-04-04] MEDS: INSULIN LISPRO 1 UNIT/0.01 ML UNIT SQ SCH ×4 (08:25→21:37)
[2021-04-04] MEDS: DOCUSATE SODIUM 100 MG CAPSULE PO SCH ×2 (08:26→21:40)
[2021-04-04] MEDS: ASPIRIN 81 MG TAB.CHEW PO SCH (08:34)
[2021-04-04] MEDS: PANTOPRAZOLE 40 MG TABLET PO SCH ×2 (08:34→17:03)
[2021-04-04] MEDS: TAMSULOSIN 0.4 MG CAPSULE PO SCH (08:34)
[2021-04-04] MEDS: CITALOPRAM 20 MG TABLET PO SCH (08:35)
[2021-04-04] MEDS: rOPINIRole 0.25 MG TABLET PO SCH (08:35)
[2021-04-04] MEDS: FINASTERIDE 5 MG TABLET PO SCH (08:35)
[2021-04-04] MEDS: ATORVASTATIN 40 MG TABLET PO SCH (08:35)
[2021-04-04] MEDS: CEFUROXIME 500 MG TABLET PO SCH ×2 (08:35→21:40)
[2021-04-04] MEDS: INSULIN GLARGINE, HUMAN 1 UNIT/0.01 ML SQ SCH ×2 (08:35→21:38)
[2021-04-04] MEDS: APIXABAN 5 MG TABLET PO SCH ×2 (08:36→21:40)
[2021-04-04] MEDS: FUROSEMIDE 250 MG in 0.9 % SODIUM CHLORIDE 225 ML IV SCH ×2 (11:03→14:18)
--- NOTE | 2021-04-04 14:22 | Internal Med Progress Note ---
SUBJECTIVE Subjective Patient information: Note initiated : 04/04/21 at 2:21 pm Service Date, if different from initiated Date: [] Patient: Black Armstrong 80 y/o M admitted on 03/29/21 for Elevated Troponin. Chief Complaint: [] Interval history: Interval history: History of present illness: Mr. Armstrong is a 80 year old M Presents to ED with increased lower extremity swelling and abdominal discomfort. He was seen by his PCP earlier and felt to be in CHF exacerbation and diuretics were increased. However symptoms worsened and patient upcoming to ED. Chest x-ray from earlier today with pulmonary edema. Patient also complains of shortness of breath dyspnea on exertion weight gain. He was given Lasix in the ED with 800 cc output. Past 3 days with increasing swelling in his legs lethargy weakness worsening chronic cough shortness of breath. Denies any recent sick contacts. Vaginal nausea some constipation. Says is abdominal pain was lower quadrants and sharp. Her daughter is abdomen seems less bloated today after diuresis in ED last night. 03/30 Good urine output. Poor sleep last night. Complains of abdominal discomfort sharp pain lower quadrants. some nausea/headache 03/31 Multiple BMs last night. Patient overall feeling better. Cough. Currently on 2 L nasal cannula. Mild headache this morning. No nausea. 04/01 abx started given increased in crp/PCT and history of increased productive cough. Cough initially considered part of his copd, however, with increasing markers as above. poor UOP yesterday after good UOP first 24 hours but improved last night, but bump in Cr. 04/02 Nephrology started lasix drip, monitoring urine output and renal function. 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 Nephrology continuing same lasix drip dose. Deescal ated abx from Zosyn to Cefuroxime for possible pneumonia. Added Requip for restless leg symptoms. 04/04 Continues on lasix drip. Review of Systems: denies fever/chills/nausea/vomiting/chest pain/. Otherwise see above. Constitutional Vitals: Vital Signs Temp Pulse Resp BP Pulse Ox 97.5 F 91 H 18 135/73 91 04/04/21 04:00 04/04/21 08:34 04/04/21 08:32 04/04/21 13:07 04/04/21 13:07 Period Temp Pulse Resp BP Sys/Carter Pulse Ox Last 24 Hr 97.5 F-98.0 F 63-91 16-18 129-165/47-77 90-99 Intake and Output 04/04/21 04/04/21 04/04/21 05:59 13:59 21:59 Intake Total 228 104 Output Total 330 645 Balance -102 -541 Intake & Output: Intake & Output 04/04/21 04/04/21 04/04/21 05:59 13:59 21:59 Intake Total 228 104 Output Total 330 645 Balance -102 -541 Intake: IV 228 104 Sodium Chloride 0.9% 250 ml @ 228 20 mls/hr IV .[id number] [facility] Rx#: [id number] Lasix 250 mg In Sodium Chloride 104 0.9% 225 ml @ 10 MG/HR 10 mls/ hr IV Q24H [facility] Rx#:[id number] Output: Urine Catheter Amount 330 645 Other: Meal Snack Lunch Percent of Meal Consumed 100% 100% Feeding Ability Independent Urine Appearance Clear Sediment Urine Color Blood Tinged [place] Stool Size Large Stool Color Brown Stool Consistency Loose Exam: General: Alert, Awake, No acute Distress, obese Eyes/N/T: EOMI, , Head/Neck: large neck supple CV: Regular paced, No murmurs, Pulm: improving rales b/l, no wheezing today Abd: soft, distended and mildly TTP, +BS x4 Ext: no clubbing/cyanosis, b/le LE edema, abdominal edema Neuro: Alert, no focal deficits, moves all extremities, OBJ DATA OBJ DATA Labs CBC & Chem 7: 04/03/21 09:14 04/05/21 05:15 Labs: Abnormal Lab Results 04/04/21 04/03/21 04/03/21 05:16 09:14 09:14 RBC 3.08 L Hgb 9.2 L Hct 29.9 L MCHC 30.8 L Woodson # (Auto) 1.19 H Sodium 130 L Chloride 95 L 92 L BUN 68 H 67 H Creatinine 3.7 H 4.2 H Glucose 123 H 144 H Uric Acid 11.8 H Calcium 8.1 L 8.2 L Phosphorus 5.4 H Lactate Dehydrogenase 234 H Albumin/Globulin Ratio 0.9 L Urine Protein Urine Occult Blood Ur Leukocyte Esterase Urine RBC Urine WBC 07/11/21 07/10/21 09:43 19:57 RBC Hgb Hct MCHC Woodson # (Auto) Sodium 124 L Chloride 87 L BUN 67 H Creatinine 3.6 H Glucose 228 H Uric Acid Calcium 7.7 L Phosphorus 5.0 H Lactate Dehydrogenase Albumin/Globulin Ratio Urine Protein Trace A Urine Occult Blood Large A Ur Leukocyte Esterase Small A Urine RBC 30 H Urine WBC 6 H Meds: Medications Acetaminophen (Acetaminophen 325 Mg Tablet) 650 mg PO Q6HP PRN PRN Reason: PAIN/FEVER > 101 Last Admin: 04/03/21 17:05 Dose: 650 mg Documented by: Albuterol/Ipratropium (Ipratropium/Albuterol 3 Ml Ampul.Neb) 3 ml NEB Q4HP PRN PRN Reason: Shortness Of Breath Albuterol/Ipratropium (Ipratropium/Albuterol 3 Ml Ampul.Neb) 3 ml NEB Q12 [facility] Last Admin: 04/04/21 08:11 Dose: 3 ml Documented by: Apixaban (Apixaban 5 Mg Tablet) 5 mg PO BID [facility] Last Admin: 04/04/21 08:36 Dose: 5 mg Documented by: Aspirin (Aspirin 81 Mg Tab.Chew) 81 mg PO QDAY [facility] Last Admin: 04/04/21 08:34 Dose: 81 mg Documented by: Atorvastatin Calcium (Atorvastatin 40 Mg Tablet) 80 mg PO QDAY [facility] Last Admin: 04/04/21 08:35 Dose: 80 mg Documented by: Bisacodyl (Bisacodyl 5 Mg Tablet) 10 mg PO DAILYP PRN PRN Reason: Constipation Bisacodyl (Bisacodyl 10 Mg Supp.Rect) 10 mg [place] DAILYP PRN PRN Reason: Constipation Cefuroxime Axetil (Cefuroxime 500 Mg Tablet) 500 mg PO Q12 [facility]; Protocol Stop: 04/06/21 08:59 Last Admin: 04/04/21 08:35 Dose: 500 mg Documented by: Citalopram Hydrobromide (Citalopram 20 Mg Tablet) 20 mg PO QDAY [facility] Last Admin: 04/04/21 08:35 Dose: 20 mg Documented by: Dextrose (Dextrose 50% 50 Ml Vial) 0 ml IV UD PRN PRN Reason: Hypoglycemia Diagnostic Test (Pha) (Accu-Chek 1 Each Strip) 1 each FS [facility] Last Admin: 04/04/21 11:09 Dose: 1 each Documented by: Docusate Sodium (Docusate Sodium 100 Mg Capsule) 100 mg PO BID [facility] Last Admin: 04/04/21 08:26 Dose: Not Given Documented by: Finasteride (Finasteride 5 Mg Tablet) 5 mg PO QDAY [facility] Last Admin: 04/04/21 08:35 Dose: 5 mg Documented by: Gabapentin (Gabapentin 300 Mg Capsule) 600 mg PO HSP PRN PRN Reason: peripheral neuropathy Last Admin: 04/03/21 22:35 Dose: 600 mg Documented by: Glucose (Dextrose 31 Gm Oral.Susp) 15 gm PO PRN PRN PRN Reason: Hypoglycemia Potassium Chloride 40 meq/ (Dextrose) 520 mls @ 130 mls/hr IV UD PRN PRN Reason: Potassium < 3 Magnesium Sulfate (Magnesium Sulfate) 2 gm in 50 mls @ 50 mls/hr IV UD PRN PRN Reason: Magnesium </= 1.6 Sodium Chloride (Sodium Chloride 0.9%) 250 mls @ 20 mls/hr IV .[id number] [facility] Last Admin: 04/04/21 05:26 Dose: 15 mls/hr Documented by: Furosemide 250 mg/ Sodium (Chloride) 250 mls @ 5 mls/hr IV Q24H [facility]; Protocol Last Admin: 04/04/21 14:18 Dose: Not Given Documented by: Insulin Glargine (Insulin Glargine, Human 1 Unit/0.01 Ml) [facility] Last Admin: 04/04/21 08:35 Dose: 40 unit Documented by: Insulin Glargine (Insulin Glargine, Human 1 Unit/0.01 Ml) 20 unit SQ [facility] Last Admin: 04/03/21 22:32 Dose: 20 units Documented by: Insulin Human Lispro (Insulin Lispro 1 Unit/0.01 Ml Unit) 0 unit SQ [facility]; Protocol Last Admin: 04/04/21 11:36 Dose: 3 unit Documented by: Lactulose (Lactulose 20 Gm/30 Ml Oral.Lin) 20 gm PO DAILYP PRN PRN Reason: Constipation Last Admin: 03/30/21 06:41 Dose: 20 gm Documented by: Metoclopramide HCl (Metoclopramide 10 Mg/2 Ml Vial) 10 mg IV Q6HP PRN PRN Reason: Nausea And Vomiting Morphine Sulfate (Morphine 2 Mg/Ml Vial) 2 mg IV Q1HP PRN; Protocol PRN Reason: Per Pain Protocol Last Admin: 03/30/21 11:15 Dose: 2 mg Documented by: Nitroglycerin (Nitroglycerin 0.4 Mg Tab.Subl) 0.4 mg SL Q5M PRN PRN Reason: Chest Pain Ondansetron HCl (Ondansetron 4 Mg/2 Ml Vial) 4 mg IV Q4HP PRN PRN Reason: Nausea And Vomiting Last Admin: 03/30/21 11:14 Dose: 4 mg Documented by: Pantoprazole Sodium (Pantoprazole 40 Mg Tablet) 0 mg PO BIDAC [facility] Last Admin: 04/04/21 08:34 Dose: 40 mg Documented by: Polyethylene Glycol (Polyethylene Glycol 3350 17 Gm Packet) 17 gm PO DAILYP PRN PRN Reason: Constipation Potassium Chloride (Potassium Chloride 20 Meq Tablet) 40 meq PO UD PRN PRN Reason: Potssium is 3-3.5 Potassium Chloride (Potassium Chloride 20 Meq Tablet) 40 meq PO UD PRN PRN Reason: Potassium < 3 Ropinirole HCl (Ropinirole 0.25 Mg Tablet) 0.25 mg PO DAILY [facility] Last Admin: 04/04/21 08:35 Dose: 0.25 mg Documented by: Senna (Sennosides 1 Tablet) 2 tab PO DAILYP PRN PRN Reason: Constipation Sodium Chloride (0.9 % Sodium Chloride 10 Ml Syringe) 10 ml IV Q8 [facility] Last Admin: 04/04/21 05:59 Dose: 10 ml Documented by: Tamsulosin HCl (Tamsulosin 0.4 Mg Capsule) 0.4 mg PO QDAY [facility] Last Admin: 04/04/21 08:34 Dose: 0.4 mg Documented by: A/P Narrative A/P Narrative: A: *Probable cardiorenal syndrome-LUIS ANTONIO on CKD IV and HFpEF *Acute on chronic diastolic CHF (EF normalized from 2019) -good UOP initially, then slowed, now on lasix drip *Acute on CKD IV injury (base Cr~3): Follows with Dr. Guerrero *Chronic hypoxic respiratory failure (3L@home): *PNA, present on admission: *Ileus/Abd pain: resolved *Hyperkalemia: resolved *CAD w/stent: *Afib w/PPM: on eliquis *Anemia, chronic: stable *COPD (3L@ home): Follows with Dr. Suarez *KALPESH on BiPAP@home: *Obesity: *HTN: *DM w/neuropathy: *Depression: *GERD: P: -lasix drip per nephrology -fluid and sodium restrict -nephrology following -deescalate to cefuroxime-treat a total of 5 days -cont home ASA/Statin -hold ARB for LUIS ANTONIO -home basal insulin (decreased evening dose) and SSI -home Bipap -PT/OT -ppx: apixaban/home ppi -code status: full -disposition: TBD Time Spent With Patient Time: Total time spent is greater than 50% in coordination of care (as documented) at patient's floor/unit and/or counseling patient:
[2021-04-04] MEDS: GABAPENTIN 300 MG CAPSULE PO PRN (21:40)
[2021-04-05] MEDS: IPRATROPIUM/ALBUTEROL 3 ML AMPUL.NEB NEB SCH ×3 (05:01→21:04)
[2021-04-05] MEDS: 0.9 % SODIUM CHLORIDE 10 ML SYRINGE IV SCH ×3 (05:51→22:31)
[2021-04-05] MEDS: PANTOPRAZOLE 40 MG TABLET PO SCH ×2 (07:30→17:06)
[2021-04-05] MEDS: INSULIN LISPRO 1 UNIT/0.01 ML UNIT SQ SCH ×4 (07:31→21:33)
[2021-04-05 07:49] LABS: ALT/SGPT 39 U/L (<40); AST/SGOT 38 U/L (<40); Albumin 3.5 gm/dL (3.2-5.2); Albumin/Globulin Ratio 1.2 (1.0-2.3); Alkaline Phosphatase 82 U/L (39-117); Bilirubin,Direct < 0.2 mg/dL (0-0.3); Bilirubin,Total 0.2 mg/dL (0.1-1.0); Blood Urea Nitrogen 70 mg/dL (8-23); Carbon Dioxide 30 mmol/L (22-30); Chloride 97 mmol/L (96-108); Glomerular Filtration Rate 15; Glucose 152 mg/dL (70-105); Lactate Dehydrogenase 219 U/L (135-225); Phosphorous 5.1 mg/dL (2.5-4.5); Triglycerides 78 mg/dL (<150); Uric Acid 12.9 mg/dL (2.5-8.0)
--- NOTE | 2021-04-05 08:02 | Nephrology Progress Note ---
SUBJECTIVE Subjective Patient information: Note initiated : 04/05/21 at 8:02 am Patient: Black Armstrong 80 y/o M admitted on 03/29/21 for Elevated Troponin. Chief Complaint: Weakness Pertinent ROS: Dyspnea at baseline Dependent edema Feeling better Constitutional Vitals: Vital Signs Temp Pulse Resp BP Pulse Ox 97.5 F 91 H 18 168/63 92 04/04/21 04:00 04/04/21 08:34 04/04/21 08:32 04/05/21 07:04 04/05/21 07:18 Period Temp Pulse Resp BP Sys/Carter Pulse Ox Last 24 Hr 91-91 18 125-178/47-94 90-97 Intake and Output 04/04/21 04/05/21 04/05/21 21:59 05:59 13:59 Intake Total 586 200 Output Total 517 1735 275 Balance 69 -1535 -275 Weight 294 lb 8 oz Intake & Output: Intake & Output 04/04/21 04/05/21 04/05/21 21:59 05:59 13:59 Intake Total 586 200 Output Total 517 1735 275 Balance 69 -1535 -275 Weight 294 lb 8 oz Intake: IV 226 Sodium Chloride 0.9% 250 ml @ 226 20 mls/hr IV .[id number] [facility] Rx#: [id number] Oral 360 200 Output: Urine Catheter Amount 432 1615 275 Void Amount 85 120 Other: Meal Dinner Percent of Meal Consumed 100% Urine Appearance Clear Urine Color Light Kelsey Urine Odor Normal Stool Size Large Stool Color Brown Stool Consistency Soft General appearance: cooperative and no acute distress Head Head exam: Present normal inspection Eye Eye exam: Present normal appearance ENT ENT exam: Present mucous membranes moist Respiratory Respiratory exam: Absent respiratory distress Cardiovascular Cardiovascular exam: Present normal rate and rhythm GI/Abdominal GI/Abdominal exam: Present soft; Absent tenderness Extremities Exam Extremities exam: Absent joint swelling and pedal edema Neurological Exam Neurological exam: Present alert and oriented X3 Psychiatric Psychiatric exam: Present normal affect and normal mood Skin Skin exam: Present warm; Absent rash A/P Assessment and plan (1) Chronic kidney disease (CKD) stage G4/A1, severely decreased glomerular filtration rate (GFR) between 15-29 mL/min/1.73 square meter and albuminuria creatinine ratio less than 30 mg/g: Assessment and plan: Black Armstrong is a 80-year-old male with coronary artery disease s/p stents, chronic combined systolic and diastolic heart failure (Echo on X: LVEF 50%, no segmental wall motion abnormalities, Grade I diastolic dysfunction), hypertension, chronic kidney disease stage 4 admitted on 03/29/21 for ileus. Baseline serum creatinine: 2.9 to 3.6 (eGFR 15 to 20) since April 2020. Nephrology consultation was requested for chronic kidney disease stage G4/A1 with suspected acute kidney injury. Chronic kidney disease stage G4/A1, suspected acute kidney injury with hyponatremia, present on arrival. There is no recent history of IV contrast administration or NSAID use. Previous Workup: Urinalysis on 02/18/21: Yellow, Clear, pH 6.0, SG 1.013, protein negative, blood negative, leukocyte esterase negative. Urine random total protein/creatinine on 08/03/20: 140 mg/g creatinine. Workup: Urinalysis on 04/01/21: Yellow, Clear, pH 7.0, SG 1.020, protein trace, blood large, leukocyte esterase small, random urine protein/creatinine 110 mg/g creatinine. CT Abdomen and Pelvis without contrast on 03/30/21: Both kidneys are relatively small. There is no stone, hydronephrosis or mass effect in either kidney. Right kidney is 9.6 cm in length and left is 10.1 cm. Treatment: Furosemide 10 mg/hr for fluid overload started on 04/02/21 and decreased to 5 mg/hr on 04/03/21. Progress: Serum creatinine decreased from 3.7 to 3.6 in the past 24 hours. Baseline serum creatinine: 2.9 to 3.6 (eGFR 15 to 20) since April 2020. Urine output: 2,787 ml reported in the past 24 hours. Hyperkalemia, mild. Hyponatremia associated with fluid overload, resolved. Fluid overload. I/O: -3.7L since admission. Weight: 295 lbs on admission (03/28/21); 299 lbs on 04/03/21. No uremic symptoms. Recommendations/Plan: Continue the same diuretic dose for now. Avoid NSAIDs, nephrotoxic medications and IV contrast. Monitor BMP and urine output. He has outpatient nephrology follow up with Dr Guerrero on 06/19/21. Status: Chronic (2) Acute kidney injury: Status: Suspected Time Spent With Patient Time: Total time spent is greater than 50% in coordination of care (as documented) at patient's floor/unit and/or counseling patient:
[2021-04-05] MEDS: CEFUROXIME 500 MG TABLET PO SCH (08:31)
[2021-04-05] MEDS: APIXABAN 5 MG TABLET PO SCH ×2 (08:31→21:31)
[2021-04-05] MEDS: ASPIRIN 81 MG TAB.CHEW PO SCH (08:31)
[2021-04-05] MEDS: TAMSULOSIN 0.4 MG CAPSULE PO SCH (08:31)
[2021-04-05] MEDS: DOCUSATE SODIUM 100 MG CAPSULE PO SCH ×2 (08:31→21:31)
[2021-04-05] MEDS: CITALOPRAM 20 MG TABLET PO SCH (08:31)
[2021-04-05] MEDS: ATORVASTATIN 40 MG TABLET PO SCH (08:32)
[2021-04-05] MEDS: rOPINIRole 0.25 MG TABLET PO SCH (08:32)
[2021-04-05] MEDS: INSULIN GLARGINE, HUMAN 1 UNIT/0.01 ML SQ SCH (08:32)
[2021-04-05] MEDS: FINASTERIDE 5 MG TABLET PO SCH (08:32)
[2021-04-05] MEDS ORDERED: BUMETANIDE 1 MG TABLET PO SCH (09:00)
[2021-04-05] MEDS: FUROSEMIDE 250 MG in 0.9 % SODIUM CHLORIDE 225 ML IV SCH (12:10)
--- NOTE | 2021-04-05 12:10 | Internal Med Progress Note ---
SUBJECTIVE Subjective Patient information: Note initiated : 04/05/21 at 12:07 pm Service Date, if different from initiated Date: [] Patient: Black Armstrong 80 y/o M admitted on 03/29/21 for Elevated Troponin. Chief Complaint: [] Interval history: Interval history: History of present illness: Mr. Armstrong is a 80 year old M Presents to ED with increased lower extremity swelling and abdominal discomfort. He was seen by his PCP earlier and felt to be in CHF exacerbation and diuretics were increased. However symptoms worsened and patient upcoming to ED. Chest x-ray from earlier today with pulmonary edema. Patient also complains of shortness of breath dyspnea on exertion weight gain. He was given Lasix in the ED with 800 cc output. Past 3 days with increasing swelling in his legs lethargy weakness worsening chronic cough shortness of breath. Denies any recent sick contacts. Vaginal nausea some constipation. Says is abdominal pain was lower quadrants and sharp. Her daughter is abdomen seems less bloated today after diuresis in ED last night. 03/30 Good urine output. Poor sleep last night. Complains of abdominal discomfort sharp pain lower quadrants. some nausea/headache 03/31 Multiple BMs last night. Patient overall feeling better. Cough. Currently on 2 L nasal cannula. Mild headache this morning. No nausea. 04/01 abx started given increased in crp/PCT and history of increased productive cough. Cough initially considered part of his copd, however, with increasing markers as above. poor UOP yesterday after good UOP first 24 hours but improved last night, but bump in Cr. 04/02 Nephrology started lasix drip, monitoring urine output and renal function. 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 Nephrology continuing same lasix drip dose. Amilcar lated abx from Zosyn to Cefuroxime for possible pneumonia. Added Requip for restless leg symptoms. 04/04 Continues on lasix drip. 04/05 Discontinued lasix drip, resumed home Bumex, remove dockery catheter, bladder scan Qshift. If renal function and electrolytes are stable tomorrow and no issues with urinary retention post cather removal can progress with discharge planning for SNF. Review of Systems: denies fever/chills/nausea/vomiting/chest pain/. Otherwise see above. Constitutional Vitals: Vital Signs Temp Pulse Resp BP Pulse Ox 98.0 F 91 H 18 162/64 90 04/05/21 08:02 04/05/21 08:47 04/05/21 10:01 04/05/21 10:01 04/05/21 10:06 Period Temp Pulse Resp BP Sys/Carter Pulse Ox Last 24 Hr 97.0 F-98.7 F 59-91 16-18 125-188/48-94 62-97 Intake and Output 04/04/21 04/05/21 04/05/21 21:59 05:59 13:59 Intake Total 586 200 Output Total 517 1735 855 Balance 69 -1535 -855 Weight 133.583 kg Intake & Output: Intake & Output 04/04/21 04/05/21 04/05/21 21:59 05:59 13:59 Intake Total 586 200 Output Total 517 1735 855 Balance 69 -1535 -855 Weight 133.583 kg Intake: IV 226 Sodium Chloride 0.9% 250 ml @ 226 20 mls/hr IV .[id number] [facility] Rx#: [id number] Oral 360 200 Output: Urine Catheter Amount 432 1615 855 Void Amount 85 120 Other: Meal snack Percent of Meal Consumed 100% Nourishment/Supplement name colton scott(2) Urine Appearance Clear Urine Color Light Kelsey Urine Odor Normal Stool Size Large Large Stool Color Brown Brown Stool Consistency Soft Soft # Bowel Movements 1 Exam: General: Alert, Awake, No acute Distress, obese Eyes/N/T: EOMI, , Head/Neck: large neck supple CV: Regular paced, No murmurs, Pulm: improving rales b/l, no wheezing today Abd: soft, distended and mildly TTP, +BS x4 Ext: no clubbing/cyanosis, b/le LE edema, abdominal edema Neuro: Alert, no focal deficits, moves all extremities, OBJ DATA OBJ DATA Labs CBC & Chem 7: 04/03/21 09:14 04/05/21 05:15 Labs: Abnormal Lab Results 04/05/21 04/04/21 04/03/21 05:15 05:16 09:14 RBC Hgb Hct MCHC [place]son # (Auto) Sodium 130 L Potassium 5.2 H Chloride 95 L 92 L BUN 70 H 68 H 67 H Creatinine 3.6 H 3.7 H 4.2 H Glucose 152 H 123 H 144 H Uric Acid 12.9 H 11.8 H Calcium 8.0 L 8.1 L 8.2 L Phosphorus 5.1 H 5.4 H Lactate Dehydrogenase 234 H Albumin/Globulin Ratio 0.9 L 04/03/21 09:14 RBC 3.08 L Hgb 9.2 L Hct 29.9 L MCHC 30.8 L Anson # (Auto) 1.19 H Sodium Potassium Chloride BUN Creatinine Glucose Uric Acid Calcium Phosphorus Lactate Dehydrogenase Albumin/Globulin Ratio Meds: Medications Acetaminophen (Acetaminophen 325 Mg Tablet) 650 mg PO Q6HP PRN PRN Reason: PAIN/FEVER > 101 Last Admin: 04/03/21 17:05 Dose: 650 mg Documented by: Albuterol/Ipratropium (Ipratropium/Albuterol 3 Ml Ampul.Neb) 3 ml NEB Q4HP PRN PRN Reason: Shortness Of Breath Albuterol/Ipratropium (Ipratropium/Albuterol 3 Ml Ampul.Neb) 3 ml NEB Q12 [facility] Last Admin: 04/05/21 08:32 Dose: 3 ml Documented by: Apixaban (Apixaban 5 Mg Tablet) 5 mg PO BID [facility] Last Admin: 04/05/21 08:31 Dose: 5 mg Documented by: Aspirin (Aspirin 81 Mg Tab.Chew) 81 mg PO QDAY [facility] Last Admin: 04/05/21 08:31 Dose: 81 mg Documented by: Atorvastatin Calcium (Atorvastatin 40 Mg Tablet) 80 mg PO QDAY [facility] Last Admin: 04/05/21 08:32 Dose: 80 mg Documented by: Bisacodyl (Bisacodyl 5 Mg Tablet) 10 mg PO DAILYP PRN PRN Reason: Constipation Bisacodyl (Bisacodyl 10 Mg Supp.Rect) 10 mg FL DAILYP PRN PRN Reason: Constipation Cefuroxime Axetil (Cefuroxime 500 Mg Tablet) 500 mg PO Q12 [facility]; Protocol Stop: 04/06/21 08:59 Last Admin: 04/05/21 08:31 Dose: 500 mg Documented by: Citalopram Hydrobromide (Citalopram 20 Mg Tablet) 20 mg PO QDAY [facility] Last Admin: 04/05/21 08:31 Dose: 20 mg Documented by: Dextrose (Dextrose 50% 50 Ml Vial) 0 ml IV UD PRN PRN Reason: Hypoglycemia Diagnostic Test (Pha) (Accu-Chek 1 Each Strip) 1 each FS [facility] Last Admin: 04/05/21 11:42 Dose: 1 each Documented by: Docusate Sodium (Docusate Sodium 100 Mg Capsule) 100 mg PO BID [facility] Last Admin: 04/05/21 08:31 Dose: 100 mg Documented by: Finasteride (Finasteride 5 Mg Tablet) 5 mg PO QDAY [facility] Last Admin: 04/05/21 08:32 Dose: 5 mg Documented by: Gabapentin (Gabapentin 300 Mg Capsule) 600 mg PO HSP PRN PRN Reason: peripheral neuropathy Last Admin: 04/04/21 21:40 Dose: 600 mg Documented by: Glucose (Dextrose 31 Gm Oral.Susp) 15 gm PO PRN PRN PRN Reason: Hypoglycemia Potassium Chloride 40 meq/ (Dextrose) 520 mls @ 130 mls/hr IV UD PRN PRN Reason: Potassium < 3 Magnesium Sulfate (Magnesium Sulfate) 2 gm in 50 mls @ 50 mls/hr IV UD PRN PRN Reason: Magnesium </= 1.6 Insulin Glargine (Insulin Glargine, Human 1 Unit/0.01 Ml) [facility] Last Admin: 04/05/21 08:32 Dose: 40 unit Documented by: Insulin Glargine (Insulin Glargine, Human 1 Unit/0.01 Ml) 20 unit SQ [facility] Last Admin: 04/04/21 21:38 Dose: 20 units Documented by: Insulin Human Lispro (Insulin Lispro 1 Unit/0.01 Ml Unit) 0 unit SQ [facility]; Protocol Last Admin: 04/05/21 11:43 Dose: 6 unit Documented by: Lactulose (Lactulose 20 Gm/30 Ml Oral.Lin) 20 gm PO DAILYP PRN PRN Reason: Constipation Last Admin: 03/30/21 06:41 Dose: 20 gm Documented by: Metoclopramide HCl (Metoclopramide 10 Mg/2 Ml Vial) 10 mg IV Q6HP PRN PRN Reason: Nausea And Vomiting Morphine Sulfate (Morphine 2 Mg/Ml Vial) 2 mg IV Q1HP PRN; Protocol PRN Reason: Per Pain Protocol Last Admin: 03/30/21 11:15 Dose: 2 mg Documented by: Nitroglycerin (Nitroglycerin 0.4 Mg Tab.Subl) 0.4 mg SL Q5M PRN PRN Reason: Chest Pain Non-Formulary Medication (Bumetanide) 4 mg PO QAM [facility] Ondansetron HCl (Ondansetron 4 Mg/2 Ml Vial) 4 mg IV Q4HP PRN PRN Reason: Nausea And Vomiting Last Admin: 03/30/21 11:14 Dose: 4 mg Documented by: Pantoprazole Sodium (Pantoprazole 40 Mg Tablet) 40 mg PO BIDAC [facility] Last Admin: 04/05/21 07:30 Dose: 40 mg Documented by: Polyethylene Glycol (Polyethylene Glycol 3350 17 Gm Packet) 17 gm PO DAILYP PRN PRN Reason: Constipation Potassium Chloride (Potassium Chloride 20 Meq Tablet) 40 meq PO UD PRN PRN Reason: Potssium is 3-3.5 Potassium Chloride (Potassium Chloride 20 Meq Tablet) 40 meq PO UD PRN PRN Reason: Potassium < 3 Ropinirole HCl (Ropinirole 0.25 Mg Tablet) 0.25 mg PO DAILY [facility] Last Admin: 04/05/21 08:32 Dose: 0.25 mg Documented by: Senna (Sennosides 1 Tablet) 2 tab PO DAILYP PRN PRN Reason: Constipation Sodium Chloride (0.9 % Sodium Chloride 10 Ml Syringe) 10 ml IV Q8 [facility] Last Admin: 04/05/21 05:51 Dose: 10 ml Documented by: Tamsulosin HCl (Tamsulosin 0.4 Mg Capsule) 0.4 mg PO QDAY [facility] Last Admin: 04/05/21 08:31 Dose: 0.4 mg Documented by: A/P Narrative A/P Narrative: A: *Probable cardiorenal syndrome-LUIS ANTONIO on CKD IV and HFpEF *Acute on chronic diastolic CHF (EF normalized from 2019) -good UOP initially, then slowed, now on lasix drip *Acute on CKD IV injury (base Cr~3): Follows with Dr. Guerrero *Chronic hypoxic respiratory failure (3L@home): *PNA, present on admission: *Ileus/Abd pain: resolved *Hyperkalemia: resolved *CAD w/stent: *Afib w/PPM: on eliquis *Anemia, chronic: stable *COPD (3L@ home): Follows with Dr. Suarez *KALPESH on BiPAP@home: *Obesity: *HTN: *DM w/neuropathy: *Depression: *GERD: P: -Restart home Bumex, discontinue lasix drip. -remove dockery catheter and follow with bladder scan -fluid and sodium restrict -nephrology following -complete cefuroxime for possible PNA-treat a total of 5 days -cont home ASA/Statin -hold ARB for LUIS ANTONIO -home basal insulin (decreased evening dose) and SSI -home Bipap -PT/OT -ppx: apixaban/home ppi -code status: full -disposition: SNF Time Spent With Patient Time: Total time spent is greater than 50% in coordination of care (as documented) at patient's floor/unit and/or counseling patient:
[2021-04-05] MEDS ORDERED: POTASSIUM CHLORIDE 20 MEQ TABLET PO PRN ×2 (20:26)
[2021-04-05] MEDS ORDERED: GABAPENTIN 300 MG CAPSULE PO PRN (20:26)
[2021-04-05] MEDS ORDERED: DEXTROSE 50% 50 ML VIAL IV PRN (20:26)
[2021-04-05] MEDS ORDERED: morphine 2 MG/ML VIAL IV PRN (20:26)
[2021-04-05] MEDS ORDERED: LACTULOSE 20 GM/30 ML ORAL.SOL PO PRN (20:26)
[2021-04-05] MEDS ORDERED: METOCLOPRAMIDE 10 MG/2 ML VIAL IV PRN (20:26)
[2021-04-05] MEDS ORDERED: SENNOSIDES 1 TABLET PO PRN (20:26)
[2021-04-05] MEDS ORDERED: BISACODYL 5 MG TABLET PO PRN (20:26)
[2021-04-05] MEDS ORDERED: NITROGLYCERIN 0.4 MG TAB.SUBL SL PRN (20:26)
[2021-04-05] MEDS ORDERED: IPRATROPIUM/ALBUTEROL 3 ML AMPUL.NEB NEB PRN (20:26)
[2021-04-05] MEDS ORDERED: ONDANSETRON 4 MG/2 ML VIAL IV PRN (20:26)
[2021-04-05] MEDS ORDERED: DEXTROSE 31 GM ORAL.SUSP PO PRN (20:26)
[2021-04-05] MEDS ORDERED: MAGNESIUM SULFATE 2 GM/50 ML BAG IV PRN (20:26)
[2021-04-05] MEDS ORDERED: POLYETHYLENE GLYCOL 3350 17 GM PACKET PO PRN (20:26)
[2021-04-05] MEDS ORDERED: POTASSIUM CHLORIDE 40 MEQ in DEXTROSE 5% IN WATER 500 ML IV PRN (20:26)
[2021-04-05] MEDS ORDERED: ACETAMINOPHEN 325 MG TABLET PO PRN (20:26)
[2021-04-05] MEDS ORDERED: CEFUROXIME 500 MG TABLET PO SCH (21:00)
[2021-04-05] MEDS ORDERED: INSULIN GLARGINE, HUMAN 1 UNIT/0.01 ML SQ SCH (21:00)
[2021-04-06] MEDS: 0.9 % SODIUM CHLORIDE 10 ML SYRINGE IV SCH (05:14)
[2021-04-06 07:12] LABS: ALT/SGPT 33 U/L (<40); AST/SGOT 28 U/L (<40); Albumin 3.3 gm/dL (3.2-5.2); Albumin/Globulin Ratio 0.9 (1.0-2.3); Alkaline Phosphatase 81 U/L (39-117); Bilirubin,Direct < 0.2 mg/dL (0-0.3); Bilirubin,Total 0.3 mg/dL (0.1-1.0); Blood Urea Nitrogen 70 mg/dL (8-23); Calcium 8.4 mg/dL (8.6-10.4); Carbon Dioxide 27 mmol/L (22-30); Chloride 99 mmol/L (96-108); Globulin 3.5 gm/dL (2.2-3.7); Glomerular Filtration Rate 17; Glucose 121 mg/dL (70-105); Lactate Dehydrogenase 225 U/L (135-225); Phosphorous 4.8 mg/dL (2.5-4.5); Triglycerides 80 mg/dL (<150); Uric Acid 12.5 mg/dL (2.5-8.0)
[2021-04-06] MEDS ORDERED: PANTOPRAZOLE 40 MG TABLET PO SCH (07:30)
--- NOTE | 2021-04-06 07:31 | Nephrology Progress Note ---
SUBJECTIVE Subjective Patient information: Note initiated : 04/06/21 at 7:30 am Patient: Black Armstrong 80 y/o M admitted on 03/29/21 for Elevated Troponin. Chief Complaint: Weakness Pertinent ROS: Weakness Dependent edema Dyspnea at baseline Constitutional Vitals: Vital Signs Temp Pulse Resp BP Pulse Ox 97.7 F 60 14 164/67 96 04/06/21 02:57 04/06/21 02:57 04/06/21 02:57 04/06/21 02:57 04/06/21 02:57 Period Temp Pulse Resp BP Sys/Carter Pulse Ox Last 24 Hr 97.7 F-98.0 F 60-91 14-24 114-188/44-125 85-96 Intake and Output 04/05/21 04/06/21 04/06/21 21:59 05:59 13:59 Intake Total 360 180 Output Total 245 551 Balance 115 -371 Weight 306 lb 8 oz Intake & Output: Intake & Output 04/05/21 04/06/21 04/06/21 21:59 05:59 13:59 Intake Total 360 180 Output Total 245 551 Balance 115 -371 Weight 306 lb 8 oz Intake: IV 0 Lasix 250 mg In Sodium Chloride 0 0.9% 225 ml @ 5 MG/HR 5 mls/hr IV Q24H [facility] Rx#:[id number] Oral 360 180 Output: Urine Catheter Amount 70 Void Amount 175 550 # of times incontinent of urine 1 Other: Meal Dinner Percent of Meal Consumed 40% Feeding Ability Assist with Tray Set Up Urine Appearance Clear Clear Urine Color Light Kelsey Bright Yellow Urine Odor Normal Normal Stool Size Large Stool Color Brown Stool Consistency Soft # Bowel Movements 1 General appearance: cooperative and no acute distress Head Head exam: Present normal inspection Eye Eye exam: Present normal appearance ENT ENT exam: Present mucous membranes moist Respiratory Respiratory exam: Absent respiratory distress Cardiovascular Cardiovascular exam: Present normal rate and rhythm GI/Abdominal GI/Abdominal exam: Present soft; Absent tenderness Extremities Exam Extremities exam: Absent joint swelling and pedal edema Neurological Exam Neurological exam: Present alert and oriented X3 Psychiatric Psychiatric exam: Present normal affect and normal mood Skin Skin exam: Present warm; Absent rash A/P Assessment and plan (1) Chronic kidney disease (CKD) stage G4/A1, severely decreased glomerular filtration rate (GFR) between 15-29 mL/min/1.73 square meter and albuminuria creatinine ratio less than 30 mg/g: Assessment and plan: Black Armstrong is a 80-year-old male with coronary artery disease s/p stents, chronic combined systolic and diastolic heart failure (Echo on X: LVEF 50%, no segmental wall motion abnormalities, Grade I diastolic dysfunction), hypertension, chronic kidney disease stage 4 admitted on 03/29/21 for ileus. Baseline serum creatinine: 2.9 to 3.6 (eGFR 15 to 20) since April 2020. Nephrology consultation was requested for chronic kidney disease stage G4/A1 with suspected acute kidney injury. Chronic kidney disease stage G4/A1, suspected acute kidney injury with hyponatremia, present on arrival. There is no recent history of IV contrast administration or NSAID use. Previous Workup: Urinalysis on 02/18/21: Yellow, Clear, pH 6.0, SG 1.013, protein negative, blood negative, leukocyte esterase negative. Urine random total protein/creatinine on 08/03/20: 140 mg/g creatinine. Workup: Urinalysis on 04/01/21: Yellow, Clear, pH 7.0, SG 1.020, protein trace, blood large, leukocyte esterase small, random urine protein/creatinine 110 mg/g creatinine. CT Abdomen and Pelvis without contrast on 03/30/21: Both kidneys are relatively small. There is no stone, hydronephrosis or mass effect in either kidney. Right kidney is 9.6 cm in length and left is 10.1 cm. Treatment: Furosemide 10 mg/hr for fluid overload started on 04/02/21 and decreased to 5 mg/hr on 04/03/21 and changed to Bumetanide 4 mg daily on 04/05/21. Progress: Serum creatinine decreased from 3.6 to 3.2 in the past 24 hours. Baseline serum creatinine: 2.9 to 3.6 (eGFR 15 to 20) since April 2020. Urine output: 1,870 ml reported in the past 24 hours. Hyperkalemia, resolved. Hyponatremia associated with fluid overload, resolved. Fluid overload. I/O: -4.4L since admission. Weight: 295 lbs on admission (03/28/21); 306 lbs on 04/05/21. No uremic symptoms. Recommendations/Plan: Outpatient nephrology follow up with Dr Guerrero on 06/19/21. Status: Chronic (2) Acute kidney injury: Status: Suspected Time Spent With Patient Time: Total time spent is greater than 50% in coordination of care (as documented) at patient's floor/unit and/or counseling patient:
[2021-04-06] MEDS: INSULIN LISPRO 1 UNIT/0.01 ML UNIT SQ SCH ×2 (07:58→13:42)
[2021-04-06] MEDS: IPRATROPIUM/ALBUTEROL 3 ML AMPUL.NEB NEB SCH (08:36)
[2021-04-06] MEDS ORDERED: BUMETANIDE 1 MG TABLET PO SCH (09:00)
[2021-04-06] MEDS ORDERED: ATORVASTATIN 40 MG TABLET PO SCH (09:00)
[2021-04-06] MEDS ORDERED: FINASTERIDE 5 MG TABLET PO SCH (09:00)
[2021-04-06] MEDS ORDERED: rOPINIRole 0.25 MG TABLET PO SCH (09:00)
[2021-04-06] MEDS ORDERED: CITALOPRAM 20 MG TABLET PO SCH (09:00)
[2021-04-06] MEDS ORDERED: ASPIRIN 81 MG TAB.CHEW PO SCH (09:00)
[2021-04-06] MEDS ORDERED: TAMSULOSIN 0.4 MG CAPSULE PO SCH (09:00)
[2021-04-06] MEDS ORDERED: INSULIN GLARGINE, HUMAN 1 UNIT/0.01 ML SQ SCH (09:00)
[2021-04-06] MEDS: APIXABAN 5 MG TABLET PO SCH (09:16)
[2021-04-06] MEDS: DOCUSATE SODIUM 100 MG CAPSULE PO SCH (09:18)
--- NOTE | 2021-04-06 10:31 | Discharge Summary ---
Discharge Provider Provider Patient information: Note initiated : 04/06/21 at 10:28 am Service Date, if different from initiated Date: [] Patient: Black Armstrong 80 y/o M admitted on 03/29/21 for Elevated Troponin. Chief Complaint: [] Date of admission: 03/29/21 00:50 Discharge date: 04/06/21 Primary care physician: Bobby Saini MD Consults: 03/29/21 07:35 Consult to Physician [CONS] Routine Comment: Consulting Provider: Vikas Bryan Reason For Exam: Physician to Consult 03/30/21 11:32 Consult to Physician [CONS] Routine Comment: ?developing appendicitis Consulting Provider: Edwar Salas Reason For Exam: Physician to Consult 04/01/21 08:39 Consult to Physician [CONS] Routine Comment: Consulting Provider: Erick Muñoz Reason For Exam: Physician to Consult Discharge Meds Discharge Medications Home Medications aspirin 81 mg chewable tablet 81 mg PO QDAY tab 03/30/15 [History Confirmed 03/29/21 Last Taken 03/28/21] nitroglycerin 0.4 mg sublingual tablet 0.4 mg SUBLINGUAL PRN PRN 25 Days 11/27/17 [History Confirmed 03/29/21 Last Taken Unknown] atorvastatin 80 mg tablet 80 mg PO QDAY #90 tab 12/09/17 [Rx Confirmed 03/29/21 Last Taken 03/27/21] docusate sodium 100 mg capsule 100 mg PO QDAY PRN 06/25/19 [History Confirmed 03/29/21 Last Taken 03/28/21] albuterol sulfate 90 mcg/actuation breath activated powder inhaler 2 inh INHALATION Q6H PRN 03/02/20 [History Confirmed 03/29/21 Last Taken 03/28/21] ipratropium 0.5 mg-albuterol 3 mg (2.5 mg base)/3 mL nebulization soln 3 ml INHALATION Q6H PRN #540 ml 05/31/20 [Rx Confirmed 03/29/21 Last Taken 03/28/21] cholecalciferol (vitamin D3) 25 mcg (1,000 unit) capsule 25 mcg PO QDAY #30 cap 08/04/20 [Rx Confirmed 03/29/21 Last Taken 03/28/21] ascorbic acid (vitamin C) 100 mg tablet 100 mg PO QDAY 09/14/20 [History Confirmed 03/29/21 Last Taken 03/28/21] apixaban 5 mg tablet 5 mg PO BID 11/30/20 [History Confirmed 03/29/21 Last Taken 03/28/21] citalopram 20 mg tablet 20 mg PO QDAY #90 tab 12/01/20 [Rx Confirmed 03/29/21 Last Taken 03/28/21] finasteride 5 mg tablet 5 mg PO QDAY #90 tab 12/01/20 [Rx Confirmed 03/29/21 Last Taken 03/28/21] tamsulosin 0.4 mg capsule 0.4 mg PO QDAY #90 cap 12/01/20 [Rx Confirmed 03/29/21 Last Taken 03/28/21] bumetanide 2 mg tablet 4 mg PO QAM #180 tab 12/20/20 [Rx Confirmed 03/29/21 Last Taken 03/28/21] insulin aspart U-100 100 unit/mL (3 mL) subcutaneous pen 25 unit SUBCUT TID ml 02/23/21 [History Confirmed 03/29/21 Last Taken 03/28/21] pantoprazole 40 mg tablet,delayed release See Rx Instructions PO BID #180 tab 03/06/21 [Rx Confirmed 03/29/21 Last Taken 03/28/21] gabapentin 300 mg capsule 600 mg PO QHS PRN #180 cap 03/14/21 [Rx Confirmed 03/29/21 Last Taken 03/27/21] insulin glargine [Lantus U-100 Insulin] 20 unit SUBCUT QAM #10 ml 04/06/21 [Rx Last Taken Unknown] polyethylene glycol 3350 [Miralax] 17 g PO DAILYP PRN #30 ea 04/06/21 [Rx Last Taken Unknown] COURSE Hospital Course Hospital course: Mr. Armstrong is a 80 year old male who presented to ED with increased lower extremity swelling and abdominal discomfort. He was seen by his PCP earlier and felt to be in CHF exacerbation and diuretics were increased. However symptoms worsened and patient upcoming to ED. Chest x-ray from earlier today with pulmonary edema. Patient also complains of shortness of breath dyspnea on exertion weight gain. He was given Lasix in the ED with 800 cc output. Past 3 days with increasing swelling in his legs lethargy weakness worsening chronic cough shortness of breath. Denies any recent sick contacts. Vaginal nausea some constipation. Says is abdominal pain was lower quadrants and sharp. Her daughter is abdomen seems less bloated today after diuresis in ED last night. 03/30 Good urine output. Poor sleep last night. Complains of abdominal discomfort sharp pain lower quadrants. some nausea/headache 03/31 Multiple BMs last night. Patient overall feeling better. Cough. Currently on 2 L nasal cannula. Mild headache this morning. No nausea. 04/01 abx started given increased in crp/PCT and history of increased productive cough. Cough initially considered part of his copd, however, with increasing markers as above. poor UOP yesterday after good UOP first 24 hours but improved last night, but bump in Cr. 04/02 Nephrology started lasix drip, monitoring urine output and renal function. 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 Nephrology continuing same lasix drip dose. Deescalated abx from Zosyn to Cefuroxime for possible pneumonia. Added Requip for restless leg symptoms. 04/04 Continues on lasix drip. 04/05 Discontinued lasix drip, resumed home Bumex, remove dockery catheter, bladder scan Qshift. If renal function and electrolytes are stable tomorrow and no issues with urinary retention post cather removal can progress with discharge planning for SNF. 04/06 Discharged to SNF, did not resume Entresto due to CKD. Follow up with nephrology to reevaluate Entresto. Lower dose of Lantus at discharge as blood glucose was stable with Lantus 20 mg daily. Physical exam Head: Atraumatic, normal inspection. Eyes: normal appearance, no scleral icterus. Neck: full ROM Respiratory: no respiratory distress. Cardiovascular: normal rate and rhythm, S1, S2. GI/Abdominal: distended abdomen, soft, nontender, no guarding. Extremities: bilateral lower extremity edema, full range of motion. Neurological: CN II-XII intact, intact motor, intact sensation. Psychiatric: normal mood. Skin: warm, normal color Discharge diagnosis: Acute on chronic diastolic heart failure (previously HFrEF per ECHO) Secondary discharge diagnosis: Acute on chronic kidney injury Time Spent with Patient Time attestation: Total time spent providing and/or coordinating discharge s ervices: EXAM Constitutional Vitals: Temp Pulse Resp BP Pulse Ox 97.7 F 60 14 164/67 96 04/06/21 02:57 04/06/21 08:38 04/06/21 08:38 04/06/21 02:57 04/06/21 08:38 Discharge Data Data Completed and Pending Labs on day of discharge: Labs from last 24 hours 04/06/21 05:42 Sodium 137 Potassium 5.0 Chloride 99 Carbon Dioxide 27 Anion Gap 11.0 BUN 70 H Creatinine 3.2 H GFR Calculation 17 Glucose 121 H Uric Acid 12.5 H Calcium 8.4 L Phosphorus 4.8 H Magnesium 2.3 Total Bilirubin 0.3 Direct Bilirubin < 0.2 GGT 17 AST 28 ALT 33 Alkaline Phosphatase 81 Lactate Dehydrogenase 225 Total Protein 6.8 Albumin 3.3 Globulin 3.5 Albumin/Globulin Ratio 0.9 L Triglycerides 80 Discharge Plan Patient/Caregiver Discharge Instructions Activity: as per physical therapy Diet: Low Sodium (2gm) Prescriptions: New polyethylene glycol 3350 [Miralax] 17 gram Powder In Packet 17 g PO DAILYP PRN (Reason: Constipation) Qty: 30 RF: 0 Lantus U-100 Insulin 100 unit/mL Solution 20 unit subcut QAM Qty: 10 RF: 4 Continued atorvastatin 80 mg tablet 80 mg PO QDAY Qty: 90 RF: 1 citalopram [Celexa] 20 mg tablet 20 mg PO QDAY Qty: 90 RF: 1 tamsulosin [Flomax] 0.4 mg capsule 0.4 mg PO QDAY Qty: 90 RF: 1 finasteride [Proscar] 5 mg tablet 5 mg PO QDAY Qty: 90 RF: 1 gabapentin [Neurontin] 300 mg capsule 600 mg PO QHS PRN (Reason: peripheral neuropathy) Qty: 180 RF: 1 aspirin 81 mg tablet,chewable 81 mg PO QDAY RF: 0 albuterol sulfate 90 mcg/actuation aerosol powdr breath activated 2 inh INHALATION Q6H PRN (Reason: Shortness Of Breath) RF: 0 insulin aspart U-100 [Novolog Flexpen U-100 Insulin] 100 unit/mL (3 mL) insulin pen 25 unit subcut TID RF: 0 nitroglycerin 0.4 mg tablet, sublingual 0.4 mg SUBLINGUAL PRN PRN (Reason: Chest Pain) 25 Days RF: 0 docusate sodium 100 mg capsule 100 mg PO QDAY PRN (Reason: Constipation) RF: 0 cholecalciferol (vitamin D3) 25 mcg (1,000 unit) capsule 25 mcg PO QDAY Qty: 30 RF: 11 ascorbic acid (vitamin C) 100 mg tablet 100 mg PO QDAY RF: 0 pantoprazole 40 mg tablet,delayed release (DR/EC) See Rx Instructions PO BID Qty: 180 RF: 3 bumetanide 2 mg tablet 4 mg PO QAM Qty: 180 RF: 3 ipratropium-albuterol 0.5 mg-3 mg(2.5 mg base)/3 mL solution for nebulization 3 ml INHALATION Q6H PRN (Reason: shortness of breath or wheezing) Qty: 540 RF: 3 Eliquis 5 mg tablet 5 mg PO BID RF: 0 Discontinued (DME) Dexcom G6 [employer] Misc See Rx Instructions .ROUTE .MEDSUPPLY Qty: 1 RF: 0 (DME) Dexcom G6 Sensor Device See Rx Instructions .ROUTE .MEDSUPPLY Qty: 3 RF: 7 (DME) Dexcom G6 Transmitter Device See Rx Instructions .ROUTE .MEDSUPPLY Qty: 1 RF: 5 Entresto 24-26 mg tablet 1 tab PO BID Qty: 180 RF: 3 Lantus U-100 Insulin 100 unit/mL solution 40 unit SUB-Q BID RF: 0 Follow Up Plan Follow up with: Erick Muñoz MD [Physician] - Bobby Saini MD [Primary Care Provider] - Patient Disposition: Xfer SNF Rehab Potential: Fair I certify that the patient requires SNF services: Yes Overall status at discharge: patient is progressing back to baseline Discharge Orders: Discharge Order (Routine); Ordered 04/06/21 Ordered By: Willie Shen
== END 2021-04-06 13:00 ==
LOC: ED 21:08 → ICU 03-29 00:50 → MEDSUR 04-05 20:13
PROVIDERS: ADMIT Internal Medicine; ATTEND Internal Medicine